=== PATIENT | male | born 1935 | race Caucasian/White ===

== ENCOUNTER → 2018-05-29 02:46 | Outpatient (CLI) | payer MEDICARE, OTHER, SELFPAY ==
[2018-05-29 10:43] LABS: Anion Gap 11.6 mmol/L (3-11); BUN 19 mg/dL (7-18); CO2 24.4 mmol/L (21.0-32.0); CREATININE 1.13 mg/dL (0.70-1.30); Calcium 8.6 mg/dL (8.5-10.1); Chloride 107 mmol/L (98-107); Cholesterol 118 mg/dL (50-200); Glucose 105 mg/dL (70-100); HDL Cholesterol 42 mg/dL (40-60); LDL CHOLESTEROL 64 mg/dL (<100); Potassium 4.6 mmol/L (3.5-5.1); Sodium 143 mmol/L (136-145); Triglyceride 79 mg/dL (30-150)
[2018-05-29 12:14] LABS: Microalb ug/mg Crea 13.7 ug/mg Cr
== END ==
PROVIDERS: PCP Internal Medicine; Visit Provider Internal Medicine
DX: I10 Essential (primary) hypertension (principal); E11.9 Type 2 diabetes mellitus without complications
CPT/HCPCS: 36415; 80048; 80061; 83721; 82043; 82570

== ENCOUNTER 2018-08-12 12:24 | Outpatient (CLI) | payer MEDICARE, OTHER, SELFPAY ==
--- NOTE | 2018-08-12 12:23 | DI.RAD_ITS ---
SYMPTOMS/DIAGNOSIS: FIERRO, SOB, R06.09 CHEST: Frontal and lateral views. Comparison 04/05/11 and 03/11/12. The heart is mildly enlarged. There does appear to be prominence of the pulmonary vascularity. There is a background of prominent interstitial markings likely reflecting chronic pulmonary fibrosis. There do appear to be increased interstitial prominence on top of the chronic changes suggesting interstitial edema. No focal consolidating infiltrate is identified. There is a small amount of fluid seen in the fissure. There is again seen a right convex scoliosis of the thoracic spine. Moderate degenerative changes are seen in the spine. IMPRESSION: Findings suspicious for a mild CHF.
[2018-08-12 13:26] LABS: HCT 47.4 % (40.0-50.0); HGB 15.5 g/dL (13.5-17.5); Mean Corp. HGB Concentration 32.7 g/dL (32.0-36.0); Mean Corpuscular Volume 91.7 fL (80-95); Mean Platelet Volume 11.3 fL (8.0-11.0); Platelet Count 196 x1000/uL (130-400); RBC 5.17 m/cumm (4.50-6.00); RBC Distribution Width 16.1 % (11.8-14.1); White Blood Cell Count 11.08 k/cumm (4.4-10.8)
== END 2018-08-12 12:44 ==
PROVIDERS: PCP Internal Medicine; Visit Provider Nurse Practitioner
DX: R06.09 Other forms of dyspnea (principal); R06.02 Shortness of breath; I50.9 Heart failure, unspecified; I51.7 Cardiomegaly
CPT/HCPCS: 36415; 85027; 71046

== ENCOUNTER 2018-09-30 13:37 | Outpatient (CLI) | payer MEDICARE, OTHER, SELFPAY ==
[2018-09-30 14:38] LABS: HCT 50.9 % (40.0-50.0); HGB 16.7 g/dL (13.5-17.5); Mean Corp. HGB Concentration 32.8 g/dL (32.0-36.0); Mean Corpuscular Hemoglobin 29.9 pg (27.0-33.0); Mean Corpuscular Volume 91.2 fL (80-95); RBC 5.58 m/cumm (4.50-6.00); RBC Distribution Width 16.2 % (11.8-14.1); White Blood Cell Count 9.42 k/cumm (4.4-10.8)
[2018-09-30 16:06] LABS: ALT 20 U/L (12-78); AST 21 U/L (15-37); Albumin 3.3 g/dL (3.4-5.0); Alkaline Phosphatase 62 U/L (46-116); Anion Gap 8.8 mmol/L (3-11); BUN 18 mg/dL (7-18); CO2 26.2 mmol/L (21.0-32.0); CREATININE 1.12 mg/dL (0.70-1.30); Calcium 9.3 mg/dL (8.5-10.1); Chloride 107 mmol/L (98-107); Glucose 93 mg/dL (70-100); Potassium 4.5 mmol/L (3.5-5.1); Sodium 142 mmol/L (136-145); TSH 1.45 uIU/mL (0.358-3.74); Vitamin B12 436 pg/mL (193-986)
[2018-10-01 12:20] LABS: Syphilis Serology (RPR) Negative (Negative)
== END 2018-09-30 13:57 ==
PROVIDERS: PCP Internal Medicine; Visit Provider Internal Medicine
DX: R41.3 Other amnesia (principal)
CPT/HCPCS: 36415; 80053; 85027; 82607; 84443; 86140; 86592

== ENCOUNTER 2018-10-06 00:25 | Outpatient (CLI) | payer MEDICARE, OTHER, SELFPAY ==
--- NOTE | 2018-10-06 13:40 | DI.MRI_ITS ---
SYMPTOMS/DIAGNOSIS: MEMORY LOSS, AMNESIA, R41.3 BRAIN MRI: MRI examination of the brain was performed according to the usual protocol. There is marked generalized cerebral atrophy and there are areas of abnormal signal in the periventricular white matter bilaterally consistent with small vessel disease. No other significant signal abnormality identified in the brain. Diffusion weighted imaging is within normal limits. Susceptibility weighted imaging shows no evidence of intracranial hemorrhage. Apparent small old tiny pontine infarct noted just to the right of midline. There is unremarkable flow void in the [place] vasculature. The orbital and temporal bone structures appear intact. CONCLUSION: Atrophy and marked microvascular ischemic changes. No other focal findings.
== END 2018-10-06 00:45 ==
PROVIDERS: PCP Internal Medicine; Visit Provider Internal Medicine
DX: R41.3 Other amnesia (principal); G31.1 Senile degeneration of brain, not elsewhere classified
CPT/HCPCS: 70551

== ENCOUNTER 2018-10-11 21:41 | Inpatient (IN) | payer MEDICARE, OTHER, SELFPAY ==
[2018-10-11] VITALS (14 sets, daily range): BP systolic 176; BP diastolic 74; PULSE 67–77; RESP 15–26; TEMP 36.6; O2SAT 84–94
--- NOTE | 2018-10-11 21:57 | DI.CT_ITS ---
SYMPTOMS/DIAGNOSIS: ALTERED MENTAL STATUS NONCONTRAST HEAD CT: Comparison is made with [id number]. No intracranial hemorrhage, mass or infarct is seen. There is no evidence of skull fracture. Atrophy and white matter changes are stable. IMPRESSION: Chronic white matter change, likely representing small vessel disease. No acute abnormality.
--- NOTE | 2018-10-11 21:57 | DI.RAD_ITS ---
SYMPTOMS/DIAGNOSIS: ALTERED MENTAL STATUS SEMIERECT CHEST: Comparison is made with [id number]. The heart is grossly enlarged. There are underlying fibrotic changes. No focal infiltrate or effusion is seen. The lungs are suboptimally inflated. Mild pulmonary edema can not be excluded. IMPRESSION: Limited exam. Question of mild pulmonary edema vs chronic fibrotic changes.
--- NOTE | 2018-10-11 21:57 | W.ED.GENAD ---
Discharge Plan Disposition Patient Disposition: [facility] INPATIENT Condition: Stable Discharge Details Chief Complaint: CVA/TIA Clinical Impression: Delirium Reason For Visit: ARIEL Primary Care Provider: Sheyla Berumen ED Provider: Sohail Chang Home Meds and New Rx's Prescriptions: No Action loperamide [Imodium A-D] 2 MG tablet 2 mg PO DAILY PRNRF: 0 hydrocortisone 30 GM cream 1 applic Topical TID PRNQty: 1 RF: 1 metformin 500 MG tablet 500 mg PO BID Qty: 180 RF: 3 warfarin 5 MG tablet 5 mg PO DAILY Qty: 90 RF: 3 nitroglycerin 0.4 MG tablet, sublingual 0.4 mg Sublingual PRN Qty: 25 RF: 6 FreeStyle Lite Strips 1 EACH strip 1 ea Miscellaneous DAILY Qty: 100 RF: 4 lancets 1 EACH misc 1 ea Miscellaneous DAILY Qty: 100 RF: 4 atorvastatin [Lipitor] 80 MG tablet 80 mg PO DAILY Qty: 90 RF: 1 propranolol 20 MG tablet 20 mg PO BID Qty: 180 RF: 3 lisinopril 20 mg tablet 20 mg PO DAILY Qty: 90 RF: 2 Medical Decision Making 83 yo male with hx of PE on coumadin, cardiovascular disease, who has had a progressive decrease in his mental status over the past month but all day today has been worse per family. HAs been doing strange things all day today that is very abnormal for him like taking things out of the freezer and wandering around the house. HE was reportedly minimally responsive earlier as well. HE currently is talking and awake, doesn't know his name, time or date. HE is accaompanied by his daughter and son in law. HE is moving all extremities without drift. EOMI. NIH of 7 on my exam (1 for dysarthria, 1 for aphasia, ataxia in both arms 2, mild left sided facial assymetry with smiling 1, and 2 for month and age). Pt's last known well was beyond today so not a lytic candidate. Will obtain ct head and also eval for electrolyte abnormalities and monitor. pt remains stable, awaiting imaging, labs show no acute abnormalities. HE does decrease into the high 80's saturation when he moves around but then goes into the mid 90's at rest. Denies chest pain xray shows pulmonary edema and he has no documented hx of chf and not on diuretics, ct head shows no acute findings. Still has slurred speech, doesn't know his name or time. Given his acute change in mental status today without clear cause will admit for further monitoring and workup Differential Diagnosis uti, electrolyte abnormality, cva Imaging Data Radiologic Study: Attestation: I personally reviewed and interpreted this imaging study as follows: Imaging: X-Ray Radiologist's impression: EXAM DATE/TIME: 10/11/2018 9:58 PM CLINICAL HISTORY: 83 years old, male; Pain; Other: Altered mental status TECHNIQUE: XR of the chest, 1 view. COMPARISON: CR XR CHEST 2V PA LATERAL 08/12/2018 12:15 PM FINDINGS: Lungs: Pulmonary vasculature is indistinct and there are interstitial markings. Pleural space: Unremarkable. No evidence of pneumothorax. Heart/Mediastinum: Unremarkable. Heart size within normal limits for technique. Bones/joints: Unremarkable. IMPRESSION: Pulmonary edema. Radiologic Study #2: Attestation: I personally reviewed and interpreted this imaging study as follows: Imaging: CT Scan Radiologist's impression: EXAM: CT Head Without Contrast EXAM DATE/TIME: 10/11/2018 9:58 PM CLINICAL HISTORY: 83 years old, male; Pain; Other: Altered mental status TECHNIQUE: Axial computed tomography images of the head/brain without contrast. Coronal and sagittal reformatted images were created and reviewed. COMPARISON: MR brain wo 10/06/2018 3:44 PM FINDINGS: Brain: Chronic white matter changes better characterized on a prior MRI. No hemorrhage. No evidence of acute infarct. No mass. Ventricles: No ventriculomegaly. Bones/joints: Unremarkable. Sinuses: No sinus fluid. Mastoid air cells: Unremarkable. Soft tissues: Unremarkable. IMPRESSION: No acute intracranial abnormality. Lab Data Lab results reviewed: Yes I reviewed the patient's lab results. ECG Data Attestation: I personally reviewed and interpreted this ECG (s) as follows: Prior ECG tracings: not available for review Interpretation: significant artifact but appears to be ventricular bigeminy, rate of 75, qtc 460 HPI General Mode of arrival: EMS. Date/Time Provider Initiated Documentation: 10/11/18 21:44. Limitations to Documentation: altered mental status. Information obtained by: family. History of Present Illness 83 year old M presents to the emergency department with the chief complaint of altered mental status, described as moderate, Patient reports no radiation. Patient started experiencing this day(s) (1) and it has been constant. No relieving factors improve symptom(s), No exacerbating factors reported . Patient did receive the following treatments prior to arrival, none Related Data Home Medications Medication Instructions Recorded Confirmed loperamide [Imodium A-D] 2 mg PO DAILY PRN 01/29/14 10/11/18 hydrocortisone 1 applic TOPICAL TID PRN #1 script 02/03/15 10/08/18 metformin 500 mg PO BID #180 tab-cap 02/14/17 10/11/18 warfarin 5 mg PO DAILY #90 tab-cap 07/16/17 10/11/18 nitroglycerin 0.4 mg SUBLINGUAL PRN #25 tab-cap 12/11/17 10/11/18 blood sugar diagnostic [Freestyle #100 strip 01/31/18 10/08/18 Lite Test Strips] lancets #100 ea 01/31/18 10/08/18 atorvastatin [Lipitor] 80 mg PO DAILY #90 tab-cap 04/22/18 10/11/18 propranolol 20 mg PO BID #180 tab-cap 04/24/18 10/11/18 lisinopril 20 mg tablet 20 mg PO DAILY #90 tab-cap 08/05/18 10/11/18 Previous Rx's Medication Instructions Recorded warfarin 5 mg PO DAILY #90 tab-cap 07/16/17 nitroglycerin 0.4 mg SUBLINGUAL PRN #25 tab-cap 12/11/17 blood sugar diagnostic [Freestyle #100 strip 01/31/18 Lite Test Strips] lancets #100 ea 01/31/18 atorvastatin [Lipitor] 80 mg PO DAILY #90 tab-cap 04/22/18 propranolol 20 mg PO BID #180 tab-cap 04/24/18 lisinopril 20 mg tablet 20 mg PO DAILY #90 tab-cap 08/05/18 Allergies Allergy/AdvReac Type Severity Reaction Status Date / Time Penicillins Allergy Unknown unknown Verified 10/08/18 17:48 General Stated Complaint: CVA/TIA ALTA: 2 Review of Systems Review of Systems Unobtainable due to mental status [facility] Medical History Obstructive sleep apnea syndrome (Chronic 11/23/11) Essential hypertension (Chronic 07/08/13) Diabetes mellitus type 2 in obese (Chronic 02/05/17) ASCVD (arteriosclerotic cardiovascular disease) (Chronic 11/23/11) Family History Mother Dementia Father Heart disease Stroke Brother Dementia Brother Myocardial infarction Sister No problems noted. 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 working smoke detector in home: Yes fire extinguisher in home: Yes carbon monox detector in home: Yes Exam Const General: no acute distress Orientation: alert HENMT Head: normal to inspection Ears: external ears normal General nose exam: external nose normal Mouth: moist mucous membranes Eyes General: appearance normal, both eyes and all related structures Neck Neck: normal visual inspection Resp Effort & Inspection: normal respiratory effort and able to speak in complete sentences Cardio Rate: regular rate Skin General skin exam: no rashes or lesions noted Neuro General: alert Extrem General: normal to inspection Psych Mental Status: mental status grossly normal Course Vital Signs Temperature 36.6 C 10/11/18 21:43 Pulse 68 10/11/18 21:43 Respiratory Rate 16 10/11/18 21:43 Blood Pressure 176/74 H 10/11/18 21:43 Pulse Oximetry 90 L 10/11/18 21:43 Temperature 36.6 C 10/11/18 21:43 Temperature Source Tympanic 10/11/18 21:43 Pulse 68 10/11/18 21:43 Respiratory Rate 16 10/11/18 21:43 Respiratory Effort 10/11/18 21:46 Blood Pressure 176/74 H 10/11/18 21:43 Blood Pressure Position Supine 10/11/18 21:43 Pulse Oximetry 90 L 10/11/18 21:43 Oxygen Delivery Method Room Air 10/11/18 21:43 Oxygen Flow Rate 0 10/11/18 21:43
--- NOTE | 2018-10-11 22:04 | ED.GENADUL_ITS ---
Discharge Plan Disposition Patient Disposition: [facility] INPATIENT Condition: Stable Discharge Details Chief Complaint: CVA/TIA Clinical Impression: Delirium Reason For Visit: ARIEL Primary Care Provider: Sheyla Berumen ED Provider: Sohail Chang Home Meds and New Rx's Prescriptions: No Action loperamide [Imodium A-D] 2 MG tablet 2 mg PO DAILY PRNRF: 0 hydrocortisone 30 GM cream 1 applic Topical TID PRNQty: 1 RF: 1 metformin 500 MG tablet 500 mg PO BID Qty: 180 RF: 3 warfarin 5 MG tablet 5 mg PO DAILY Qty: 90 RF: 3 nitroglycerin 0.4 MG tablet, sublingual 0.4 mg Sublingual PRN Qty: 25 RF: 6 FreeStyle Lite Strips 1 EACH strip 1 ea Miscellaneous DAILY Qty: 100 RF: 4 lancets 1 EACH misc 1 ea Miscellaneous DAILY Qty: 100 RF: 4 atorvastatin [Lipitor] 80 MG tablet 80 mg PO DAILY Qty: 90 RF: 1 propranolol 20 MG tablet 20 mg PO BID Qty: 180 RF: 3 lisinopril 20 mg tablet 20 mg PO DAILY Qty: 90 RF: 2 Medical Decision Making 83 yo male with hx of PE on coumadin, cardiovascular disease, who has had a progressive decrease in his mental status over the past month but all day today has been worse per family. HAs been doing strange things all day today that is very abnormal for him like taking things out of the freezer and wandering around the house. HE was reportedly minimally responsive earlier as well. HE currently is talking and awake, doesn't know his name, time or date. HE is accaompanied by his daughter and son in law. HE is moving all extremities without drift. EOMI. NIH of 7 on my exam (1 for dysarthria, 1 for aphasia, ataxia in both arms 2, mild left sided facial assymetry with smiling 1, and 2 for month and age). Pt's last known well was beyond today so not a lytic candidate. Will obtain ct head and also eval for electrolyte abnormalities and monitor. pt remains stable, awaiting imaging, labs show no acute abnormalities. HE does decrease into the high 80's saturation when he moves around but then goes into the mid 90's at rest. Denies chest pain xray shows pulmonary edema and he has no documented hx of chf and not on diuretics, ct head shows no acute findings. Still has slurred speech, doesn't know his name or time. Given his acute change in mental status today without clear cause will admit for further monitoring and workup Differential Diagnosis uti, electrolyte abnormality, cva Imaging Data Radiologic Study: Attestation: I personally reviewed and interpreted this imaging study as follows: Imaging: X-Ray Radiologist's impression: EXAM DATE/TIME: 10/11/2018 9:58 PM CLINICAL HISTORY: 83 years old, male; Pain; Other: Altered mental status TECHNIQUE: XR of the chest, 1 view. COMPARISON: CR XR CHEST 2V PA LATERAL 08/12/2018 12:15 PM FINDINGS: Lungs: Pulmonary vasculature is indistinct and there are interstitial markings. Pleural space: Unremarkable. No evidence of pneumothorax. Heart/Mediastinum: Unremarkable. Heart size within normal limits for technique. Bones/joints: Unremarkable. IMPRESSION: Pulmonary edema. Radiologic Study #2: Attestation: I personally reviewed and interpreted this imaging study as follows: Imaging: CT Scan Radiologist's impression: EXAM: CT Head Without Contrast EXAM DATE/TIME: 10/11/2018 9:58 PM CLINICAL HISTORY: 83 years old, male; Pain; Other: Altered mental status TECHNIQUE: Axial computed tomography images of the head/brain without contrast. Coronal and sagittal reformatted images were created and reviewed. COMPARISON: MR brain wo 10/06/2018 3:44 PM FINDINGS: Brain: Chronic white matter changes better characterized on a prior MRI. No hemorrhage. No evidence of acute infarct. No mass. Ventricles: No ventriculomegaly. Bones/joints: Unremarkable. Sinuses: No sinus fluid. Mastoid air cells: Unremarkable. Soft tissues: Unremarkable. IMPRESSION: No acute intracranial abnormality. Lab Data Lab results reviewed: Yes I reviewed the patient's lab results. ECG Data Attestation: I personally reviewed and interpreted this ECG (s) as follows: Prior ECG tracings: not available for review Interpretation: significant artifact but appears to be ventricular bigeminy, rate of 75, qtc 460 HPI General Mode of arrival: EMS . Date/Time Provider Initiated Documentation: 10/11/18 21:44 . Limitations to Documentation: altered mental status . Information obtained by: family . History of Present Illness 83 year old M presents to the emergency department with the chief complaint of altered mental status, described as moderate, Patient reports no radiation. Patient started experiencing this day(s) (1) and it has been constant. No relieving factors improve symptom(s), No exacerbating factors reported . Patient did receive the following treatments prior to arrival, none Related Data Home Medications Medication Instructions Recorded Confirmed loperamide [Imodium A-D] 2 mg PO DAILY PRN 01/29/14 10/11/18 hydrocortisone 1 applic TOPICAL TID PRN #1 script 02/03/15 10/08/18 metformin 500 mg PO BID #180 tab-cap 02/14/17 10/11/18 warfarin 5 mg PO DAILY #90 tab-cap 07/16/17 10/11/18 nitroglycerin 0.4 mg SUBLINGUAL PRN #25 tab-cap 12/11/17 10/11/18 blood sugar diagnostic [Freestyle #100 strip 01/31/18 10/08/18 Lite Test Strips] lancets #100 ea 01/31/18 10/08/18 atorvastatin [Lipitor] 80 mg PO DAILY #90 tab-cap 04/22/18 10/11/18 propranolol 20 mg PO BID #180 tab-cap 04/24/18 10/11/18 lisinopril 20 mg tablet 20 mg PO DAILY #90 tab-cap 08/05/18 10/11/18 Previous Rx's Medication Instructions Recorded warfarin 5 mg PO DAILY #90 tab-cap 07/16/17 nitroglycerin 0.4 mg SUBLINGUAL PRN #25 tab-cap 12/11/17 blood sugar diagnostic [Freestyle #100 strip 01/31/18 Lite Test Strips] lancets #100 ea 01/31/18 atorvastatin [Lipitor] 80 mg PO DAILY #90 tab-cap 04/22/18 propranolol 20 mg PO BID #180 tab-cap 04/24/18 lisinopril 20 mg tablet 20 mg PO DAILY #90 tab-cap 08/05/18 Allergies Allergy/AdvReac Type Severity Reaction Status Date / Time Penicillins Allergy Unknown unknown Verified 10/08/18 17:48 General Stated Complaint: CVA/TIA ALTA: 2 Review of Systems Review of Systems Unobtainable due to mental status [facility] Medical History Obstructive sleep apnea syndrome (Chronic 11/23/11) Essential hypertension (Chronic 07/08/13) Diabetes mellitus type 2 in obese (Chronic 02/05/17) ASCVD (arteriosclerotic cardiovascular disease) (Chronic 11/23/11) Family History Mother Dementia Father Heart disease Stroke Brother Dementia Brother Myocardial infarction Sister No problems noted. 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 working smoke detector in home: Yes fire extinguisher in home: Yes carbon monox detector in home: Yes Exam Const General: no acute distress Orientation: alert HENMT Head: normal to inspection Ears: external ears normal General nose exam: external nose normal Mouth: moist mucous membranes Eyes General: appearance normal, both eyes and all related structures Neck Neck: normal visual inspection Resp Effort & Inspection: normal respiratory effort and able to speak in complete sentences Cardio Rate: regular rate Skin General skin exam: no rashes or lesions noted Neuro General: alert Extrem General: normal to inspection Psych Mental Status: mental status grossly normal Course Vital Signs Temperature 36.6 C 10/11/18 21:43 Pulse 68 10/11/18 21:43 Respiratory Rate 16 10/11/18 21:43 Blood Pressure 176/74 H 10/11/18 21:43 Pulse Oximetry 90 L 10/11/18 21:43 Temperature 36.6 C 10/11/18 21:43 Temperature Source Tympanic 10/11/18 21:43 Pulse 68 10/11/18 21:43 Respiratory Rate 16 10/11/18 21:43 Respiratory Effort 10/11/18 21:46 Blood Pressure 176/74 H 10/11/18 21:43 Blood Pressure Position Supine 10/11/18 21:43 Pulse Oximetry 90 L 10/11/18 21:43 Oxygen Delivery Method Room Air 10/11/18 21:43 Oxygen Flow Rate 0 10/11/18 21:43
[2018-10-11 22:24] LABS: Abs Immature Grans 0.02 k/cumm (0.0-0.09); Absolute Basophil Count 0.04 k/cumm (0.0-0.2); Absolute Eosinophil Count 0.23 k/cumm (0.0-0.7); Absolute Lymphocyte Count 1.41 k/cumm (1.2-3.4); Absolute Monocyte Count 1.46 k/cumm (0.11-0.7); Absolute Neutrophil Count 6.93 k/cumm (1.2-6.7); Basophils % 0.4; Eosinophils % 2.3; HCT 50.5 % (40.0-50.0); HGB 16.8 g/dL (13.5-17.5); Immature Grans % 0.2; Mean Corp. HGB Concentration 33.3 g/dL (32.0-36.0); Mean Corpuscular Hemoglobin 30.1 pg (27.0-33.0); Mean Corpuscular Volume 90.3 fL (80-95); Mean Platelet Volume 11.8 fL (8.0-11.0); Monocytes % 14.5; Neutrophils % 68.6; Platelet Count 176 x1000/uL (130-400); RBC 5.59 m/cumm (4.50-6.00); RBC Distribution Width 15.9 % (11.8-14.1); White Blood Cell Count 10.09 k/cumm (4.4-10.8)
[2018-10-11 22:34] LABS: Ammonia 31 umol/L (11-32)
[2018-10-11 22:37] LABS: ALT 21 U/L (12-78); AST 21 U/L (15-37); Albumin 3.3 g/dL (3.4-5.0); Alkaline Phosphatase 66 U/L (46-116); Anion Gap 7.7 mmol/L (3-11); BUN 19 mg/dL (7-18); Bilirubin, Direct 0.37 mg/dL (0.00-0.20); Bilirubin, Total 1.5 mg/dL (0.2-1.0); CO2 26.3 mmol/L (21.0-32.0); CREATININE 0.99 mg/dL (0.70-1.30); Calcium 9.5 mg/dL (8.5-10.1); Chloride 101 mmol/L (98-107); Glucose 107 mg/dL (70-100); Lipase 311 U/L (73-393); Magnesium 1.9 mg/dL (1.8-2.4); Potassium 4.2 mmol/L (3.5-5.1); Sodium 135 mmol/L (136-145); Total Protein 7.6 g/dL (6.4-8.2); Troponin I 0.05 ng/mL (0.00-0.06)
[2018-10-11 22:44] LABS: Bilirubin Negative (Negative); Blood Moderate (Negative); Clarity Clear; Glucose Negative (Negative); Ketones 15 mg/dL (Negative); Leukocyte Esterase Negative (Negative); Nitrite Negative (Negative); pH 6.5 (5-8)
[2018-10-11 22:47] LABS: ETHANOL BLOOD < 3.0 mg/dL (<3)
[2018-10-11 22:51] LABS: Bacteria Negative HPF (Negative); C & S Indicated? No; Casts Negative LPF (Negative); Crystals Negative HPF (Negative); Epithelial Cells Negative HPF (Negative); Mucus Negative (Negative); WBC Negative HPF (0-5)
[2018-10-11 22:54] LABS: *AMPHETAMINES SCREEN URINE Negative (Negative); *BARBITURATES SCREEN URINE Negative (Negative); *BENZODIAZEPINES SCREEN URINE Negative (Negative); Cannabinoids THC Negative (Negative); Cocaine Screen,Urine Negative (Negative); METHADONE URINE SCREEN Negative (Negative); OPIATES URINE SCREEN Negative (Negative)
[2018-10-11 22:59] LABS: Tricyclic Antidepressants Negative (Negative)
[2018-10-11 23:02] LABS: Acetaminophen < 2 ug/mL (10-30); Salicylate < 2.8 mg/dL (2.8-20.0)
[2018-10-11 23:14] LABS: INR 2.6 (1.0-3.5); PTT Activated 34.1 sec (21.0-31.4); Prothrombin Time 26.2 sec (9.3-11.0)
--- NOTE | 2018-10-11 23:59 | DI.VRAD_ITS ---
EXAM: CT Head Without Contrast EXAM DATE/TIME: 10/11/2018 9:58 PM CLINICAL HISTORY: 83 years old, male; Pain; Other: Altered mental status TECHNIQUE: Axial computed tomography images of the head/brain without contrast. Coronal and sagittal reformatted images were created and reviewed. COMPARISON: MR brain wo 10/06/2018 3:44 PM FINDINGS: Brain: Chronic white matter changes better characterized on a prior MRI. No hemorrhage. No evidence of acute infarct. No mass. Ventricles: No ventriculomegaly. Bones/joints: Unremarkable. Sinuses: No sinus fluid. Mastoid air cells: Unremarkable. Soft tissues: Unremarkable. IMPRESSION: No acute intracranial abnormality. Dictated and Authenticated by: Gentry Nesbitt MD. Ordering:OMID Sauceda MD
[2018-10-12] VITALS (57 sets, daily range): BP systolic 117–190; BP diastolic 52–104; PULSE 68–88; RESP 14–32; TEMP 36.5–37.3; O2SAT 83–97
--- NOTE | 2018-10-12 | DI.VRAD_ITS ---
EXAM: XR Chest, 1 View EXAM DATE/TIME: 10/11/2018 9:58 PM CLINICAL HISTORY: 83 years old, male; Pain; Other: Altered mental status TECHNIQUE: XR of the chest, 1 view. COMPARISON: CR XR CHEST 2V PA LATERAL 08/12/2018 12:15 PM FINDINGS: Lungs: Pulmonary vasculature is indistinct and there are interstitial markings. Pleural space: Unremarkable. No evidence of pneumothorax. Heart/Mediastinum: Unremarkable. Heart size within normal limits for technique. Bones/joints: Unremarkable. IMPRESSION: Pulmonary edema. Dictated and Authenticated by: Gentry Nesbitt MD. Ordering:OMID Sauceda MD
[2018-10-12] MEDS: Furosemide 20 MG/2 ML VIAL IVP ×3 (00:36→16:46)
[2018-10-12] MEDS: Aspirin 325 MG TAB PO (00:42)
--- NOTE | 2018-10-12 01:18 | NUR.NOTE ---
Nursing Note: episode of vomiting and bowel incontinence x 1. Light suctioning done, pt tolerated well. Incontinence care given, new brief applied. Linens changed.
--- NOTE | 2018-10-12 01:20 | HPE_ITS ---
Date of service: 10/12/18 Time of Service: 01:08 Assessment and Plan (1) Dementia: Start date: 10/11/18 Current visit: Yes Status: Acute This is an 83-year-old gentleman who has had a rapid deterioration of his mental status over the last month worsening today. His dementia workup is ongoing and is unspecified type presently but thought to be either Lewy body dementia versus vascular dementia and possibly Alzheimer's type dementia of late onset but his family history. He has had palliative care consult recently and is a DNR DNI. Is worsening today with delusions may be secondary to new onset of what appears to be pulmonary edema with suggestion of CHF on chest x-ray in July 2018 though there was also some concern for pulmonary fibrosis. Patient does have a history of obstructive sleep apnea. He is in no acute respiratory distress on exam today. His agitation is increasing and we will treat this acutely while doing further workup for treatable causes of his acute mental status deterioration. He does not appear to be severely hypoxic and CT scan was unrevealing. Qualifiers: Dementia type: unspecified type Dementia behavioral disturbance: with behavioral disturbance Qualified Code(s): F03.91 - Unspecified dementia with behavioral disturbance (2) Pulmonary edema: Start date: 10/11/18 Current visit: Yes Status: Acute The possible progressive problem and we will treat with IV diuretics the patient's blood pressure also been slightly elevated with his agitation. Echocardiogram will be ordered for update and his troponins will be trended with his history of atherosclerotic coronary artery disease though is having no evidence of acute cardiac ischemia. Qualifiers: Chronicity: acute Qualified Code(s): J81.0 - Acute pulmonary edema (3) ASCVD (arteriosclerotic cardiovascular disease): Start date: 10/11/18 Current visit: No Status: Chronic Trend troponins and monitor on telemetry while treating his acute CHF and agitation. He is a DNR/DNI with his mental status changes any acute deterioration of his health, medical therapy with avoidance of aggressive cardiac intervention is probably warranted. Echocardiogram will be updated as discussed with his CHF. He will continue on Coumadin for his previous pulmonary emboli and presently his cardiac rhythm appears irregular when he was agitated. He has no history of atrial fibrillation or dysrhythmias. History of Present Illness Narrative: This is an 83-year-old gentleman with a history of cardiovascular disease on nitroglycerin sublingually as needed and cardiac meds with maximum statin dose who presents with altered mental status and question of TIA or stroke. His symptoms are more that of delusions with acute change most likely secondary to hypoxemia with acute CHF with no previous history of CHF though thi s was suggested on chest x-ray in July 2018. He has had a previous pulmonary embolus and is on Coumadin therapy. This is therapeutic. His CT scan was unrevealing and comparison of previous MRI he has chronic white matter changes. He recent was seen evaluation for palliative care and is a DNR/DNI. He is thought to have progressive dementia possibly DLB but also with his cardiovascular history the this could be chronic vascular dementia and also with a family history could have late onset Alzheimer's dementia. 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 He was brought to the ED today accompanied by his daughter and son and son-in-law. On the day prior to admission he worsened doing strange things all day wandering in the house and going to the freezer to get something and forgetting why he was doing this action. He also was minimally responsive to the family earlier the day of admission. He was not having any obvious respiratory complaints and no reported increased weight or increased edema recently. When I saw the patient in the ED he was more restless and confused according to the nurse and had just had a small amount of emesis after taking aspirin and a loose bowel movement. He seemed to be restless as if you want to be out of bed to go the bathroom. Haldol and Ativan were ordered. Further history and review of systems are gathered from the chart with the patient confused and the family not present at the time of my exam. Review of Systems Review of Systems Unobtainable due to mental status (Otherwise as per HPI and as given by family.) [facility] Medical History Obstructive sleep apnea syndrome (Chronic 11/23/11) Essential hypertension (Chronic 07/08/13) Diabetes mellitus type 2 in obese (Chronic 02/05/17) ASCVD (arteriosclerotic cardiovascular disease) (Chronic 11/23/11) Family History Mother Dementia Father Heart disease Stroke Brother Dementia Brother Myocardial infarction Sister No problems noted. 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 working smoke detector in home: Yes fire extinguisher in home: Yes carbon monox detector in home: Yes Meds Home Medications Medication Instructions Recorded Confirmed Type loperamide [Imodium A-D] 2 mg PO DAILY PRN 01/29/14 10/11/18 History hydrocortisone 1 applic TOPICAL TID PRN #1 script 02/03/15 10/08/18 History metformin 500 mg PO BID #180 tab-cap 02/14/17 10/11/18 History warfarin 5 mg PO DAILY #90 tab-cap 07/16/17 10/11/18 Rx nitroglycerin 0.4 mg SUBLINGUAL PRN #25 tab-cap 12/11/17 10/11/18 Rx blood sugar diagnostic [Freestyle #100 strip 01/31/18 10/08/18 Rx Lite Test Strips] lancets #100 ea 01/31/18 10/08/18 Rx atorvastatin [Lipitor] 80 mg PO DAILY #90 tab-cap 04/22/18 10/11/18 Rx propranolol 20 mg PO BID #180 tab-cap 04/24/18 10/11/18 Rx lisinopril 20 mg tablet 20 mg PO DAILY #90 tab-cap 08/05/18 10/11/18 Rx Allergies Allergy/AdvReac Type Severity Reaction Status Date / Time Penicillins Allergy Unknown unknown Verified 10/08/18 17:48 Exam Narrative Exam Narrative: General: Patient appears appropriate for age but is anxious, restless and not oriented to person place or time. He is in moderate distress from his mental status changes. He is breathing more rapid at the time I saw him having just had a bout of emesis and loose stool. His current monitor did appear to be irregular rhythm with narrow complexes with a poor baseline secondary to patient's agitation. HEENT: Normocephalic with patient balding, eyes with pupils equal and reactive to light symmetrically, extraocular movement intact and sclera anicteric. Oropharynx clear with pink moist mucosa. Neck: Supple without JVD. Lungs: Bronchial breath sounds over the right compared to left with fair aeration and no focalizing rales or rhonchi. Heart: Tachycardic the patient agitated and slightly irregular, no murmurs gallops appreciated. Back: Stooped posture with no CVA tenderness. Abdomen: Obese, soft and nontender to palpation with no palpable hepatomegaly. /rectal: Deferred. Extremities: Moderate nonpitting edema both lower extremities with negative Homans sign but chronic skin changes with loss of hair, shiny atrophic skin but no ulcerations. Slight pigmentation of the skin over the lower extremities around the ankles. No cyanosis and no clubbing. Skin: Pale, warm and dry with no rashes noted but chronic skin changes of the lo wer extremities. Neuro: Patient not oriented to person place or time, no focalizing motor deficits, no tremors. No Babinski's. Reflexes appear to be intact and symmetrical. Psych: Flattened affect with reported delusions presently confused not been oriented to person place or time. Loss of short-term memory and long-term memory with the patient's acute mental status changes. He is restless and agitated, more so as he was in the emergency room. He was somewhat combative with the nurse. Results Labs : 10/11/18 22:10 10/11/18 22:10 Laboratory Results - last 24 hr 10/11/18 10/11/18 10/11/18 22:10 22:10 22:10 WBC RBC Hgb Hct MCV MCH MCHC RDW Plt Count MPV Immature Gran % Neutrophils % Lymphocytes % Monocytes % Eosinophils % Basophils % Absolute Neutrophils Absolute Lymphocytes Absolute Monocytes Absolute Eosinophils Absolute Basophils PT INR APTT Sodium 135 L Potassium 4.2 Chloride 101 Carbon Dioxide 26.3 Anion Gap 7.7 BUN 19 H Creatinine 0.99 Estimated GFR/1.73 m2 >= 60.00 Glucose 107 H Calcium 9.5 Magnesium 1.9 Total Bilirubin 1.5 H Conjugated Bilirubin 0.37 H AST 21 ALT 21 Alkaline Phosphatase 66 Ammonia 31 Troponin I 0.05 Total Protein 7.6 Albumin 3.3 L Lipase 311 Urine Color Urine Clarity Urine pH Ur Specific [place] Urine Protein Urine Ketones Urine Blood Urine Nitrite Urine Bilirubin Urine Urobilinogen Ur Leukocyte Esterase Urine RBC Urine WBC Ur Epithelial Cells Urine Crystals Urine Bacteria Urine Casts Urine Mucus Ur Culture Indicated? Urine Glucose Salicylates < 2.8 L Urine Opiates Screen Urine Methadone Screen Acetaminophen < 2 L Ur Barbiturates Screen Ur Tricyclics Screen Ur Amphetamines Screen U Benzodiazepines Scrn Urine Cocaine Screen Ur THC Screen Ethyl Alcohol < 3.0 10/11/18 10/11/18 10/11/18 22:10 22:10 22:20 WBC 10.09 RBC 5.59 Hgb 16.8 Hct 50.5 H MCV 90.3 MCH 30.1 MCHC 33.3 RDW 15.9 H Plt Count 176 MPV 11.8 H Immature Gran % 0.2 Neutrophils % 68.6 Lymphocytes % 14.0 Monocytes % 14.5 Eosinophils % 2.3 Basophils % 0.4 Absolute Neutrophils 6.93 H Absolute Lymphocytes 1.41 Absolute Monocytes 1.46 H Absolute Eosinophils 0.23 Absolute Basophils 0.04 PT 26.2 H INR 2.6 APTT 34.1 H Sodium Potassium Chloride Carbon Dioxide Anion Gap BUN Creatinine Estimated GFR/1.73 m2 Glucose Calcium Magnesium Total Bilirubin Conjugated Bilirubin AST ALT Alkaline Phosphatase Ammonia Troponin I Total Protein Albumin Lipase Urine Color Yellow Urine Clarity Clear Urine pH 6.5 Ur Specific [place] 1.020 Urine Protein 30 H Urine Ketones 15 H Urine Blood Moderate H Urine Nitrite Negative Urine Bilirubin Negative Urine Urobilinogen 1.0 H Ur Leukocyte Esterase Negative Urine RBC 10-20 H Urine WBC Negative Ur Epithelial Cells Negative Urine Crystals Negative Urine Bacteria Negative Urine Casts Negative Urine Mucus Negative Ur Culture Indicated? No Urine Glucose Negative Salicylates Urine Opiates Screen Urine Methadone Screen Acetaminophen Ur Barbiturates Screen Ur Tricyclics Screen Ur Amphetamines Screen U Benzodiazepines Scrn Urine Cocaine Screen Ur THC Screen Ethyl Alcohol 10/11/18 22:20 WBC RBC Hgb Hct MCV MCH MCHC RDW Plt Count MPV Immature Gran % Neutrophils % Lymphocytes % Monocytes % Eosinophils % Basophils % Absolute Neutrophils Absolute Lymphocytes Absolute Monocytes Absolute Eosinophils Absolute Basophils PT INR APTT Sodium Potassium Chloride Carbon Dioxide Anion Gap BUN Creatinine Estimated GFR/1.73 m2 Glucose Calcium Magnesium Total Bilirubin Conjugated Bilirubin AST ALT Alkaline Phosphatase Ammonia Troponin I Total Protein Albumin Lipase Urine Color Urine Clarity Urine pH Ur Specific [place] Urine Protein Urine Ketones Urine Blood Urine Nitrite Urine Bilirubin Urine Urobilinogen Ur Leukocyte Esterase Urine RBC Urine WBC Ur Epithelial Cells Urine Crystals Urine Bacteria Urine Casts Urine Mucus Ur Culture Indicated? Urine Glucose Salicylates Urine Opiates Screen Negative Urine Methadone Screen Negative Acetaminophen Ur Barbiturates Screen Negative Ur Tricyclics Screen Negative Ur Amphetamines Screen Negative U Benzodiazepines Scrn Negative Urine Cocaine Screen Negative Ur THC Screen Negative Ethyl Alcohol Last Vital Signs Temp 36.6 C 10/11/18 21:43 Pulse 68 10/11/18 21:43 Resp 16 10/11/18 23:20 BP 176/74 H 10/11/18 21:43 Pulse Ox 93 L 10/11/18 23:00
[2018-10-12] MEDS: LORazepam 0.5 MG TAB PO (04:11)
[2018-10-12] MEDS: Haloperidol 5 MG/ML VIAL 2 MG IM/IV (04:15)
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
[2018-10-12 05:49] LABS: ALT 22 U/L (12-78); AST 23 U/L (15-37); Albumin 3.3 g/dL (3.4-5.0); Alkaline Phosphatase 64 U/L (46-116); Anion Gap 9.5 mmol/L (3-11); BUN 19 mg/dL (7-18); Bilirubin, Total 1.7 mg/dL (0.2-1.0); CO2 25.5 mmol/L (21.0-32.0); CREATININE 0.98 mg/dL (0.70-1.30); Calcium 9.3 mg/dL (8.5-10.1); Chloride 101 mmol/L (98-107); Glucose 132 mg/dL (70-100); Potassium 3.8 mmol/L (3.5-5.1); Sodium 136 mmol/L (136-145); Total Protein 7.6 g/dL (6.4-8.2)
[2018-10-12 05:54] LABS: INR 2.7 (1.0-3.5)
[2018-10-12 05:57] LABS: TSH (W/Ref FT4) 0.62 uIU/mL (0.358-3.74); Troponin I 0.04 ng/mL (0.00-0.06)
--- NOTE | 2018-10-12 07:07 | PDOC.CMIN ---
- If Service Date Differs Date of service: 10/12/18 Time of Service: 07:07 Care Management Initial Assess REASON FOR HOSPITALIZATION:: AMS with delusions, new onset CHF. PAST MEDICAL HISTORY/PAST SURGICAL HISTORY:: ASCVD, diabetes type II, obesity, essential hypertension, obstructive sleep apnea, dementia, pulmonary edema, seborrheic keratosis, atopic dermatitis, hx. pneumothorax, infarction of lung, BPH, hyperlipidemia, diffuse interstitial pulmonary fibrosis, cor athrscl-uns vessel, cellulitis of face, benign paroxysmal vertigo, benign neoplasm lung, [place] x2. 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 He has had a recent Palliative Consult with Dr. Muro (10/02) and she was to f/u in two weeks. He needs assistance with his ADLs and has begun mixing up his medications, per Dr. Muro. Dr. Muro and family have asked him to not drive. He is homebound. Walker and Jessica have two daughters, one of whom, Carol, lives locally with her , Bryn and are supportive. CURRENT FUNCTIONAL STATUS:: Francis was sitting in bed when visited this morning. Dr. Muro, Francis's daughter, Carol and son in law, Bryn, are visiting as well. Dr. Muro has been following Francis's , Jessica, on Palliative Care for several years and has recently had a consult with Francis on 10/02. Per Dr. Muro, Francis had proven a competent caregiver for Jessica and was independent with his ADLs until late July of this year. There were no apparent signs of cognitive decline up until that point. Per Dr. Muro, Francis's PCP, Sheyla Berumen, is aware of said decline and ordered labs and a brain MRI for 10/06. At Dr. Muro's meeting with Francis on 10/02, she told his he should not drive based on an abnormal neuro exam. Per daughter, Carol, as told to Dr. Muro, Francis has declined to the point of garbled speech, looking like a 'deer in headlights', and could not follow commands. Francis reportedly told his (uncharacteristically) that he loved her and always would. He additionally told the EPIC ANALYST this morning (after a difficult night with agressive behaviors) that he was dying. Per MD, there is no good explanation for Francis's rapid decline. Francis is unable to answer questions regarding date, time, place, though his family reports that he is a bit clearer today in comparison with yesterday evening. Francis, when asked, says he wants to go home and family is agreeble. They are working on family and caregiver coverage with a first choice of going home on hospice. Second choice would be SNF placement. Francis has a neurology consult ordered and his family is bringing his CPAP from home. Francis's , Jessica, is due to visit later in the day and Francis has been asking about her. ADVANCE DIRECTIVES:: On file at [facility] ([id number]). DPOA: Jessica Nur. Has patient been provided with information about the portal?: Yes Did the patient sign up for the portal?: No CODE STATUS:: DNR/DNI INSURANCE COVERAGE / FINANCIAL ISSUES:: Medicare, for Life MCR AB. CURRENT HOME/COMMUNITY SERVICES/EQUIPMENT:: Recently ordered home health services: [employer] [facility], PT/OT. PRIMARY CARE PHYSICIAN:: Sheyla Berumen. POTENTIAL DISCHARGE NEEDS:: Follow up appointment with PCP. PATIENT/FAMILY EDUCATION NEEDS:: Discharge education, any limitations, and follow up plan of care. Ask Me Three discussion. ANTICIPATED BARRIERS TO DISCHARGE:: No anticipated barriers to discharge. PLAN:: Frank will discharge home on hospice vs. SNF when medically ready per MD. Anticipate patient will discharge with no services (other than hospice care) and follow up with his PCP. CM will continue to offer support to patient and care team regarding discharge planning and disposition.
--- NOTE | 2018-10-12 07:27 | INITIAL_ITS ---
- If Service Date Differs Date of service: 10/12/18 Time of Service: 07:07 Care Management Initial Assess REASON FOR HOSPITALIZATION:: AMS with delusions, new onset CHF. PAST MEDICAL HISTORY/PAST SURGICAL HISTORY:: ASCVD, diabetes type II, obesity, essential hypertension, obstructive sleep apnea, dementia, pulmonary edema, seborrheic keratosis, atopic dermatitis, hx. pneumothorax, infarction of lung, BPH, hyperlipidemia, diffuse interstitial pulmonary fibrosis, cor athrscl-uns vessel, cellulitis of face, benign paroxysmal vertigo, benign neoplasm lung, [place] x2. 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 He has had a recent Palliative Consult with Dr. Muro (10/02) and she was to f/u in two weeks. He needs assistance with his ADLs and has begun mixing up his medications, per Dr. Muro. Dr. Muro and family have asked him to not drive. He is homebound. Walker and Jessica have two daughters, one of whom, Carol, lives locally with her , Bryn and are supportive. CURRENT FUNCTIONAL STATUS:: Francis was sitting in bed when visited this morning. Dr. Muro, Francis's daughter, Carol and son in law, Bryn, are visiting as well. Dr. Muro has been following Francis's , Jessica, on Palliative Care for several years and has recently had a consult with Francis on 10/02. Per Dr. Muro, Francis had proven a competent caregiver for Jessica and was independent with his ADLs until late July of this year. There were no apparent signs of cognitive decline up until that point. Per Dr. Muro, Francis's PCP, Sheyla Berumen, is aware of said decline and ordered labs and a brain MRI for 10/06. At Dr. Muro's meeting with Francis on 10/02, she told his he should not drive based on an abnormal neuro exam. Per daughter, Carol, as told to Dr. Muro, Francis has declined to the point of garbled speech, looking like a 'deer in headlights', and could not follow commands. Francis reportedly told his (uncharacteristically) that he loved her and always would. He additionally told the OYSTER OPENER this morning (after a difficult night with agressive behaviors) that he was dying. Per MD, there is no good explanation for Francis's rapid decline. Francis is unable to answer questions regarding date, time, place, though his family reports that he is a bit clearer today in comparison with yesterday evening. Francis, when asked, says he wants to go home and family is agreeble. They are working on family and caregiver coverage with a first choice of going home on hospice. Second choice would be SNF placement. Francis has a neurology consult ordered and his family is bringing his CPAP from home. Francis's , Jessica, is due to visit later in the day and Francis has been asking about her. ADVANCE DIRECTIVES:: On file at [facility] ([id number]). DPOA: Jessica Nur. Has patient been provided with information about the portal?: Yes Did the patient sign up for the portal?: No CODE STATUS:: DNR/DNI INSURANCE COVERAGE / FINANCIAL ISSUES:: Medicare, for Life MCR AB. CURRENT HOME/COMMUNITY SERVICES/EQUIPMENT:: Recently ordered home health services: [employer], PT/OT. PRIMARY CARE PHYSICIAN:: Sheyla Berumen. POTENTIAL DISCHARGE NEEDS:: Follow up appointment with PCP. PATIENT/FAMILY EDUCATION NEEDS:: Discharge education, any limitations, and follow up plan of care. Ask Me Three discussion. ANTICIPATED BARRIERS TO DISCHARGE:: No anticipated barriers to discharge. PLAN:: Frank will discharge home on hospice vs. SNF when medically ready per MD. Anticipate patient will discharge with no services (other than hospice care) and follow up with his PCP. CM will continue to offer support to patient and care team regarding discharge planning and disposition.
[2018-10-12] MEDS: Magnesium Oxide 400 MG TAB PO (08:48)
[2018-10-12] MEDS: Potassium Chloride 20 MEQ TABCR PO (08:48)
[2018-10-12] MEDS: Propranolol 20 MG TAB PO ×2 (08:48→19:02)
[2018-10-12] MEDS: Lisinopril 20 MG TAB PO (08:48)
--- NOTE | 2018-10-12 11:19 | PCNE_ITS ---
Date of service: 10/12/18 Time of Service: 10:03 History of Present Illness Chief Complaint: change in mental status; delirium on dementia Narrative: I've been caring for Francis's on [facility] for several years. 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 His family agrees. His PCP, Dr Berumen, is also aware of Francis's cognitive decline and has ordered labs and a brain MRI done on 10/06/18. There is no obvious cause for his decline. I saw him at home on 10/02. At that time, I told him not to drive based on his abnormal neurological exam. Yesterday, his daughter Carol called me to let me know her father had declined to the point where he was speaking only garbled words. He could not understand how to follow commands. He wasn't eating. He has told his --uncharacteristically--how much he has loved her and what a good life he has had with her. He told his nurse this morning that he is dying. We the medical providers caring for him do not have a good explanation for his rapid decline. He has always been clear that he doesn't want a lot of aggressive intervention for himself. He told me in August that he feels 83 years is a good long life, long enough. His family reports he is a bit clearer today than he was last night. He is still confused. He doesn't look to be in any pain. He has not had anysustained bradycardia. He has had desats down to the 80s when asleep but at home he u sually wears BiPAP (per sleep report). He had 95% compliance last year. Now he is still too confused to use it; he hasn't been using it for about a week or so. His head CT was negative last night. His labs are close to normal. Dr. Park, hospitalist, will put in a referral to Dr. Moreira, neurologist, to see if she can evaluate him while he is here. He wants to go home. His daughter and son-in-law, Bryn, are working on trying to get 24/7 coverage for him at home. He would want to go home with maximal services. Assessment and Plan (1) Dementia: Current visit: Yes Status: Chronic Combination of vascular, possible DLB, possible AD though rate of decline atypical for AD. Much faster. B-[address] moreira to be consulted. MRI done and showed cerebral atrophy. Qualifiers: Dementia type: unspecified type Alzheimer's disease onset: Dementia behavioral disturbance: with behavioral disturbance Qualified Code(s): F03.91 - Unspecified dementia with behavioral disturbance (2) Obstructive sleep apnea syndrome: Current visit: No Status: Chronic Family bringing in his CPAP/BiPAP device. RT aware and will set it up for Francis. (3) Delirium: Current visit: Yes Status: Acute Recent studies show acute management of delirium overlying dementia is not very useful. No metabolic changes that can be corrected have been discovered yet. Will treat with non-pharm interventions for now. Dr. Moreira to see this week if her schedule allows. (4) Counseling regarding advance directives and goals of care: Current visit: Yes Status: Acute Francis is clear that he wants to go home. Jessica is ill with metastatic cancer. Daughter will try to get help into the home. They are interested in hospice. Francis thinks he is dying. We do not have a clear diagnosis for the cause of his rapid decline. Dr. Park will order an abdominal/chest/pelvis CT scan for tomorrow. Francis looks jaundiced today, though bili was not significantly elevated. He is DNR/DNI. He is talking about dying with his family and nurses here. Review of Systems Review of Systems Please see my PC note from 10/02/18. He is losing weight. He looks yellow/jaundiced. He is confused. He denies any muscle or joint pain. He has no rashes. His appetite is poor. He is eating minimally at home. He is talking about dying. He is not anxious about it. He has hematuria currently but this is thought to be due to a traumatic vega placement last night. He has had some periods of agitation here, which is totally out of character. [facility] Medical History Delirium (Acute) Dementia (Chronic) Obstructive sleep apnea syndrome (Chronic 11/23/11) Essential hypertension (Chronic 07/08/13) Diabetes mellitus type 2 in obese (Chronic 02/05/17) ASCVD (arteriosclerotic cardiovascular disease) (Chronic 11/23/11) Delirium (Acute) Jaundice (Acute) Unintentional weight loss (Acute) Family History Mother Dementia Father Heart disease Stroke Brother Dementia Brother Myocardial infarction Sister No problems noted. Social History caregiver/support person: Yes household members: spouse housing: house lives independently: Yes number of children: 2 number of grandchildren: 3 senior care: No current occupational status: retired pets and animals: No leisure activities: hunting diet: diabetic well-balanced diet: daily or most days eating out: rarely or never reads food labels: seldom or never during the past year weight has: decreased > 10 lbs Smoking/Tobacco Use Status: Former Tobacco Use alcohol intake: never substance use type: does not use seatbelt use: always drive intox or ride w/ intox hi lo driver: No working smoke detector in home: Yes fire extinguisher in home: Yes carbon monox detector in home: Yes Exam Const General: cooperative, no acute distress, disheveled, frail appearing and ill appearing Nutritional Appearance: overweight Orientation: alert, oriented to person and oriented to place Limitations: altered mental status HENMT Head: normocephalic and atraumatic Ears: hearing grossly impaired General nose exam: external nose normal Face and sinus: dry mucous membranes Eyes Conjunctivae: conjunctival abnormality Sclera: scleral abnormality (slight icterus) bilaterally Pupils: PERRL Neck Neck: no lymphadenopathy and no JVD Resp Effort & Inspection: normal respiratory effort and able to speak in complete sentences (though gibberish) Auscultation: clear to auscultation bilaterally and diminished lung sounds Cardio Jugular venous pressure: no JVD Rate: regular rate Rhythm: abnormal rhythm (bigeminy) regularly irregular Heart Sounds: S1 normal and S2 normal GI Inspection: normal to inspection Palpation: soft Auscultation: normal bowel sounds Male General Exam: Yes normal external exam and Yes other (hematuria) Skin General skin exam: jaundice Rashes: no rashes Wounds: no wounds Hair: male pattern alopecia Neuro General: alert and moves all extremities Cognition: abnormal cognition Speech: abnormal speech garbled Sensory Exam: no sensory deficits noted Extrem General: edema Right upper extremity: normal to inspection Psych Appearance: grossly normal and disheveled Mood: congruent mood Affect: normal affect Attitude: cooperative Thought Process: impoverished Thought Content: hallucinations Insight: poor Judgment: poor Results Last Vital Signs Temp 97.7 F 10/12/18 02:10 Pulse 82 10/12/18 10:43 Resp 21 10/12/18 10:43 BP 133/83 10/12/18 10:43 Pulse Ox 94 L 10/12/18 10:20 Labs : 10/11/18 22:10 10/12/18 05:25 Laboratory Results - last 24 hr 10/11/18 10/11/18 10/11/18 22:10 22:10 22:10 WBC RBC Hgb Hct MCV MCH MCHC RDW Plt Count MPV Immature Gran % Neutrophils % Lymphocytes % Monocytes % Eosinophils % Basophils % Absolute Neutrophils Absolute Lymphocytes Absolute Monocytes Absolute Eosinophils Absolute Basophils PT INR APTT Sodium 135 L Potassium 4.2 Chloride 101 Carbon Dioxide 26.3 Anion Gap 7.7 BUN 19 H Creatinine 0.99 Estimated GFR/1.73 m2 >= 60.00 Glucose 107 H Calcium 9.5 Magnesium 1.9 Total Bilirubin 1.5 H Conjugated Bilirubin 0.37 H AST 21 ALT 21 Alkaline Phosphatase 66 Ammonia 31 Troponin I 0.05 Total Protein 7.6 Albumin 3.3 L Lipase 311 TSH Urine Color Urine Clarity Urine pH Ur Specific [place] Urine Protein Urine Ketones Urine Blood Urine Nitrite Urine Bilirubin Urine Urobilinogen Ur Leukocyte Esterase Urine RBC Urine WBC Ur Epithelial Cells Urine Crystals Urine Bacteria Urine Casts Urine Mucus Ur Culture Indicated? Urine Glucose Salicylates < 2.8 L Urine Opiates Screen Urine Methadone Screen Acetaminophen < 2 L Ur Barbiturates Screen Ur Tricyclics Screen Ur Amphetamines Screen U Benzodiazepines Scrn Urine Cocaine Screen Ur THC Screen Ethyl Alcohol < 3.0 10/11/18 10/11/18 10/11/18 22:10 22:10 22:20 WBC 10.09 RBC 5.59 Hgb 16.8 Hct 50.5 H MCV 90.3 MCH 30.1 MCHC 33.3 RDW 15.9 H Plt Count 176 MPV 11.8 H Immature Gran % 0.2 Neutrophils % 68.6 Lymphocytes % 14.0 Monocytes % 14.5 Eosinophils % 2.3 Basophils % 0.4 Absolute Neutrophils 6.93 H Absolute Lymphocytes 1.41 Absolute Monocytes 1.46 H Absolute Eosinophils 0.23 Absolute Basophils 0.04 PT 26.2 H INR 2.6 APTT 34.1 H Sodium Potassium Chloride Carbon Dioxide Anion Gap BUN Creatinine Estimated GFR/1.73 m2 Glucose Calcium Magnesium Total Bilirubin Conjugated Bilirubin AST ALT Alkaline Phosphatase Ammonia Troponin I Total Protein Albumin Lipase TSH Urine Color Yellow Urine Clarity Clear Urine pH 6.5 Ur Specific [place] 1.020 Urine Protein 30 H Urine Ketones 15 H Urine Blood Moderate H Urine Nitrite Negative Urine Bilirubin Negative Urine Urobilinogen 1.0 H Ur Leukocyte Esterase Negative Urine RBC 10-20 H Urine WBC Negative Ur Epithelial Cells Negative Urine Crystals Negative Urine Bacteria Negative Urine Casts Negative Urine Mucus Negative Ur Culture Indicated? No Urine Glucose Negative Salicylates Urine Opiates Screen Urine Methadone Screen Acetaminophen Ur Barbiturates Screen Ur Tricyclics Screen Ur Amphetamines Screen U Benzodiazepines Scrn Urine Cocaine Screen Ur THC Screen Ethyl Alcohol 10/11/18 10/12/18 10/12/18 22:20 05:15 05:25 WBC RBC Hgb Hct MCV MCH MCHC RDW Plt Count MPV Immature Gran % Neutrophils % Lymphocytes % Monocytes % Eosinophils % Basophils % Absolute Neutrophils Absolute Lymphocytes Absolute Monocytes Absolute Eosinophils Absolute Basophils PT INR APTT Sodium Potassium Chloride Carbon Dioxide Anion Gap BUN Creatinine Estimated GFR/1.73 m2 Glucose Calcium Magnesium Total Bilirubin Conjugated Bilirubin AST ALT Alkaline Phosphatase Ammonia Troponin I Cancelled 0.04 Total Protein Albumin Lipase TSH 0.62 Urine Color Urine Clarity Urine pH Ur Specific [place] Urine Protein Urine Ketones Urine Blood Urine Nitrite Urine Bilirubin Urine Urobilinogen Ur Leukocyte Esterase Urine RBC Urine WBC Ur Epithelial Cells Urine Crystals Urine Bacteria Urine Casts Urine Mucus Ur Culture Indicated? Urine Glucose Salicylates Urine Opiates Screen Negative Urine Methadone Screen Negative Acetaminophen Ur Barbiturates Screen Negative Ur Tricyclics Screen Negative Ur Amphetamines Screen Negative U Benzodiazepines Scrn Negative Urine Cocaine Screen Negative Ur THC Screen Negative Ethyl Alcohol 10/12/18 10/12/18 05:25 05:25 WBC RBC Hgb Hct MCV MCH MCHC RDW Plt Count MPV Immature Gran % Neutrophils % Lymphocytes % Monocytes % Eosinophils % Basophils % Absolute Neutrophils Absolute Lymphocytes Absolute Monocytes Absolute Eosinophils Absolute Basophils PT 27.0 H INR 2.7 APTT Sodium 136 Potassium 3.8 Chloride 101 Carbon Dioxide 25.5 Anion Gap 9.5 BUN 19 H Creatinine 0.98 Estimated GFR/1.73 m2 >= 60.00 Glucose 132 H Calcium 9.3 Magnesium Total Bilirubin 1.7 H Conjugated Bilirubin AST 23 ALT 22 Alkaline Phosphatase 64 Ammonia Troponin I Total Protein 7.6 Albumin 3.3 L Lipase TSH Urine Color Urine Clarity Urine pH Ur Specific [place] Urine Protein Urine Ketones Urine Blood Urine Nitrite Urine Bilirubin Urine Urobilinogen Ur Leukocyte Esterase Urine RBC Urine WBC Ur Epithelial Cells Urine Crystals Urine Bacteria Urine Casts Urine Mucus Ur Culture Indicated? Urine Glucose Salicylates Urine Opiates Screen Urine Methadone Screen Acetaminophen Ur Barbiturates Screen Ur Tricyclics Screen Ur Amphetamines Screen U Benzodiazepines Scrn Urine Cocaine Screen Ur THC Screen Ethyl Alcohol
[2018-10-12] MEDS: Insulin Aspart 300 UNITS/3 ML PEN SC (12:09)
--- NOTE | 2018-10-12 13:07 | PHARADMIT ---
Addendum entered by Chris Carter III 10/15/18 16:06: Pharmacy Note Subjective Patients confusion is clearing. MD feels patient was hypoxic from his heart failure (EF-20%). Objective VS-OK INR-2.5 SCr-1.25 H&H,Plts,WBC-OK Troponins marginal, Assessment Imdur started today, Warfarin remains on hold, as does Propranolol. PPi to PO. Plan Patient has been accepted at [facility], but would like a trial at home first. Had OT evaluation for ADL Original Note: Admission Pharmacy Clinical Review AMS W/DELUSIONS, NEW ONSET CHF Code Status DNR/DNI Current Weight 105 kg Renally Cleared and Narrow Therapeutic Index Meds NO height for CrCl calculation QTc Value / Action Taken QTC 460 BP Control, Fever BP 125/80, HR 82, Afebrile Electrolytes reviewed K+ 3.8 (K-dur 20meq po x1) Mag 1.9 (magox 400mg po x1) DVT Prophylaxis Warfarin 5mg daily Opiate Usage / Scheduled Bowel Regimen Ordered Plt/SCr for Heparin / Enoxaparin Plt 176 SCr 0.98 INR for Warfarin INR 2.7 H/H stable, WBC/Bands H/H 16.8/50.5 WBC 10.09 Antibiotic appropriateness Cultures and Sensitivities n/a Surgical ABX d/c within 24 hr DM control / Insulin Dosing BG 132 (Novolog scale) Heart Failure (Check EF%) (HANK's, B-Block, Diuretics) Lisinopril, Lasix, Propranolol, NTG sl IV to PO Switch Lasix Home Meds Reviewed Home Meds Not Ordered Hydrocortisone cream, Ipratropium NS, Metformin, Loperamide, Comments Haldol x1 IM for behavior and aggression, MD will d/c Lorazepam and possibly order prn Haloperidol Palliative consult today: rapid decline since last visit, patient would like to go home w/services, 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
[2018-10-12 13:13] LABS: Vitamin B12 366 pg/mL (193-986)
[2018-10-12 16:12] LABS: Troponin I 0.07 ng/mL (0.00-0.06)
[2018-10-12] MEDS: Normal Saline Flush 10 ML SYR IVP (16:47)
[2018-10-12] MEDS: Warfarin 5 MG TAB PO (19:02)
[2018-10-12] MEDS: QUEtiapine 25 MG TAB PO (19:02)
[2018-10-12] MEDS: Atorvastatin 40 MG TAB 80 MG PO (19:02)
[2018-10-12] MEDS: Acetaminophen 325 MG TAB PO (19:18)
--- NOTE | 2018-10-12 21:13 | NUR.NOTE ---
Patient came to the unit accompanied by headline writer from the ICU. Patient was handed over to me by the WELL TESTER Deb. Pt is conscious alert, oriented at this moment to time, place, and person. Does state that he is feeling pretty good, unlike a couple days ago. His mucus membrane is pink and moist> Pt utilizing 2L oxygen via nasal canula, no respiratoy symptoms noted at this time. Pt does deny symptoms of SOB or chest pain. Chest clear when ascultated throughout Currently on telemetry showing bigemy but also shows some episodes of sinus rhythm. Abdomen soft, nontender when palpated, active bowel sounds heard when ascultated. 20 G branula IID noted to the left wrist. No abnormalities noted to the extremities. Pt nursed in diapers same dry and intact. No lesions noted to the skin.
[2018-10-13] VITALS (11 sets, daily range): BP systolic 137–171; BP diastolic 65–89; PULSE 57–84; RESP 18–22; TEMP 36–37.8; O2SAT 93–95
[2018-10-13 07:05] LABS: Abs Immature Grans 0.01 k/cumm (0.0-0.09); Absolute Basophil Count 0.03 k/cumm (0.0-0.2); Absolute Eosinophil Count 0.17 k/cumm (0.0-0.7); Absolute Monocyte Count 2.12 k/cumm (0.11-0.7); Basophils % 0.3; Eosinophils % 1.5; HCT 49.1 % (40.0-50.0); HGB 16.5 g/dL (13.5-17.5); Immature Grans % 0.1; Lymphocytes % 15.5; Mean Corp. HGB Concentration 33.6 g/dL (32.0-36.0); Mean Corpuscular Hemoglobin 30.3 pg (27.0-33.0); Mean Corpuscular Volume 90.1 fL (80-95); Mean Platelet Volume 11.9 fL (8.0-11.0); Monocytes % 18.3; Neutrophils % 64.3; Platelet Count 165 x1000/uL (130-400); RBC 5.45 m/cumm (4.50-6.00); RBC Distribution Width 15.8 % (11.8-14.1); White Blood Cell Count 11.61 k/cumm (4.4-10.8)
[2018-10-13 07:06] LABS: Absolute Neutrophil Count 7.47 k/cumm (1.2-6.7)
[2018-10-13 07:12] LABS: INR 3.3 (1.0-3.5); Prothrombin Time 33.7 sec (9.3-11.0)
[2018-10-13 07:17] LABS: Anion Gap 8.9 mmol/L (3-11); BUN 27 mg/dL (7-18); CO2 28.1 mmol/L (21.0-32.0); CREATININE 1.15 mg/dL (0.70-1.30); Calcium 9.3 mg/dL (8.5-10.1); Chloride 103 mmol/L (98-107); Glucose 95 mg/dL (70-100); Potassium 4.2 mmol/L (3.5-5.1); Sodium 140 mmol/L (136-145)
[2018-10-13 07:27] LABS: ALT 19 U/L (12-78); AST 20 U/L (15-37); Albumin 2.9 g/dL (3.4-5.0); Alkaline Phosphatase 58 U/L (46-116); Bilirubin, Total 1.1 mg/dL (0.2-1.0); Magnesium 2.1 mg/dL (1.8-2.4); Total Protein 6.9 g/dL (6.4-8.2); Troponin I 0.06 ng/mL (0.00-0.06)
--- NOTE | 2018-10-13 07:34 | MERGE_ITS ---
*[facility]* *[facility]* [address] [place] [address] Date of study: 10/13/2018 Transthoracic Echocardiography M-mode, complete 2D, complete spectral Doppler, and color Doppler *STUDY CONCLUSIONS* Summary: 1. Left ventricle: The cavity size was normal. Systolic function was severely reduced. The estimated ejection fraction was 20-25%. Diffuse hypokinesis. Akinesis of the apical myocardium. Severe hypokinesis of the inferolateral and inferior myocardium. The study is not technically sufficient to allow evaluation of LV diastolic function. Stroke volume/bsa (LVOT, Doppler): 27ml/m^2. 2. Aortic valve: There was mild stenosis, although the possibility of pseudostenosis exists with cardiomyopathy in mind. Could consider dobutamine echo to better evaluate. There was mild to moderate regurgitation. Peak velocity (S): 1.7m/sec. Peak gradient (S): 11.1mm Hg. VTI ratio of LVOT to aortic valve: 0.49. Valve area (VTI): 1.7cm^2. Indexed valve area (Vmean): 0.7cm^2/m^2. 3. Mitral valve: There was moderate regurgitation directed posteriorly. 4. Left atrium: The atrium was moderately dilated. 5. Right ventricle: The cavity size was normal. Wall thickness was normal. Systolic function was normal. 6. Right atrium: The atrium was moderately dilated. 7. Atrial septum: No defect or patent foramen ovale was identified. 8. Pulmonary arteries: Pulmonary systolic pressure was in the range of 45mm Hg to 55mm Hg. 9. Inferior vena cava: The vessel was normal in size. The respirophasic diameter changes were in the normal range (greater than or equal to 50%), consistent with normal central venous pressure. *PATIENT PRESENTATION* Height: 182.9cm ((72in) ) S/D Pressure: 137 / 80 Weight: 104.8kg ((230.5lb) ) BSA: 2.33m^2 Test start time: 07:30 AM. Test stop time: 08:30 AM. ORDERING Terell Gonzalez REFERRING Terell Gonzalez Claudia E PERFORMING [facility] MISSI[employer] MECHANIC Jesenia Bean PERFORMING Terry *PROCEDURE DATA* Procedure information: This study was interpreted by [facility]. Pertinent images and digital data are archived for permanent storage and are available for subsequent review. Comparison was made to the study of 08/24/2004. Study status: Routine. Transthoracic echocardiography. M-mode, complete 2D, complete spectral Doppler, and color Doppler. A Transthoracic Echocardiogram was performed. Scanning was performed from the parasternal, apical, subcostal, and suprasternal notch acoustic windows. Images were obtained using an AcusMammotome SC 2000 cardiac ultrasound machine. Image quality was adequate. Study completion: The patient tolerated the procedure well. History: PMH: CHF. *CARDIAC ANATOMY* Left ventricle: The cavity size was normal. Systolic function was severely reduced. The estimated ejection fraction was 20-25%. Diffuse hypokinesis. Regional wall motion abnormalities: Akinesis of the apical myocardium. Severe hypokinesis of the inferolateral and inferior myocardium. The study is not technically sufficient to allow evaluation of LV diastolic function. Aortic valve: Doppler: There was mild stenosis, although the possibility of pseudostenosis exists with cardiomyopathy in mind. Could consider dobutamine echo to better evaluate. There was mild to moderate regurgitation. VTI ratio of LVOT to aortic valve: 0.49. Valve area (VTI): 1.7cm^2. Indexed valve area (VTI): 0.7cm^2/m^2. Peak velocity ratio of LVOT to aortic valve: 0.49. Valve area (Vmax): 1.7cm^2. Indexed valve area (Vmax): 0.7cm^2/m^2. Mean velocity ratio of LVOT to aortic valve: 0.48. Valve area (Vmean): 1.7cm^2. Indexed valve area (Vmean): 0.7cm^2/m^2. Mean gradient (S): 5.9mm Hg. Peak gradient (S): 11.1mm Hg. Aorta: Aortic root: The aortic root was normal in size. Ascending aorta: The ascending aorta was mildly dilated. Mitral valve: Doppler: There was no evidence for stenosis. There was moderate regurgitation directed posteriorly. Valve area by pressure half-time: 3.7cm^2. Indexed valve area by pressure half-time: 1.6cm^2/m^2. Left atrium: The atrium was moderately dilated. Atrial septum: No defect or patent foramen ovale was identified. Right ventricle: The cavity size was normal. Wall thickness was normal. Systolic function was normal. Pulmonic valve: Doppler: There was no evidence for stenosis. There was trivial regurgitation. Tricuspid valve: Doppler: There was mild regurgitation. Pulmonary artery: Poorly visualized. Pulmonary systolic pressure was in the range of 45mm Hg to 55mm Hg. Right atrium: The atrium was moderately dilated. Pericardium: There was no pericardial effusion. Systemic veins: Inferior vena cava: The vessel was normal in size. The respirophasic diameter changes were in the normal range (greater than or equal to 50%), consistent with normal central venous pressure. Measurements Left ventricle Value Reference LV ID, ED, PLAX 5.2 cm 3.5 - 6.0 LV ID, ES, PLAX (H) 4.8 cm 2.1 - 4.0 LV PW thickness, ED, PLAX 1.1 cm LV end-diastolic volume, 1-p A2C 171 ml LV ejection fraction, 1-p A2C 19 % LV end-diastolic volume, 1-p A4C 153 ml LV ejection fraction, 1-p A4C 27 % Ventricular septum Value Reference IVS thickness, ED, PLAX 1.1 cm LVOT Value Reference LVOT ID, A-P 2.1 cm LVOT area 3.5 cm^2 LVOT peak velocity, S 0.82 m/sec LVOT mean velocity, S 0.55 m/sec LVOT VTI, S 17.8 cm LVOT peak gradient, S 2.7 mm Hg LVOT mean gradient, S 1.4 mm Hg Stroke volume (SV), LVOT DP 62 ml Stroke index (SV/bsa), LVOT DP 27 ml/m^2 Aortic valve Value Reference Aortic valve peak velocity, S 1.7 m/sec Aortic valve mean velocity, S 1.15 m/sec Aortic valve VTI, S 36.0 cm Aortic mean gradient, S 5.9 mm Hg Aortic peak gradient, S 11.1 mm Hg VTI ratio, LVOT/AV 0.49 Aortic valve area, VTI 1.7 cm^2 Velocity ratio, peak, LVOT/AV 0.49 Aortic valve area, peak velocity 1.7 cm^2 Velocity ratio, mean, LVOT/AV 0.48 Aortic valve area, mean velocity 1.7 cm^2 Aortic valve area/bsa, mean velocity 0.7 cm^2/m^2 Aortic regurg deceleration 248 cm/s^2 Aortic regurg pressure half-time 626 ms Aorta Value Reference Aortic root ID, ED 3.4 cm Ascending aorta ID, A-P, S 3.6 cm Left atrium Value Reference LA ID, A-P, ES 3.8 cm LA ID/bsa, A-P 1.6 cm/m^2 <=2.2 LA area, ES, A4C (H) 27.4 cm^2 8.8 - 23.4 LA area, ES, A2C 26 cm^2 LA volume/bsa, S 51 ml/m^2 LA volume, ES, 2-p 106 ml LA volume/bsa, ES, 2-p 45 ml/m^2 LA/aortic root ratio 1.11 Mitral valve Value Reference Mitral E-wave peak velocity 0.69 m/sec Mitral A-wave peak velocity 0.71 m/sec Mitral deceleration time 204 ms 150 - 230 Mitral pressure half-time 59 ms Mitral E/A ratio, peak 0.96 Mitral valve area, PHT, DP 3.7 cm^2 Tricuspid valve Value Reference Tricuspid regurg peak velocity 3.4 m/sec Tricuspid peak RV-RA gradient 47.2 mm Hg Right atrium Value Reference RA area, ES, A4C (H) 24.3 cm^2 8.3 - 19.5 Legend: (L) and (H) brandee values outside specified reference range. I have personally reviewed the images and have reviewed and edited the reported findings. Electronically signed by Sohail Vasquez MD 10/13/2018 13:09
[2018-10-13 07:35] LABS: Diff Comment Diff Reviewed; RBC Morphology Normal
[2018-10-13] MEDS: Lisinopril 20 MG TAB PO (08:54)
[2018-10-13] MEDS: Furosemide 20 MG TAB PO ×2 (08:54→17:22)
[2018-10-13] MEDS: Propranolol 20 MG TAB PO (08:54)
[2018-10-13] MEDS: QUEtiapine 25 MG TAB PO (08:55)
--- NOTE | 2018-10-13 12:15 | PDOC.CMPRO ---
- If Service Date Differs Date of service: 10/13/18 Time of Service: 12:15 Care Management Progress Note S/O: Frank is sleeping soundly when CM visits with his family (daughter, Carol, , Brny). Per nursing report and that of the family, Frank is a bit clearer mentation wooten in comparison with yesterday however family does not believe he is back to his baseline. Frank is scheduled for an abdominal CT scan and had an Echo earlier in the day. Frank's family continues to be concerned about next steps and is currently contemplating bringing Frank home on hospice vs. SNF placement. Home on hospice was the first choice yesterday, however with Frank's mentation a little clearer, plans could certainly change. A: 83 year old male admitted with AMS with delusions, new onset CHF. P: Frank will discharge home on hospice vs. SNF placement when medically ready per MD. Frank will transport via private vehicle with family. CM will continue to offer support to patient, family, and care team regarding discharge planning and disposition.
--- NOTE | 2018-10-13 13:02 | DI.CT_ITS ---
SYMPTOMS/DIAGNOSIS: ABDOMINAL PAIN, WEIGHT LOSS CT OF THE ABDOMEN AND PELVIS: There are no prior comparison exams. Images were performed from the lung bases through the ischial tuberosities after IV and oral contrast. The exam is quite limited by patient motion. The heart is enlarged. There are underlying emphysematous and fibrotic changes. There is an 8 mm noncalcified nodule at the left lung base. Other calcified nodules are seen at both lung bases. A 6 mm noncalcified nodule is seen at the right lower lobe. The liver, spleen, pancreas and adrenals are unremarkable. Stones are noted in the gallbladder. There is no biliary dilatation or gallbladder wall thickening. There is significant motion at the level of the kidneys. There is a right renal cyst. The aorta is calcified and normal in diameter. There is prominent sigmoid diverticulosis, but no evidence of diverticulitis. The small bowel is unremarkable. The prostate is enlarged. There is a right posterior bladder diverticulum. No suspicious bony abnormalities are seen. IMPRESSION: Bilateral lower lobe pulmonary nodules. These appear stable based on previous report of a chest CT from 2007.
--- NOTE | 2018-10-13 13:26 | CHAPLAIN ---
Mr Nur was sleeping when I visited, but I spoke wiht his daughter and son in law, and gave Mr. Nur a prayer shawl. They expect their mom will be in later today, around 1 p.m. asked that I check in with her.
--- NOTE | 2018-10-13 16:23 | W.INDIABCONS ---
Date of service: 10/13/18 Time of Service: 16:23 Diabetes Inpatient Consult DESCRIPTION/ASSESSMENT: Appreciate diabetes consult for Mr. Mccormick who is 83 years old here with symptoms of dementia and general decline. He is managed iwth 500mg Metformin twice daily; A1c 6.2. INTERVENTION: No intervention warranted given his excellent glycemic control and current state of health. PLAN: Will look for any signs for need for further intervention. Time Spent in Nutritional Counseling and Treatment: record review only
--- NOTE | 2018-10-13 16:45 | PDOC.CMPRO ---
- If Service Date Differs Date of service: 10/13/18 Time of Service: 16:45 Care Management Progress Note S/O: Frank is sleeping soundly when CM visits with his family (daughter, Carol, , Bryn, and , Jessica). CM had previously checked in on Francis and he was sleeping at that time as well. He had an echo and an abdominal CT scan this morning and per Ogema, he's had a busy day and is tired. Family continues to discuss discharge plans with CM. At present, family is considering home with hospice vs. SNF placement. CM and family additionally discussed homes such as Surrogate Son, though these would be CM will provide family with caregiver information (should Frank return home with hospice). Family requested referrals be sent to [facility] and [facility]. The [facility] has since phoned and offered Frank a bed at discharge should the family chose this option. A: 83 year old male admitted with AMS with delusions, new onset CHF. P: Frank will discharge home on hospice vs. SNF placement when medically ready per MD. Frank will transport via private vehicle with family. CM will continue to offer support to patient, family, and care team regarding discharge planning and disposition.
[2018-10-13] MEDS: Insulin Aspart 300 UNITS/3 ML PEN SC (17:38)
--- NOTE | 2018-10-13 17:49 | PGE_ITS ---
Date of Service Date of service: 10/13/18 Time of Service: 18:52 Assessment and Plan (1) Altered mental status: Current visit: Yes Status: Acute Altered mental status that was rather rapid in onset, but now ongoing and worsening over the past few weeks. As an outpatient Mr. Nur has already received an MRI of the brain which was negative for any acute abnormalities including CVA, and had further workup with a negative urinalysis, and a normal TSH and B12. Imaging does not support diagnosis of pulmonary infection, and clinically the patient does not appear to be infected. CT of the abdomen and pelvis was obtained in the setting of abdominal pain and weight loss, but without any acute abnormalities. Patient's blood sugar is adequate, he is not in acute kidney injury or uremic, and although his total bilirubin is mildly elevated this is likely due to hepatic congestion, and improving with diuresis. No evidence of any recent med changes or abrupt medication withdrawal, and no evidence of arrhythmias by telemetry. Doubt acute CVA as recent MRI and admission CT of the head were all negative. Electrolytes appear grossly normal. Only obvious source for patient's confusion could be the possibility of a somewhat recent cardiac ischemic event, with subsequent development of congestive heart failure and hypoxia in patient with potential mild underlying cognitive impairment. However currently patient is without O2 requirement and still appears confused. Will continue to monitor. Currently without availability for neurology consultation locally. (2) CHF (congestive heart failure): Current visit: Yes Status: Chronic New diagnosis of CHF, with a significant drop in LVEF currently at 20%. Also with evidence of wall motion abnormalities as stated above, in patient with a prior history of CAD makes ischemic cardiomyopathy a possible etiology. Continue high potency statin and initiate daily aspirin therapy. The patient is already on HANK inhibitor and beta samantha - will change propranolol to carvedilol and titrate. Change Lasix dosing to p.o. and monitor weight and kidney funk closely. Consider addition of spironolactone if able. We will discuss this at length with family, and discuss options including potential diag nostic left heart catheterization, stress testing, or medical management only. For discussion tonight it appears that the family is not interested in pursuing aggressive measures or interventions. (3) Pulmonary embolism: Current visit: Yes Status: Chronic Continue Coumadin and monitor daily INR. (4) DVT prophylaxis: Current visit: Yes Status: Acute On chronic anticoagulation with Coumadin, monitor INR. Initiated PPI therapy for GI prophylaxis as well. (5) Counseling regarding advance directives and goals of care: Current visit: Yes Status: Acute DNR/DNI. According to conversation with daughter this evening would like to limit any invasive testing or procedures as well. Subjective Interval history since last seen: 83-year-old man with a past medical history significant for CAD, and PE on anticoagulation admitted from [facility] emergency department on 10/12 with a diagnosis of altered mental status and CHF. Mr. Nur has a past medical history significant hypertension, DM, CAD, and PE on chronic anticoagulation with Coumadin. He does not however carries a diagnosis of CHF. The patient had been in his usual state of health, which at baseline is normal. 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 However he has had a rapid decline in his mental status fairly recently, initially beginning with noted memory loss, more recently with hallucinations and worsening altered mental status. This has been of great concern to his family, and under the guidance of the Palliative Care Physician who the patient had consulted with, presented to the ED for further evaluation. Initial workup was significant for lack of leukocytosis, mildly elevated total bilirubin, normal LFTs, and essentially normal troponin. His TSH was checked and also normal, as were his vitamin B12 levels. Urinalysis showed a lack of leuk esterase or nitrates, essentially negative for infection. Patient was afebrile and slightly hypertensive, but note was taken of hypoxia by vital signs. Imaging with a chest x-ray showed evidence of pulmonary edema, and the patient was admitted for further evaluation and treatment of potential heart failure. Subsequent testing has revealed evidence of significant and heart failure, with echocardiogram showing an LVEF of 20%, along with noted severe hypokinesis of the inferior lateral and inferior myocardium. Mr. Nur's troponin was trended, and with the exception of one value which was minimally and equivocally elevated, his cardiac biomarkers have remained normal. He is currently off of oxygen and on room air, but still appears confused. No other events reported overnight. Patient remains afebrile. Exam Narrative Exam Narrative: General: Patient appears comfortable, awake and alert, not oriented, NAD Neck: Supple CV: Regular, nontachycardic, S1S2, 3/6 RUSB murmur appreciated Pulmonary: Bibasilar crackles, otherwise clear to auscultation Abdomen: + Bowel Sounds, soft, no further tenderness noted on physical exam, nondistended Vascular: No lower extremity edema Objective Objective Clinical Data: Abnormal lab results 10/13/18 10/13/18 10/13/18 Range/Units 06:42 06:42 06:42 WBC (4.4-10.8) k/cumm RDW (11.8-14.1) % MPV (8.0-11.0) fL Absolute Neutrophils (1.2-6.7) k/cumm Absolute Monocytes (0.11-0.7) k/cumm PT 33.7 H (9.3-11.0) sec BUN 27 H (7-18) mg/dL Total Bilirubin 1.1 H (0.2-1.0) mg/dL Conjugated Bilirubin 0.30 H (0.00-0.20) mg/dL Albumin 2.9 L (3.4-5.0) g/dL 10/13/18 Range/Units 06:47 WBC 11.61 H (4.4-10.8) k/cumm RDW 15.8 H (11.8-14.1) % MPV 11.9 H (8.0-11.0) fL Absolute Neutrophils 7.47 H (1.2-6.7) k/cumm Absolute Monocytes 2.12 H (0.11-0.7) k/cumm PT (9.3-11.0) sec BUN (7-18) mg/dL Total Bilirubin (0.2-1.0) mg/dL Conjugated Bilirubin (0.00-0.20) mg/dL Albumin (3.4-5.0) g/dL Vital Signs Temperature 37.2 C 10/13/18 16:23 Temperature Source Tympanic 10/13/18 16:23 Pulse 65 10/13/18 16:23 Pulse Rhythm Regular 10/13/18 17:00 Pulse 85 10/12/18 10:43 Respiratory Rate 20 10/13/18 16:23 Respiratory Effort Non-Labored 10/13/18 17:00 Respiratory Depth Normal 10/13/18 17:00 Respiratory Pattern Normal 10/13/18 08:40 Blood Pressure 166/84 H 10/13/18 16:23 Blood Pressure Mean 95 10/12/18 10:43 Blood Pressure Position Supine 10/12/18 02:10 Pulse Oximetry 94 L 10/13/18 16:23 Oxygen Delivery Method Nasal Cannula 10/13/18 16:23 Oxygen Flow Rate 2 10/13/18 16:23 Pain Level 0 10/13/18 16:23 Intake & Output 10/12/18 10/13/18 10/13/18 23:59 11:59 23:59 Intake Total 400 / 400 Output Total 674 / 1749 750 / 1000 250 / 1000 Balance -674 / -1749 -350 / -600 -250 / -600 Weight 103.4 kg Intake: Oral 400 / 400 Output: Urine 674 / 1749 750 / 1000 250 / 1000 Other: Urine Color Straw Yellow Yellow Urine Appearance Clear Clear Clear Hematuria Urine Odor Normal Normal Comment Sanguinous colored urine with a clot. hematuria in brief and voided 300cc clear yellow urine Voiding Methods Bedside Commode Bedside Commode Bedside Commode Incontinent Laboratory Results WBC 11.61 k/cumm (4.4-10.8) H 10/13/18 06:47 RBC 5.45 m/cumm (4.50-6.00) 10/13/18 06:47 Hgb 16.5 g/dL (13.5-17.5) 10/13/18 06:47 Hct 49.1 % (40.0-50.0) 10/13/18 06:47 MCV 90.1 fL (80-95) 10/13/18 06:47 MCH 30.3 pg (27.0-33.0) 10/13/18 06:47 MCHC 33.6 g/dL (32.0-36.0) 10/13/18 06:47 RDW 15.8 % (11.8-14.1) H 10/13/18 06:47 Plt Count 165 x1000/uL (130-400) 10/13/18 06:47 MPV 11.9 fL (8.0-11.0) H 10/13/18 06:47 Immature Gran % 0.1 10/13/18 06:47 Neutrophils % 64.3 10/13/18 06:47 Lymphocytes % 15.5 10/13/18 06:47 Monocytes % 18.3 10/13/18 06:47 Eosinophils % 1.5 10/13/18 06:47 Basophils % 0.3 10/13/18 06:47 Absolute Neutrophils 7.47 k/cumm (1.2-6.7) H 10/13/18 06:47 Absolute Lymphocytes 1.80 k/cumm (1.2-3.4) 10/13/18 06:47 Absolute Monocytes 2.12 k/cumm (0.11-0.7) H 10/13/18 06:47 Absolute Eosinophils 0.17 k/cumm (0.0-0.7) 10/13/18 06:47 Absolute Basophils 0.03 k/cumm (0.0-0.2) 10/13/18 06:47 Differential Comment Diff reviewed 10/13/18 06:47 RBC Morphology Normal 10/13/18 06:47 PT 33.7 sec (9.3-11.0) H 10/13/18 06:42 INR 3.3 (1.0-3.5) D 10/13/18 06:42 APTT 34.1 sec (21.0-31.4) H 10/11/18 22:10 Sodium 140 mmol/L (136-145) 10/13/18 06:42 Potassium 4.2 mmol/L (3.5-5.1) 10/13/18 06:42 Chloride 103 mmol/L (98-107) 10/13/18 06:42 Carbon Dioxide 28.1 mmol/L (21.0-32.0) 10/13/18 06:42 Anion Gap 8.9 mmol/L (3-11) 10/13/18 06:42 BUN 27 mg/dL (7-18) H 10/13/18 06:42 Creatinine 1.15 mg/dL (0.70-1.30) 10/13/18 06:42 Estimated GFR/1.73 m2 >= 60.00 (mL/min/1.73m2) 10/13/18 06:42 Glucose 95 mg/dL (70-100) 10/13/18 06:42 Calcium 9.3 mg/dL (8.5-10.1) 10/13/18 06:42 Magnesium 2.1 mg/dL (1.8-2.4) 10/13/18 06:42 Total Bilirubin 1.1 mg/dL (0.2-1.0) H 10/13/18 06:42 Conjugated Bilirubin 0.30 mg/dL (0.00-0.20) H 10/13/18 06:42 AST 20 U/L (15-37) 10/13/18 06:42 ALT 19 U/L (12-78) 10/13/18 06:42 Alkaline Phosphatase 58 U/L (46-116) 10/13/18 06:42 Ammonia 31 umol/L (11-32) 10/11/18 22:10 Troponin I 0.06 ng/mL (0.00-0.06) 10/13/18 06:42 Total Protein 6.9 g/dL (6.4-8.2) 10/13/18 06:42 Albumin 2.9 g/dL (3.4-5.0) L 10/13/18 06:42 Lipase 311 U/L (73-393) 10/11/18 22:10 Vitamin B12 366 pg/mL (193-986) 10/12/18 05:25 TSH 0.62 uIU/mL (0.358-3.74) 10/12/18 05:25 Urine Color Yellow (Yellow) 10/11/18 22:20 Urine Clarity Clear 10/11/18 22:20 Urine pH 6.5 (5-8) 10/11/18 22:20 Ur Specific [place] 1.020 (1.005-1.025) 10/11/18 22:20 Urine Protein 30 mg/dL (Negative) H 10/11/18 22:20 Urine Ketones 15 mg/dL (Negative) H 10/11/18 22:20 Urine Blood Moderate (Negative) H 10/11/18 22:20 Urine Nitrite Negative (Negative) 10/11/18 22:20 Urine Bilirubin Negative (Negative) 10/11/18 22:20 Urine Urobilinogen 1.0 EU/dL (Up TO 0.2) H 10/11/18 22:20 Ur Leukocyte Esterase Negative (Negative) 10/11/18 22:20 Urine RBC 10-20 (0-2) H 10/11/18 22:20 Urine WBC Negative HPF (0-5) 10/11/18 22:20 Ur Epithelial Cells Negative HPF (Negative) 10/11/18 22:20 Urine Crystals Negative HPF (Negative) 10/11/18 22:20 Urine Bacteria Negative HPF (Negative) 10/11/18 22:20 Urine Casts Negative LPF (Negative) 10/11/18 22:20 Urine Mucus Negative (Negative) 10/11/18 22:20 Ur Culture Indicated? No 10/11/18 22:20 Urine Glucose Negative mg/dL (Negative) 10/11/18 22:20 Salicylates < 2.8 mg/dL (2.8-20.0) L 10/11/18 22:10 Urine Opiates Screen Negative (Negative) 10/11/18 22:20 Urine Methadone Screen Negative (Negative) 10/11/18 22:20 Acetaminophen < 2 ug/mL (10-30) L 10/11/18 22:10 Ur Barbiturates Screen Negative (Negative) 10/11/18 22:20 Ur Tricyclics Screen Negative (Negative) 10/11/18 22:20 Ur Amphetamines Screen Negative (Negative) 10/11/18 22:20 U Benzodiazepines Scrn Negative (Negative) 10/11/18 22:20 Urine Cocaine Screen Negative (Negative) 10/11/18 22:20 Ur THC Screen Negative (Negative) 10/11/18 22:20 Ethyl Alcohol < 3.0 mg/dL (<3) 10/11/18 22:10 Objective Narrative Objective Narrative: CT abdomen & pelvis w SYMPTOMS/DIAGNOSIS: ABDOMINAL PAIN, WEIGHT LOSS CT OF THE ABDOMEN AND PELVIS: There are no prior comparison exams. Images were performed from the lung bases through the ischial tuberosities after IV and oral contrast. The exam is quite limited by patient motion. The heart is enlarged. There are underlying emphysematous and fibrotic changes. There is an 8 mm noncalcified nodule at the left lung base. Other calcified nodules are seen at both lung bases. A 6 mm noncalcified nodule is seen at the right lower lobe. The liver, spleen, pancreas and adrenals are unremarkable. Stones are noted in the gallbladder. There is no biliary dilatation or gallbladder wall thickening. There is significant motion at the level of the kidneys. There is a right renal cyst. The aorta is calcified and normal in diameter. There is prominent sigmoid diverticulosis, but no evidence of diverticulitis. The small bowel is unremarkable. The prostate is enlarged. There is a right posterior bladder diverticulum. No suspicious bony abnormalities are seen. IMPRESSION: Bilateral lower lobe pulmonary nodules. These appear stable based on previous report of a chest CT from 2007. Date of study: 10/13/2018 Transthoracic Echocardiography *STUDY CONCLUSIONS* Summary: 1. Left ventricle: The cavity size was normal. Systolic function was severely reduced. The estimated ejection fraction was 20-25%. Diffuse hypokinesis. Akinesis of the apical myocardium. Severe hypokinesis of the inferolateral and inferior myocardium. The study is not technically sufficient to allow evaluation of LV diastolic function. Stroke volume/bsa (LVOT, Doppler): 27ml/m^2. 2. Aortic valve: There was mild stenosis, although the possibility of pseudostenosis exists with cardiomyopathy in mind. Could consider dobutamine echo to better evaluate. There was mild to moderate regurgitation. Peak velocity (S): 1.7m/sec. Peak gradient (S): 11.1mm Hg. VTI ratio of LVOT to aortic valve: 0.49. Valve area (VTI): 1.7cm^2. Indexed valve area (Vmean): 0.7cm^2/m^2. 3. Mitral valve: There was moderate regurgitation directed posteriorly. 4. Left atrium: The atrium was moderately dilated. 5. Right ventricle: The cavity size was normal. Wall thickness was normal. Systolic function was normal. 6. Right atrium: The atrium was moderately dilated. 7. Atrial septum: No defect or patent foramen ovale was identified. 8. Pulmonary arteries: Pulmonary systolic pressure was in the range of 45mm Hg to 55mm Hg. 9. Inferior vena cava: The vessel was normal in size. The respirophasic diameter changes were in the normal range (greater than or equal to 50%), consistent with normal central venous pressure.
[2018-10-13] MEDS: Atorvastatin 40 MG TAB 80 MG PO (19:41)
[2018-10-13] MEDS: Carvedilol 6.25 MG TAB PO (19:42)
[2018-10-14] VITALS (11 sets, daily range): BP systolic 142–163; BP diastolic 70–96; PULSE 44–101; RESP 16–22; TEMP 35.9–36.9; O2SAT 89–95
[2018-10-14 07:17] LABS: Abs Immature Grans 0.03 k/cumm (0.0-0.09); Absolute Basophil Count 0.03 k/cumm (0.0-0.2); Absolute Eosinophil Count 0.19 k/cumm (0.0-0.7); Absolute Lymphocyte Count 1.37 k/cumm (1.2-3.4); Absolute Monocyte Count 1.77 k/cumm (0.11-0.7); Absolute Neutrophil Count 5.99 k/cumm (1.2-6.7); Basophils % 0.3; HCT 52.6 % (40.0-50.0); HGB 17.6 g/dL (13.5-17.5); Immature Grans % 0.3; Lymphocytes % 14.6; Mean Corp. HGB Concentration 33.5 g/dL (32.0-36.0); Mean Corpuscular Hemoglobin 29.9 pg (27.0-33.0); Mean Corpuscular Volume 89.5 fL (80-95); Mean Platelet Volume 12.3 fL (8.0-11.0); Monocytes % 18.9; Neutrophils % 63.9; RBC 5.88 m/cumm (4.50-6.00); White Blood Cell Count 9.38 k/cumm (4.4-10.8)
[2018-10-14 07:28] LABS: Anion Gap 7.6 mmol/L (3-11); BUN 24 mg/dL (7-18); CO2 29.4 mmol/L (21.0-32.0); CREATININE 1.21 mg/dL (0.70-1.30); Calcium 9.2 mg/dL (8.5-10.1); Chloride 103 mmol/L (98-107); Estimated GFR 57.41 (mL/min/1.73m2); Glucose 107 mg/dL (70-100); Sodium 140 mmol/L (136-145)
[2018-10-14 07:30] LABS: Prothrombin Time 30.1 sec (9.3-11.0)
[2018-10-14 07:35] LABS: ALT 22 U/L (12-78); AST 22 U/L (15-37); Albumin 3.1 g/dL (3.4-5.0); Alkaline Phosphatase 63 U/L (46-116); Bilirubin, Direct 0.32 mg/dL (0.00-0.20); Bilirubin, Total 1.4 mg/dL (0.2-1.0); Magnesium 2.2 mg/dL (1.8-2.4); Total Protein 7.3 g/dL (6.4-8.2)
[2018-10-14 08:20] LABS: Anisocytosis 1+; Diff Comment Manual Differential; Platelet Count 184 x1000/uL (130-400)
[2018-10-14] MEDS: Pantoprazole 40 MG VIAL IVP (08:29)
[2018-10-14] MEDS: Carvedilol 6.25 MG TAB PO ×2 (08:29→19:32)
[2018-10-14] MEDS: Aspirin 81 MG CHEW PO (08:29)
[2018-10-14] MEDS: Lisinopril 20 MG TAB PO (08:29)
[2018-10-14] MEDS: Furosemide 20 MG TAB PO (08:29)
--- NOTE | 2018-10-14 12:20 | PDOC.CMPRO ---
- If Service Date Differs Date of service: 10/14/18 Time of Service: 12:20 Care Management Progress Note S/O: Frank is sitting up in his chair when this policy writer sales visits this morning. He is pleasant and receptive to discussion. Frank and his family will be meeting with Dr. uMro today for Palliative in regards to goals of care. CM spoke with Dr. Muro after her consult, whom states that Frank wants to return home when ready. He walked a full loop today and is looking well. Dr. Muro explained that Frank would need home health services upon DC, and explained the 30 day rule in regards to SNF placement if Frank feels it is unmanageable at home. A: 83 year old male admitted with AMS with delusions, new onset CHF. P: Frank will discharge home with home health services once medically cleared. The [facility] has accepted him, however at this time Frank and his family would like him to return home. CM to alert [facility] of the above.
--- NOTE | 2018-10-14 12:35 | CMPROGNOTE_ITS ---
- If Service Date Differs Date of service: 10/14/18 Time of Service: 12:20 Care Management Progress Note S/O: Frank is sitting up in his chair when this telegraphic typewriter operator chief visits this morning. He is pleasant and receptive to discussion. Frank and his family will be meeting with Dr. Muro today for Palliative in regards to goals of care. CM spoke with Dr. Muro after her consult, whom states that Frank wants to return home when ready. He walked a full loop today and is looking well. Dr. Muro explained that Frank would need home health services upon DC, and explained the 30 day rule in regards to SNF placement if Frank feels it is unmanageable at home. A: 83 year old male admitted with AMS with delusions, new onset CHF. P: Frank will discharge home with home health services once medically cleared. The [facility] has accepted him, however at this time Frank and his family would like him to return home. CM to alert [facility] of the above.
[2018-10-14] MEDS: Furosemide 40 MG TAB PO (16:18)
--- NOTE | 2018-10-14 19:11 | W.PM.PROGNOT ---
Date of Service Date of service: 10/14/18 Time of Service: 19:12 Assessment and Plan (1) Altered mental status: Current visit: Yes Status: Acute Altered mental status that was rather rapid in onset, but now ongoing and worsening over the past few weeks. As an outpatient Mr. Nur has already received an MRI of the brain which was negative for any acute abnormalities including CVA, and had further workup with a negative urinalysis, and a normal TSH and B12. Imaging does not support diagnosis of pulmonary infection, and clinically the patient does not appear to be infected. CT of the abdomen and pelvis was obtained in the setting of abdominal pain and weight loss, but without any acute abnormalities. Patient's blood sugar is adequate, he is not in acute kidney injury or uremic, and although his total bilirubin is mildly elevated this is likely due to hepatic congestion, and improving with diuresis. No evidence of any recent med changes or abrupt medication withdrawal, and no evidence of arrhythmias by telemetry. Doubt acute CVA as recent MRI and admission CT of the head were all negative. Electrolytes appear grossly normal. Only obvious source for patient's confusion could be the possibility of a somewhat recent cardiac ischemic event, with subsequent development of congestive heart failure and hypoxia in patient with potential mild underlying cognitive impairment. However currently patient is without O2 requirement and still appears confused, although improving. Will continue to monitor. Currently without availability for neurology consultation locally. (2) CHF (congestive heart failure): Current visit: Yes Status: Chronic New diagnosis of CHF, with a significant drop in LVEF currently at 20%. Also with evidence of wall motion abnormalities as stated above, in patient with a prior history of CAD makes ischemic cardiomyopathy a possible etiology. Continue high potency statin and initiated daily aspirin therapy. The patient is already on HANK inhibitor and beta samantha - changed propranolol to carvedilol and will titrate as needed. Changed Lasix dosing to p.o. with plans to monitor weight and kidney funk closely. Start low dose spironolactone today and monitor renal function carefully. Discussed this at length with family, and discussed options including potential diagnostic left heart catheterization, stress testing, or medical management only. Not interested in pursuing aggressive measures or interventions - will continue medical management. (3) Pulmonary embolism: Current visit: Yes Status: Chronic Continue Coumadin and monitor daily INR. (4) DVT prophylaxis: Current visit: Yes Status: Acute On chronic anticoagulation with Coumadin, monitor INR. Initiated PPI therapy for GI prophylaxis as well. (5) Counseling regarding advance directives and goals of care: Current visit: Yes Status: Acute DNR/DNI. According to conversation with daughter this evening would like to limit any invasive testing or procedures as well. Subjective Interval history since last seen: 83-year-old man with a past medical history significant for CAD, and PE on anticoagulation admitted from [facility] emergency department on 10/12 with a diagnosis of altered mental status and CHF. Mr. Nur has a past medical history significant hypertension, DM, CAD, and PE on chronic anticoagulation with Coumadin. He does not however carries a diagnosis of CHF. The patient had been in his usual state of health, which at baseline is normal. 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 However he has had a rapid decline in his mental status fairly recently, initially beginning with noted memory loss, more recently with hallucinations and worsening altered mental status. This has been of great concern to his family, and under the guidance of the Palliative Care Physician who the patient had consulted with, presented to the ED for further evaluation. Initial workup was significant for lack of leukocytosis, mildly elevated total bilirubin, normal LFTs, and essentially normal troponin. His TSH was checked and also normal, as were his vitamin B12 levels. Urinalysis showed a lack of leuk esterase or nitrates, essentially negative for infection. Patient was afebrile and slightly hypertensive, but note was taken of hypoxia by vital signs. Imaging with a chest x-ray showed evidence of pulmonary edema, and the patient was admitted for further evaluation and treatment of potential heart failure. Subsequent testing has revealed evidence of significant heart failure, with echocardiogram showing an LVEF of 20%, along with noted severe hypokinesis of the inferior lateral and inferior myocardium. Mr. Nur's troponin was trended, and with the exception of one value which was minimally and equivocally elevated, his cardiac biomarkers have remained normal. He is currently off of oxygen and on room air, confusion improved but mental status not yet at baseline. No other events reported overnight. Patient remains afebrile. Exam Narrative Exam Narrative: General: Patient appears comfortable, awake and alert, not oriented, NAD Neck: Supple CV: Regular, nontachycardic, S1S2, 3/6 RUSB murmur appreciated Pulmonary: Bibasilar crackles nearly resolved, no wheezing or rhonchi Abdomen: + Bowel Sounds, soft, no further tenderness noted on physical exam, nondistended Vascular: No lower extremity edema Objective Objective Clinical Data: Abnormal lab results 10/14/18 10/14/18 10/14/18 Range/Units 06:25 06:25 06:25 Hgb (13.5-17.5) g/dL Hct (40.0-50.0) % RDW (11.8-14.1) % MPV (8.0-11.0) fL Absolute Monocytes (0.11-0.7) k/cumm PT 30.1 H (9.3-11.0) sec BUN 24 H (7-18) mg/dL Glucose 107 H (70-100) mg/dL Total Bilirubin 1.4 H (0.2-1.0) mg/dL Conjugated Bilirubin 0.32 H (0.00-0.20) mg/dL Albumin 3.1 L (3.4-5.0) g/dL 10/14/18 Range/Units 06:25 Hgb 17.6 H (13.5-17.5) g/dL Hct 52.6 H (40.0-50.0) % RDW 16.0 H (11.8-14.1) % MPV 12.3 H (8.0-11.0) fL Absolute Monocytes 1.77 H (0.11-0.7) k/cumm PT (9.3-11.0) sec BUN (7-18) mg/dL Glucose (70-100) mg/dL Total Bilirubin (0.2-1.0) mg/dL Conjugated Bilirubin (0.00-0.20) mg/dL Albumin (3.4-5.0) g/dL Vital Signs Temperature 35.9 C L 10/14/18 16:14 Temperature Source Tympanic 10/14/18 16:14 Pulse 44 L 10/14/18 16:14 Pulse Rhythm Regular 10/14/18 08:00 Pulse 85 10/12/18 10:43 Respiratory Rate 19 10/14/18 16:14 Respiratory Effort Non-Labored 10/14/18 08:00 Respiratory Depth Normal 10/14/18 08:00 Respiratory Pattern Normal 10/14/18 08:00 Blood Pressure 161/80 H 10/14/18 16:14 Blood Pressure Mean 95 10/12/18 10:43 Blood Pressure Position Supine 10/12/18 02:10 Pulse Oximetry 89 L 10/14/18 16:14 Oxygen Delivery Method Room Air 10/14/18 16:14 Oxygen Flow Rate 0 10/14/18 16:14 Pain Level 0 10/14/18 12:05 Comment 10/14/18 16:14 Intake & Output 10/13/18 10/14/18 10/14/18 23:59 11:59 23:59 Intake Total 240 / 640 610 / 850 240 / 850 Output Total 550 / 1300 Balance -310 / -660 610 / 850 240 / 850 Weight 105.3 kg Intake: Oral 240 / 640 610 / 850 240 / 850 Output: Urine 550 / 1300 Other: Urine Color Pale Yellow Yellow Yellow Urine Appearance Clear Clear Clear Urine Odor None Normal Comment Void x 1 Stool Size Smear Stool Characteristics Soft Voiding Methods Bedside Commode Toilet Toilet Laboratory Results WBC 9.38 k/cumm (4.4-10.8) 10/14/18 06:25 RBC 5.88 m/cumm (4.50-6.00) 10/14/18 06:25 Hgb 17.6 g/dL (13.5-17.5) H 10/14/18 06:25 Hct 52.6 % (40.0-50.0) H 10/14/18 06:25 MCV 89.5 fL (80-95) 10/14/18 06:25 MCH 29.9 pg (27.0-33.0) 10/14/18 06:25 MCHC 33.5 g/dL (32.0-36.0) 10/14/18 06:25 RDW 16.0 % (11.8-14.1) H 10/14/18 06:25 Plt Count 184 x1000/uL (130-400) 10/14/18 06:25 MPV 12.3 fL (8.0-11.0) H 10/14/18 06:25 Immature Gran % 0.3 10/14/18 06:25 Neutrophils % 63.9 10/14/18 06:25 Lymphocytes % 14.6 10/14/18 06:25 Monocytes % 18.9 10/14/18 06:25 Eosinophils % 2.0 10/14/18 06:25 Basophils % 0.3 10/14/18 06:25 Absolute Neutrophils 5.99 k/cumm (1.2-6.7) 10/14/18 06:25 Absolute Lymphocytes 1.37 k/cumm (1.2-3.4) 10/14/18 06:25 Absolute Monocytes 1.77 k/cumm (0.11-0.7) H 10/14/18 06:25 Absolute Eosinophils 0.19 k/cumm (0.0-0.7) 10/14/18 06:25 Absolute Basophils 0.03 k/cumm (0.0-0.2) 10/14/18 06:25 Differential Comment Manual differential 10/14/18 06:25 RBC Morphology See below 10/14/18 06:25 Anisocytosis 1+ 10/14/18 06:25 PT 30.1 sec (9.3-11.0) H 10/14/18 06:25 INR 3.0 (1.0-3.5) 10/14/18 06:25 APTT 34.1 sec (21.0-31.4) H 10/11/18 22:10 Sodium 140 mmol/L (136-145) 10/14/18 06:25 Potassium 4.0 mmol/L (3.5-5.1) 10/14/18 06:25 Chloride 103 mmol/L (98-107) 10/14/18 06:25 Carbon Dioxide 29.4 mmol/L (21.0-32.0) 10/14/18 06:25 Anion Gap 7.6 mmol/L (3-11) 10/14/18 06:25 BUN 24 mg/dL (7-18) H 10/14/18 06:25 Creatinine 1.21 mg/dL (0.70-1.30) 10/14/18 06:25 Estimated GFR/1.73 m2 57.41 (mL/min/1.73m2) 10/14/18 06:25 Glucose 107 mg/dL (70-100) H 10/14/18 06:25 Calcium 9.2 mg/dL (8.5-10.1) 10/14/18 06:25 Magnesium 2.2 mg/dL (1.8-2.4) 10/14/18 06:25 Total Bilirubin 1.4 mg/dL (0.2-1.0) H 10/14/18 06:25 Conjugated Bilirubin 0.32 mg/dL (0.00-0.20) H 10/14/18 06:25 AST 22 U/L (15-37) 10/14/18 06:25 ALT 22 U/L (12-78) 10/14/18 06:25 Alkaline Phosphatase 63 U/L (46-116) 10/14/18 06:25 Ammonia 31 umol/L (11-32) 10/11/18 22:10 Troponin I 0.06 ng/mL (0.00-0.06) 10/13/18 06:42 Total Protein 7.3 g/dL (6.4-8.2) 10/14/18 06:25 Albumin 3.1 g/dL (3.4-5.0) L 10/14/18 06:25 Lipase 311 U/L (73-393) 10/11/18 22:10 Vitamin B12 366 pg/mL (193-986) 10/12/18 05:25 TSH 0.62 uIU/mL (0.358-3.74) 10/12/18 05:25 Urine Color Yellow (Yellow) 10/11/18 22:20 Urine Clarity Clear 10/11/18 22:20 Urine pH 6.5 (5-8) 10/11/18 22:20 Ur Specific [place] 1.020 (1.005-1.025) 10/11/18 22:20 Urine Protein 30 mg/dL (Negative) H 10/11/18 22:20 Urine Ketones 15 mg/dL (Negative) H 10/11/18 22:20 Urine Blood Moderate (Negative) H 10/11/18 22:20 Urine Nitrite Negative (Negative) 10/11/18 22:20 Urine Bilirubin Negative (Negative) 10/11/18 22:20 Urine Urobilinogen 1.0 EU/dL (Up TO 0.2) H 10/11/18 22:20 Ur Leukocyte Esterase Negative (Negative) 10/11/18 22:20 Urine RBC 10-20 (0-2) H 10/11/18 22:20 Urine WBC Negative HPF (0-5) 10/11/18 22:20 Ur Epithelial Cells Negative HPF (Negative) 10/11/18 22:20 Urine Crystals Negative HPF (Negative) 10/11/18 22:20 Urine Bacteria Negative HPF (Negative) 10/11/18 22:20 Urine Casts Negative LPF (Negative) 10/11/18 22:20 Urine Mucus Negative (Negative) 10/11/18 22:20 Ur Culture Indicated? No 10/11/18 22:20 Urine Glucose Negative mg/dL (Negative) 10/11/18 22:20 Salicylates < 2.8 mg/dL (2.8-20.0) L 10/11/18 22:10 Urine Opiates Screen Negative (Negative) 10/11/18 22:20 Urine Methadone Screen Negative (Negative) 10/11/18 22:20 Acetaminophen < 2 ug/mL (10-30) L 10/11/18 22:10 Ur Barbiturates Screen Negative (Negative) 10/11/18 22:20 Ur Tricyclics Screen Negative (Negative) 10/11/18 22:20 Ur Amphetamines Screen Negative (Negative) 10/11/18 22:20 U Benzodiazepines Scrn Negative (Negative) 10/11/18 22:20 Urine Cocaine Screen Negative (Negative) 10/11/18 22:20 Ur THC Screen Negative (Negative) 10/11/18 22:20 Ethyl Alcohol < 3.0 mg/dL (<3) 10/11/18 22:10
[2018-10-14] MEDS: Atorvastatin 40 MG TAB 80 MG PO (19:31)
--- NOTE | 2018-10-14 20:09 | PCPN_ITS ---
Date of service: 10/14/18 Assessment and Plan (1) Altered mental status: Current visit: Yes Status: Acute clearer today but still far from normal not safe to drive not safe to be alone needs help with ADLs has appointment with neurology in December as outpatient will try to move this up for him (2) CHF (congestive heart failure): Current visit: Yes Status: Chronic severely hypokinetic heart EF 20-25% working on diuresis will need some medication changes at discharge will need close follow up with PCP Dr Berumen (3) Counseling regarding advance directives and goals of care: Current visit: Yes Status: Acute wants to go home was able to walk around the loop with minimal assistance, just stand-by guard was unsteady on his feet when leaning over doesn't want a lot of testing willing to stay another few days for diuresis will try to go home directly with HH if he is unable to stay home safely, would want to go to the [facility] daughter Tonie, from out of state, is moving to [place] to help care for her parents should be around staring this weekend Subjective Patient reports: feels better Interval history since last seen: Mentally much clearer today. Able to walk loop around med-surg with minimal assistance and no SOB. Daughter Janeth and son-in-law Bryn present. Spoke to them yesterday. Reviewed events of las t [address] Park, hospitalist. ECHO done 10/13 showed LVEF of 20-25%. Severe hypokineses. Did have extensive [place] in 1987. Wasn't supposed to survive then but did. Recognized me. Not needing as much help to feed. Still has some confusion about self-care. Still needs 24/7 care. Leaning over, his balance is very poor. Tried to pet a dog and almost fell. Cannot follow relatively complicated commands, such as [id number] testing. Says he wants to go home. Family leaning for a trial at home at discharge, with admission to SNF if he fails at home. WIll need HH with nursing and PT/OT. Exam Const General: cooperative, no acute distress and frail appearing Nutritional Appearance: overweight Orientation: alert, awake, oriented to person and oriented to place [facility] Head: normocephalic and atraumatic Ears: hearing grossly normal bilaterally General nose exam: external nose normal Face and sinus: dry mucous membranes Eyes Conjunctivae: conjunctivae normal Sclera: sclerae normal Neck Neck: no lymphadenopathy and no JVD Resp Effort & Inspection: normal respiratory effort and able to speak in complete sentences Auscultation: crackles and diminished lung sounds Cardio Jugular venous pressure: no JVD Rate: regular rate Rhythm: abnormal rhythm (bigeminy) regularly irregular Heart Sounds: S1 normal and S2 normal GI Inspection: obesity Palpation: soft Auscultation: normal bowel sounds Skin General skin exam: dry skin Lesions: no lesions Rashes: no rashes Wounds: no wounds Nails: dystrophic Neuro General: alert, awake and gait normal (but cannot lean over without losing balance) Cognition: abnormal cognition Speech: expressive aphasia (mild) Gait: gait assisted (needs stand-by guard) Motor: muscle tone normal throughout Extrem General: normal to inspection and no pedal edema Psych Appearance: grossly normal Speech and Movement: delayed speech and slowed movement Mood: congruent mood Affect: normal affect Attitude: cooperative Thought Process: illogical and impoverished Insight: limited Judgment: limited Objective Objective Clinical Data: Abnormal lab results 10/14/18 10/14/18 10/14/18 Range/Units 06:25 06:25 06:25 Hgb (13.5-17.5) g/dL Hct (40.0-50.0) % RDW (11.8-14.1) % MPV (8.0-11.0) fL Absolute Monocytes (0.11-0.7) k/cumm PT 30.1 H (9.3-11.0) sec BUN 24 H (7-18) mg/dL Glucose 107 H (70-100) mg/dL Total Bilirubin 1.4 H (0.2-1.0) mg/dL Conjugated Bilirubin 0.32 H (0.00-0.20) mg/dL Albumin 3.1 L (3.4-5.0) g/dL 10/14/18 Range/Units 06:25 Hgb 17.6 H (13.5-17.5) g/dL Hct 52.6 H (40.0-50.0) % RDW 16.0 H (11.8-14.1) % MPV 12.3 H (8.0-11.0) fL Absolute Monocytes 1.77 H (0.11-0.7) k/cumm PT (9.3-11.0) sec BUN (7-18) mg/dL Glucose (70-100) mg/dL Total Bilirubin (0.2-1.0) mg/dL Conjugated Bilirubin (0.00-0.20) mg/dL Albumin (3.4-5.0) g/dL Vital Signs Temperature 96.6 F L 10/14/18 16:14 Temperature Source Tympanic 10/14/18 16:14 Pulse 62 10/14/18 19:27 Pulse Rhythm Regular 10/14/18 08:00 Pulse 85 10/12/18 10:43 Respiratory Rate 22 10/14/18 19:27 Respiratory Effort Non-Labored 10/14/18 08:00 Respiratory Depth Normal 10/14/18 08:00 Respiratory Pattern Normal 10/14/18 08:00 Blood Pressure 144/80 H 10/14/18 19:27 Blood Pressure Mean 95 10/12/18 10:43 Blood Pressure Position Supine 10/12/18 02:10 Pulse Oximetry 91 L 10/14/18 19:27 Oxygen Delivery Method Cpap 10/14/18 19:27 Oxygen Flow Rate 0 10/14/18 16:14 Pain Level 0 10/14/18 12:05 Comment 10/14/18 16:14 Intake & Output 10/13/18 10/14/18 10/14/18 23:59 11:59 23:59 Intake Total 240 / 640 610 / 850 240 / 850 Output Total 550 / 1300 Balance -310 / -660 610 / 850 240 / 850 Weight 232 lb 2.348 oz Intake: Oral 240 / 640 610 / 850 240 / 850 Output: Urine 550 / 1300 Other: Urine Color Pale Yellow Yellow Yellow Urine Appearance Clear Clear Clear Urine Odor None Normal Comment Void x 1 Stool Size Smear Stool Characteristics Soft Voiding Methods Bedside Commode Toilet Toilet Laboratory Results WBC 9.38 k/cumm (4.4-10.8) 10/14/18 06:25 RBC 5.88 m/cumm (4.50-6.00) 10/14/18 06:25 Hgb 17.6 g/dL (13.5-17.5) H 10/14/18 06:25 Hct 52.6 % (40.0-50.0) H 10/14/18 06:25 MCV 89.5 fL (80-95) 10/14/18 06:25 MCH 29.9 pg (27.0-33.0) 10/14/18 06:25 MCHC 33.5 g/dL (32.0-36.0) 10/14/18 06:25 RDW 16.0 % (11.8-14.1) H 10/14/18 06:25 Plt Count 184 x1000/uL (130-400) 10/14/18 06:25 MPV 12.3 fL (8.0-11.0) H 10/14/18 06:25 Immature Gran % 0.3 10/14/18 06:25 Neutrophils % 63.9 10/14/18 06:25 Lymphocytes % 14.6 10/14/18 06:25 Monocytes % 18.9 10/14/18 06:25 Eosinophils % 2.0 10/14/18 06:25 Basophils % 0.3 10/14/18 06:25 Absolute Neutrophils 5.99 k/cumm (1.2-6.7) 10/14/18 06:25 Absolute Lymphocytes 1.37 k/cumm (1.2-3.4) 10/14/18 06:25 Absolute Monocytes 1.77 k/cumm (0.11-0.7) H 10/14/18 06:25 Absolute Eosinophils 0.19 k/cumm (0.0-0.7) 10/14/18 06:25 Absolute Basophils 0.03 k/cumm (0.0-0.2) 10/14/18 06:25 Differential Comment Manual differential 10/14/18 06:25 RBC Morphology See below 10/14/18 06:25 Anisocytosis 1+ 10/14/18 06:25 PT 30.1 sec (9.3-11.0) H 10/14/18 06:25 INR 3.0 (1.0-3.5) 10/14/18 06:25 APTT 34.1 sec (21.0-31.4) H 10/11/18 22:10 Sodium 140 mmol/L (136-145) 10/14/18 06:25 Potassium 4.0 mmol/L (3.5-5.1) 10/14/18 06:25 Chloride 103 mmol/L (98-107) 10/14/18 06:25 Carbon Dioxide 29.4 mmol/L (21.0-32.0) 10/14/18 06:25 Anion Gap 7.6 mmol/L (3-11) 10/14/18 06:25 BUN 24 mg/dL (7-18) H 10/14/18 06:25 Creatinine 1.21 mg/dL (0.70-1.30) 10/14/18 06:25 Estimated GFR/1.73 m2 57.41 (mL/min/1.73m2) 10/14/18 06:25 Glucose 107 mg/dL (70-100) H 10/14/18 06:25 Calcium 9.2 mg/dL (8.5-10.1) 10/14/18 06:25 Magnesium 2.2 mg/dL (1.8-2.4) 10/14/18 06:25 Total Bilirubin 1.4 mg/dL (0.2-1.0) H 10/14/18 06:25 Conjugated Bilirubin 0.32 mg/dL (0.00-0.20) H 10/14/18 06:25 AST 22 U/L (15-37) 10/14/18 06:25 ALT 22 U/L (12-78) 10/14/18 06:25 Alkaline Phosphatase 63 U/L (46-116) 10/14/18 06:25 Ammonia 31 umol/L (11-32) 10/11/18 22:10 Troponin I 0.06 ng/mL (0.00-0.06) 10/13/18 06:42 Total Protein 7.3 g/dL (6.4-8.2) 10/14/18 06:25 Albumin 3.1 g/dL (3.4-5.0) L 10/14/18 06:25 Lipase 311 U/L (73-393) 10/11/18 22:10 Vitamin B12 366 pg/mL (193-986) 10/12/18 05:25 TSH 0.62 uIU/mL (0.358-3.74) 10/12/18 05:25 Urine Color Yellow (Yellow) 10/11/18 22:20 Urine Clarity Clear 10/11/18 22:20 Urine pH 6.5 (5-8) 10/11/18 22:20 Ur Specific [place] 1.020 (1.005-1.025) 10/11/18 22:20 Urine Protein 30 mg/dL (Negative) H 10/11/18 22:20 Urine Ketones 15 mg/dL (Negative) H 10/11/18 22:20 Urine Blood Moderate (Negative) H 10/11/18 22:20 Urine Nitrite Negative (Negative) 10/11/18 22:20 Urine Bilirubin Negative (Negative) 10/11/18 22:20 Urine Urobilinogen 1.0 EU/dL (Up TO 0.2) H 10/11/18 22:20 Ur Leukocyte Esterase Negative (Negative) 10/11/18 22:20 Urine RBC 10-20 (0-2) H 10/11/18 22:20 Urine WBC Negative HPF (0-5) 10/11/18 22:20 Ur Epithelial Cells Negative HPF (Negative) 10/11/18 22:20 Urine Crystals Negative HPF (Negative) 10/11/18 22:20 Urine Bacteria Negative HPF (Negative) 10/11/18 22:20 Urine Casts Negative LPF (Negative) 10/11/18 22:20 Urine Mucus Negative (Negative) 10/11/18 22:20 Ur Culture Indicated? No 10/11/18 22:20 Urine Glucose Negative mg/dL (Negative) 10/11/18 22:20 Salicylates < 2.8 mg/dL (2.8-20.0) L 10/11/18 22:10 Urine Opiates Screen Negative (Negative) 10/11/18 22:20 Urine Methadone Screen Negative (Negative) 10/11/18 22:20 Acetaminophen < 2 ug/mL (10-30) L 10/11/18 22:10 Ur Barbiturates Screen Negative (Negative) 10/11/18 22:20 Ur Tricyclics Screen Negative (Negative) 10/11/18 22:20 Ur Amphetamines Screen Negative (Negative) 10/11/18 22:20 U Benzodiazepines Scrn Negative (Negative) 10/11/18 22:20 Urine Cocaine Screen Negative (Negative) 10/11/18 22:20 Ur THC Screen Negative (Negative) 10/11/18 22:20 Ethyl Alcohol < 3.0 mg/dL (<3) 10/11/18 22:10
[2018-10-14] MEDS: Spironolactone 25 MG TAB 12.5 MG PO (20:13)
[2018-10-15] VITALS (12 sets, daily range): BP systolic 104–160; BP diastolic 63–84; PULSE 56–91; RESP 16–18; TEMP 36.4–37.3; O2SAT 91–96
[2018-10-15 07:18] LABS: Abs Immature Grans 0.03 k/cumm (0.0-0.09); HCT 51.8 % (40.0-50.0); HGB 17.1 g/dL (13.5-17.5); Mean Corpuscular Hemoglobin 29.8 pg (27.0-33.0); Mean Corpuscular Volume 90.4 fL (80-95); Platelet Count 189 x1000/uL (130-400); RBC 5.73 m/cumm (4.50-6.00); RBC Distribution Width 16.1 % (11.8-14.1); White Blood Cell Count 10.65 k/cumm (4.4-10.8)
[2018-10-15 07:33] LABS: INR 2.5 (1.0-3.5); Prothrombin Time 25.6 sec (9.3-11.0)
[2018-10-15 07:36] LABS: ALT 24 U/L (12-78); AST 23 U/L (15-37); Alkaline Phosphatase 64 U/L (46-116); Bilirubin, Direct 0.32 mg/dL (0.00-0.20); Bilirubin, Total 1.2 mg/dL (0.2-1.0); Magnesium 2.3 mg/dL (1.8-2.4); Total Protein 7.3 g/dL (6.4-8.2)
[2018-10-15 07:47] LABS: Anion Gap 5.7 mmol/L (3-11); BUN 27 mg/dL (7-18); CO2 31.3 mmol/L (21.0-32.0); CREATININE 1.25 mg/dL (0.70-1.30); Calcium 9.2 mg/dL (8.5-10.1); Chloride 102 mmol/L (98-107); Glucose 113 mg/dL (70-100); Potassium 4.1 mmol/L (3.5-5.1); Sodium 139 mmol/L (136-145)
[2018-10-15] MEDS: Spironolactone 25 MG TAB PO (07:56)
[2018-10-15] MEDS: Pantoprazole 40 MG VIAL IVP (07:56)
[2018-10-15] MEDS: Carvedilol 6.25 MG TAB PO ×2 (07:56→20:57)
[2018-10-15] MEDS: Lisinopril 20 MG TAB PO (07:56)
[2018-10-15] MEDS: Aspirin 81 MG CHEW PO (07:56)
[2018-10-15] MEDS: Furosemide 40 MG TAB PO ×2 (07:56→17:22)
[2018-10-15] MEDS: Normal Saline Flush 10 ML SYR IVP ×2 (07:57→17:23)
[2018-10-15 08:01] LABS: Absolute Eosinophil Count 0.32 k/cumm (0.0-0.7); Absolute Lymphocyte Count 1.17 k/cumm (1.2-3.4); Absolute Monocyte Count 1.38 k/cumm (0.11-0.7); Absolute Neutrophil Count 7.77 k/cumm (1.2-6.7); Atypical Lymphocytes % 1; Diff Comment Manual Differential; RBC Morphology Normal
[2018-10-15] MEDS: Carvedilol 3.125 MG TAB PO ×2 (10:44→20:58)
[2018-10-15] MEDS: Isosorbide Mononitrate 30 MG TABCR PO (10:44)
--- NOTE | 2018-10-15 12:16 | PDOC.CMPRO ---
- If Service Date Differs Date of service: 10/15/18 Time of Service: 12:16 Care Management Progress Note S/O: Frank is sitting up in bed with his family at bedside, when CM visits this morning. He is engaged in conversation, makes good eye contact, and is talkative. Frank reports that he is feeling well and looks forward to returning home when medically ready. Frank's mentation has improved dramatically in comparison with the last few days and the plan has changed from SNF placement or home on hospice, to home with home health services. Frank's daughter, Tonie, will be coming to [place] and able to stay with her parents and assist with their care. Dr. Muro continues to follow Frank and his care and will continue to do so following his discharge home. A: 83 year old male admitted with AMS with delusions, new onset CHF. P: Frank will discharge home with home health services once medically cleared. [facility] has accepted him, however at this time Frank and his family would like him to return home. Frank will transport via private vehicle with family. CM will continue to offer support to patient, family, and care team regarding discharge planning and disposition.
--- NOTE | 2018-10-15 15:30 | CHAPLAIN ---
I visited with Frank and his this morning. They told me about their daughter arriving from [place] soon to spend some time with them. Frank was pleasant and easily engaged in a conversation but said he didn't feel the need for a coiler visit. I let them know that I'm around and offered support if needed, or wanted.
--- NOTE | 2018-10-15 15:45 | OT.INIE ---
Occupational Therapy Notes Inpatient Occupational Therapy Evaluation Date: 10/15/18 Referring Doctor:Tonie Muro MD OT Orders: Generalized Weakness PATIENT PROFILE/ADMITTING DIAGNOSIS: Pt is a 83 year old male who was admitted through the ER on 10/12/18 for altered mental status, delusions and CHF. 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 Current Functional Limitations: Slight decrease (B) UE strength, confused impacting pts ability to sequence more than 2 step directions for ADLs/IADLs. Social History/Home Situation: Pt reports that he lives in a private home with his . He states that he has stairs to enter his home 2-3 or 3-4 and reports that he recently fell on the stairs but cannot remember why. Pt states that he has a bathroom on the first floor with a bathroom including a tub/shower combination. He states that he stands in the shower and has grab bars and is able to (I) wash himself up and states that currently he hasn't had a shower for 10 days so he stands and washes himself up standing at the sink. He reports and demonstrates (I) in donning and doffing socks and AROM is WNL. He states that he toilets using the toilet and that he can eat (I). He does not drive as him family doesn't want him to per pt report and states that this has only been recently. Pt reports that his baseline (I) with functional ADLs/IADLs is (I). He doesn't perform a lot of the cooking however states that he can if he needs to. Equipment owned/DME: Grab bars otherwise pt reports none. SUBJECTIVE: Pt was lying in bed in the dark when OT arrived staring at the ceiling. He is agreeable to OT session at this time. OBJECTIVE: General Observation: IV not connected in (R) UE Mental Status: Pt is alert to place, he reports to OT that he is 56 years old and that he has a daughter stating I know she lives with us, or she used to. Pt presents as confused. He is unable to fully follow 2-step directions for ADls and asks multiple times throughout consult, what does that mean. Pain: no c/o pain. ROM: RUE AROM WNL L UE AROM WNL STRENGTH: RUE 4-/5 throughout LUE 4-/5 throughout FUNCTIONAL MOBILITY/ADLS: Transfers Supine-sit (I) Sit-supine (I) DRESSING Dressing LE Pt able to (I) don and doff (B) socks sitting on side of the bed. BALANCE: Static sitting Normal Dynamic Sitting Normal SPECIAL TESTS: Daily Activity Limitations Standardized Measure [facility] AM -PAC ?6 clicks? Daily Activity Inpatient Short Form: Raw score: 22 Standardized score: 47.10 CMS score: 25.80% CMS modifier: CJ INFORMED CONSENT/EDUCATION: Pt instructed in purpose of OT Consult and plan of care. 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 Patient presents with clinical signs and symptoms consistent with this dx, as demonstrated by the following impairment level findings and following functional limitations: Slight decrease in (B) UE strength, decreased ability to follow 2 step instructions for ADLs/IADLs. Pt is functionally able to perform dynamic movements needed for ADLs/IADLs. He demonstrates ideal (I) in LE dressing but is unable to follow multi step tasks at this time due to confusion which was not evident throughout whole OT session. OT recommends that pt return home when medically cleared with OT services to assess pt's (I) in home setting. OT consult only at this time as pt does present as confused and not able to perfrom multi step directions at this time, but physically able to perform ADLs without (A) at this time presenting at what he describes as his baseline level of function for functional ADLs/IADLs. AMPAC score 22, CMS score 25.80% Patient is assessed as a Moderate 82290 complexity based on the following: History: See Above Examination: See Above Presentation: Evolving Decision Making: AMPAC score 22, CMS score 25.80% GOALS N/A PLAN OF CARE/TREATMENT PLAN: OT consult only. DISCHARGE RECOMMENDATIONS Home with home OT when medically cleared per MD. TREATMENT TIME/MINUTES/CODES IE 20 minutes (03:25) G Codes in the area of self- : washing oneself, toileting, dressing, eating and drinking, current status GO [id number] CJ projected status GO [id number]. Discharge status (if discharging) GO [id number]. Hilaria Albarado, OTR/L
--- NOTE | 2018-10-15 16:51 | W.PM.PROGNOT ---
Date of Service Date of service: 10/15/18 Time of Service: 16:51 Assessment and Plan (1) Altered mental status: Current visit: Yes Status: Acute Altered mental status that was rather rapid in onset, but now ongoing and worsening over the past few weeks. As an outpatient Mr. Nur has already received an MRI of the brain which was negative for any acute abnormalities including CVA, and had further workup with a negative urinalysis, and a normal TSH and B12. Imaging does not support diagnosis of pulmonary infection, and clinically the patient does not appear to be infected. CT of the abdomen and pelvis was obtained in the setting of abdominal pain and weight loss, but without any acute abnormalities. Patient's blood sugar is adequate, he is not in acute kidney injury or uremic, and although his total bilirubin is mildly elevated this is likely due to hepatic congestion, and improved with diuresis. No evidence of any recent med changes or abrupt medication withdrawal, and no evidence of arrhythmias by telemetry. Doubt acute CVA as recent MRI and admission CT of the head were all negative. Electrolytes appear grossly normal. Only obvious source for patient's confusion could be the possibility for a recent cardiac ischemic event, with subsequent development of congestive heart failure and hypoxia in patient with potential mild underlying cognitive impairment. However currently patient is without O2 requirement and still appears confused, although improving. Will continue to monitor. Currently without availability for neurology consultation locally. (2) CHF (congestive heart failure): Current visit: Yes Status: Chronic New diagnosis of CHF, with a significant drop in LVEF currently at 20%. Also with evidence of wall motion abnormalities as stated above, in patient with a prior history of CAD makes ischemic cardiomyopathy a possible etiology. Continue high potency statin and initiated daily aspirin therapy. The patient is already on HANK inhibitor and beta samantha - changed propranolol to carvedilol and will titrate as needed. Changed Lasix dosing to p.o. with plans to monitor weight and kidney function closely. Started low dose spironolactone previously, with plans for close monitoring of renal function. Discussed this at length with family, and discussed options including potential diagnostic left heart catheterization, stress testing, vs. medical management only. Not interested in pursuing aggressive measures or interventions - will continue medical management. (3) Pulmonary embolism: Current visit: Yes Status: Chronic Continue Coumadin and monitor daily INR. (4) DVT prophylaxis: Current visit: Yes Status: Acute On chronic anticoagulation with Coumadin, monitor INR. Initiated PPI therapy for GI prophylaxis as well. (5) Counseling regarding advance directives and goals of care: Current visit: Yes Status: Acute DNR/DNI. According to conversation with daughter this evening would like to limit any invasive testing or procedures as well. Subjective Interval history since last seen: 83-year-old man with a past medical history significant for CAD, and PE on anticoagulation admitted from [facility] emergency department on 10/12 with a diagnosis of altered mental status and CHF. Mr. Nur has a past medical history significant hypertension, DM, CAD, and PE on chronic anticoagulation with Coumadin. He does not however carries a diagnosis of CHF. The patient had been in his usual state of health, which at baseline is normal. 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 However he has had a rapid decline in his mental status fairly recently, initially beginning with noted memory loss, more recently with hallucinations and worsening altered mental status. This has been of great concern to his family, and under the guidance of the Palliative Care Physician who the patient had consulted with, presented to the ED for further evaluation. Initial workup was significant for lack of leukocytosis, mildly elevated total bilirubin, normal LFTs, and essentially normal troponin. His TSH was checked and also normal, as were his vitamin B12 levels. Urinalysis showed a lack of leuk esterase or nitrates, essentially negative for infection. Patient was afebrile and slightly hypertensive, but note was taken of hypoxia by vital signs. Imaging with a chest x-ray showed evidence of pulmonary edema, and the patient was admitted for further evaluation and treatment of potential heart failure. Subsequent testing has revealed evidence of significant heart failure, with echocardiogram showing an LVEF of 20%, along with noted severe hypokinesis of the inferior lateral and inferior myocardium. Mr. Nur's troponin was trended, and with the exception of one value which was minimally and equivocally elevated, his cardiac biomarkers have remained normal. He is currently off of oxygen and on room air, with mental status improved again but still not yet at baseline. No other events reported overnight. Patient remains afebrile. Exam Narrative Exam Narrative: General: Patient appears comfortable, comfortably in bed, awake and alert, Oriented to person and place, NAD Neck: Supple CV: Regular, nontachycardic, S1S2, 3/6 RUSB murmur appreciated Pulmonary: Bibasilar crackles essentially resolved, no wheezing or rhonchi Abdomen: + Bowel Sounds, soft, no further tenderness noted on physical exam, nondistended Vascular: No lower extremity edema Objective Objective Clinical Data: Abnormal lab results 10/15/18 10/15/18 10/15/18 Range/Units 06:45 06:45 06:45 Hct (40.0-50.0) % RDW (11.8-14.1) % MPV (8.0-11.0) fL Absolute Neutrophils (1.2-6.7) k/cumm Absolute Lymphocytes (1.2-3.4) k/cumm Absolute Monocytes (0.11-0.7) k/cumm PT 25.6 H (9.3-11.0) sec BUN 27 H (7-18) mg/dL Glucose 113 H (70-100) mg/dL Total Bilirubin 1.2 H (0.2-1.0) mg/dL Conjugated Bilirubin 0.32 H (0.00-0.20) mg/dL Albumin 3.0 L (3.4-5.0) g/dL 10/15/18 Range/Units 06:45 Hct 51.8 H (40.0-50.0) % RDW 16.1 H (11.8-14.1) % MPV 12.0 H (8.0-11.0) fL Absolute Neutrophils 7.77 H (1.2-6.7) k/cumm Absolute Lymphocytes 1.17 L (1.2-3.4) k/cumm Absolute Monocytes 1.38 H (0.11-0.7) k/cumm PT (9.3-11.0) sec BUN (7-18) mg/dL Glucose (70-100) mg/dL Total Bilirubin (0.2-1.0) mg/dL Conjugated Bilirubin (0.00-0.20) mg/dL Albumin (3.4-5.0) g/dL Vital Signs Temperature 36.4 C L 10/15/18 16:25 Temperature Source Tympanic 10/15/18 16:25 Pulse 89 10/15/18 16:25 Pulse Rhythm Regular 10/15/18 08:10 Pulse 85 10/12/18 10:43 Respiratory Rate 18 10/15/18 16:25 Respiratory Effort Non-Labored 10/15/18 08:10 Respiratory Depth Normal 10/15/18 08:10 Respiratory Pattern Normal 10/15/18 08:10 Blood Pressure 115/63 10/15/18 16:25 Blood Pressure Mean 95 10/12/18 10:43 Blood Pressure Position Supine 10/12/18 02:10 Pulse Oximetry 92 L 10/15/18 16:25 Oxygen Delivery Method Room Air 10/15/18 16:25 Oxygen Flow Rate 0 10/15/18 16:25 Pain Level 0 10/14/18 12:05 Comment 10/14/18 16:14 Intake & Output 10/14/18 10/15/18 10/15/18 23:59 11:59 23:59 Intake Total 300 / 910 850 / 1090 240 / 1090 Balance 300 / 910 850 / 1090 240 / 1090 Weight 104.2 kg Intake: IV 20 Oral 300 / 910 830 / 1070 240 / 1070 Other: Urine Color Yellow Yellow Urine Appearance Clear Clear Urine Odor Normal Comment Void x 1 TV X2 Stool Size Moderate Stool Characteristics Brown Voiding Methods Toilet Toilet Laboratory Results WBC 10.65 k/cumm (4.4-10.8) 10/15/18 06:45 RBC 5.73 m/cumm (4.50-6.00) 10/15/18 06:45 Hgb 17.1 g/dL (13.5-17.5) 10/15/18 06:45 Hct 51.8 % (40.0-50.0) H 10/15/18 06:45 MCV 90.4 fL (80-95) 10/15/18 06:45 MCH 29.8 pg (27.0-33.0) 10/15/18 06:45 MCHC 33.0 g/dL (32.0-36.0) 10/15/18 06:45 RDW 16.1 % (11.8-14.1) H 10/15/18 06:45 Plt Count 189 x1000/uL (130-400) 10/15/18 06:45 MPV 12.0 fL (8.0-11.0) H 10/15/18 06:45 Immature Gran % 0.0 10/15/18 06:45 Neutrophils % 73.0 10/15/18 06:45 Lymphocytes % 10.0 10/15/18 06:45 Monocytes % 13.0 10/15/18 06:45 Eosinophils % 3.0 10/15/18 06:45 Basophils % 0.0 10/15/18 06:45 Absolute Neutrophils 7.77 k/cumm (1.2-6.7) H 10/15/18 06:45 Absolute Lymphocytes 1.17 k/cumm (1.2-3.4) L 10/15/18 06:45 Absolute Monocytes 1.38 k/cumm (0.11-0.7) H 10/15/18 06:45 Absolute Eosinophils 0.32 k/cumm (0.0-0.7) 10/15/18 06:45 Absolute Basophils 0.00 k/cumm (0.0-0.2) 10/15/18 06:45 Differential Comment Manual differential 10/15/18 06:45 Atypical Lymphocytes 1 10/15/18 06:45 RBC Morphology Normal 10/15/18 06:45 Anisocytosis 1+ 10/14/18 06:25 PT 25.6 sec (9.3-11.0) H 10/15/18 06:45 INR 2.5 (1.0-3.5) 10/15/18 06:45 APTT 34.1 sec (21.0-31.4) H 10/11/18 22:10 Sodium 139 mmol/L (136-145) 10/15/18 06:45 Potassium 4.1 mmol/L (3.5-5.1) 10/15/18 06:45 Chloride 102 mmol/L (98-107) 10/15/18 06:45 Carbon Dioxide 31.3 mmol/L (21.0-32.0) 10/15/18 06:45 Anion Gap 5.7 mmol/L (3-11) 10/15/18 06:45 BUN 27 mg/dL (7-18) H 10/15/18 06:45 Creatinine 1.25 mg/dL (0.70-1.30) 10/15/18 06:45 Estimated GFR/1.73 m2 55.30 (mL/min/1.73m2) 10/15/18 06:45 Glucose 113 mg/dL (70-100) H 10/15/18 06:45 Calcium 9.2 mg/dL (8.5-10.1) 10/15/18 06:45 Magnesium 2.3 mg/dL (1.8-2.4) 10/15/18 06:45 Total Bilirubin 1.2 mg/dL (0.2-1.0) H 10/15/18 06:45 Conjugated Bilirubin 0.32 mg/dL (0.00-0.20) H 10/15/18 06:45 AST 23 U/L (15-37) 10/15/18 06:45 ALT 24 U/L (12-78) 10/15/18 06:45 Alkaline Phosphatase 64 U/L (46-116) 10/15/18 06:45 Ammonia 31 umol/L (11-32) 10/11/18 22:10 Troponin I 0.06 ng/mL (0.00-0.06) 10/13/18 06:42 Total Protein 7.3 g/dL (6.4-8.2) 10/15/18 06:45 Albumin 3.0 g/dL (3.4-5.0) L 10/15/18 06:45 Lipase 311 U/L (73-393) 10/11/18 22:10 Vitamin B12 366 pg/mL (193-986) 10/12/18 05:25 TSH 0.62 uIU/mL (0.358-3.74) 10/12/18 05:25 Urine Color Yellow (Yellow) 10/11/18 22:20 Urine Clarity Clear 10/11/18 22:20 Urine pH 6.5 (5-8) 10/11/18 22:20 Ur Specific [place] 1.020 (1.005-1.025) 10/11/18 22:20 Urine Protein 30 mg/dL (Negative) H 10/11/18 22:20 Urine Ketones 15 mg/dL (Negative) H 10/11/18 22:20 Urine Blood Moderate (Negative) H 10/11/18 22:20 Urine Nitrite Negative (Negative) 10/11/18 22:20 Urine Bilirubin Negative (Negative) 10/11/18 22:20 Urine Urobilinogen 1.0 EU/dL (Up TO 0.2) H 10/11/18 22:20 Ur Leukocyte Esterase Negative (Negative) 10/11/18 22:20 Urine RBC 10-20 (0-2) H 10/11/18 22:20 Urine WBC Negative HPF (0-5) 10/11/18 22:20 Ur Epithelial Cells Negative HPF (Negative) 10/11/18 22:20 Urine Crystals Negative HPF (Negative) 10/11/18 22:20 Urine Bacteria Negative HPF (Negative) 10/11/18 22:20 Urine Casts Negative LPF (Negative) 10/11/18 22:20 Urine Mucus Negative (Negative) 10/11/18 22:20 Ur Culture Indicated? No 10/11/18 22:20 Urine Glucose Negative mg/dL (Negative) 10/11/18 22:20 Salicylates < 2.8 mg/dL (2.8-20.0) L 10/11/18 22:10 Urine Opiates Screen Negative (Negative) 10/11/18 22:20 Urine Methadone Screen Negative (Negative) 10/11/18 22:20 Acetaminophen < 2 ug/mL (10-30) L 10/11/18 22:10 Ur Barbiturates Screen Negative (Negative) 10/11/18 22:20 Ur Tricyclics Screen Negative (Negative) 10/11/18 22:20 Ur Amphetamines Screen Negative (Negative) 10/11/18 22:20 U Benzodiazepines Scrn Negative (Negative) 10/11/18 22:20 Urine Cocaine Screen Negative (Negative) 10/11/18 22:20 Ur THC Screen Negative (Negative) 10/11/18 22:20 Ethyl Alcohol < 3.0 mg/dL (<3) 10/11/18 22:10
[2018-10-15] MEDS: Atorvastatin 40 MG TAB 80 MG PO (20:56)
[2018-10-15] MEDS: Warfarin 5 MG TAB PO (22:00)
[2018-10-16] VITALS (9 sets, daily range): BP systolic 103–145; BP diastolic 57–76; PULSE 51–82; RESP 16–19; TEMP 36–36.8; O2SAT 91–95
[2018-10-16 07:21] LABS: Abs Immature Grans 0.03 k/cumm (0.0-0.09); Absolute Basophil Count 0.01 k/cumm (0.0-0.2); Absolute Eosinophil Count 0.17 k/cumm (0.0-0.7); Absolute Lymphocyte Count 1.36 k/cumm (1.2-3.4); Absolute Monocyte Count 1.55 k/cumm (0.11-0.7); Basophils % 0.1; Eosinophils % 1.6; HCT 48.9 % (40.0-50.0); Immature Grans % 0.3; Lymphocytes % 12.6; Mean Corp. HGB Concentration 32.7 g/dL (32.0-36.0); Mean Corpuscular Hemoglobin 29.7 pg (27.0-33.0); Mean Corpuscular Volume 90.7 fL (80-95); Mean Platelet Volume 11.7 fL (8.0-11.0); Monocytes % 14.3; Neutrophils % 71.1; Platelet Count 180 x1000/uL (130-400); RBC 5.39 m/cumm (4.50-6.00); RBC Distribution Width 15.9 % (11.8-14.1); White Blood Cell Count 10.82 k/cumm (4.4-10.8)
[2018-10-16 07:23] LABS: Absolute Neutrophil Count 7.69 k/cumm (1.2-6.7)
[2018-10-16 07:40] LABS: Prothrombin Time 20.1 sec (9.3-11.0)
[2018-10-16 07:42] LABS: Anion Gap 8.2 mmol/L (3-11); BUN 36 mg/dL (7-18); CO2 29.8 mmol/L (21.0-32.0); CREATININE 1.83 mg/dL (0.70-1.30); Calcium 9.5 mg/dL (8.5-10.1); Chloride 100 mmol/L (98-107); Estimated GFR 35.62 (mL/min/1.73m2); Glucose 175 mg/dL (70-100); Potassium 4.2 mmol/L (3.5-5.1); Sodium 138 mmol/L (136-145)
[2018-10-16 07:46] LABS: ALT 23 U/L (12-78); AST 19 U/L (15-37); Albumin 3.1 g/dL (3.4-5.0); Alkaline Phosphatase 64 U/L (46-116); Bilirubin, Direct 0.32 mg/dL (0.00-0.20); Bilirubin, Total 1.3 mg/dL (0.2-1.0); Magnesium 2.5 mg/dL (1.8-2.4); Total Protein 7.3 g/dL (6.4-8.2)
[2018-10-16] MEDS: Aspirin 81 MG CHEW PO (08:30)
[2018-10-16] MEDS: Isosorbide Mononitrate 30 MG TABCR PO (08:30)
[2018-10-16] MEDS: Carvedilol 3.125 MG TAB PO ×2 (08:30→19:48)
[2018-10-16] MEDS: Carvedilol 6.25 MG TAB PO ×2 (08:30→19:48)
[2018-10-16] MEDS: Pantoprazole 40 MG TABCR PO (08:30)
--- NOTE | 2018-10-16 09:04 | PT.INIE ---
Date of service: 10/16/18 Time of Service: 09:00 PT Notes Inpatient Physical Therapy Evaluation Date: 10/16/2018 Referring Doctor: Tonie Vick MD PT Orders: PT CONSULT: Generalized weakness Precautions: Fall precautions Patient Profile/Admitting Diagnosis: Patient is an 83-year-old male admitted with altered mental status, pulmonary edema, congestive heart failure PMHX: Vascular dementia, diabetes mellitus type 2, obesity, arteriosclerotic cardiovascular disease, myocardial infarction x2, pulmonary fibrosis, neoplasm lung, pulmonary embolus, hypertension, vertigo/BPPV, cellulitis of the face Social History/Home Situation: Lives with and home, 4 steps to enter, baseline mobility independent gait without assistive device, independent with ADLs. Patient states he has had frequent falls in the past and home setting and he is interested in getting a front wheel walker for home stability. Patient uses shower chair for bathing. Equipment Owned/DME: Cane, shower chair, raised toilet seat?needs FW W for home use Subjective: Patient sitting in chair finished breakfast watching TV, alert and agreeable to PT consult. Stands up from chair fall alarm activated, instructed to sit in until therapy is ready to mobilize. Objective: General Observation: Telemetry Mental Status: A and O name, place, situation Pain: No complaints of pain ROM: Right Upper Extremity: AROM WNL Left Upper Extremity: AROM WNL Right Lower Extremity: AROM WNL Left Lower Extremity: AROM WNL Strength: Right Upper Extremity: 5/5 throughout Left Upper Extremity: 5/5 throughout Right Lower Extremity: 5/5 throughout Left Lower Extremity: 5/5 throughout Bed Mobility/Transfers: Sit to stand: Independent Stand to sit: Independent, cues to reach back to chair for safety Gait: SBA with FWW 200 feet, steady step through gait pattern, verbal cues provided to stay inside of walker particularly with turns, patient able to follow instruction. Stairs: Up/down 5 steps with cane, SBA, step to step sequence Balance: Static Sitting: Normal Dynamic Sitting: Normal Static Standing: Fair Dynamic Standing: Fair Special Tests: Mobility Limitations Standardized Measure [facility]-PAC 6 clicks Basic Mobility Inpatient Short Form: Raw Score: 18 standardized Score: 43.63 CMS Score: 36.58% CMS Modifier: CK Informed Consent/Education: Patient instructed in purpose of PT consult and plan of care. Assessment: Patient is an 83-year-old male admitted with altered mental status, pulmonary edema, congestive heart failure in setting of Vascular dementia, diabetes mellitus type 2, obesity. Patient presents with the following impairment level findings: Decreased static and dynamic standing balance required use of front wheel walker for gait stability to prevent falls, decreased balance with stair training requiring use of cane. Patient will benefit from short-term physical therapy intervention for strengthening, balance training, gait and stair training. He will need a front wheel walker for home use for gait stability to prevent falls. Anticipate return to home setting when medically cleared. Impairments are contributing to the following functional limitations: AMPAC score CMS Score: 36.58% Patient is assessed as a Low 08957 complexity based on the following: History: See above Examination: See above Presentation: Stable Decision Making: AMPAC score CMS Score: 36.58% Goals: Goals X1 week 1. Supine-Sit: Independent 2. Sit-Supine: Independent 3. Sit-Stand independent 4. Stand-Sit: Independent 5. Bed-Chair: Supervision with FWW 6. Chair-Bed: Supervision with FW W 7. Gait: Supervision with FWW 300 feet 8. Stairs up/down 5 steps with cane supervision Plan of Care/Treatment Plan: 1-2x/day, 7 days/week x 1 week. Plan of care has been reviewed with the CORRECTIONAL THERAPY TEACHER providing the service under Physical Therapy direction. Initiate Physical Therapy intervention for strengthening, bed mobility, transfers, gait, stairs, balance training, use of assistive device. DISCHARGE RECOMMENDATIONS: Home with FWW TREATMENT CODE/TIME: 25 minutes IE 8:55 AM G Codes in the area mobility of walking and moving around: current status [id number] CK; projected status GP [id number]. Discharge status (if discharging) GP G8980 CK based on AMPAC scores AMPAC score CMS Score: 36.58% Edyta Phillips PT Disclaimer: This note was created using [employer] voice recognition software. It was reviewed for major content. However, there may be multiple small discrepancies and errors due to the voice recognition aspects of the software.
--- NOTE | 2018-10-16 09:10 | IN_ITS ---
Date of service: 10/16/18 Time of Service: 09:00 PT Notes Inpatient Physical Therapy Evaluation Date: 10/16/2018 Referring Doctor: Tonie Vick MD PT Orders: PT CONSULT: Generalized weakness Precautions: Fall precautions Patient Profile/Admitting Diagnosis: Patient is an 83-year-old male admitted with altered mental status, pulmonary edema, congestive heart failure PMHX: Vascular dementia, diabetes mellitus type 2, obesity, arteriosclerotic cardiovascular disease, myocardial infarction x2, pulmonary fibrosis, neoplasm lung, pulmonary embolus, hypertension, vertigo/BPPV, cellulitis of the face Social History/Home Situation: Lives with and home, 4 steps to enter, baseline mobility independent gait without assistive device, independent with ADLs. Patient states he has had frequent falls in the past and home setting and he is interested in getting a front wheel walker for home stability. Patient uses shower chair for bathing. Equipment Owned/DME: Cane, shower chair, raised toilet seat?needs FW W for home use Subjective: Patient sitting in chair finished breakfast watching TV, alert and agreeable to PT consult. Stands up from chair fall alarm activated, instructed to sit in until therapy is ready to mobilize. Objective: General Observation: Telemetry Mental Status: A and O name, place, situation Pain: No complaints of pain ROM: Right Upper Extremity: AROM WNL Left Upper Extremity: AROM WNL Right Lower Extremity: AROM WNL Left Lower Extremity: AROM WNL Strength: Right Upper Extremity: 5/5 throughout Left Upper Extremity: 5/5 throughout Right Lower Extremity: 5/5 throughout Left Lower Extremity: 5/5 throughout Bed Mobility/Transfers: Sit to stand: Independent Stand to sit: Independent, cues to reach back to chair for safety Gait: SBA with FWW 200 feet, steady step through gait pattern, verbal cues provided to stay inside of walker particularly with turns, patient able to follow instruction. Stairs: Up/down 5 steps with cane, SBA, step to step sequence Balance: Static Sitting: Normal Dynamic Sitting: Normal Static Standing: Fair Dynamic Standing: Fair Special Tests: Mobility Limitations Standardized Measure [facility]-P[facility] 6 clicks Basic Mobility Inpatient Short Form: Raw Score: 18 standardized Score: 43.63 CMS Score: 36.58% CMS Modifier: CK Informed Consent/Education: Patient instructed in purpose of PT consult and plan of care. Assessment: Patient is an 83-year-old male admitted with altered mental status, pulmonary edema, congestive heart failure in setting of Vascular dementia, diabetes mellitus type 2, obesity. Patient presents with the following impairment level findings: Decreased static and dynamic standing balance required use of front wheel walker for gait stability to prevent falls, decreased balance with stair training requiring use of cane. Patient will benefit from short-term physical therapy intervention for strengthening, balance training, gait and stair training. He will need a front wheel walker for home use for gait stability to prevent falls. Anticipate return to home setting when medically cleared. Impairments are contributing to the following functional limitations: AMPAC score CMS Score: 36.58% Patient is assessed as a Low 54532 complexity based on the following: History: See above Examination: See above Presentation: Stable Decision Making: AMPAC score CMS Score: 36.58% Goals: Goals X1 week 1. Supine-Sit: Independent 2. Sit-Supine: Independent 3. Sit-Stand independent 4. Stand-Sit: Independent 5. Bed-Chair: Supervision with FWW 6. Chair-Bed: Supervision with FW W 7. Gait: Supervision with FWW 300 feet 8. Stairs up/down 5 steps with cane supervision Plan of Care/Treatment Plan: 1-2x/day, 7 days/week x 1 week. Plan of care has been reviewed with the LOAN REVIEWER providing the service under Physical Therapy direction. Initiate Physical Therapy intervention for strengthening, bed mobility, transfers, gait, stairs, balance training, use of assistive device. DISCHARGE RECOMMENDATIONS: Home with FWW TREATMENT CODE/TIME: 25 minutes IE 8:55 AM G Codes in the area mobility of walking and moving around: current status [id number] CK; projected status GP [id number]. Discharge status (if discharging) GP [id number] CK based on AMPAC scores AMPAC score CMS Score: 36.58% Edyta Phillips PT Disclaimer: This note was created using [employer]here[employer] voice recognition software. It was reviewed for major content. However, there may be multiple small discrepancies and errors due to the voice recognition aspects of the software.
--- NOTE | 2018-10-16 11:30 | PT.INTREAT ---
Date of service: 10/16/18 Time of Service: 11:28 PT Notes Inpatient Physical Therapy Treatment Note Date: 10/16/18 PRECAUTIONS: Fall precautions SUBJECTIVE: Patient lying in bed, agreeable to PT session. OBJECTIVE: General observation: Telemetry PAIN: No complaints of pain BED MOBILITY/TRANSFERS Rolling L/R: Independent Supine-sit: Independent Sit-supine: Independent Sit-stand: Supervision Stand-sit: Supervision GAIT Assistive Device: FWW Assist: CGA Distance: 40 feet x2 Deviation: Slow steady step through gait pattern, patient with one loss of balance requiring CGA for stability, patient reports being tired, returned to room back to bed with fall alarm activated THEREX: Lower extremity strengthening: Bilateral long arc quad, hip flexion, straight leg raise, hip abduction, x10 repetitions ASSESSMENT: Patient more tired this afternoon and this morning, performing transfers without difficulty, requiring use of front wheel walker for gait stability and standby assist/contact-guard assist for safety due to decreased dynamic standing balance. PLAN: Progress strengthening Progress gait training TREATMENT CODE/TIME: 24 minutes TAx1 TPx1 11:26 Edyta Phillips PT
--- NOTE | 2018-10-16 12:50 | PDOC.CMPRO ---
- If Service Date Differs Date of service: 10/16/18 Time of Service: 12:50 Care Management Progress Note S/O: Frank is sitting on the edge of his bed eating lunch when CM visits this afternoon. He is engaged in conversation, makes good eye contact, and is talkative. Frank reports that his , Jessica, has chemotherapy treatment at [facility] and that his family will likely visit him afterwards. Frank reports that his daughter, Tonie, is to be arriving in [place] from [place] and will be staying with Frank and Jessica for a month to assist with recovery. A: 83 year old male admitted with AMS with delusions, new onset CHF. P: Frank will discharge home with new home health services (RN/PT/OT) once medically cleared. The [facility] has accepted him, however at this time Frank and his family would like him to return home. Frank will transport via private vehicle with family. CM will continue to offer support to patient, family, and care team regarding discharge planning and disposition.
--- NOTE | 2018-10-16 13:03 | CMPROGNOTE_ITS ---
- If Service Date Differs Date of service: 10/16/18 Time of Service: 12:50 Care Management Progress Note S/O: Frank is sitting on the edge of his bed eating lunch when CM visits this afternoon. He is engaged in conversation, makes good eye contact, and is talkative. Frank reports that his , Jessica, has chemotherapy treatment at [facility] and that his family will likely visit him afterwards. Frank reports that his daughter, Tonie, is to be arriving in [place] from [place] and will be staying with Frank and Jessica for a month to assist with recovery. A: 83 year old male admitted with AMS with delusions, new onset CHF. P: Frank will discharge home with new home health services (RN/PT/OT) once medically cleared. The [facility] has accepted him, however at this time Frank and his family would like him to return home. Frank will transport via private vehicle with family. CM will continue to offer support to patient, family, and care team regarding discharge planning and disposition.
--- NOTE | 2018-10-16 15:06 | PGE_ITS ---
Date of Service Date of service: 10/16/18 Time of Service: 15:05 Assessment and Plan (1) Altered mental status: Current visit: No Status: Acute Altered mental status that was rather rapid in onset, but ongoing and worsening over the past few weeks. As an outpatient Mr. Nur has already received an MRI of the brain which was negative for any acute abnormalities including CVA, and had further workup with a negative urinalysis, and a normal TSH and B12. Imaging does not support diagnosis of pulmonary infection, and clinically the patient does not appear to be infected. CT of the abdomen and pelvis was obtained in the setting of abdominal pain and weight loss, but without any acute abnormalities. Patient's blood sugar is adequate, he is not in acute kidney injury or uremic, and although his total bilirubin is mildly elevated this is likely due to hepatic congestion, and improved with diuresis. No evidence of any recent med changes or abrupt medication withdrawal, and no evidence of arrhythmias by telemetry. Doubt acute CVA as recent MRI and admission CT of the head were all negative. Electrolytes appear grossly normal. Only obvious source for patient's confusion could be onset of new congestive heart failure and hypoxia in patient with potential mild underlying cognitive impairment. However currently patient is without O2 requirement and still appears confused, although improving. Delirium/change in mental status appears improved, and may take some time to approach baseline. Will continue to monitor. Currently without availability for neurology consultation locally. (2) ALEJANDRA (acute kidney injury): Current visit: Yes Status: Acute Renal function had been under careful monitoring with initiation of diuretic therapy with furosemide and Spironolactone, and continuation of AHNK-I. Patient had tolerated this well, but now with sudden increase in creatinine from 1.2 to 1.8. Blood Pressure is vastly improved. Will hold Spironolactone and HANK-I, along with diuretic therapy, and recheck BMP in the morning. (3) CHF (congestive heart failure): Current visit: No Status: Chronic New diagnosis of CHF, with a significant drop in LVEF currently at 20%. Also with evidence of wall motion abnormalities as stated above, in patient with a prior history of CAD makes ischemic cardiomyopathy a possible etiology. 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 Continue high potency statin and initiated daily aspirin therapy. The patient is already on HANK inhibitor and beta samantha - changed propranolol to carvedilol. Currently with Lasix, spironolactone, and lasix on hold as above. Weight stable. Discussed this at length with family, and discussed options including potential diagnostic left heart catheterization, stress testing, vs. medical management only. Not interested in pursuing aggressive measures or interventions - will continue medical management. (4) Pulmonary embolism: Current visit: No Status: Chronic Continue Coumadin and monitor daily INR. (5) DVT prophylaxis: Current visit: No Status: Acute On chronic anticoagulation with Coumadin, monitor INR. Initiated PPI therapy for GI prophylaxis as well. (6) Counseling regarding advance directives and goals of care: Current visit: No Status: Acute DNR/DNI. According to conversation with daughter this evening would like to limit any invasive testing or procedures as well. Subjective Interval history since last seen: 83-year-old man with a past medical history significant for CAD, and PE on anticoagulation admitted from [facility] emergency department on 10/12 with a diagnosis of altered mental status and CHF. Mr. Nur has a past medical history significant hypertension, DM, CAD, and PE on chronic anticoagulation with Coumadin. He does not however carries a diagnosis of CHF. The patient had been in his usual state of health, which at baseline is normal. 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 However he has had a rapid decline in his mental status fairly recently, initially beginning with noted memory loss, more recently with hallucinations and worsening altered mental status. This has been of great concern to his family, and under the guidance of the Palliative Care Physician who the patient had consulted with, presented to the ED for further evaluation. Initial workup was significant for lack of leukocytosis, mildly elevated total bilirubin, normal LFTs, and essentially normal troponin. His TSH was checked and also normal, as were his vitamin B12 levels. Urinalysis showed a lack of leuk esterase or nitrates, essentially negative for infection. Patient was afebrile and slightly hypertensive, but note was taken of hypoxia by vital signs. Imaging with a chest x-ray showed evidence of pulmonary edema, and the patient was admitted for further evaluation and treatment of potential heart failure. Subsequent testing has revealed evidence of significant heart failure, with echocardiogram showing an LVEF of 20%, along with noted severe hypokinesis of the inferior lateral and inferior myocardium. Mr. Nur's troponin was trended, and with the exception of one value which was minimally and equivocally elevated, his cardiac biomarkers have remained normal. He is currently off of oxygen and on room air, with mental status improved but still not yet at baseline and essentially unchanged from yesterday. His weight remains unchanged. He has however developed an ALEJANDRA, with an elevation in creatinine above his baseline. No other events reported overnight. Patient remains afebrile. Exam Narrative Exam Narrative: General: Patient appears comfortable, comfortably in bed, awake and alert, Oriented to person and place, NAD Neck: Supple CV: Regular, nontachycardic, S1S2, 3/6 RUSB murmur appreciated Pulmonary: Bibasilar crackles essentially resolved, no wheezing or rhonchi Abdomen: + Bowel Sounds, soft, no further tenderness noted on physical exam, nondistended Vascular: No lower extremity edema Objective Objective Clinical Data: Abnormal lab results 10/16/18 10/16/18 10/16/18 Range/Units 06:48 06:48 06:48 WBC 10.82 H (4.4-10.8) k/cumm RDW 15.9 H (11.8-14.1) % MPV 11.7 H (8.0-11.0) fL Absolute Neutrophils 7.69 H (1.2-6.7) k/cumm Absolute Monocytes 1.55 H (0.11-0.7) k/cumm PT (9.3-11.0) sec BUN 36 H D (7-18) mg/dL Creatinine 1.83 H (0.70-1.30) mg/dL Glucose 175 H (70-100) mg/dL Magnesium 2.5 H (1.8-2.4) mg/dL Total Bilirubin 1.3 H (0.2-1.0) mg/dL Conjugated Bilirubin 0.32 H (0.00-0.20) mg/dL Albumin 3.1 L (3.4-5.0) g/dL 10/16/18 Range/Units 06:48 WBC (4.4-10.8) k/cumm RDW (11.8-14.1) % MPV (8.0-11.0) fL Absolute Neutrophils (1.2-6.7) k/cumm Absolute Monocytes (0.11-0.7) k/cumm PT 20.1 H D (9.3-11.0) sec BUN (7-18) mg/dL Creatinine (0.70-1.30) mg/dL Glucose (70-100) mg/dL Magnesium (1.8-2.4) mg/dL Total Bilirubin (0.2-1.0) mg/dL Conjugated Bilirubin (0.00-0.20) mg/dL Albumin (3.4-5.0) g/dL Vital Signs Temperature 36.8 C 10/16/18 07:35 Temperature Source Tympanic 10/16/18 07:35 Pulse 82 10/16/18 07:35 Pulse Rhythm Regular 10/16/18 03:25 Pulse 85 10/12/18 10:43 Respiratory Rate 18 10/16/18 07:35 Respiratory Effort Non-Labored 10/16/18 03:25 Respiratory Depth Normal 10/16/18 03:25 Respiratory Pattern Normal 10/16/18 03:25 Blood Pressure 111/76 10/16/18 07:35 Blood Pressure Mean 95 10/12/18 10:43 Blood Pressure Position Supine 10/12/18 02:10 Pulse Oximetry 92 L 10/16/18 07:35 Oxygen Delivery Method Room Air 10/16/18 07:35 Oxygen Flow Rate 0 10/16/18 07:35 Pain Level 0 10/16/18 07:35 Comment 10/14/18 16:14 Intake & Output 10/15/18 10/16/18 10/16/18 23:59 11:59 23:59 Intake Total 240 / 1090 490 / 490 Balance 240 / 1090 490 / 490 Weight 104.4 kg Intake: IV Oral 240 / 1070 480 / 480 Other: Urine Color Yellow Yellow Urine Appearance Clear Cloudy Urine Odor Normal None Voiding Methods Toilet Toilet Laboratory Results WBC 10.82 k/cumm (4.4-10.8) H 10/16/18 06:48 RBC 5.39 m/cumm (4.50-6.00) 10/16/18 06:48 Hgb 16.0 g/dL (13.5-17.5) 10/16/18 06:48 Hct 48.9 % (40.0-50.0) 10/16/18 06:48 MCV 90.7 fL (80-95) 10/16/18 06:48 MCH 29.7 pg (27.0-33.0) 10/16/18 06:48 MCHC 32.7 g/dL (32.0-36.0) 10/16/18 06:48 RDW 15.9 % (11.8-14.1) H 10/16/18 06:48 Plt Count 180 x1000/uL (130-400) 10/16/18 06:48 MPV 11.7 fL (8.0-11.0) H 10/16/18 06:48 Immature Gran % 0.3 10/16/18 06:48 Neutrophils % 71.1 10/16/18 06:48 Lymphocytes % 12.6 10/16/18 06:48 Monocytes % 14.3 10/16/18 06:48 Eosinophils % 1.6 10/16/18 06:48 Basophils % 0.1 10/16/18 06:48 Absolute Neutrophils 7.69 k/cumm (1.2-6.7) H 10/16/18 06:48 Absolute Lymphocytes 1.36 k/cumm (1.2-3.4) 10/16/18 06:48 Absolute Monocytes 1.55 k/cumm (0.11-0.7) H 10/16/18 06:48 Absolute Eosinophils 0.17 k/cumm (0.0-0.7) 10/16/18 06:48 Absolute Basophils 0.01 k/cumm (0.0-0.2) 10/16/18 06:48 Differential Comment Manual differential 10/15/18 06:45 Atypical Lymphocytes 1 10/15/18 06:45 RBC Morphology Normal 10/15/18 06:45 Anisocytosis 1+ 10/14/18 06:25 PT 20.1 sec (9.3-11.0) H D 10/16/18 06:48 INR 2.0 (1.0-3.5) 10/16/18 06:48 APTT 34.1 sec (21.0-31.4) H 10/11/18 22:10 Sodium 138 mmol/L (136-145) 10/16/18 06:48 Potassium 4.2 mmol/L (3.5-5.1) 10/16/18 06:48 Chloride 100 mmol/L (98-107) 10/16/18 06:48 Carbon Dioxide 29.8 mmol/L (21.0-32.0) 10/16/18 06:48 Anion Gap 8.2 mmol/L (3-11) 10/16/18 06:48 BUN 36 mg/dL (7-18) H D 10/16/18 06:48 Creatinine 1.83 mg/dL (0.70-1.30) H 10/16/18 06:48 Estimated GFR/1.73 m2 35.62 (mL/min/1.73m2) 10/16/18 06:48 Glucose 175 mg/dL (70-100) H 10/16/18 06:48 Calcium 9.5 mg/dL (8.5-10.1) 10/16/18 06:48 Magnesium 2.5 mg/dL (1.8-2.4) H 10/16/18 06:48 Total Bilirubin 1.3 mg/dL (0.2-1.0) H 10/16/18 06:48 Conjugated Bilirubin 0.32 mg/dL (0.00-0.20) H 10/16/18 06:48 AST 19 U/L (15-37) 10/16/18 06:48 ALT 23 U/L (12-78) 10/16/18 06:48 Alkaline Phosphatase 64 U/L (46-116) 10/16/18 06:48 Ammonia 31 umol/L (11-32) 10/11/18 22:10 Troponin I 0.06 ng/mL (0.00-0.06) 10/13/18 06:42 Total Protein 7.3 g/dL (6.4-8.2) 10/16/18 06:48 Albumin 3.1 g/dL (3.4-5.0) L 10/16/18 06:48 Lipase 311 U/L (73-393) 10/11/18 22:10 Vitamin B12 366 pg/mL (193-986) 10/12/18 05:25 TSH 0.62 uIU/mL (0.358-3.74) 10/12/18 05:25 Urine Color Yellow (Yellow) 10/11/18 22:20 Urine Clarity Clear 10/11/18 22:20 Urine pH 6.5 (5-8) 10/11/18 22:20 Ur Specific [place] 1.020 (1.005-1.025) 10/11/18 22:20 Urine Protein 30 mg/dL (Negative) H 10/11/18 22:20 Urine Ketones 15 mg/dL (Negative) H 10/11/18 22:20 Urine Blood Moderate (Negative) H 10/11/18 22:20 Urine Nitrite Negative (Negative) 10/11/18 22:20 Urine Bilirubin Negative (Negative) 10/11/18 22:20 Urine Urobilinogen 1.0 EU/dL (Up TO 0.2) H 10/11/18 22:20 Ur Leukocyte Esterase Negative (Negative) 10/11/18 22:20 Urine RBC 10-20 (0-2) H 10/11/18 22:20 Urine WBC Negative HPF (0-5) 10/11/18 22:20 Ur Epithelial Cells Negative HPF (Negative) 10/11/18 22:20 Urine Crystals Negative HPF (Negative) 10/11/18 22:20 Urine Bacteria Negative HPF (Negative) 10/11/18 22:20 Urine Casts Negative LPF (Negative) 10/11/18 22:20 Urine Mucus Negative (Negative) 10/11/18 22:20 Ur Culture Indicated? No 10/11/18 22:20 Urine Glucose Negative mg/dL (Negative) 10/11/18 22:20 Salicylates < 2.8 mg/dL (2.8-20.0) L 10/11/18 22:10 Urine Opiates Screen Negative (Negative) 10/11/18 22:20 Urine Methadone Screen Negative (Negative) 10/11/18 22:20 Acetaminophen < 2 ug/mL (10-30) L 10/11/18 22:10 Ur Barbiturates Screen Negative (Negative) 10/11/18 22:20 Ur Tricyclics Screen Negative (Negative) 10/11/18 22:20 Ur Amphetamines Screen Negative (Negative) 10/11/18 22:20 U Benzodiazepines Scrn Negative (Negative) 10/11/18 22:20 Urine Cocaine Screen Negative (Negative) 10/11/18 22:20 Ur THC Screen Negative (Negative) 10/11/18 22:20 Ethyl Alcohol < 3.0 mg/dL (<3) 10/11/18 22:10
[2018-10-16] MEDS: Atorvastatin 40 MG TAB 80 MG PO (19:48)
[2018-10-16] MEDS: Warfarin 5 MG TAB PO (19:48)
[2018-10-16] MEDS: Normal Saline Flush 10 ML SYR IVP (19:49)
[2018-10-17 00:10] VITALS: BP 169/92; PULSE 79; RESP 18; TEMP 36.6; O2SAT 93
[2018-10-17 04:00] VITALS: BP 126/68; PULSE 72; RESP 18; TEMP 36.4; O2SAT 95
[2018-10-17 07:09] LABS: Abs Immature Grans 0.03 k/cumm (0.0-0.09); Absolute Basophil Count 0.03 k/cumm (0.0-0.2); Absolute Eosinophil Count 0.27 k/cumm (0.0-0.7); Absolute Monocyte Count 2.08 k/cumm (0.11-0.7); Absolute Neutrophil Count 6.37 k/cumm (1.2-6.7); Basophils % 0.3; Eosinophils % 2.6; HGB 17.1 g/dL (13.5-17.5); Immature Grans % 0.3; Lymphocytes % 14.6; Mean Corp. HGB Concentration 32.9 g/dL (32.0-36.0); Mean Corpuscular Hemoglobin 29.8 pg (27.0-33.0); Mean Corpuscular Volume 90.6 fL (80-95); Monocytes % 20.2; RBC 5.74 m/cumm (4.50-6.00); White Blood Cell Count 10.28 k/cumm (4.4-10.8)
[2018-10-17 07:19] LABS: INR 2.5 (0.9-1.1); Prothrombin Time 25.2 sec (9.3-11.0)
[2018-10-17 07:27] LABS: Anion Gap 7.8 mmol/L (3-11); BUN 39 mg/dL (7-18); CO2 28.2 mmol/L (21.0-32.0); CREATININE 1.56 mg/dL (0.70-1.30); Calcium 9.5 mg/dL (8.5-10.1); Chloride 102 mmol/L (98-107); Estimated GFR 42.82 (mL/min/1.73m2); Glucose 113 mg/dL (70-100); Potassium 4.5 mmol/L (3.5-5.1); Sodium 138 mmol/L (136-145)
[2018-10-17 07:33] LABS: ALT 22 U/L (12-78); AST 20 U/L (15-37); Albumin 3.1 g/dL (3.4-5.0); Alkaline Phosphatase 61 U/L (46-116); Bilirubin, Direct 0.32 mg/dL (0.00-0.20); Magnesium 2.4 mg/dL (1.8-2.4); Total Protein 7.3 g/dL (6.4-8.2)
[2018-10-17 08:05] VITALS: O2SAT 94
[2018-10-17 08:23] LABS: Diff Comment Diff Reviewed; Platelet Count 181 x1000/uL (130-400)
[2018-10-17 08:24] LABS: RBC Morphology Normal
[2018-10-17 08:29] VITALS: BP 144/72; PULSE 70; RESP 14; TEMP 36.6; O2SAT 90
[2018-10-17] MEDS: Carvedilol 6.25 MG TAB PO (08:34)
[2018-10-17] MEDS: Pantoprazole 40 MG TABCR PO (08:34)
[2018-10-17] MEDS: Aspirin 81 MG CHEW PO (08:34)
[2018-10-17] MEDS: Isosorbide Mononitrate 30 MG TABCR PO (08:34)
[2018-10-17] MEDS: Carvedilol 3.125 MG TAB PO (08:34)
--- NOTE | 2018-10-17 10:48 | CMPROGNOTE_ITS ---
- If Service Date Differs Date of service: 10/17/18 Time of Service: 10:37 Care Management Progress Note S/O: Frank is sitting in bed with his daughter, Carlo and son in law, Bryn, at bedside. Francis reports he is feeling ok and has no reservations about returning home when MD states that he is ready. Francis's creatinine levels were elevated yesterday and MD determined that Francis should remain inpatient for monitoring. His level is down to 1.56 from 1.83 but remains elevated as of this morning. His telemetry has been d/c'ed. He is receiving supplemental O2 via NC at present as his sats had dropped to 90% on RA. Francis's daughter, Tonie, will be in [place] later this morning and CM will be meeting with the patient and family at that time. A: 83 year old male admitted with AMS with delusions, new onset CHF. P: Frank will discharge home with new home health services (RN/PT/OT) once medically cleared. Frank will transport via private vehicle with family. CM will continue to offer support to patient, family, and care team regarding discharge planning and disposition.
--- NOTE | 2018-10-17 10:52 | PT.INTREAT ---
Date of service: 10/17/18 Time of Service: 10:52 PT Notes Inpatient Physical Therapy Treatment Note Date: 10/17/18 PRECAUTIONS: Fall SUBJECTIVE: Frank states that he is feeling better and is anxious to get into the shower today before he goes home. OBJECTIVE: PAIN: No c/o pain BED MOBILITY/TRANSFERS Sit-stand: S Stand-sit: S GAIT Assistive Device: FWW; No AD Weight bearing: Full Assist: SBA with FWW; CGA without AD Distance: 120' with FWW; 130' without AD ASSESSMENT: Patient tolerated session well. He was able to tolerate gait training without an assistive device well, demonstrating a steady gait. Patient would benefit from continued gait and transfer training as well as strengthening for improved mobility. PLAN: Continue with PT's POC TREATMENT CODE/TIME: 20 minutes; TAx1
--- NOTE | 2018-10-17 11:34 | PDOC.CMDIS ---
- If Service Date Differs Date of service: 10/17/18 Time of Service: 11:34 LACE Index Scoring Tool - Questions: Length of Stay (in days): 4 - 6 Acuity (Admit via E.D.?): Yes Comorbidities: Diabetes w/o Complication, Congestive Heart Failure E.D. Visits: 1 - Answers: Total Score: 11 Risk of Readmission: High Risk Care Management Discharge Reason for Hospitalization: AMS with delusions, new onset CHF. Discharge Plan: Francis will discharge home when medically ready per MD. Ayala patient will discharge home with resumption of home health services (RN/PT/OT) and follow up with lab and his PCP. Francis will transport via private vehicle with his family. will continue to offer support to patient, family, and care team regarding discharge planning and disposition. Patient/Family Education Needs: Discharge education, any limitations, and follow up plan of care. Ask Me Three discussion. Services Needed at Discharge: Home Health Care Services ([facility]. RN/PT/OT. )
--- NOTE | 2018-10-17 11:38 | CMDISCH_ITS ---
- If Service Date Differs Date of service: 10/17/18 Time of Service: 11:34 LACE Index Scoring Tool - Questions: Length of Stay (in days): 4 - 6 Acuity (Admit via E.D.?): Yes Comorbidities: Diabetes w/o Complication, Congestive Heart Failure E.D. Visits: 1 - Answers: Total Score: 11 Risk of Readmission: High Risk Care Management Discharge Reason for Hospitalization: AMS with delusions, new onset CHF. Discharge Plan: Francis will discharge home when medically ready per MD. Ayala patient will discharge home with resumption of home health services (RN/PT/OT) and follow up with lab and his PCP. Francis will transport via private vehicle with his family. will continue to offer support to patient, family, and care team regarding discharge planning and disposition. Patient/Family Education Needs: Discharge education, any limitations, and follow up plan of care. Ask Me Three discussion. Services Needed at Discharge: Home Health Care Services ([facility]. RN/PT/OT. )
--- NOTE | 2018-10-17 13:35 | DSE_ITS ---
Date of service: 10/17/18 Time of Service: 13:30 DS: Diagnosis Discharge Diagnosis (1) Altered mental status: Status: Acute (2) ALEJANDRA (acute kidney injury): Status: Acute (3) CHF (congestive heart failure): Status: Chronic (4) Pulmonary embolism: Status: Chronic (5) DVT prophylaxis: Status: Acute (6) Counseling regarding advance directives and goals of care: Status: Acute Discharge Plan Disposition Patient Disposition: HOME W/HOME HEALTH SERVICE Condition: Stable Discharge Details Reason For Visit: AMS WITH DELUSIONS, NEW ONSET CHF Admit Date/Time: 10/12/18 00:53 Admit Provider: Terell Gonzalez Attending Provider: Terell Gonzalez Primary Care Provider: Sheyla Berumen Hospital Course Hospital Course: CC: Altered Mental Status, Hypoxia HPI: 83-year-old man with a past medical history significant for CAD, and PE on anticoagulation admitted from [facility] emergency department on 10/12 with a diagnosis of altered mental status and CHF. Mr. Nur has a past medical history significant hypertension, DM, CAD, and PE on chronic anticoagulation with Coumadin. He does not however carry a diagnosis of CHF. The patient had been in his usual state of health, which at baseline is a normal mental status. 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 However he has had a rapid decline in his mental status fairly recently starting approximately 4-6 weeks prior, initially beginning with noted memory loss, more recently with hallucinations and worsening altered mental status. This has been of great concern to his family, and under the guidance of the Palliative Care Physician who the patient had consulted with, presented to the ED for further evaluation. Initial workup was significant for lack of leukocytosis, mildly elevated total bilirubin, normal LFTs, and essentially normal troponin. His TSH was checked and also normal, as were his vitamin B12 levels. Urinalysis showed a lack of leuk esterase or nitrates, negative for infection. Patient was afebrile and slightly hypertensive, but note was taken of hypoxia by vital signs. Imaging with a chest x-ray showed evidence of pulmonary edema, and the patient was admitted for further evaluation and treatment of potential heart failure. Subsequent testing has revealed evidence of significant heart failure, with echocardiogram showing an LVEF of 20%, along with severe hypokinesis of the inferior lateral and inferior myocardium. Mr. Nur's troponin was trended, and with the exception of one value which was minimally and equivocally elevated, his cardiac biomarkers have remained normal. He currently remains off supplemental oxygen and on room air, with mental status improved but still not yet at baseline and essentially unchanged from yesterday. His weight remains unchanged. He had however developed an ALEJANDRA, with an elevation in creatinine above his baseline. Lasix and lisinopril have been held, with subsequent improvement in but not return to baseline of creatinine. No other events reported overnight. Patient remains afebrile. Hospital Course: (1) Altered mental status: Altered mental status that was rather rapid in onset, but ongoing and worsening over the past few weeks. As an outpatient Mr. Nur had already received an MRI of the brain which was negative for any acute abnormalities including CVA, and had further workup with a negative urinalysis, and a normal TSH and B12 while in the hospital. Imaging does not support diagnosis of pulmonary infection, and clinically the patient does not appear to be infected. CT of the abdomen and pelvis was obtained in the setting of abdominal pain and weight loss, but without any acute abnormalities. Patient's blood sugar is adequate, he was not uremic, and although his total bilirubin is mildly elevated his LFTs are normal and liver appears without abnormality on CT. No evidence of any recent med changes or abrupt medication withdrawal, and no evidence of arrhythmias by telemetry (baseline bigeminy/trigeminy with PVCs). Doubt acute CVA as recent MRI and admission CT of the head were all negative. Electrolytes appear grossly normal. Only obvious source for patient's confusion could be onset of new congestive heart failure and hypoxia in patient with potential mild underlying cognitive impairment. However currently patient is without O2 requirement and still appears confused, although improving. Delirium/change in mental status appears improved, and may take some time to approach baseline, but still unsure of exact etiology. Currently without availability for neurology consultation locally - will refer as outpatient in a timely manner. (2) ALEJANDRA (acute kidney injury): Renal function had been under careful monitoring, stable, and unchanged for 5 days prior to development of an ALEJANDRA while on diuretic therapy with furosemide and Spironolactone, and continuation of HANK-I. Patient had tolerated this well, but now with sudden increase in creatinine from 1.2 to 1.8. HANK-I, Lasix, and Spironolactone were held, with creatinine of 1.5 this morning. Plan had been to monitor for an additional day but family would like to return patient home - will discharge with repeat BMP in 2-3 days via Home Health, with resumption of HANK-I when appropriate. Need to monitor daily weights closely to determine need for lasix on either daily or on an as needed basis. Would recommend addition of Spironolactone in the future when able. Discussed low sodium, fluid restricted diet in detail with family, as well as importance of daily weights. Of note, Mrs. Nur's weight has remained at 103-105 Kg on a daily basis. Plan also discussed with Primary's office in detail prior to discharge. Blood Pressure is vastly improved. However currently with HANK-I on hold. BB changed to Carvedilol and titrated. (3) CHF (congestive heart failure): New diagnosis of CHF, with a significant drop in LVEF currently at 20%. Also with evidence of wall motion abnormalities as stated above, in patient with a prior history of CAD makes ischemic cardiomyopathy a possible etiology. May have suffered from a silent SC in the recent past. Continue high potency statin and initiated daily aspirin therapy. The patient is already on HANK inhibitor and beta samantha - changed propranolol to carved ilol. Currently with Lasix, spironolactone, and Lisinopril on hold as above. Weight stable. Discussed this at length with family, and discussed options including potential diagnostic left heart catheterization, stress testing, vs. medical management only. Not interested in pursuing aggressive measures or interventions - will continue medical management. Due to addition of daily aspirin to chronic anticoagulation with coumadin initiated PPI therapy as well for GI protection. (4) Pulmonary embolism: Continue Coumadin and monitor daily INR. (5) Counseling regarding advance directives and goals of care: DNR/DNI. According to conversation with daughter this evening would like to limit any invasive testing or procedures as well. Will discharge home with resumption of Home Health Services. Home Meds and New Rx's Prescriptions: New carvedilol [Coreg] 6.25 mg Tablet 6.25 mg PO BID Qty: 60 RF: 0 isosorbide mononitrate 30 mg Tablet Extended Release 24 Hr 30 mg PO DAILY Qty: 30 RF: 0 carvedilol 3.125 mg Tablet 3.125 mg PO BID Qty: 60 RF: 0 pantoprazole 40 mg Tablet,Delayed Release (Dr/Ec) 40 mg PO DAILY@0730 Qty: 30 RF: 0 aspirin 81 mg Tablet,Chewable 81 mg PO DAILY Qty: 1 RF: 0 quetiapine [Seroquel] 25 mg tablet 25 mg PO BID PRN (Reason: Agitation) Qty: 10 RF: 0 furosemide [Lasix] 40 mg tablet 40 mg PO DAILY PRN (Reason: weight gain) Qty: 10 RF: 0 Continued loperamide [Imodium A-D] 2 MG tablet 2 mg PO DAILY PRNRF: 0 hydrocortisone 30 GM cream 1 applic Topical TID PRNQty: 1 RF: 1 metformin 500 MG tablet 500 mg PO BID Qty: 180 RF: 3 warfarin 5 MG tablet 5 mg PO DAILY Qty: 90 RF: 3 nitroglycerin 0.4 MG tablet, sublingual 0.4 mg Sublingual PRN Qty: 25 RF: 6 FreeStyle Lite Strips 1 EACH strip 1 ea Miscellaneous DAILY Qty: 100 RF: 4 lancets 1 EACH misc 1 ea Miscellaneous DAILY Qty: 100 RF: 4 atorvastatin [Lipitor] 80 MG tablet 80 mg PO DAILY Qty: 90 RF: 1 lisinopril 20 mg tablet 20 mg PO DAILY Qty: 90 RF: 2 Discontinued propranolol 20 MG tablet 20 mg PO BID Qty: 180 RF: 3 Discharge Instructions Instructions: Heart Failure (DC), Heart Failure (GEN) Additional Instructions: Please see your doctor within 1 week of discharge. You have some new medications to take. Please hold your Lisinopril until restarted by your doctor. Please weigh yourself everyday, and if your weight is increasing by 1 or more pounds please let your doctor know immediately. Please eat a LOW SODIUM diet and restrict fluid intake to 1.5 L a day. Stand Alone Forms: Nursing Discharge Form Referrals: Sheyla Berumen MD [Primary Care Provider] - 10/29/18 1:00 pm Activity:: No Strenuous Activity Equipment/Supplies:: No Equipment Needed Diet:: Heart Healthy, low sodium, fluid restricted 1.5 L Discharge Orders Discharge Orders: Discharge Order (Routine); Ordered 10/17/18 Ordered By: Dagoberto Park Other Ambulatory Orders: Basic Metabolic Panel (Routine) Timeframe: 3 Days Location: Determined by Patient Ordered By: Dagoberto Park Prothrombin Time (Routine) Timeframe: 3 Days Location: Determined by Patient Ordered By: Dagoberto Park Exam Narrative Exam Narrative: General: Patient appears comfortable, comfortably in bed, awake and alert, Oriented to person and place, NAD Neck: Supple CV: Regular, nontachycardic, S1S2, 3/6 RUSB murmur appreciated Pulmonary: Bibasilar crackles resolved, no wheezing or rhonchi Abdomen: + Bowel Sounds, soft, no further tenderness noted on physical exam, nondistended Vascular: No lower extremity edema DS: Data Vitals/I&O Vitals and I&O: Vital Signs Temperature 36.6 C 10/17/18 08:29 Temperature Source Tympanic 10/17/18 08:29 Pulse 70 10/17/18 08:29 Pulse Rhythm Regular 10/17/18 10:25 Pulse 85 10/12/18 10:43 Respiratory Rate 14 10/17/18 08:29 Respiratory Effort 10/17/18 10:25 Respiratory Depth Normal 10/17/18 10:25 Respiratory Pattern Normal 10/17/18 10:25 Blood Pressure 144/72 H 10/17/18 08:29 Blood Pressure Mean 95 10/12/18 10:43 Blood Pressure Position Supine 10/12/18 02:10 Pulse Oximetry 90 L 10/17/18 08:29 Oxygen Delivery Method Nasal Cannula 10/17/18 08:29 Oxygen Flow Rate 2 10/17/18 04:00 Pain Level 0 10/17/18 04:00 Comment 10/17/18 04:00 Intake & Output 10/16/18 10/17/18 10/17/18 23:59 11:59 23:59 Intake Total 490 / 980 490 / 490 Output Total 800 / 800 Balance -310 / 180 490 / 490 Weight 104.6 kg Intake: IV Oral 480 / 960 490 / 490 Output: Urine 800 / 800 Other: Urine Color Yellow Dark Rosalinda Urine Appearance Clear Clear Urine Odor None Strong Comment passed urine in the tiolet independently patient was moderately incontinent upon waking this morning, good care was given to the patients marshal anal area to avoid skin breakdown Voiding Methods Toilet Diaper Completed studies during hospitalization [Text1]: Exam(s) 10/06/2018 a MRI:MR brain wo SYMPTOMS/DIAGNOSIS: MEMORY LOSS, AMNESIA, R41.3 BRAIN MRI: MRI examination of the brain was performed according to the usual protocol. There is marked generalized cerebral atrophy and there are areas of abnormal signal in the periventricular white matter bilaterally consistent with small vessel disease. No other significant signal abnormality identified in the brain. Diffusion weighted imaging is within normal limits. Susceptibility weighted imaging shows no evidence of intracranial hemorrhage. Apparent small old tiny pontine infarct noted just to the right of midline. There is unremarkable flow void in the [place] vasculature. The orbital and temporal bone structures appear intact. CONCLUSION: Atrophy and marked microvascular ischemic changes. No other focal findings. Exam(s) 10/[address]:CT head wo SYMPTOMS/DIAGNOSIS: ALTERED MENTAL STATUS NONCONTRAST HEAD CT: Comparison is made with [id number]. No intracranial hemorrhage, mass or infarct is seen. There is no evidence of skull fracture. Atrophy and white matter changes are stable. IMPRESSION: Chronic white matter change, likely representing small vessel disease. No acute abnormality. Exam(s) a RAD:XR chest 1V in DI dept SYMPTOMS/DIAGNOSIS: ALTERED MENTAL STATUS SEMIERECT CHEST: Comparison is made with [id number]. The heart is grossly enlarged. There are underlying fibrotic changes. No focal infiltrate or effusion is seen. The lungs are suboptimally inflated. Mild pulmonary edema can not be excluded. IMPRESSION: Limited exam. Question of mild pulmonary edema vs chronic fibrotic changes. Exam(s) Date of study: 10/13/2018 Transthoracic Echocardiography M-mode, complete 2D, complete spectral Doppler, and color Doppler *STUDY CONCLUSIONS* Summary: 1. Left ventricle: The cavity size was normal. Systolic function was severely reduced. The estimated ejection fraction was 20-25%. Diffuse hypokinesis. Akinesis of the apical myocardium. Severe hypokinesis of the inferolateral and inferior myocardium. The study is not technically sufficient to allow evaluation of LV diastolic function. Stroke volume/bsa (LVOT, Doppler): 27ml/m^2. 2. Aortic valve: There was mild stenosis, although the possibility of pseudostenosis exists with cardiomyopathy in mind. Could consider dobutamine echo to better evaluate. There was mild to moderate regurgitation. Peak velocity (S): 1.7m/sec. Peak gradient (S): 11.1mm Hg. VTI ratio of LVOT to aortic valve: 0.49. Valve area (VTI): 1.7cm^2. Indexed valve area (Vmean): 0.7cm^2/m^2. 3. Mitral valve: There was moderate regurgitation directed posteriorly. 4. Left atrium: The atrium was moderately dilated. 5. Right ventricle: The cavity size was normal. Wall thickness was normal. Systolic function was normal. 6. Right atrium: The atrium was moderately dilated. 7. Atrial septum: No defect or patent foramen ovale was identified. 8. Pulmonary arteries: Pulmonary systolic pressure was in the range of 45mm Hg to 55mm Hg. 9. Inferior vena cava: The vessel was normal in size. The respirophasic diameter changes were in the normal range (greater than or equal to 50%), consistent with normal central venous pressure. Exam(s) a CT:CT abdomen & pelvis w SYMPTOMS/DIAGNOSIS: ABDOMINAL PAIN, WEIGHT LOSS CT OF THE ABDOMEN AND PELVIS: There are no prior comparison exams. Images were performed from the lung bases through the ischial tuberosities after IV and oral contrast. The exam is quite limited by patient motion. The heart is enlarged. There are underlying emphysematous and fibrotic changes. There is an 8 mm noncalcified nodule at the left lung base. Other calcified nodules are seen at both lung bases. A 6 mm noncalcified nodule is seen at the right lower lobe. The liver, spleen, pancreas and adrenals are unremarkable. Stones are noted in the gallbladder. There is no biliary dilatation or gallbladder wall thickening. There is significant motion at the level of the kidneys. There is a right renal cyst. The aorta is calcified and normal in diameter. There is prominent sigmoid diverticulosis, but no evidence of diverticulitis. The small bowel is unremarkable. The prostate is enlarged. There is a right posterior bladder diverticulum. No suspicious bony abnormalities are seen. IMPRESSION: Bilateral lower lobe pulmonary nodules. These appear stable based on previous report of a chest CT from 2007. Labs on day of discharge: Labs from last 24 hours 10/17/18 10/17/18 10/17/18 06:50 06:50 06:50 WBC 10.28 RBC 5.74 Hgb 17.1 Hct 52.0 H MCV 90.6 MCH 29.8 MCHC 32.9 RDW 16.0 H Plt Count 181 MPV 12.0 H Immature Gran % 0.3 Neutrophils % 62.0 Lymphocytes % 14.6 Monocytes % 20.2 Eosinophils % 2.6 Basophils % 0.3 Absolute Neutrophils 6.37 Absolute Lymphocytes 1.50 Absolute Monocytes 2.08 H Absolute Eosinophils 0.27 Absolute Basophils 0.03 Differential Comment Diff reviewed RBC Morphology Normal PT 25.2 H INR 2.5 H Sodium 138 Potassium 4.5 Chloride 102 Carbon Dioxide 28.2 Anion Gap 7.8 BUN 39 H Creatinine 1.56 H Estimated GFR/1.73 m2 42.82 Glucose 113 H Calcium 9.5 Magnesium Total Bilirubin Conjugated Bilirubin AST ALT Alkaline Phosphatase Total Protein Albumin 10/17/18 06:50 WBC RBC Hgb Hct MCV MCH MCHC RDW Plt Count MPV Immature Gran % Neutrophils % Lymphocytes % Monocytes % Eosinophils % Basophils % Absolute Neutrophils Absolute Lymphocytes Absolute Monocytes Absolute Eosinophils Absolute Basophils Differential Comment RBC Morphology PT INR Sodium Potassium Chloride Carbon Dioxide Anion Gap BUN Creatinine Estimated GFR/1.73 m2 Glucose Calcium Magnesium 2.4 Total Bilirubin 1.0 Conjugated Bilirubin 0.32 H AST 20 ALT 22 Alkaline Phosphatase 61 Total Protein 7.3 Albumin 3.1 L [facility] Medical History Altered mental status (Acute) DVT prophylaxis (Acute) CHF (congestive heart failure) (Chronic) Pulmonary embolism (Chronic) Counseling regarding advance directives and goals of care (Acute) Pulmonary edema (Acute) Personal history of long-term (current) use of anticoagulants (Chronic 11/23/11) Obstructive sleep apnea syndrome (Chronic 11/23/11) Other seborrheic keratosis (Chronic 11/23/11) Obesity, unspecified (Chronic 11/23/11) 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) Other and unspecified hyperlipidemia (Chronic 01/30/13) Essential hypertension (Chronic 07/08/13) 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
--- NOTE | 2018-10-17 14:17 | PT.INDS ---
Date of service: 10/17/18 Time of Service: 14:17 PT Notes Inpatient Physical Therapy Discharge Summary Dates: 10/17/18 Dates of Service: 10/16/18-10/17/18 SUBJECTIVE: NT OBJECTIVE: 10/16/18-10/17/18 Bed Mobility/Transfers: Supine-sit: independent Sit-supine: independent Sit to stand: Independent/supervision Stand to sit: Independent/supervision Gait: SBA with FWW 120-200 feet, CGA no device 130ft Stairs: Up/down 5 steps with cane, SBA, step to step sequence Balance: Static Sitting: Normal Dynamic Sitting: Normal Static Standing: Fair Dynamic Standing: Fair Assessment: Patient is an 83-year-old male admitted with altered mental status, pulmonary edema, congestive heart failure in setting of Vascular dementia, diabetes mellitus type 2, obesity. Patient was seen for 3 PT visits. Pt at independent, supervision level for transfers, CGA/SBA gait with FWW 120-200ft. Pt is being discharged to home today, home PT recommended to assist return to independent level of functional mobility, pt would benefit from FWW for use in home setting to reduce risk of falls. Goals: Goals X1 week 1. Supine-Sit: Independent 2. Sit-Supine: Independent 3. Sit-Stand independent 4. Stand-Sit: Independent 5. Bed-Chair: Supervision with FWW 6. Chair-Bed: Supervision with FW W 7. Gait: Supervision with FWW 300 feet 8. Stairs up/down 5 steps with cane supervision Pt met goals # 1, 2, 5, 6 DISCHARGE RECOMMENDATIONS: Home with FWW, home PT G Codes in the area mobility of walking and moving around: projected status GP [id number]. Discharge status (if discharging) GP [id number] CK Edyta Phillips PT
--- NOTE | 2018-10-17 14:26 | HHF2F_ITS ---
1. Encounter Date and Reason I certify that ABRAHAM JIANG was seen by Dagoberto Park on 10/17/18 and that I had a [id number] encounter with this patient that meets the physician face to face encounter requirements. 2. Clinical Findings Supporting Skilled Need and Homebound Status I certify that home health services are medically necessary, include either intermittent jail and/or physical/speech therapy, and that this patient is homebound in that absences from the home require considerable and taxing effort and are infrequent or of short duration, or are attributable to the need to receive medical care. [X] (a) Attached documentation from encounter provides clinical findings supporting skilled need and homebound status (including what assistance patient requires to leave the home). The encounter with the patient was in whole, or in part, for the following medical condition, which is the primary reason for home health care: AMS WITH DELUSIONS, NEW ONSET CHF Resume Home Health Services. Patient Needs PT/OT, PASSPORT SUPPORT MANAGER, and VNA. Medication review by nursing, with blood pressure and weight checks, physical exam to assess for volume status, and blood draw in 3 days. Long Term: Physical Therapy: Speech Therapy: Homebound: 3. Certification and Authentication I certify that I composed the above information based on my clinical judgement relating to this patient's medical condition and, if applicable, clinical findings communicated to me by the NPP or inpatient physician who performed the Home Health Referral. All further orders will be obtained through (Community Based Physician - PCP)
== END 2018-10-17 15:49 | disposition home health service (06) | DRG 884 ==
LOC: ER 10-12 01:09 → ICU 10-12 02:11 → MS 10-13 10:26 → ICU 11-01 12:15
PROVIDERS: Internal Medicine; Admitting Provider Family Medicine; Emergency Provider Emergency Medicine; PCP Internal Medicine; Visit Provider Internal Medicine
DX: F03.91 Unspecified dementia, unspecified severity, with behavioral disturbance (principal); I50.21 Acute systolic (congestive) heart failure; F05 Delirium due to known physiological condition; N17.9 Acute kidney failure, unspecified; F06.8 Other specified mental disorders due to known physiological condition; R09.02 Hypoxemia; I11.0 Hypertensive heart disease with heart failure; Z86.711 Personal history of pulmonary embolism; Z79.01 Long term (current) use of anticoagulants; Z71.89 Other specified counseling; I51.7 Cardiomegaly; I34.0 Nonrheumatic mitral (valve) insufficiency; I25.10 Atherosclerotic heart disease of native coronary artery without angina pectoris; G47.33 Obstructive sleep apnea (adult) (pediatric); E11.9 Type 2 diabetes mellitus without complications; Z66 Do not resuscitate
CPT/HCPCS: 36415; 80048; 80053; 80076; 80307; 83690; 85027; 93306; 96374; 97110; 97161; 97166; 97530; 99223; 99232; 99233; 99239; 99255; 99285; 70450; 71045; 74177; 80320; 80329; 81003; 81015; 82140; 82607; 83735; 84443; 84484; 85025; 85610; 85730; J1630; J1941; J3490

== ENCOUNTER 2018-10-13 02:32 | Outpatient (CLI) | payer MEDICARE, OTHER, SELFPAY | END 2018-10-13 02:52 | PROVIDERS: PCP Internal Medicine; Visit Provider Internal Medicine | DX: R06.09 Other forms of dyspnea (principal); Z53.8 Procedure and treatment not carried out for other reasons ==

== ENCOUNTER 2018-10-20 15:20 | Outpatient (REF) | payer MEDICARE, OTHER, SELFPAY ==
[2018-10-20 15:38] LABS: Anion Gap 7.1 mmol/L (3-11); BUN 48 mg/dL (7-18); CO2 29.9 mmol/L (21.0-32.0); CREATININE 1.74 mg/dL (0.70-1.30); Calcium 9.2 mg/dL (8.5-10.1); Chloride 102 mmol/L (98-107); Estimated GFR 37.75 (mL/min/1.73m2); Glucose 113 mg/dL (70-100); Potassium 4.8 mmol/L (3.5-5.1); Sodium 139 mmol/L (136-145)
[2018-10-20 15:54] LABS: Prothrombin Time 36.2 sec (9.3-11.0)
[2018-10-20 16:16] LABS: INR 3.6 (0.9-1.1)
== END 2018-10-20 15:40 ==
LOC: LBN 15:20
PROVIDERS: PCP Internal Medicine; Visit Provider Internal Medicine
DX: I50.9 Heart failure, unspecified (principal)
CPT/HCPCS: 80048; 85610

== ENCOUNTER 2018-10-28 12:08 | Outpatient (REF) | payer MEDICARE, OTHER, SELFPAY ==
[2018-10-28 12:44] LABS: Anion Gap 7.8 mmol/L (3-11); BUN 16 mg/dL (7-18); CO2 29.2 mmol/L (21.0-32.0); CREATININE 1.42 mg/dL (0.70-1.30); Calcium 9.1 mg/dL (8.5-10.1); Chloride 104 mmol/L (98-107); Estimated GFR 47.73 (mL/min/1.73m2); Glucose 103 mg/dL (70-100); Potassium 4.7 mmol/L (3.5-5.1); Sodium 141 mmol/L (136-145)
== END 2018-10-28 12:28 ==
LOC: LBN 12:08
PROVIDERS: PCP Internal Medicine; Visit Provider Internal Medicine
DX: G31.83 Neurocognitive disorder with Lewy bodies (principal)
CPT/HCPCS: 80048

== ENCOUNTER → 2018-10-30 13:23 | Outpatient (BNVA) | payer MEDICARE, OTHER, SELFPAY | PROVIDERS: PCP Internal Medicine; Visit Provider Psychiatry & Neurology Neurology | DX: R41.82 Altered mental status, unspecified (principal); G93.49 Other encephalopathy; G31.84 Mild cognitive impairment of uncertain or unknown etiology; I11.0 Hypertensive heart disease with heart failure; E11.9 Type 2 diabetes mellitus without complications; Z79.84 Long term (current) use of oral hypoglycemic drugs; I50.9 Heart failure, unspecified | CPT/HCPCS: 99205; 99215 ==

== ENCOUNTER 2018-12-08 02:11 | Outpatient (CLI) | payer MEDICARE, OTHER, SELFPAY ==
--- NOTE | 2018-12-29 12:50 | ZIOP_ITS ---
DATE OF DICTATION: December 29, [address]: 12 days, 18 hours, December 08 - December 21, 2018 Baseline rhythm sinus. Rare single PAC. Two bursts of SVT, longest 9-beat duration, fastest 132 bpm. Very frequent single PVC, 24.7% total beat. Rare couplet. Rare triplet. One burst NSVT, 4-beat dur ation at 112 bpm. No bradycardia/block. No symptoms. No triggered events. Average heart rate sinus 73 bpm, range 53-116 bpm.
== END 2018-12-08 02:31 ==
PROVIDERS: PCP Internal Medicine; Visit Provider Internal Medicine
DX: I50.9 Heart failure, unspecified (principal); I47.1 Supraventricular tachycardia; I49.3 Ventricular premature depolarization
CPT/HCPCS: 0296T; 93225

== ENCOUNTER 2018-12-29 08:55 | Outpatient (CLI) | payer MEDICARE, OTHER, SELFPAY | END 2018-12-29 09:15 | PROVIDERS: PCP Internal Medicine; Referring Provider Internal Medicine; Visit Provider Internal Medicine Interventional Cardiology | DX: I50.9 Heart failure, unspecified (principal); I47.1 Supraventricular tachycardia; I49.3 Ventricular premature depolarization | CPT/HCPCS: 0298T ==

== ENCOUNTER 2019-02-04 00:35 | Outpatient (CLI) | payer MEDICARE, OTHER, SELFPAY ==
--- NOTE | 2019-02-04 13:26 | MERGE_ITS ---
*[facility]* *[facility]* [address] [place] [address] Date of study: 02/04/2019 Transthoracic Echocardiography M-mode, complete 2D, complete spectral Doppler, and color Doppler *STUDY CONCLUSIONS* Impressions: Frequent ectopy was noted on this study, making this study technically difficult for the assessment of cardiac function. Summary: 1. Left ventricle: The cavity size was mildly dilated. Wall thickness was increased in a pattern of mild LVH. Systolic function was moderately to severely reduced. The estimated ejection fraction was 30-35%. Diffuse hypokinesis. 2. Ventricular septum: Septal motion showed paradoxical motion consistent with Bundle Branch Block. 3. Aortic valve: Severe thickening and calcification involving the noncoronary cusp. Noncoronary cusp mobility was severely restricted. There was mild stenosis. There was mild to moderate regurgitation. Peak velocity (S): 2.2m/sec. Mean gradient (S): 10.7mm Hg. Valve area (VTI): 1.6cm^2. 4. Mitral valve: There was mild to moderate regurgitation directed posteriorly. 5. Right ventricle: The cavity size was normal. Wall thickness was normal. Systolic function was normal. 6. Pulmonary arteries: Pulmonary systolic pressure was increased, in the range of 35mm Hg to 40mm Hg. *PATIENT PRESENTATION* Height: 182.9cm ((72in) ) S/D Pressure: 105 / 62 Weight: 105.7kg ((232.5lb) ) BSA: 2.35m^2 Test start time: 02:15 PM. Test stop time: 03:20 PM. ORDERING Sheyla Berumen REFERRING Sheyla Berumen PERFORMING Unknown PERFORMING [facility] PREPAR[employer] SUPERVISOR Stephanie Hoppe, RT (R)(CT), [facility] *PROCEDURE DATA* Procedure information: This study was interpreted by [facility]. Pertinent images and digital data are archived for permanent storage and are available for subsequent review. Comparison was made to the study of 10/13/2018. Study status: Routine. Transthoracic echocardiography. M-mode, complete 2D, complete spectral Doppler, and color Doppler. A Transthoracic Echocardiogram was performed. Scanning was performed from the parasternal, apical, subcostal, and suprasternal notch acoustic windows. Images were obtained using an [id number] cardiac ultrasound machine. Image quality was adequate. Study completion: The patient tolerated the procedure well. There were no complications. History: PMH: CHF i50.9 *CARDIAC ANATOMY* Left ventricle: The cavity size was mildly dilated. Wall thickness was increased in a pattern of mild LVH. Systolic function was moderately to severely reduced. The estimated ejection fraction was 30-35%. Diffuse hypokinesis. Aortic valve: Trileaflet; normal thickness leaflets. Severe thickening and calcification involving the noncoronary cusp. Noncoronary cusp mobility was severely restricted. Doppler: There was mild stenosis. There was mild to moderate regurgitation. VTI ratio of LVOT to aortic valve: 0.45. Valve area (VTI): 1.6cm^2. Indexed valve area (VTI): 0.7cm^2/m^2. Peak velocity ratio of LVOT to aortic valve: 0.43. Valve area (Vmax): 1.5cm^2. Indexed valve area (Vmax): 0.6cm^2/m^2. Mean velocity ratio of LVOT to aortic valve: 0.47. Valve area (Vmean): 1.6cm^2. Indexed valve area (Vmean): 0.7cm^2/m^2. Mean gradient (S): 10.7mm Hg. Peak gradient (S): 18.7mm Hg. Aorta: Aortic root: The aortic root was normal in size. Ascending aorta: The ascending aorta was mildly dilated. Mitral valve: Mildly thickened leaflets. Mobility was not restricted. Doppler: Transvalvular velocity was within the normal range. There was no evidence for stenosis. There was mild to moderate regurgitation directed posteriorly. Valve area by pressure half-time: 2.5cm^2. Indexed valve area by pressure half-time: 1.1cm^2/m^2. Left atrium: The atrium was normal in size. Right ventricle: The cavity size was normal. Wall thickness was normal. Systolic function was normal. Ventricular septum: Septal motion showed paradoxical motion consistent with Bundle Branch Block. Pulmonic valve: The pulmonary valve appears to be grossly normal. Doppler: Transvalvular velocity was within the normal range. There was no evidence for stenosis. There was mild regurgitation. Peak gradient (S): 4.5mm Hg. Tricuspid valve: Structurally normal valve. Doppler: Transvalvular velocity was within the normal range. There was no evidence for stenosis. There was mild regurgitation. Pulmonary artery: Pulmonary systolic pressure was increased, in the range of 35mm Hg to 40mm Hg. Right atrium: The atrium was normal in size. Pericardium: There was no pericardial effusion. Systemic veins: Inferior vena cava: Well visualized. The vessel was patent and normal in size. The respirophasic diameter changes were in the normal range (greater than or equal to 50%). Baseline ECG: Bradycardia. Measurements Left ventricle Value 10/13/2018 Reference LV ID, ED, PLAX (H) 6.3 cm 5.2 3.5 - 6.0 LV ID, ES, PLAX (H) 5.3 cm 4.8 2.1 - 4.0 LV PW thickness, ED, PLAX 0.6 cm 1.1 LV end-diastolic volume, 128 ml 171 1-p A2C LV ejection fraction, 1-p 36 % 19 A2C LV end-diastolic volume, 108 ml 153 1-p A4C LV ejection fraction, 1-p 27 % 27 A4C LV e', lateral 0.125 m/sec LV E/e', lateral 4 LV e', medial 0.055 m/sec LV E/e', medial 9 LV e', average 0.09 m/sec LV E/e', average 5 Ventricular septum Value 10/13/2018 Reference IVS thickness, ED, PLAX 1.4 cm 1.1 LVOT Value 10/13/2018 Reference LVOT ID, A-P 2.1 cm 2.1 LVOT area 3.4 cm^2 3.5 LVOT peak velocity, S 0.93 m/sec 0.82 LVOT mean velocity, S 0.73 m/sec 0.55 LVOT VTI, S 20.4 cm 17.8 LVOT peak gradient, S 3.5 mm Hg 2.7 LVOT mean gradient, S 2.3 mm Hg 1.4 Stroke volume (SV), LVOT 70 ml 62 DP Stroke index (SV/bsa), 30 ml/m^2 27 LVOT DP Aortic valve Value 10/13/2018 Reference Aortic valve peak 2.2 m/sec 1.7 velocity, S Aortic valve mean 1.57 m/sec 1.15 velocity, S Aortic valve VTI, S 45.0 cm 36.0 Aortic mean gradient, S 10.7 mm Hg 5.9 Aortic peak gradient, S 18.7 mm Hg 11.1 VTI ratio, LVOT/AV 0.45 0.49 Aortic valve area, VTI 1.6 cm^2 1.7 Velocity ratio, peak, 0.43 0.49 LVOT/AV Aortic valve area, peak 1.5 cm^2 1.7 velocity Velocity ratio, mean, 0.47 0.48 LVOT/AV Aortic valve area, mean 1.6 cm^2 1.7 velocity Aortic valve area/bsa, 0.7 cm^2/m^2 0.7 mean velocity Aortic regurg deceleration 202 cm/s^2 248 Aortic regurg pressure 554 ms 626 half-time Aorta Value 10/13/2018 Reference Aortic root ID, ED 3.4 cm 3.4 Ascending aorta ID, A-P, S 3.7 cm 3.6 Left atrium Value 10/13/2018 Reference LA ID, A-P, ES 4.6 cm 3.8 LA ID/bsa, A-P 1.9 cm/m^2 1.6 <=2.2 LA area, ES, A4C (H) 24 cm^2 27.4 8.8 - 23.4 LA area, ES, A2C 21 cm^2 26 LA volume/bsa, ES, 1-p A4C 34 ml/m^2 LA volume, ES, 2-p 77 ml 106 LA volume/bsa, ES, 2-p 33 ml/m^2 45 LA/aortic root ratio 1.33 1.11 Mitral valve Value 10/13/2018 Reference Mitral E-wave peak 0.49 m/sec 0.69 velocity Mitral A-wave peak 0.62 m/sec 0.71 velocity Mitral deceleration time (H) 304 ms 204 150 - 230 Mitral pressure half-time 88 ms 59 Mitral E/A ratio, peak 0.8 0.96 Mitral valve area, PHT, DP 2.5 cm^2 3.7 Pulmonary veins Value 10/13/2018 Reference Pulmonary vein peak 0.55 m/sec velocity, S Pulmonary vein peak 0.26 m/sec velocity, D Pulmonary vein velocity 2.13 ratio, peak, S/D Pulmonary vein A-wave 0.43 m/sec reversal peak velocity Tricuspid valve Value 10/13/2018 Reference Tricuspid regurg peak 2.9 m/sec 3.4 velocity Tricuspid peak RV-RA 33.8 mm Hg 47.2 gradient Right atrium Value 10/13/2018 Reference RA area, ES, A4C (H) 24.8 cm^2 24.3 8.3 - 19.5 Pulmonic valve Value 10/13/2018 Reference Pulmonic peak gradient, S 4.5 mm Hg Legend: (L) and (H) brandee values outside specified reference range. I have personally reviewed the images and have reviewed and edited the reported findings. Electronically signed by Forrest Plaza 02/04/2019 16:00
[2019-02-04 16:45] LABS: Anion Gap 6.9 mmol/L (3-11); BUN 29 mg/dL (7-18); CO2 30.1 mmol/L (21.0-32.0); CREATININE 1.44 mg/dL (0.70-1.30); Calcium 9.2 mg/dL (8.5-10.1); Chloride 104 mmol/L (98-107); Estimated GFR 46.97 (mL/min/1.73m2); Glucose 69 mg/dL (70-100); Potassium 4.5 mmol/L (3.5-5.1); Sodium 141 mmol/L (136-145)
== END 2019-02-04 00:55 ==
PROVIDERS: PCP Internal Medicine; Visit Provider Internal Medicine
DX: I50.9 Heart failure, unspecified (principal); I44.7 Left bundle-branch block, unspecified; I06.2 Rheumatic aortic stenosis with insufficiency; I05.1 Rheumatic mitral insufficiency; I49.3 Ventricular premature depolarization
CPT/HCPCS: 36415; 80048; 93306

== ENCOUNTER → 2019-02-27 09:45 | Outpatient (BNVA) | payer MEDICARE, OTHER, SELFPAY | PROVIDERS: PCP Internal Medicine; Referring Provider Internal Medicine; Visit Provider Internal Medicine Cardiovascular Disease | DX: I50.22 Chronic systolic (congestive) heart failure (principal); I13.0 Hypertensive heart and chronic kidney disease with heart failure and stage 1 through stage 4 chronic kidney disease, or unspecified chronic kidney disease; I25.10 Atherosclerotic heart disease of native coronary artery without angina pectoris; N18.9 Chronic kidney disease, unspecified; E11.22 Type 2 diabetes mellitus with diabetic chronic kidney disease | CPT/HCPCS: 99204; 99215 ==

== ENCOUNTER → 2019-04-28 10:33 | Outpatient (BNVA) | payer MEDICARE, OTHER, SELFPAY | PROVIDERS: PCP Internal Medicine; Visit Provider Psychiatry & Neurology Neurology | DX: G31.84 Mild cognitive impairment of uncertain or unknown etiology (principal); G93.49 Other encephalopathy; I11.0 Hypertensive heart disease with heart failure; I50.9 Heart failure, unspecified; E11.9 Type 2 diabetes mellitus without complications | CPT/HCPCS: 99214 ==

== ENCOUNTER 2019-05-15 14:46 | Outpatient (CLI) | payer MEDICARE, OTHER, SELFPAY | END 2019-05-15 15:06 | PROVIDERS: PCP Internal Medicine; Visit Provider Nurse Practitioner Family | DX: I26.99 Other pulmonary embolism without acute cor pulmonale (principal); Z79.01 Long term (current) use of anticoagulants | CPT/HCPCS: 36415; 85610 ==

== ENCOUNTER 2019-05-17 11:09 | Outpatient (CLI) | payer MEDICARE, OTHER, SELFPAY ==
[2019-05-17 11:37] LABS: Prothrombin Time 61.4 sec (9.3-11.0)
== END 2019-05-17 11:29 ==
PROVIDERS: PCP Internal Medicine; Visit Provider Nurse Practitioner Family
DX: I26.99 Other pulmonary embolism without acute cor pulmonale (principal); Z79.01 Long term (current) use of anticoagulants
CPT/HCPCS: 36415; 85610

== ENCOUNTER 2019-05-18 10:43 | Outpatient (CLI) | payer MEDICARE, OTHER, SELFPAY ==
[2019-05-18 11:31] LABS: Prothrombin Time 56.3 sec (9.3-11.0)
[2019-05-18 11:36] LABS: INR 5.5 (0.9-1.1)
== END 2019-05-18 11:03 ==
PROVIDERS: PCP Internal Medicine; Visit Provider Nurse Practitioner Family
DX: I26.99 Other pulmonary embolism without acute cor pulmonale (principal); Z79.01 Long term (current) use of anticoagulants
CPT/HCPCS: 36415; 85610

== ENCOUNTER → 2019-09-17 10:22 | Outpatient (BNVA) | payer MEDICARE, OTHER, SELFPAY | PROVIDERS: PCP Internal Medicine; Referring Provider Internal Medicine; Visit Provider Internal Medicine Cardiovascular Disease | DX: I25.10 Atherosclerotic heart disease of native coronary artery without angina pectoris (principal); I25.5 Ischemic cardiomyopathy; I11.0 Hypertensive heart disease with heart failure; I50.9 Heart failure, unspecified | CPT/HCPCS: 99204; 99215 ==

== ENCOUNTER 2019-09-29 19:48 | Outpatient (REF) | payer MEDICARE, OTHER, SELFPAY ==
[2019-09-29 18:55] LABS: COMMENT (LAB VIEW ONLY) 21.69 mg/dL; Microalb ug/mg Crea 20.7 ug/mg Cr
== END 2019-09-29 20:08 ==
LOC: NCHCN 19:48
PROVIDERS: PCP Internal Medicine; Visit Provider Internal Medicine
DX: E11.69 Type 2 diabetes mellitus with other specified complication (principal); E66.9 Obesity, unspecified
CPT/HCPCS: 82043; 82570

== ENCOUNTER → 2020-03-17 14:12 | Outpatient (BNVA) | payer MEDICARE, OTHER, SELFPAY | PROVIDERS: PCP Internal Medicine; Referring Provider Internal Medicine; Visit Provider Internal Medicine Cardiovascular Disease | DX: I25.10 Atherosclerotic heart disease of native coronary artery without angina pectoris (principal); I11.0 Hypertensive heart disease with heart failure; I42.9 Cardiomyopathy, unspecified; E11.9 Type 2 diabetes mellitus without complications; I50.9 Heart failure, unspecified | CPT/HCPCS: 99214 ==

== ENCOUNTER → 2020-10-10 11:23 | Outpatient (BNVA) | payer MEDICARE, OTHER, SELFPAY | PROVIDERS: PCP Internal Medicine; Referring Provider Internal Medicine; Visit Provider Internal Medicine Cardiovascular Disease | DX: I25.10 Atherosclerotic heart disease of native coronary artery without angina pectoris (principal); I42.9 Cardiomyopathy, unspecified; Z87.891 Personal history of nicotine dependence; Z79.01 Long term (current) use of anticoagulants | CPT/HCPCS: 99213 ==

== ENCOUNTER 2020-10-19 04:26 | Outpatient (CLI) | payer MEDICARE, OTHER, SELFPAY ==
[2020-10-19 11:49] LABS: HCT 47.9 % (40.0-50.0); HGB 15.5 g/dL (13.5-17.5); MCH 30.7 pg (27.0-33.0); MCHC 32.4 % (32.0-36.0); MCV 94.9 fL (80-95); MPV 10.5 fL (8.0-11.0); Platelet Count 218 10^3/uL (130-400); RBC 5.05 10^6/uL (4.36-5.78); RDW 14.4 % (11.8-14.1); RDW-SD 50.4 fL; WBC 11.61 10^3/uL (4.4-10.8)
[2020-10-19 12:58] LABS: Anion Gap 6.2 mmol/L (3-11); BUN 25 mg/dL (7-18); CO2 30.8 mmol/L (21.0-32.0); CREATININE 1.49 mg/dL (0.70-1.30); Calculated LDL 63 mg/dL (<100); Chloride 104 mmol/L (98-107); Cholesterol 135 mg/dL (<200); Estimated GFR 44.93 (mL/min/1.73m2); Glucose 108 mg/dL (74-106); HDL Cholesterol 59 mg/dL (40-60); Potassium 4.1 mmol/L (3.5-5.1); Sodium 141 mmol/L (136-145); TSH 0.97 uIU/mL (0.36-3.74); Triglyceride 68 mg/dL (<150)
== END 2020-10-19 04:46 ==
PROVIDERS: PCP Internal Medicine; Visit Provider Internal Medicine
DX: I10 Essential (primary) hypertension (principal); E78.00 Pure hypercholesterolemia, unspecified; I50.22 Chronic systolic (congestive) heart failure; I42.9 Cardiomyopathy, unspecified; I25.10 Atherosclerotic heart disease of native coronary artery without angina pectoris; E11.69 Type 2 diabetes mellitus with other specified complication; E66.9 Obesity, unspecified; G31.84 Mild cognitive impairment of uncertain or unknown etiology
CPT/HCPCS: 36415; 80048; 80061; 85027; 84443

== ENCOUNTER → 2021-03-30 12:20 | Outpatient (BNVA) | payer MEDICARE, OTHER, SELFPAY | PROVIDERS: PCP Internal Medicine; Referring Provider Internal Medicine; Visit Provider Internal Medicine Cardiovascular Disease | DX: I25.10 Atherosclerotic heart disease of native coronary artery without angina pectoris (principal); I10 Essential (primary) hypertension; I42.9 Cardiomyopathy, unspecified | CPT/HCPCS: 99213 ==

== ENCOUNTER 2021-04-24 16:34 | Emergency (ER) | payer MEDICARE, OTHER, SELFPAY ==
--- NOTE | 2021-04-24 16:45 | DI.RAD_ITS ---
Exam(s) XR HIP RT COMPLETE AP PELVIS EXAM: XR HIP RT COMPLETE AP PELVIS INDICATION: leg pain with ambulation. TECHNIQUE: 2D digital imaging was performed. FINDINGS: No fracture or dislocation is seen. There is minimal spurring at the acetabula. There is some widen ing of both femoral necks with prominent superiorly which can be seen with femoroacetabular impingeme nt. No joint space or soft tissue calcifications are seen. IMPRESSION: No acute abnormality. DATA REPOSITORY: RADIATION DOSE DELIVERED:
[2021-04-24 16:55] VITALS: BP 144/76; PULSE 69; RESP 18; O2SAT 96
--- NOTE | 2021-04-24 16:59 | ED.GENADUL_ITS ---
Discharge Plan Disposition Patient Disposition: HOME Condition: Improving Discharge Details Clinical Impression: Acute pain of right lower extremity Primary Care Provider: Sheyla Berumen ED Provider: Sheryl Nur Home Meds and New Rx's Prescriptions: Continued Eliquis 2.5 mg tablet 2.5 mg PO BID Qty: 180 RF: 3 atorvastatin [Lipitor] 80 mg tablet 80 mg PO DAILY Qty: 90 RF: 3 nitroglycerin 0.4 mg tablet, sublingual 0.4 mg Sublingual PRN Qty: 25 RF: 6 hydrocortisone 30 GM cream 1 applic Topical TID PRNQty: 1 RF: 1 metformin 500 MG tablet 500 mg PO BID Qty: 180 RF: 3 (DME) FreeStyle Lite Strips 1 EACH strip 1 ea Miscellaneous DAILY Qty: 100 RF: 4 Hold Instructions: Home Medication placed on hold at Doctor's office (DME) lancets 1 EACH misc 1 ea Miscellaneous DAILY Qty: 100 RF: 4 Hold Instructions: Home Medication placed on hold at Doctor's office aspirin 81 mg tablet,delayed release (DR/EC) 81 mg PO DAILY RF: 0 lisinopril 10 mg tablet 10 mg PO DAILY Qty: 90 RF: 3 metoprolol succinate 25 mg tablet extended release 24 hr 12.5 mg PO BID Qty: 90 RF: 3 azelastine 137 mcg (0.1 %) aerosol,spray 2 spray Intranasal BID PRN (Reason: rhinitis) Qty: 3 RF: 3 furosemide 40 mg tablet See Rx Instructions .ROUTE .COMPLEX RF: 0 No Action prednisone 10 mg tablet 10 mg PO DAILY Qty: 20 RF: 0 Discharge Instructions Instructions: Leg Pain (ED) Additional Instructions: At this time X-ray shows arthritis and degenerative changes. No acute fracture or break in bone. LAbs are largely unremarkable and show no sign for a blood clot in the leg. However if this continues please follow up closely with primary care provider. Alternate ice and heat and Take Tylenol every 4-6 hours as needed for pain. Use walker if needed. Referrals: Sheyla Berumen MD [Primary Care Provider] - 5 days Discharge Data Discharge Date/Time-TO BE ENTERED AT DEPARTURE: 04/24/21 22:00 Medical Decision Making <Sheryl Nur - Last Filed: 04/25/21 13:44> 85 year old male presents with Right leg and thigh pain which began today, unable to bear weight, denies trauma or recent long trips. Denies weakness , CP or abd pain. Reports felt like it was going to give out Describes as sharp after increased activity today. Imaging protocol: XR Right hip. Views: 2 or 3 views hip with pelvis when performed. COMPARISON: CT Abdomen^ROUTINE_ABDOMEN_PELVIS_WITH_CONTRAST (Adult) 10/13/2018 1:02 PM FINDINGS: Bones/joints: Prominent appearance of the bilateral superior femoral necks is noted which is chronic, but can be seen in impingement. Clinical correlation recommended. There are mild degenerative changes in the bilateral hip joints and SI joints. No fracture is seen. Soft tissues: Unremarkable. IMPRESSION: No definite fracture. For persistent pain or inability to bear weight, CT is recommended. Thank you for allowing us to participate in the care of your patient. Dictated and Authenticated by: Dain Barker MD 190: Attempted Road test with patient, unable to bear weight on Right Hip and Femur, Will order CT and labs. Age adjusted D-dimer is VTE unlikely, result is 625. CT pending at this time. Diff Dx Muskuloskeletal strain, DVT, Occult fracture of hip, Trachanter bursitis, less likely CVA Informed by Felicity KING that patient is able to stand and bear weight without too much difficulty. FINDINGS: Bones/joints: Femoral head, neck, and shaft are unremarkable. No fracture is evident. Acetabulum is intact. Right inferior and superior pubic rami are unremarkable. Patella is intact. No significant knee joint effusion. Soft tissues: Soft tissues of the thigh are unremarkable. No hematoma or contusion evident. Medial distal femoral Miller-Stieda calcification Urinary bladder: Incidental finding of a posterior right bladder diverticulum measuring approximately 2.7 cm. Reproductive: Nonspecific prostatic enlargement. IMPRESSION: 1. No fracture of the hip, visualized portion of the right pelvis and acetabulum, or right femur. 2. No soft tissue contusion or hematoma evident. 3. Incidental finding of a small right bladder diverticulum. 4. Nonspecific prostatic enlargement. Will plan to Discharge. Patient moving all 4 extremities without difficulty upon reevaluation and discussion of follow-up with primary care and strict return instructions. <DEBI Turk - Last Filed: 04/25/21 01:24> My name added to the chart in error. HPI <Sheryl Nur - Last Filed: 04/25/21 13:44> General Mode of arrival: wheelchair . Date/Time Provider Initiated Documentation: 04/24/21 16:53 . Limitations to Documentation: no limitations . Information obtained by: patient and family (Daughter) . HPI Narrative: 85 year old male presents with Right leg and thigh pain which began today, unable to bear weight, denies trauma or recent long trips. Denies weakness , CP or abd pain. Reports felt like it was going to give out Describes as sharp after increased activity today. Patient has a past medical history of cardiomyopathy, mild cognitive impairment with memory loss, leukoencephalopathy, CHF, PE, diab etes mellitus type 2, hypertension, arteriosclerotic cardiovascular disease. Related Data Home Medications Medication Instructions Recorded Confirmed hydrocortisone 1 applic TOPICAL TID PRN #1 script 02/03/15 04/24/21 metformin 500 mg PO BID #180 tab-cap 02/14/17 04/24/21 blood sugar diagnostic #100 strip 01/31/18 04/24/21 lancets #100 ea 01/31/18 04/24/21 aspirin 81 mg tablet,delayed 81 mg PO DAILY 01/19/20 04/24/21 release apixaban 2.5 mg tablet 2.5 mg PO BID #180 tab 04/19/20 04/24/21 atorvastatin 80 mg tablet 80 mg PO DAILY #90 tab-cap 04/19/20 04/24/21 lisinopril 10 mg tablet 10 mg PO DAILY #90 tab 04/27/20 04/24/21 nitroglycerin 0.4 mg sublingual 0.4 mg SUBLINGUAL PRN #25 tab-cap 10/12/2010/03 tablet metoprolol succinate 25 mg 12.5 mg PO BID #90 tab 11/15/20 04/24/21 tablet,extended release 24 hr azelastine 137 mcg (0.1 %) nasal 2 spray INTRANASAL BID PRN #3 units 12/27/20 04/24/21 spray aerosol furosemide See Rx Instructions .ROUTE .COMPLEX 04/24/21 prednisone 10 mg tablet 10 mg PO DAILY #20 tab 04/25/21 04/25/21 Previous Rx's Medication Instructions Recorded blood sugar diagnostic #100 strip 01/31/18 lancets #100 ea 01/31/18 apixaban 2.5 mg tablet 2.5 mg PO BID #180 tab 04/19/20 atorvastatin 80 mg tablet 80 mg PO DAILY #90 tab-cap 04/19/20 lisinopril 10 mg tablet 10 mg PO DAILY #90 tab 04/27/20 nitroglycerin 0.4 mg sublingual 0.4 mg SUBLINGUAL PRN #25 tab-cap 10/12/20 tablet metoprolol succinate 25 mg 12.5 mg PO BID #90 tab 11/15/20 tablet,extended release 24 hr azelastine 137 mcg (0.1 %) nasal 2 spray INTRANASAL BID PRN #3 units 12/27/20 spray aerosol prednisone 10 mg tablet 10 mg PO DAILY #20 tab 04/25/21 Allergies Allergy/AdvReac Type Severity Reaction Status Date / Time Penicillins Allergy Unknown unknown Verified 04/25/21 09:39 General ALTA: 2 Review of Systems <Sheryl Nur - Last Filed: 04/25/21 13:44> Narrative: Constitutional: Negative for weight loss, alert and oriented, well groomed, normal body habitus, appears comfortable. HEENT: Denies trauma, headaches, blurry vision, nasal discharge, sore throat, trouble swallowing. Chest: Denies chest pain, palpitations, irregular rhythm, hypertension. Respiratory: Denies Shortness of breath, cough, hemoptysis. GI: Denies abdominal pain, nausea, vomiting, diarrhea, constipation. : Denies dysuria, hematuria, flank pain, rectal bleeding. Musculoskeletal: Right upper leg pain inability to bear weight. Neuro: Denies dizziness, blurry vision, weakness, syncope, headache or facial numbness. Hematologic: Denies easy bruising, intolerance to heat or cold, hair loss. 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) Dr Fletcher Benign paroxysmal vertigo (11/23/11) BPH w urinary obs/LUTS (11/23/11) Cellulitis of face (11/23/11) recurrent CHF (congestive heart failure) Cor athrscl-uns vessel (01/30/13) MIx2 1980s 2 blocks, angiplasty Cor athrscl-uns vessel (11/23/11) MIx2 1980s 2 blocks, angiplasty Counseling regarding advance directives and goals of care Delirium Diabetes mellitus type 2 in obese (02/05/17) Diarrhea (05/18/15) 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 and stable on CT Essential hypertension (07/08/13) Full code status Grief 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) Intentional weight loss walks daily limiting carbs Jaundice Leukoencephalopathy MCI (mild cognitive impairment) with memory loss daughter has taken over bills/banking Obesity, unspecified (11/23/11) Obstructive sleep apnea syndrome (11/23/11) very compliant with CPAP Other and unspecified hyperlipidemia (01/30/13) Other seborrheic keratosis (11/23/11) Palliative care patient Personal history of long-term (current) use of anticoagulants (11/23/11) POLST (Physician Orders for Life-Sustaining Treatment) full code 03/28/21 Pulmonary edema Pulmonary embolism Scalp lesion Tobacco dependence in remission (11/23/11) Unintentional weight loss Unintentional weight loss Vascular dementia Surgical History S/P cataract extraction Family History Mother , age 74 from dementia Dementia Father , age 64 Heart disease Stroke Brother , age 83 from dementia Dementia Brother , one month after CABG x 5 Myocardial infarction Sister No problems noted. Daughter No problems noted. Daughter No problems noted. Social History Smoking/Tobacco Use Status: Former Tobacco Use Smoking risk assessment performed?: Yes Alcohol Intake: never Drug use: Never Substance use type: does not use Caregiver/Support person: Yes Household members: spouse Housing: house Number of Children: 2 number of grandchildren: 3 Communication Needs: Hard of Hearing and Corrective Lenses Do you need help understanding health information?: Never current occupation: [employer] Pets and animals: No Current gender identity: male What is your relationship status?: How often do you talk on the phone with friends or family?: three or more times per week How often do you get together with friends or relatives?: three or more times per week Panel score (0-1 are the most socially isolated patients): 2 What type of physical activity do you participate in: walking and regular exercise Duration: 45-60 minutes/day Frequency: 3-4 times per week Special rita needs: No Seatbelt use: always Drive intox or ride w/intox 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 Has done better than expected. He does go for a 2+ mile walk 3-4 days per week. Likes walking on bike path; he grew up in [place] [place] [facility] [place] [facility] and path passes through his old neighborhood. Sees his daughter Janeth regularly. Carol does his bills for him. He appreciates the help. Is watching his weight. Would like to weigh about 200. Feels better weighing less. Used to be obese. Looking forward to meal sites being open. Wants to socialize. Exam <Sheryl Nur - Last Filed: 04/25/21 13:44> Const General: cooperative, healthy appearing, comfortable, well developed and well groomed Nutritional Appearance: average body habitus and well nourished Orientation: alert, awake and oriented x3 HENMT Head: normal to inspection Resp Effort & Inspection: normal respiratory effort, able to speak in complete sentences, no cough and not labored Auscultation: clear to auscultation bilaterally Cardio Palpation: normal PMI Rate: regular rate Rhythm: regular rhythm Heart Sounds: S1 normal and S2 normal GI Inspection: normal to inspection and non-distended Palpation: soft Back/Spine/Pelvis Back: no CVA tenderness Cervical Spine: normal cervical lordosis Thoracic/Lumbar Spine: thoracic and lumbar spine normal to inspection Pelvis: no pain with anterior-posterior compression Coccyx: no swelling and no tenderness Extrem General: normal to inspection, abnormal gait and no calf tenderness bilaterally Right lower extremity: hip/thigh Details: tenderness and other (Unable to bear weight)
--- NOTE | 2021-04-24 18:01 | DI.VRAD_ITS ---
PROCEDURE INFORMATION: Exam: XR Right Hip Exam date and time: 04/24/2021 5:00 PM Age: 85 years old Clinical indication: Hip pain; Right hip TECHNIQUE: Imaging protocol: XR Right hip. Views: 2 or 3 views hip with pelvis when performed. COMPARISON: CT Abdomen^ROUTINE ABDOMEN PELVIS WITH CONTRAST (Adult) 10/13/2018 1:02 PM FINDINGS: Bones/joints: Prominent appearance of the bilateral superior femoral necks is noted which is chronic, but can be seen in impingement. Clinical correlation recommended. There are mild degenerative changes in the bilateral hip joints and SI joints. No fracture is seen. Soft tissues: Unremarkable. IMPRESSION: No definite fracture. For persistent pain or inability to bear weight, CT is recommended. Dictated and Authenticated by: Dain Barker MD. Ordering:BRAVO Saucedo MD
--- NOTE | 2021-04-24 19:00 | DI.CT_ITS ---
Exam(s) CT LOWER EXTREMITY RT WO EXAM: CT LOWER EXTREMITY RT WO CLINICAL HISTORY: R/O Fracture, Unable to bear weight. TECHNIQUE: Imaging Protocol: Axial computed tomography images with coronal and sagittal reformatted images were created and reviewed. CONTRAST MATERIAL: Noncontrast COMPARISON: CR,XR XR HIP RT COMPLETE AP PELVIS from 04/24/2021 FINDINGS: No evidence of fracture. No hematoma. Mild acetabular spurring. Contour deformity at the superior femoral neck could be consistent with impingement. Calcification at the medial femoral condyle, cons istent with ligamentous calcification. Patellar enthesophytes. No visible joint effusions. Soft tissues: Marked prostate enlargement. Prostate calcifications. Vascular calcifications. Diffu se bladder wall thickening. Right-sided bladder diverticulum. No soft tissue hematoma. IMPRESSION: No evidence of fracture. Mild degenerative changes. Enlarged prostate and right-sided bladder diver ticulum. RADIATION DOSE DELIVERED: 459.19mGy.cm Total DLP DATA REPOSITORY: All CT scans at this facility are submitted to the National Radiology Data Registry (NRDR) Dose Index Registry (DIR) with the [employer] (ACR). RADIATION OPTIMIZATION: All CT scans at this facility use at least one of these dose optimization te chniques: automated exposure control; mA and/or kV adjustment per patient size (includes targeted exa ms where dose is matched to clinical indication); or iterative reconstruction.
[2021-04-24 19:49] LABS: HCT 47.3 % (40.0-50.0); HGB 15.5 g/dL (13.5-17.5); MCH 31.3 pg (27.0-33.0); MCHC 32.8 % (32.0-36.0); MCV 95.6 fL (80-95); MPV 10.2 fL (8.0-11.0); Platelet Count 224 10^3/uL (130-400); RBC 4.95 10^6/uL (4.36-5.78); RDW 14.2 % (11.8-14.1); RDW-SD 49.9 fL
[2021-04-24 20:05] LABS: Prothrombin Time 10.2 sec (9.3-11.0)
[2021-04-24 20:23] LABS: D-Dimer 625 ng/mlFEU (<500)
[2021-04-24 20:26] LABS: ALT 22 U/L (16-63); AST 20 U/L (15-37); Albumin 3.5 g/dL (3.4-5.0); Alkaline Phosphatase 62 U/L (46-116); Anion Gap 7.9 mmol/L (3-11); BUN 25 mg/dL (7-18); Bilirubin, Total 0.6 mg/dL (0.2-1.0); CO2 28.1 mmol/L (21.0-32.0); CREATININE 1.5 mg/dL (0.70-1.30); Chloride 106 mmol/L (98-107); Estimated GFR 44.59 (mL/min/1.73m2); Glucose 89 mg/dL (74-106); Potassium 4.3 mmol/L (3.5-5.1); Sodium 142 mmol/L (136-145); Total Protein 7.7 g/dL (6.4-8.2)
[2021-04-24 21:15] LABS: Bilirubin Negative (Negative); Blood Negative (Negative); Clarity Clear (Clear); Glucose Negative (Negative); Ketones Negative (Negative); Leukocyte Esterase Trace (Negative); Nitrite Negative (Negative); Urobilinogen 0.2 EU/dL (Up TO 0.2)
[2021-04-24 21:26] LABS: Bacteria Few HPF (Negative); C & S Indicated? Yes; Casts Negative LPF (Negative); Crystals Negative HPF (Negative); Epithelial Cells Rare HPF (Negative); Mucus Negative (Negative); RBC 0-2 HPF (0-2)
--- NOTE | 2021-04-24 21:29 | DI.VRAD_ITS ---
PROCEDURE INFORMATION: Exam: CT Right Lower Extremity Without Contrast; Thigh Exam date and time: 04/24/2021 7:09 PM Age: 85 years old Clinical indication: Pain; Thigh; Right; Patient HX: R/O fracture, unable to bear weight TECHNIQUE: Imaging protocol: CT of the Right lower extremity without contrast was performed. Exam focused on the thigh. Radiation optimization: All CT scans at this facility use at least one of these dose optimization techniques: automated exposure control; mA and/or kV adjustment per patient size (includes targeted exams where dose is matched to clinical indication); or iterative reconstruction. COMPARISON: CT Abdomen^ROUTINE ABDOMEN PELVIS WITH CONTRAST (Adult) 10/13/2018 1:02 PM FINDINGS: Bones/joints: Femoral head, neck, and shaft are unremarkable. No fracture is evident. Acetabulum is intact. Right inferior and superior pubic rami are unremarkable. Patella is intact. No significant knee joint effusion. Soft tissues: Soft tissues of the thigh are unremarkable. No hematoma or contusion evident. Medial distal femoral Miller-Stieda calcification Urinary bladder: Incidental finding of a posterior right bladder diverticulum measuring approximately 2.7 cm. Reproductive: Nonspecific prostatic enlargement. IMPRESSION: 1. No fracture of the hip, visualized portion of the right pelvis and acetabulum, or right femur. 2. No soft tissue contusion or hematoma evident. 3. Incidental finding of a small right bladder diverticulum. 4. Nonspecific prostatic enlargement. Dictated and Authenticated by: Rangel Astorga MD. Ordering:BRAVO Saucedo MD
[2021-04-24] MEDS: Acetaminophen 325 MG TAB 650 MG PO (22:00)
[2021-04-24 22:02] VITALS: BP 157/87; PULSE 71; RESP 17; TEMP 36.3; O2SAT 96
== END 2021-04-24 22:00 | disposition home or self-care (01) ==
PROVIDERS: Emergency Provider Registered Nurse Emergency; PCP Internal Medicine
DX: M79.651 Pain in right thigh (principal); M25.551 Pain in right hip
CPT/HCPCS: 36415; 80053; 85027; 99284; 73502; 73700; 81003; 81015; 85379; 85610; 87086

== ENCOUNTER → 2021-09-15 11:11 | Outpatient (BNVA) | payer MEDICARE, OTHER, SELFPAY | PROVIDERS: PCP Internal Medicine; Visit Provider Internal Medicine Cardiovascular Disease | DX: I25.10 Atherosclerotic heart disease of native coronary artery without angina pectoris (principal); I10 Essential (primary) hypertension; I42.9 Cardiomyopathy, unspecified | CPT/HCPCS: 99214; 99213 ==

== ENCOUNTER → 2022-03-16 10:46 | Outpatient (BNVA) | payer MEDICARE, OTHER, SELFPAY | PROVIDERS: PCP Internal Medicine; Referring Provider Internal Medicine; Visit Provider Internal Medicine Cardiovascular Disease | DX: I25.10 Atherosclerotic heart disease of native coronary artery without angina pectoris (principal); I10 Essential (primary) hypertension; I42.9 Cardiomyopathy, unspecified | CPT/HCPCS: 99214; 99213 ==

== ENCOUNTER → 2022-06-25 01:44 | Outpatient (CLI) | payer MEDICARE, OTHER, SELFPAY | PROVIDERS: PCP Internal Medicine; Visit Provider Internal Medicine Cardiovascular Disease | DX: I10 Essential (primary) hypertension (principal); I42.9 Cardiomyopathy, unspecified | CPT/HCPCS: 93306 ==

== ENCOUNTER 2022-08-20 02:31 | Outpatient (CLI) | payer MEDICARE, OTHER, SELFPAY ==
[2022-08-20 08:41] LABS: Anion Gap 5.3 mmol/L (3-11); BUN 38 mg/dL (7-18); CO2 27.7 mmol/L (21.0-32.0); CREATININE 1.8 mg/dL (0.70-1.30); Calculated LDL 69 mg/dL (<100); Chloride 108 mmol/L (98-107); Cholesterol 140 mg/dL (<200); Estimated GFR 36.21 (mL/min/1.73m2); Glucose 95 mg/dL (74-106); HDL Cholesterol 57 mg/dL (40-60); Potassium 4.5 mmol/L (3.5-5.1); Sodium 141 mmol/L (136-145); Triglyceride 74 mg/dL (<150)
== END 2022-08-20 02:32 | disposition home or self-care (01) ==
LOC: LBO 02:31
PROVIDERS: PCP Nurse Practitioner Adult Health; Visit Provider Nurse Practitioner Adult Health
DX: E11.69 Type 2 diabetes mellitus with other specified complication (principal); E66.9 Obesity, unspecified; I10 Essential (primary) hypertension; R42 Dizziness and giddiness
CPT/HCPCS: 36415; 80048; 80061; 83735

== ENCOUNTER → 2022-09-14 10:25 | Outpatient (BNVA) | payer MEDICARE, OTHER, SELFPAY | PROVIDERS: PCP Nurse Practitioner Adult Health; Visit Provider Internal Medicine Cardiovascular Disease | DX: I42.8 Other cardiomyopathies (principal); I25.10 Atherosclerotic heart disease of native coronary artery without angina pectoris | CPT/HCPCS: 99214 ==

== ENCOUNTER 2022-11-19 03:21 | Outpatient (CLI) | payer MEDICARE, OTHER, SELFPAY ==
[2022-11-19 10:18] LABS: Anion Gap 7.6 mmol/L (3-11); BUN 40 mg/dL (7-18); CO2 28.4 mmol/L (21.0-32.0); Calcium 9.5 mg/dL (8.5-10.1); Chloride 102 mmol/L (98-107); Glucose 96 mg/dL (74-106); Potassium 4.8 mmol/L (3.5-5.1); Sodium 138 mmol/L (136-145)
== END 2022-11-19 03:22 | disposition home or self-care (01) ==
LOC: LBO 03:21
PROVIDERS: PCP Nurse Practitioner Adult Health; Visit Provider Nurse Practitioner Adult Health
DX: I42.9 Cardiomyopathy, unspecified (principal)
CPT/HCPCS: 36415; 80048

== ENCOUNTER → 2022-12-24 15:08 | Outpatient (BNVA) | payer MEDICARE, OTHER, SELFPAY | PROVIDERS: PCP Nurse Practitioner Adult Health; Referring Provider Nurse Practitioner Adult Health; Visit Provider Nurse Practitioner Adult Health | DX: G31.84 Mild cognitive impairment of uncertain or unknown etiology (principal) | CPT/HCPCS: 99203; 99214 ==

== ENCOUNTER 2022-12-27 02:40 | Outpatient (CLI) | payer MEDICARE, OTHER, SELFPAY ==
[2022-12-27 09:34] LABS: Anion Gap 3.4 mmol/L (3-11); BUN 51 mg/dL (7-18); CO2 29.6 mmol/L (21.0-32.0); CREATININE 1.8 mg/dL (0.70-1.30); Calcium 8.7 mg/dL (8.5-10.1); Calculated LDL 79 mg/dL (<100); Chloride 107 mmol/L (98-107); Cholesterol 166 mg/dL (<200); Estimated GFR 36.21 (mL/min/1.73m2); Glucose 85 mg/dL (74-106); HDL Cholesterol 76 mg/dL (40-60); Potassium 4.6 mmol/L (3.5-5.1); Sodium 140 mmol/L (136-145); Triglyceride 55 mg/dL (<150)
== END 2022-12-27 02:41 | disposition home or self-care (01) ==
LOC: LBO 02:40
PROVIDERS: PCP Nurse Practitioner Adult Health; Referring Provider Nurse Practitioner Adult Health; Visit Provider Nurse Practitioner Adult Health
DX: E11.69 Type 2 diabetes mellitus with other specified complication (principal); N18.9 Chronic kidney disease, unspecified; E66.9 Obesity, unspecified; G31.84 Mild cognitive impairment of uncertain or unknown etiology
CPT/HCPCS: 36415; 80048; 80061; 83036

== ENCOUNTER 2023-02-03 09:50 | Emergency (ER) | payer MEDICARE, OTHER, SELFPAY ==
[2023-02-03] VITALS (55 sets, daily range): BP systolic 98–146; BP diastolic 45–128; PULSE 57–110; TEMP 36.4; O2SAT 93–100
--- NOTE | 2023-02-03 10:00 | DI.CT_ITS ---
Exam(s) CT HEAD CERVICAL SPINE WO EXAM: CT HEAD CERVICAL SPINE WO CLINICAL HISTORY: fall on eliquis. TECHNIQUE: Imaging Protocol: Axial computed tomography images with coronal and sagittal reformatted images were created and reviewed COMPARISON: CT CT HEAD WO from 10/11/2018 FINDINGS: Head CT Ventricles and Extra axial spaces: Normal in size and morphology for the patient's age. Hemorrhage: None. Cerebral parenchyma: Atrophy. Prominent white matter changes of small-vessel disease, similar to mica or. Midline shift: None. Brainstem/Cerebellum: Normal. Calvarium: Hyperostosis frontalis interna Visualized Paranasal sinuses/Mastoids: Clear. Cervical Spine CT BONES: Vertebral body heights are maintained. Alignment is normal. There is no evidence of acute frac ture. Degenerative disc changes and facet degenerative changes are seen . there are prominent osteophytes projecting anteriorly with bridging. Just posterior soft tissue calcification. Severe degenerative changes at C1-2. SOFT TISSUES: No paraspinal hematoma. The airway appears intact. No pneumothorax is seen at the lung apices. Emphysematous changes present IMPRESSION: Head CT: No acute abnormality. C-spine CT: Degenerative changes, no acute abnormality. RADIATION DOSE DELIVERED: 1,784.61mGy.cm Total DLP DATA REPOSITORY: All CT scans at this facility are submitted to the National Radiology Data Registry (NRDR) Dose Index Registry (DIR) with the [employer] ([employer]). RADIATION OPTIMIZATION: All CT scans at this facility use at least one of these dose optimization te chniques: automated exposure control; mA and/or kV adjustment per patient size (includes targeted exa ms where dose is matched to clinical indication); or iterative reconstruction.
--- NOTE | 2023-02-03 10:00 | RT.EKG_ITS ---
APPROVED REPORT Exam: Resting ECG Reason for Exam: weakness Patient Location: E HR:59 bpm ECG Measurements Heart Rate 59 AXIS FL 211 P 28 QRSd 115 QRS -16 QT 424 T 72 QTc 420 Conclusion Sinus bradycardia...rate< 60 Multiple ventricular premature complexes...V complexes w/ short R-R intervls LVH with secondary repolarization abnormality...multi-LVH criteria, abnrm ST-T Inferior infarct, old...Q >35mS, II III aVF Sinus. PVCs. No STEMI. I have reviewed and interpreted ECG and agree with software generated interpretation.
[2023-02-03 10:23] LABS: Abs Immature Grans 0.05 10^3/uL (0.0-0.06); Absolute Eosinophil Count 0.13 10^3/uL (0.0-0.7); Absolute Lymphocyte Count 1.01 10^3/uL (1.2-3.4); Absolute Monocyte Count 1.56 10^3/uL (0.1-0.8); Basophils % 0.3; Eosinophils % 1.1; HCT 43.5 % (40.0-50.0); HGB 14.3 g/dL (13.5-17.5); Immature Grans % 0.4; Lymphocytes % 8.5; MCH 31.2 pg (27.0-33.0); MCHC 32.9 % (32.0-36.0); MCV 95 fL (80-95); MPV 10.5 fL (8.0-11.0); Monocytes % 13.1; Neutrophils % 76.6; Platelet Count 158 10^3/uL (130-400); RBC 4.58 10^6/uL (4.36-5.78); RDW 15.9 % (11.8-14.1); RDW-SD 56.1 fL; WBC 11.88 10^3/uL (4.4-10.8)
[2023-02-03 10:24] LABS: Absolute Basophil Count 0.04 10^3/uL (0.0-0.2)
[2023-02-03 10:35] LABS: Diff Comment Diff Reviewed; RBC Morphology Normal
[2023-02-03 10:41] LABS: Anion Gap 3.3 mmol/L (3-11); BUN 38 mg/dL (7-18); CO2 28.7 mmol/L (21.0-32.0); CREATININE 2.2 mg/dL (0.70-1.30); Calcium 8.8 mg/dL (8.5-10.1); Chloride 104 mmol/L (98-107); Estimated GFR 28.46 (mL/min/1.73m2); Glucose 114 mg/dL (74-106); Potassium 4.5 mmol/L (3.5-5.1); Sodium 136 mmol/L (136-145); Troponin I < 50 ng/L (<or=60)
--- NOTE | 2023-02-03 11:00 | DI.CT_ITS ---
Exam(s) CT ABDOMEN PELVIS WO EXAM: CT ABDOMEN PELVIS WO CLINICAL HISTORY: left hip pain, rotation post fall, anticoag. TECHNIQUE: Imaging Protocol: Axial computed tomography images with coronal and sagittal reformatted images were created and reviewed. Oral: yes / no FINDINGS: ABDOMEN: Lung Bases: Fibrotic changes. Small scattered calcified nodules. Liver: Normal density. No measurable mass. Gallbladder and biliary tract: Cholelithiasis. No biliary dilatation. Pancreas: Normal density, no abnormal calcifications or inflammatory process. Spleen: Normal. Kidneys: Normal size, contour and axis. No radiodense stones or obstructive uropathy. Bilateral amarjit l cysts. Stable. No further follow-up recommended. No suspicious masses seen. Adrenal glands: No masses seen. Lymph nodes: Within normal limits. Abdominal Aorta: Abdominal portion non-dilated. Atherosclerotic changes. PELVIS: Bladder: Distended. No evidence of stones. No gross wall thickening. Bowel: Prominent diverticulosis. Large quantity of stool in the rectum. No obstruction or bowel wal l thickening. Peritoneal cavity: No ascites, collection or mesenteric inflammatory response. Reproductive organs: Markedly enlarged prostate. Bones: Intertrochanteric fracture of the left femur with the lesser and greater trochanters fracture as separate fragments. There is some separation of fracture fragments. There is adjacent hematoma i n the lower psoas muscle anterior to the level of the fracture is well as swelling of the left medial adductor muscles. No additional pelvic fractures. No spinal fractures. Degenerative changes noted in lumbar spine. IMPRESSION: Intertrochanteric fracture of the left femur. Surrounding left muscular swelling. Large quantity of stool in the rectum. RADIATION DOSE DELIVERED: 1,056.2mGy.cm Total DLP DATA REPOSITORY: All CT scans at this facility are submitted to the National Radiology Data Registry (NRDR) Dose Index Registry (DIR) with the [employer] ([employer]). RADIATION OPTIMIZATION: All CT scans at this facility use at least one of these dose optimization te chniques: automated exposure control; mA and/or kV adjustment per patient size (includes targeted exa ms where dose is matched to clinical indication); or iterative reconstruction.
--- NOTE | 2023-02-03 11:19 | ED.GENADUL_ITS ---
Discharge Plan Disposition Patient Disposition: Transfer-Acute Inpatient Care Specific Acute Inpt Facility: [facility] Condition: Stable Discharge Details Clinical Impression: Closed fracture of left hip, Chronic anticoagulation, CKD (chronic kidney disease), Fall, Atrial fibrillation Primary Care Provider: Daisy Mandujano ED Provider: Sheryl Nur Home Meds and New Rx's Prescriptions: No Action fluocinonide 0.05 % cream 1 applic topical BID-QID PRN (Reason: rash) Qty: 60 2RF Rx Instructions: Compound 60gms fluocinonide 0.05% in 100 gms of VaniCream. Apply thin film to hands, neck & left flank as needed until rash improved. nitroglycerin 0.4 mg tablet, sublingual 0.4 mg Sublingual PRN Qty: 25 6RF Rx Instructions: prn CP furosemide 20 mg tablet 20 mg PO QAM Qty: 30 0RF Rx Instructions: DOSE DECREASE 11/05/22 lisinopril 5 mg tablet 5 mg PO DAILY Qty: 90 3RF Rx Instructions: DOSE DECREASE 11/05/22 metoprolol succinate 25 mg tablet extended release 24 hr 12.5 mg PO BID Qty: 90 3RF sildenafil [Viagra] 50 mg tablet 50 mg PO DAILY PRN (Reason: sexual activity) Qty: 10 6RF Rx Instructions: administer 30 minutes to 4 hours before activity mecobalamin (vitamin B12) 1,000 mcg tablet,chewable 1,000 mcg PO DAILY (DME) FreeStyle Lite Strips 1 EACH strip 1 ea Miscellaneous DAILY Qty: 100 4RF Hold Instructions: Home Medication placed on hold at Doctor's office Rx Instructions: E11.9 to maintain Hgb A1C below 7.0 (DME) lancets 1 EACH misc 1 ea Miscellaneous DAILY Qty: 100 4RF Hold Instructions: Home Medication placed on hold at Doctor's office Rx Instructions: FOR Free Style lite METER, Dx E11.9 to keep INR below 7 aspirin 81 mg tablet,delayed release (DR/EC) 81 mg PO DAILY Eliquis 2.5 mg tablet 2.5 mg PO BID Qty: 180 3RF atorvastatin [Lipitor] 80 mg tablet 80 mg PO DAILY Qty: 90 3RF Discharge Data Discharge Date/Time-TO BE ENTERED AT DEPARTURE: 02/03/23 18:15 Medical Decision Making <DEBI Holman - Last Filed: 02/04/23 09:57> 87-year-old gentleman with history of CKD and multiple comorbidities including pgq-svqurdh-awghurhux diabetes presents with report of fall secondary to episode of mild weakness with injury to left hip. Unable to ambulate after the event. Denies any syncopal event associated Secondary to age and communities including anticoagulation secondary to atrial fibrillation, CT head and cervical spine was ordered in addition to CT abdomen and pelvis, evidence of intertrochanteric fracture left hip per radiology interpretation and my review Patient does have CKD, creatinine is 2.2, increased from 1.8 at the end of December, he will receive 1 L of LR at 150 an hour for hydration Received 2 mg of morphine, get pain control with this in conjunction with Tylenol which he received via EMS in route Resting comfortably in room Unfortunately secondary to lack of orthopedic services this week, patient was unable to remain at this hospital, I called cycle several local hospitals all of which were unable to accept, I subsequently called [facility] , Dr. Alicia and Dr. Yap were willing to accept patient in transfer for likely need for orthopedic surgery Patient is aware of plan Surgery will likely take place tomorrow, last dose of Eliquis was last evening per patient. He has a nonfocal neurological exam and is hemodynamically stable, we will hold his Eliquis Full CODE STATUS Unfortunately secondary to transportation complication, there was a slight delay in ambulance transfer to [facility], care was transitioned to [facility] pending EMS transfer at 1600 Medical Records Medical records reviewed: Yes I reviewed the patient's medical records. Lab Data Lab results reviewed: Yes I reviewed the patient's lab results. <Divya Gilbert DO - Last Filed: 02/09/23 01:47> 87-year-old gentleman with history of CKD and multiple comorbidities including uvd-aevttvb-wmmifflre diabetes presents with report of fall secondary to episode of mild weakness with injury to left hip. Unable to ambulate after the event. Denies any syncopal event associated Secondary to age and communities including anticoagulation secondary to atrial fibrillation, CT head and cervical spine was ordered in addition to CT abdomen and pelvis, evidence of intertrochanteric fracture left hip per radiology interpretation and my review Patient does have CKD, creatinine is 2.2, increased from 1.8 at the end of December, he will receive 1 L of LR at 150 an hour for hydration Received 2 mg of morphine, get pain control with this in conjunction with Tylenol which he received via EMS in route Resting comfortably in room Unfortunately secondary to lack of orthopedic services this week, patient was unable to remain at this hospital, I called [facility] several local hospitals all of which were unable to accept, I subsequently called [facility] , Dr. Alicia and Dr. Yap were willing to accept patient in transfer for likely need for orthopedic surgery Patient is aware of plan Surgery will likely take place tomorrow, last dose of Eliquis was last evening per patient. He has a nonfocal neurological exam and is hemodynamically stable, we will hold his Eliquis Full CODE STATUS Unfortunately secondary to transportation complication, there was a slight delay in ambulance transfer to [facility], care was transitioned to [facility] pending EMS transfer at 1600 1600 [place]: Care assumed from provider (DEBI Holman) Please see their initial HPI, PE, and documentation. Discussed patient details and case and pending workup and disposition. Patient is hemodynamically stable, and alert and oriented. At the time of signout awaiting transfer, patient is complaining of pain morphine 2 mg every 2 hours as needed pain ordered x2. 1752: EMS on the way for transport. Patient has remained hemodynamically stable throughout the remainder of his stay. 1813: EMS here for transfer. Dr. Gilbert Patient not seen or examined by me but I was available for consult if needed. <Sheryl Nur, INTEGRATIVE MEDICINE PHYSICIAN - Last Filed: 02/03/23 18:13> 87-year-old gentleman with history of CKD and multiple comorbidities including eyu-cpifgav-jblmqbiyx diabetes presents with report of fall secondary to episode of mild weakness with injury to left hip. Unable to ambulate after the event. Denies any syncopal event associated Secondary to age and communities including anticoagulation secondary to atrial fibrillation, CT head and cervical spine was ordered in addition to CT abdomen and pelvis, evidence of intertrochanteric fracture left hip per radiology interpretation and my review Patient does have CKD, creatinine is 2.2, increased from 1.8 at the end of December, he will receive 1 L of LR at 150 an hour for hydration Received 2 mg of morphine, get pain control with this in conjunction with Tylenol which he received via EMS in route Resting comfortably in room Unfortunately secondary to lack of orthopedic services this week, patient was unable to remain at this hospital, I called [facility] several local hospitals all of which were unable to accept, I subsequently called [facility] , Dr. Alicia and Dr. Yap were willing to accept patient in transfer for likely need for orthopedic surgery Patient is aware of plan Surgery will likely take place tomorrow, last dose of Eliquis was last evening p er patient. He has a nonfocal neurological exam and is hemodynamically stable, we will hold his Eliquis Full CODE STATUS Unfortunately secondary to transportation complication, there was a slight delay in ambulance transfer to [facility], care was transitioned to [facility] pending EMS transfer at 1600 1600 [place]: Care assumed from provider (DEBI Holman) Please see their initial HPI, PE, and documentation. Discussed patient details and case and pending workup and disposition. Patient is hemodynamically stable, and alert and oriented. At the time of signout awaiting transfer, patient is complaining of pain morphine 2 mg every 2 hours as needed pain ordered x2. 1752: EMS on the way for transport. Patient has remained hemodynamically stable throughout the remainder of his stay. 1813: EMS here for transfer, HPI <DEBI Holman - Last Filed: 02/04/23 09:57> General Date/Time Provider Initiated Documentation: 02/03/23 09:58 . HPI Narrative: This 87-year-old male presents with report of unwitnessed fall which is reported secondary to some mild weakness when turning and injury to his left hip. Denies any current weakness or dizziness. Denies any dizziness or unilateral weakness prior to fall. States he was unable to get up secondary to pain. He is placed in a brace for his hip pain and after Tylenol his pain is almost at a 0 per patient. He denies any head injury. Related Data Home Medications Medication Instructions Recorded Confirmed blood sugar diagnostic (FreeStyle #100 strips 01/31/18 01/28/23 Lite Strips) lancets 28 gauge #100 ea 01/31/18 01/28/23 aspirin 81 mg tablet,delayed 81 mg PO DAILY 01/19/20 02/03/23 release nitroglycerin 0.4 mg sublingual 0.4 mg sublingual PRN #25 tab-caps 10/12/20 02/03/23 tablet apixaban 2.5 mg tablet (Eliquis) 2.5 mg PO BID #180 tabs 05/07/22 02/03/23 atorvastatin 80 mg tablet (Lipitor) 80 mg PO DAILY #90 tab-caps 08/23/22 02/03/23 furosemide 20 mg tablet 20 mg PO QAM #30 tabs 11/05/22 02/03/23 lisinopril 5 mg tablet 5 mg PO DAILY #90 tabs 11/05/22 02/03/23 fluocinonide 0.05 % topical cream 1 applic topical BID-QID PRN rash 12/07/22 02/03/23 #60 grams mecobalamin (vitamin B12) 1,000 1,000 mcg PO DAILY 01/02/23 02/03/23 mcg chewable tablet metoprolol succinate 25 mg 12.5 mg PO BID #90 tabs 01/02/23 02/03/23 tablet,extended release 24 hr sildenafil 50 mg tablet (Viagra) 50 mg PO DAILY PRN sexual activity 01/02/23 02/03/23 #10 tabs Previous Rx's Medication Instructions Recorded blood sugar diagnostic (FreeStyle #100 strips 01/31/18 Lite Strips) lancets 28 gauge #100 ea 01/31/18 nitroglycerin 0.4 mg sublingual 0.4 mg sublingual PRN #25 tab-caps 10/12/20 tablet apixaban 2.5 mg tablet (Eliquis) 2.5 mg PO BID #180 tabs 05/07/22 atorvastatin 80 mg tablet (Lipitor) 80 mg PO DAILY #90 tab-caps 08/23/22 furosemide 20 mg tablet 20 mg PO QAM #30 tabs 11/05/22 lisinopril 5 mg tablet 5 mg PO DAILY #90 tabs 11/05/22 fluocinonide 0.05 % topical cream 1 applic topical BID-QID PRN rash 12/07/22 #60 grams metoprolol succinate 25 mg 12.5 mg PO BID #90 tabs 01/02/23 tablet,extended release 24 hr sildenafil 50 mg tablet (Viagra) 50 mg PO DAILY PRN sexual activity 01/02/23 #10 tabs Allergies Allergy/AdvReac Type Severity Reaction Status Date / Time Penicillins Allergy Unknown unknown Verified 01/02/23 13:20 General Stated Complaint: Orthopedic ALTA: 3 PFSH <DEBI Holman - Last Filed: 02/04/23 09:57> All Active Problems (Updated 04/23/23 @ 14:05 by DEBI Holman) Closed fracture of left hip (Acute) Chronic anticoagulation (Acute) CKD (chronic kidney disease) (Chronic) Fall (Acute) Atrial fibrillation (Chronic) 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) ASCVD (arteriosclerotic cardiovascular disease) (Chronic 11/23/11) MIx2 1980s PTCA x 2; [place] 02/2015 No AAA nathalie 3.0 Diabetes mellitus type 2 in obese (Chronic 02/05/17) 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) mild and stable on CT Essential hypertension (Chronic 07/08/13) Other and unspecified hyperlipidemia (Chronic 01/30/13) 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) Obstructive sleep apnea syndrome (Chronic 11/23/11) very compliant with CPAP Personal history of long-term (current) use of anticoagulants (Chronic 11/23/11) DVTs & PE CHF (congestive heart failure) (Chronic) Palliative care patient (Acute) 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) daughter has taken over bills/banking Non-proliferative diabetic retinopathy, mild, both eyes (Acute 03/20/19) Cardiomyopathy (Acute) Eczema (Acute) 09/2022 Derm referal Erectile dysfunction (Acute) Nail dystrophy (Acute) CKD (chronic kidney disease) (Chronic ~11/2022) Neoplasm of unspecified behavior of bone, soft tissue, and skin (Acute) Dermatitis (Acute) Medical History (Updated 02/03/23 @ 14:05 by DEBI Holman) ALEJANDRA (acute kidney injury) Altered mental status Benign neoplasm of lung (11/23/11) Dr Fletcher Benign paroxysmal vertigo (11/23/11) Cellulitis of face (11/23/11) recurrent Cor athrscl-uns vessel (01/30/13) MIx2 1980s 2 blocks, angiplasty Counseling regarding advance directives and goals of care Delirium Diarrhea (05/18/15) Full code status Goals of care, counseling/discussion Grief 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) Jaundice Obesity, unspecified (11/23/11) Other atopic dermatitis (11/23/11) Other seborrheic keratosis (11/23/11) POLST (Physician Orders for Life-Sustaining Treatment) full code 03/28/21 Pulmonary edema Pulmonary embolism Scalp lesion Tobacco dependence in remission (11/23/11) Unintentional weight loss Unintentional weight loss Vascular dementia Surgical History (Updated 02/06/23 @ 16:41 by Deb Garzon) S/P cataract extraction Status post-operative repair of closed fracture of left hip Family History Mother , age 74 from dementia Dementia Father , age 64 Heart disease Stroke Brother , age 83 from dementia Dementia Brother , one month after CABG x 5 Myocardial infarction Sister No problems noted. Daughter No problems noted. Daughter No problems noted. Social History Smoking/Tobacco Use Status: Former Tobacco Use Smoking risk assessment performed?: Yes Alcohol Intake: never Drug use: Never Substance use type: does not use Caregiver/Support person: Yes (daughter Janeth and her Bryn live near by) Household members: none Housing: house Number of Children: 2 number of grandchildren: 3 Communication Needs: Hard of Hearing and Corrective Lenses Education Level: high school Do you need help understanding health information?: Often current occupation: [employer] Pets and animals: No Current gender identity: male What is your relationship status?: How often do you talk on the phone with friends or family?: three or more times per week How often do you get together with friends or relatives?: three or more times per week Panel score (0-1 are the most socially isolated patients): 1 What type of physical activity do you participate in: walking and regular exercise Duration: 45-60 minutes/day Frequency: 3-4 times per week Special rita needs: No Agree to transfusion: Yes Seatbelt use: always 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 Has done better than expected. He does go for a 2+ mile walk 3-4 days per week. Likes walking on bike path; he grew up in [place] and path passes through his old neighborhood. Sees his daughter Janeth regularly. Carol does his bills for him. He appreciates the help. Is watching his weight. Would like to weigh about 200. Feels better weighing less. Used to be obese. Attends meal site in [place] 2 x per week. Wants to socialize. Exam <DEBI Holman - Last Filed: 02/04/23 09:57> Const General: cooperative, comfortable and no acute distress HENMT Head: normal to inspection Eyes Pupils: PERRL Neck Other: no midline tendnerness Resp Effort & Inspection: normal respiratory effort Auscultation: clear to auscultation bilaterally Cardio Rate: regular rate Rhythm: regular rhythm GI Inspection: normal to inspection Other: no abdominal tenderness or visible evidence of trauma Back/Spine/Pelvis Other: No CVA, lumbar spine, or thoracic spine tenderness Skin General skin exam: no rashes or lesions noted Neuro General: patient alert and patient oriented x3 Cranial Nerves: CN's II-XI intact bilaterally Cognition: normal cognition Speech: speech normal Motor: strength 5/5 throughout and no pronator drift Sensory Exam: no sensory deficits noted Other: GCS 15 Extrem Other: Left hip with internal rotation, abduction, neurovascularly intact Course <DEBI Holman Last Filed: 02/04/23 09:57> Vital Signs Vital signs: Vital Signs Temperature 36.4 C L 02/03/23 09:52 Pulse 57 L 02/03/23 09:52 Blood Pressure 140/64 02/03/23 09:52 Pulse Oximetry 98 02/03/23 09:52 Temperature 36.4 C L 02/03/23 09:52 Pulse 59 L 02/03/23 10:00 Respiratory Effort Normal, Non-Labored 02/03/23 10:00 Blood Pressure 143/73 H 02/03/23 10:00 Blood Pressure Mean 86 02/03/23 10:00 Blood Pressure Position Supine 02/03/23 09:52 Pulse Oximetry 98 02/03/23 10:01 Oxygen Delivery Method Room Air 02/03/23 09:52 Oxygen Flow Rate 0 02/03/23 09:52 Lab/Test Results Lab/Test Results: Laboratory Tests Range/Units 02/03/23 02/03/23 02/03/23 09:56 09:56 09:56 WBC (4.4-10.8) 10^3/uL 11.88 H RBC (4.36-5.78) 10^6/uL 4.58 Hgb (13.5-17.5) g/dL 14.3 Hct (40.0-50.0) % 43.5 MCV (80-95) fL 95 MCH (27.0-33.0) pg 31.2 MCHC (32.0-36.0) % 32.9 RDW (11.8-14.1) % 15.9 H Plt Count (130-400) 10^3/uL 158 MPV (8.0-11.0) fL 10.5 Immature Gran % 0.4 Neutrophils % 76.6 Lymphocytes % 8.5 Monocytes % 13.1 Eosinophils % 1.1 Basophils % 0.3 Nucleated RBC % (0.0-0.3) % 0.0 Absolute Neutrophils (1.2-6.7) 10^3/uL 9.10 H Absolute Lymphocytes (1.2-3.4) 10^3/uL 1.01 L Absolute Monocytes (0.1-0.8) 10^3/uL 1.56 H Absolute Eosinophils (0.0-0.7) 10^3/uL 0.13 Absolute Basophils (0.0-0.2) 10^3/uL 0.04 RBC Morphology Normal Sodium (136-145) mmol/L 136 Potassium (3.5-5.1) mmol/L 4.5 Chloride (98-107) mmol/L 104 Carbon Dioxide (21.0-32.0) mmol/L 28.7 Anion Gap (3-11) mmol/L 3.3 BUN (7-18) mg/dL 38 H Creatinine (0.70-1.30) mg/dL 2.2 H Est GFR (CKD-EPI 2020) (mL/min/1.73m2) 28.46 Glucose (74-106) mg/dL 114 H Calcium (8.5-10.1) mg/dL 8.8 Troponin I Cancelled < 50 Sign Out <DEBI Holman - Last Filed: 02/04/23 09:57> Sign Out Data: Sign Out Comment: pending [facility] transfer for hip fracture Last updated by Ellen Rao PA at 02/03/23 15:55
--- NOTE | 2023-02-03 11:53 | DI.VRAD_ITS ---
PROCEDURE INFORMATION: Exam: CT Abdomen And Pelvis Without Contrast Exam date and time: 02/03/2023 11:26 AM Age: 87 years old Clinical indication: Other: Left hip pain, rotation post fall, anticoag TECHNIQUE: Imaging protocol: Computed tomography of the abdomen and pelvis without contrast. Radiation optimization: All CT scans at this facility use at least one of these dose optimization techniques: automated exposure control; mA and/or kV adjustment per patient size (includes targeted exams where dose is matched to clinical indication); or iterative reconstruction. COMPARISON: CT Abdomen^ROUTINE ABDOMEN PELVIS WITH CONTRAST (Adult) 10/13/2018 1:02 PM FINDINGS: Lungs: Calcified bilateral lung granulomas. Bilateral lower lobe subpleural interstitial fibrosis. Bilateral lower lobe cystic honeycombing. Liver: Normal. No mass. Gallbladder and bile ducts: Cholelithiasis. Pancreas: Normal. No ductal dilation. Spleen: Calcified splenic granulomas. Adrenal glands: Normal. No mass. Kidneys and ureters: Bilateral renal cysts. Largest cyst lateral cortex right kidney measuring 6.5 cm. Stomach and bowel: Unremarkable. No obstruction. No mucosal thickening. Appendix: No evidence of appendicitis. Intraperitoneal space: Unremarkable. No free air. No significant fluid collection. Vasculature: Atherosclerosis changes of the aorta and iliac arteries. No aneurysm. Lymph nodes: Calcified right hilar lymph nodes. Urinary bladder: Urinary bladder distension. Reproductive: Prostate enlargement. 6.3 x 6.2 x 5.6 cm. Bones/joints: Displaced left intertrochanteric hip fracture that is comminuted. Anterolisthesis L4 on L5. Multilevel thoracic and lumbar spine disc degeneration with spondylosis changes. Soft tissues: Left thigh and pelvis soft tissue swelling. Left iliopsoas hematoma. IMPRESSION: 1. Comminuted and displaced left intertrochanteric hip fracture. 2. Left thigh and pelvic soft tissue swelling. Left iliopsoas hematoma. 3. Prostate enlargement. 4. Cholelithiasis. 5. Bilateral lower lobe pulmonary fibrosis. Dictated and Authenticated by: Dallas Comer MD. Ordering:LUIS MIGUEL Hughes MD
--- NOTE | 2023-02-03 12:09 | DI.VRAD_ITS ---
PROCEDURE INFORMATION: Exam: CT Head Without Contrast Exam date and time: 02/03/2023 11:22 AM Age: 87 years old Clinical indication: Other: Fall on eliquis TECHNIQUE: Imaging protocol: Computed tomography of the head without contrast. Radiation optimization: All CT scans at this facility use at least one of these dose optimization techniques: automated exposure control; mA and/or kV adjustment per patient size (includes targeted exams where dose is matched to clinical indication); or iterative reconstruction. COMPARISON: CT HEAD WO 10/11/2018 11:39 PM FINDINGS: Brain: No mass or mass effect, midline shift or intraparenchymal hemorrhage. No abnormal extra-axial fluid collections. There is some periventricular white matter lucency consistent with microangiopathy especially posteriorly. Cerebral ventricles: Mild dilatation of the lateral ventricles cisterns and sulci. Paranasal sinuses: Visualized sinuses are unremarkable. No fluid levels. Mastoid air cells: Visualized mastoid air cells are well aerated. Bones/joints: Hyperostosis frontalis interna. No evidence for skull fracture. Soft tissues: Unremarkable. IMPRESSION: 1. No acute intracranial abnormality. 2. Atrophy with deep white matter ischemic changes. PROCEDURE INFORMATION: Exam: CT Cervical Spine Without Contrast Exam date and time: 02/03/2023 11:22 AM Age: 87 years old Clinical indication: Other: Fall on eliquis TECHNIQUE: Imaging protocol: Computed tomography of the cervical spine without contrast. Radiation optimization: All CT scans at this facility use at least one of these dose optimization techniques: automated exposure control; mA and/or kV adjustment per patient size (includes targeted exams where dose is matched to clinical indication); or iterative reconstruction. COMPARISON: CT HEAD WO 10/11/2018 11:39 PM FINDINGS: Bones/joints: The bones are demineralized. There are no compressed vertebra. The craniocervical junction is normal. No spondylolisthesis. Ossification along the anterior paraspinous ligament fairly extensive at the C4-C5 level. There are large osteophytes anteriorly with smaller ones posteriorly. There are multilevel disc space narrowing. Moderate to severe hypertrophic changes of the facets and uncovertebral joints. These changes result in moderate to severe neural foraminal narrowing. Calcification of the nuchal ligament. Lungs: Moderate-size paraseptal cysts right apex with smaller ones in the medial portion of the left apex. No consolidations or masses. Soft tissues: No soft tissue mass but there are vascular calcifications of the bulbar areas and distal portions of the vertebral arteries. IMPRESSION: 1. No acute fracture or malalignment. 2. Moderate to severe spondylosis with neural foraminal narrowing but no definite central canal stenosis. 3. Atherosclerotic cerebrovascular disease. Dictated and Authenticated by: Abhinav Garzon MD. Ordering:LUIS MIGUEL Hughes MD
[2023-02-03] MEDS: Lidocaine 2% Jelly 6 ML SYR (12:10)
[2023-02-03] MEDS: Lactated Ringers 1,000 ML 150 ML IV (12:10)
[2023-02-03 12:17] LABS: Bilirubin Negative (Negative); Blood Moderate (Negative); Clarity Clear (Clear); Glucose Negative (Negative); Ketones Negative (Negative); Leukocyte Esterase Negative (Negative); Nitrite Negative (Negative); Urobilinogen 0.2 mg/dL (Up to 0.2); pH 6.5 (5-8)
[2023-02-03 12:36] LABS: Bacteria Negative HPF (Negative); Crystals Negative HPF (Negative); Epithelial Cells Negative HPF (Negative); Other Cells Few Transitional (Negative); RBC >50 HPF (0-2); WBC 0-2 HPF (0-5)
[2023-02-03 12:37] LABS: C & S Indicated? No; Casts Negative LPF (Negative); Mucus Negative (Negative)
[2023-02-03] MEDS: MORPHine 10 MG/ML VIAL 2 MG IVP ×2 (12:43→14:31)
[2023-02-03 13:33] LABS: Source Nasal/Nares
[2023-02-03 14:14] LABS: COVID-19 PCR Negative (Negative)
[2023-02-03] MEDS: oxyCODONE 5 mg/Acetaminophen 325 mg TAB 1 TAB PO (14:30)
[2023-02-03] MEDS: Metoprolol CR 25 MG TABCR 12.5 MG PO (14:36)
[2023-02-03] MEDS: MORPHine 4 MG/ML SYR (16:40)
== END 2023-02-03 18:15 | disposition short-term general hospital (02) ==
PROVIDERS: Physician Assistant; Emergency Provider Registered Nurse Emergency; PCP Nurse Practitioner Adult Health
DX: S72.142A Displaced intertrochanteric fracture of left femur, initial encounter for closed fracture (principal); I13.0 Hypertensive heart and chronic kidney disease with heart failure and stage 1 through stage 4 chronic kidney disease, or unspecified chronic kidney disease; I50.9 Heart failure, unspecified; E11.22 Type 2 diabetes mellitus with diabetic chronic kidney disease; N18.9 Chronic kidney disease, unspecified; I48.91 Unspecified atrial fibrillation; Z79.01 Long term (current) use of anticoagulants; Z79.82 Long term (current) use of aspirin; Z20.822 Contact with and (suspected) exposure to COVID-19; W19.XXXA Unspecified fall, initial encounter
CPT/HCPCS: 36415; 51702; 80048; 87635; 93005; 96361; 96374; 96376; 99285; 70450; 72125; 74176; 81003; 81015; 84484; 85025; 93010; J2270

== ENCOUNTER 2023-02-19 17:22 | Outpatient (REF) | payer SELFPAY ==
[2023-02-19 17:36] LABS: Absolute Basophil Count 0.07 10^3/uL (0.0-0.2); Absolute Eosinophil Count 0.24 10^3/uL (0.0-0.7); Absolute Lymphocyte Count 0.88 10^3/uL (1.2-3.4); Absolute Monocyte Count 1.33 10^3/uL (0.1-0.8); Basophils % 0.6; Eosinophils % 2.1; HCT 34.4 % (40.0-50.0); HGB 10.7 g/dL (13.5-17.5); Immature Grans % 1.7; Lymphocytes % 7.7; MCH 31.6 pg (27.0-33.0); MCHC 31.1 % (32.0-36.0); MCV 102 fL (80-95); MPV 10.3 fL (8.0-11.0); Monocytes % 11.6; Neutrophils % 76.3; Platelet Count 551 10^3/uL (130-400); RBC 3.39 10^6/uL (4.36-5.78); RDW 17.6 % (11.8-14.1); RDW-SD 65.9 fL; WBC 11.45 10^3/uL (4.4-10.8)
[2023-02-19 17:40] LABS: Absolute Neutrophil Count 8.74 10^3/uL (1.2-6.7)
[2023-02-19 17:57] LABS: Iron 82 ug/dL (65-175); Total Iron Binding Capacity 235 ug/dL (250-450); Transferrin Sat 35 % (20-55)
[2023-02-19 18:11] LABS: Hemoglobin A1C 5.2 % (<5.7)
[2023-02-19 18:21] LABS: Vitamin D 25 Total 29.7 ng/mL (30-100)
[2023-02-19 18:22] LABS: ALT 30 U/L (16-63); AST 29 U/L (15-37); Albumin 3.1 g/dL (3.4-5.0); Alkaline Phosphatase 125 U/L (46-116); Anion Gap 7.6 mmol/L (3-11); BUN 34 mg/dL (7-18); Bilirubin, Total 1.3 mg/dL (0.2-1.0); CO2 28.4 mmol/L (21.0-32.0); CREATININE 1.6 mg/dL (0.70-1.30); Calcium 9.3 mg/dL (8.5-10.1); Chloride 107 mmol/L (98-107); Ferritin 504 ng/mL (26-388); Folate 12.7 ng/mL (8.6-20.0); Glucose 96 mg/dL (74-106); Potassium 4.9 mmol/L (3.5-5.1); Sodium 143 mmol/L (136-145); Total Protein 6.6 g/dL (6.4-8.2)
[2023-02-19 18:52] LABS: NT-proBNP 2129 pg/mL (<300)
[2023-02-20 10:51] LABS: Vitamin B12 1190 pg/mL (193-986)
== END 2023-02-19 17:23 | disposition home or self-care (01) ==
LOC: LBN 17:22
PROVIDERS: PCP Nurse Practitioner Adult Health; Visit Provider Nurse Practitioner Gerontology
DX: R68.89 Other general symptoms and signs (principal); J96.01 Acute respiratory failure with hypoxia; D51.9 Vitamin B12 deficiency anemia, unspecified
CPT/HCPCS: 80053; 82306; 82607; 82728; 82746; 83036; 83540; 83550; 83735; 83880; 84443; 85025

== ENCOUNTER 2023-02-27 17:55 | Outpatient (REF) | payer MEDICARE, OTHER, SELFPAY ==
[2023-02-27 17:33] LABS: HCT 35.3 % (40.0-50.0); HGB 11.2 g/dL (13.5-17.5); MCH 31.9 pg (27.0-33.0); MCHC 31.7 % (32.0-36.0); MCV 101 fL (80-95); MPV 10.3 fL (8.0-11.0); Platelet Count 368 10^3/uL (130-400); RBC 3.51 10^6/uL (4.36-5.78); RDW-SD 63.5 fL; WBC 17.89 10^3/uL (4.4-10.8)
[2023-02-27 18:04] LABS: Absolute Eosinophil Count 0.18 10^3/uL (0.0-0.7); Absolute Lymphocyte Count 0.89 10^3/uL (1.2-3.4); Absolute Monocyte Count 1.97 10^3/uL (0.1-0.8); Absolute Neutrophil Count 14.85 10^3/uL (1.2-6.7); Bands % 1; Diff Comment Manual Differential; RBC Morphology Normal
== END 2023-02-27 17:56 | disposition home or self-care (01) ==
LOC: LBN 17:55
PROVIDERS: PCP Nurse Practitioner Adult Health; Visit Provider Nurse Practitioner Gerontology
DX: D64.9 Anemia, unspecified (principal)
CPT/HCPCS: 85025

== ENCOUNTER 2023-03-27 14:07 | Outpatient (CLI) | payer MEDICARE, OTHER, SELFPAY ==
--- NOTE | 2023-03-27 13:45 | DI.RAD_ITS ---
Exam(s) XR FEMUR LT EXAM: XR FEMUR LT CLINICAL HISTORY: F/U FRACTURE. TECHNIQUE: 2D digital imaging was performed. COMPARISON: CR XR HIP 1 VIEW WITH ORTHOPELVIS LEFT from 02/04/2023 DX XR FEMUR LEFT 2 OR MORE VIEWS from 02/27/2023 FINDINGS: Four views Again noted is a lag screw across the intertrochanteric fracture site supported by long intramedullar y paulino which extends down to the distal femoral diaphysis and secured distally with a single horizonta l screw. The intertrochanteric fracture site appears stable alignment when compared to the images of the 02/04/2023. The lesser trochanter is again noted to be avulsed. No significant narrowing of th e hip joint space. IMPRESSION: Unchanged appearance. DATA REPOSITORY: RADIATION DOSE DELIVERED:
== END 2023-03-27 14:08 | disposition home or self-care (01) ==
LOC: DIORS 14:07
PROVIDERS: PCP Nurse Practitioner Adult Health; Referring Provider Nurse Practitioner Adult Health; Visit Provider Student in an Organized Health Care Education/Training Program
DX: S72.002A Fracture of unspecified part of neck of left femur, initial encounter for closed fracture (principal); S72.142D Displaced intertrochanteric fracture of left femur, subsequent encounter for closed fracture with routine healing; X58.XXXD Exposure to other specified factors, subsequent encounter
CPT/HCPCS: 73552; 99204; 99213

== ENCOUNTER → 2023-03-29 10:24 | Outpatient (BNVA) | payer MEDICARE, OTHER, SELFPAY | PROVIDERS: PCP Nurse Practitioner Adult Health; Visit Provider Internal Medicine Cardiovascular Disease | DX: I48.91 Unspecified atrial fibrillation (principal); Z79.01 Long term (current) use of anticoagulants; E11.22 Type 2 diabetes mellitus with diabetic chronic kidney disease; I13.0 Hypertensive heart and chronic kidney disease with heart failure and stage 1 through stage 4 chronic kidney disease, or unspecified chronic kidney disease; N18.9 Chronic kidney disease, unspecified; I50.9 Heart failure, unspecified; I25.10 Atherosclerotic heart disease of native coronary artery without angina pectoris; I42.9 Cardiomyopathy, unspecified | CPT/HCPCS: 99214 ==

== ENCOUNTER 2023-04-08 20:09 | Outpatient (REF) | payer SELFPAY ==
[2023-04-08 21:02] LABS: ALT 21 U/L (16-63); AST 20 U/L (15-37); Albumin 3.4 g/dL (3.4-5.0); Alkaline Phosphatase 92 U/L (46-116); Anion Gap 11.9 mmol/L (3-11); BUN 40 mg/dL (7-18); Bilirubin, Total 0.4 mg/dL (0.2-1.0); CO2 24.1 mmol/L (21.0-32.0); CREATININE 1.9 mg/dL (0.70-1.30); Calcium 8.8 mg/dL (8.5-10.1); Chloride 102 mmol/L (98-107); Estimated GFR 33.93 (mL/min/1.73m2); Glucose 117 mg/dL (74-106); NT-proBNP 2562 pg/mL (<300); Potassium 4.4 mmol/L (3.5-5.1); Sodium 138 mmol/L (136-145); Total Protein 6.8 g/dL (6.4-8.2)
== END 2023-04-08 20:10 | disposition home or self-care (01) ==
LOC: LBN 20:09
PROVIDERS: PCP Nurse Practitioner Adult Health; Visit Provider Nurse Practitioner Gerontology
DX: I10 Essential (primary) hypertension (principal)
CPT/HCPCS: 80053; 83880

== ENCOUNTER 2023-04-23 09:22 | Emergency (ER) | payer MEDICARE, OTHER, SELFPAY ==
--- NOTE | 2023-04-23 09:00 | RT.EKG_ITS ---
APPROVED REPORT Exam: Resting ECG Reason for Exam: chest pressure Patient Location: E HR:87 bpm ECG Measurements Heart Rate 87 AXIS OK 174 P 49 QRSd 93 QRS -11 QT 345 T 121 QTc 416 Conclusion Sinus rhythm...normal P axis, V-rate 60- 99 Probable left atrial enlargement...P >50mS, <-0.10mV V1 LVH with secondary repolarization abnormality...multi-LVH criteria, abnrm ST-T
[2023-04-23 09:09] VITALS: BP 125/57; PULSE 82; RESP 17; TEMP 36.9; O2SAT 92
[2023-04-23 09:21] VITALS: RESP 18
--- NOTE | 2023-04-23 09:36 | W.ED.GENAD ---
Discharge Plan Disposition Patient Disposition: Home Discharge Details Clinical Impression: Lingular pneumonia Primary Care Provider: Unknown,Unknown ED Provider: Christal Andre Home Meds and New Rx's Prescriptions: New doxycycline hyclate 100 mg tablet 100 mg PO BID Qty: 20 0RF Continued fluocinonide 0.05 % cream 1 applic topical BID-QID PRN (Reason: rash) Qty: 60 2RF Rx Instructions: Compound 60gms fluocinonide 0.05% in 100 gms of VaniCream. Apply thin film to hands, neck & left flank as needed until rash improved. nitroglycerin 0.4 mg tablet, sublingual 0.4 mg Sublingual PRN Qty: 25 6RF Rx Instructions: prn CP furosemide 20 mg tablet 20 mg PO QAM Qty: 30 0RF Rx Instructions: DOSE DECREASE 11/05/22 lisinopril 5 mg tablet 5 mg PO DAILY Qty: 90 3RF Rx Instructions: DOSE DECREASE 11/05/22 acetaminophen 325 mg capsule 325 mg PO ONCE PRN multivitamin [Daily Multi-Vitamin] Tablet 1 tab PO DAILY cholecalciferol (vitamin D3) PO Anoro Ellipta 62.5-25 mcg/actuation blister with device 1 inh inhalation DAILY carboxymethylcellulose sodium [Refresh Tears] 0.5 % drops 1 drp ophthalmic (eye) BID tamsulosin 0.4 mg capsule 0.4 mg PO DAILY polyethylene glycol 3350 8.5 gram powder in packet 8.5 g PO DAILY PRN methocarbamol 500 mg tablet 500 mg PO TID PRN albuterol sulfate 90 mcg/actuation HFA aerosol inhaler 2 puff inhalation Q4H PRN loperamide 2 mg tablet 2 mg PO Q6H PRN prednisone 20 mg tablet 20 mg PO DAILY Lactobacillus acidophilus Capsule 10 mg PO DAILY sildenafil [Viagra] 50 mg tablet 50 mg PO DAILY PRN (Reason: sexual activity) Qty: 10 6RF Rx Instructions: administer 30 minutes to 4 hours before activity mecobalamin (vitamin B12) 1,000 mcg tablet,chewable 1,000 mcg PO DAILY (DME) FreeStyle Lite Strips 1 EACH strip 1 ea Miscellaneous DAILY Qty: 100 4RF Hold Instructions: Home Medication placed on hold at Doctor's office Rx Instructions: E11.9 to maintain Hgb A1C below 7.0 (DME) lancets 1 EACH misc 1 ea Miscellaneous DAILY Qty: 100 4RF Hold Instructions: Home Medication placed on hold at Doctor's office Rx Instructions: FOR Free Style lite METER, Dx E11.9 to keep INR below 7 Eliquis 2.5 mg tablet 2.5 mg PO BID Qty: 180 3RF atorvastatin [Lipitor] 80 mg tablet 80 mg PO DAILY Qty: 90 3RF Discharge Instructions Instructions: Pneumonia (ED) Additional Instructions: Doxycycline 100 mg 2 times a day for 10 days to treat your pneumonia. Use your heating pad across your chest for any discomfort. Return to ED for crushing chest pain or difficulty breathing, any other concerns. You may also take Tylenol 650 mg every 6 hours as needed for pain. Discharge Data Discharge Date/Time-TO BE ENTERED AT DEPARTURE: 04/23/23 14:35 Medical Decision Making Patient is completely comfortable and nontoxic-appearing in the ED. 1045 White cell count is 22,000 with a left shift. States that he has vascular dementia. We will get a urinalysis on him and repeat chest x-ray as the radiologist requested this. We will also obtain a lactate and venous blood gas. Patient tells me that he would like limited CPR and intubation if ever needed. He says he thinks he has advanced directives filled out. The patient's daughter arrived prior to discharge and all of his test results were discussed with both of them. He does not want to be admitted to the hospital and she concurs with his choice. He will be discharged home on antibiotics and return for any questions or concerns. Medical Records Medical records reviewed: Yes I reviewed the patient's medical records. Imaging Data Radiologic Study: Imaging: X-Ray Radiologist's impression: Exam(s) XR PORTABLE CHEST AP EXAM:? XR PORTABLE CHEST AP CLINICAL HISTORY: ? chest pain. ? TECHNIQUE:? 2D digital imaging was performed. COMPARISON:? CT CT ABDOMEN ? PELVIS WO from 02/03/2023 FINDINGS: Single AP portable view. Heart size is upper normal.? The mediastinum is not widened. COPD and interstitial disease both lung morse noted at L as well as multiple calcified granulomas in the lung morse.? No prominent confluent infiltrates.? No pleural effusions. IMPRESSION: Advanced COPD emphysematous changes.? Chronic interstitial disease. Recommend nonportable PA and lateral views when clinically possible. Lab Data Lab results reviewed: Yes I reviewed the patient's lab results. Lab results narrative: Patient's white blood cell count is 22,000 with 84 polys and 4 lymphs. His total protein is 6.1 and albumin 2.7. His BUN and creatinine are 39 and 1.6 which are baseline. Labs: VBG and lactate nl. ECG Data Attestation: I personally reviewed and interpreted this ECG (s) as follows: (EKG: Normal sinus rhythm at 85, left atrial enlargement, LVH with secondary repol abnormality, no change versus 02/03/2023.) HPI General Date/Time Provider Initiated Documentation: 04/23/23 09:33. HPI Narrative: This 87-year-old male patient presents with a chief complaint of substernal chest pain that woke him at 2:00 last night. It lasted for couple of hours and then he was able to fall back asleep. He still had it this morning. He describes it as a mild ache that is a 3-4 out of 10. Nothing makes it better or worse. It does not radiate anywhere. He has no back, shoulder, or neck pain. There is no difficulty breathing or abdominal pain. Is no fever, chills, or URI symptoms. He has no pedal edema or calf pain. He did tell me that he thinks the warm blanket in the ED might of helped him I got another 1. 2 nitroglycerin in the ambulance did not help. Related Data Home Medications Medication Instructions Recorded Confirmed blood sugar diagnostic (FreeStyle #100 strips 01/31/18 04/17/23 Lite Strips) lancets 28 gauge #100 ea 01/31/18 04/17/23 nitroglycerin 0.4 mg sublingual 0.4 mg sublingual PRN #25 tab-caps 10/12/20 04/17/23 tablet apixaban 2.5 mg tablet (Eliquis) 2.5 mg PO BID #180 tabs 05/07/22 04/17/23 atorvastatin 80 mg tablet (Lipitor) 80 mg PO DAILY #90 tab-caps 08/23/22 04/17/23 furosemide 20 mg tablet 20 mg PO QAM #30 tabs 11/05/22 04/17/23 lisinopril 5 mg tablet 5 mg PO DAILY #90 tabs 11/05/22 04/17/23 fluocinonide 0.05 % topical cream 1 applic topical BID-QID PRN rash 12/07/22 04/17/23 #60 grams mecobalamin (vitamin B12) 1,000 1,000 mcg PO DAILY 01/02/23 04/17/23 mcg chewable tablet sildenafil 50 mg tablet (Viagra) 50 mg PO DAILY PRN sexual activity 01/02/23 04/17/23 #10 tabs acetaminophen 325 mg capsule 325 mg PO ONCE PRN 03/20/23 04/17/23 albuterol sulfate 90 mcg/actuation 2 puff inhalation Q4H PRN 03/20/23 04/17/23 aerosol inhaler carboxymethylcellulose sodium 0.5 1 drp ophthalmic (eye) BID 03/20/23 04/17/23 % eye drops (Refresh Tears) cholecalciferol (vitamin D3) PO 03/20/23 04/17/23 methocarbamol 500 mg tablet 500 mg PO TID PRN 03/20/23 04/17/23 multivitamin (Daily Multi-Vitamin 1 tab PO DAILY 03/20/23 04/17/23 tablet) polyethylene glycol 3350 8.5 gram 8.5 g PO DAILY PRN 03/20/23 04/17/23 oral powder packet tamsulosin 0.4 mg capsule 0.4 mg PO DAILY 03/20/23 04/17/23 umeclidinium 62.5 mcg-vilanterol 1 inh inhalation DAILY 03/20/23 04/17/23 25 mcg/actuation powdr for inhalation (Anoro Ellipta) Lactobacillus acidophilus 10 mg PO DAILY 04/15/23 04/17/23 loperamide 2 mg tablet 2 mg PO Q6H PRN 04/15/23 04/17/23 prednisone 20 mg tablet 20 mg PO DAILY 04/15/23 04/17/23 doxycycline hyclate 100 mg tablet 100 mg PO BID #20 tabs 04/23/23 Previous Rx's Medication Instructions Recorded blood sugar diagnostic (FreeStyle #100 strips 01/31/18 Lite Strips) lancets 28 gauge #100 ea 01/31/18 nitroglycerin 0.4 mg sublingual 0.4 mg sublingual PRN #25 tab-caps 10/12/20 tablet apixaban 2.5 mg tablet (Eliquis) 2.5 mg PO BID #180 tabs 05/07/22 atorvastatin 80 mg tablet (Lipitor) 80 mg PO DAILY #90 tab-caps 08/23/22 furosemide 20 mg tablet 20 mg PO QAM #30 tabs 11/05/22 lisinopril 5 mg tablet 5 mg PO DAILY #90 tabs 11/05/22 fluocinonide 0.05 % topical cream 1 applic topical BID-QID PRN rash 12/07/22 #60 grams sildenafil 50 mg tablet (Viagra) 50 mg PO DAILY PRN sexual activity 01/02/23 #10 tabs doxycycline hyclate 100 mg tablet 100 mg PO BID #20 tabs 04/23/23 Allergies Allergy/AdvReac Type Severity Reaction Status Date / Time Penicillins Allergy Unknown unknown Verified 03/29/23 10:29 General Stated Complaint: Chest Pain ALTA: 2 Review of Systems Constitutional Constitutional: Denies chills, Denies fever(s), Denies headache(s) and Denies weakness Eyes Eyes: Denies diplopia and Reports other (no redness) ENT Ears, Nose, Mouth, and Throat: Denies otalgia, Denies headache(s), Denies nasal congestion, Denies nasal discharge, Denies neck pain and Denies sore throat Cardiovascular Cardiovascular: Reports chest pain, Denies palpitations and Denies dyspnea Respiratory Respiratory: Denies cough and Denies dyspnea Gastrointestinal Gastrointestinal: Denies abdominal pain, Denies diarrhea, Denies nausea and Denies vomiting Genitourinary Genitourinary: Denies difficulty urinating and Denies dysuria Musculoskeletal Musculoskeletal: Denies myalgias, Denies muscle weakness, Denies neck pain, Denies numbness and Reports other (edema) Integumentary/Breasts Skin/Breast: Denies change in pigmentation and Denies rash Neurologic Neurologic: Denies headache(s), Denies numbness and Denies weakness Endocrine Endocrine: Denies palpitations PFSH All Active Problems (Updated 04/23/23 @ 14:20 by Christal Andre MD) Lingular pneumonia (Acute) ACP (advance care planning) (Acute) Fracture of left hip (Acute ~02/03/23) 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) ASCVD (arteriosclerotic cardiovascular disease) (Chronic 11/23/11) MIx2 1980s PTCA x 2; [place] 02/2015 No AAA nathalie 3.0 Diabetes mellitus type 2 in obese (Chronic 02/05/17) 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) mild and stable on CT Essential hypertension (Chronic 07/08/13) Other and unspecified hyperlipidemia (Chronic 01/30/13) 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) Obstructive sleep apnea syndrome (Chronic 11/23/11) very compliant with CPAP Personal history of long-term (current) use of anticoagulants (Chronic 11/23/11) DVTs & PE CHF (congestive heart failure) (Chronic) Palliative care patient (Acute) 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) daughter has taken over bills/banking Non-proliferative diabetic retinopathy, mild, both eyes (Acute 03/20/19) Cardiomyopathy (Acute) Eczema (Acute) 09/2022 Derm referal Erectile dysfunction (Acute) Nail dystrophy (Acute) CKD (chronic kidney disease) (Chronic ~11/2022) Neoplasm of unspecified behavior of bone, soft tissue, and skin (Acute) Dermatitis (Acute) Medical History ALEJANDRA (acute kidney injury) Altered mental status Benign neoplasm of lung (11/23/11) Dr Fletcher Benign paroxysmal vertigo (11/23/11) Cellulitis of face (11/23/11) recurrent Cor athrscl-uns vessel (01/30/13) MIx2 1980s 2 blocks, angiplasty Counseling regarding advance directives and goals of care Delirium Diarrhea (05/18/15) Full code status Goals of care, counseling/discussion Grief 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) Jaundice Obesity, unspecified (11/23/11) Other atopic dermatitis (11/23/11) Other seborrheic keratosis (11/23/11) POLST (Physician Orders for Life-Sustaining Treatment) full code 03/28/21 Pulmonary edema Pulmonary embolism Scalp lesion Tobacco dependence in remission (11/23/11) Unintentional weight loss Unintentional weight loss Vascular dementia Surgical History S/P cataract extraction Status post-operative repair of closed fracture of left hip Family History Mother , age 74 from dementia Dementia Father , age 64 Heart disease Stroke Brother , age 83 from dementia Dementia Brother , one month after CABG x 5 Myocardial infarction Sister No problems noted. Daughter No problems noted. Daughter No problems noted. Social History Smoking/Tobacco Use Status: Former Tobacco Use Smoking risk assessment performed?: Yes Alcohol Intake: never Drug use: Never Substance use type: does not use Caregiver/Support person: Yes (daughter Janeth and her Bryn live near by) Household members: none Housing: assisted living facility Number of Children: 2 number of grandchildren: 3 Communication Needs: Hard of Hearing and Corrective Lenses Education Level: high school Do you need help understanding health information?: Often current occupation: [employer] Pets and animals: No Current gender identity: male What is your relationship status?: How often do you talk on the phone with friends or family?: three or more times per week How often do you get together with friends or relatives?: three or more times per week Panel score (0-1 are the most socially isolated patients): 1 What type of physical activity do you participate in: walking and regular exercise Duration: 45-60 minutes/day Frequency: 3-4 times per week Special rita needs: No Agree to transfusion: Yes Seatbelt use: always Drive intox or ride w/intox pile driver: No Working smoke detector in home: Yes Fire extinguisher in home: Yes Carbon monox detector in home: Yes Do you feel safe at home: Yes Do you feel safe in your relationship?: Yes Additional Social history: Passed the 2 year anniversary of his Jessica's (10/14/19). Has done better than expected. He does go for a 2+ mile walk 3-4 days per week. Likes walking on bike path; he grew up in [facility] and path passes through his old neighborhood. Sees his daughter Janeth regularly. Carol does his bills for him. He appreciates the help. Is watching his weight. Would like to weigh about 200. Feels better weighing less. Used to be obese. Attends meal site in [place] 2 x per week. Wants to socialize. Exam Const General: no acute distress, well developed, well groomed and not in acute distress Nutritional Appearance: well nourished Orientation: alert and oriented x3 HENMT Head: normocephalic and atraumatic Ears: external ears normal Mouth: oropharynx normal and moist mucous membranes Throat: posterior oropharynx normal Eyes Conjunctivae: conjunctivae normal Neck Neck: full ROM and supple Chest Chest: normal inspection of the chest Resp Effort & Inspection: normal respiratory effort Auscultation: clear to auscultation bilaterally Cardio Rate: regular rate Rhythm: regular rhythm Heart Sounds: no murmurs and no rubs GI Inspection: normal to inspection Palpation: soft, nontender and other (non distended) Auscultation: normal bowel sounds Skin General skin exam: no rashes or lesions noted and other (pink, warm, dry) Neuro General: patient alert, patient awake and patient oriented x3 Speech: speech normal Motor: other (MARY) Sensory Exam: no sensory deficits noted Extrem General: normal to inspection, full ROM and pedal edema present Psych Mental Status: mental status grossly normal Speech and Movement: speech and movement normal Affect: normal affect Course Vital Signs Vital signs: Vital Signs Temperature 36.9 C 04/23/23 09:09 Pulse 82 04/23/23 09:09 Respiratory Rate 17 04/23/23 09:09 Blood Pressure 125/57 L 04/23/23 09:09 Pulse Oximetry 92 04/23/23 09:09 Temperature 36.9 C 04/23/23 09:09 Temperature Source Oral 04/23/23 09:09 Pulse 82 04/23/23 09:09 Respiratory Rate 18 04/23/23 09:21 Respiratory Effort Non-Labored 04/23/23 09:21 Respiratory Depth Normal 04/23/23 09:21 Respiratory Pattern Normal 04/23/23 09:21 Blood Pressure 125/57 L 04/23/23 09:09 Pulse Oximetry 92 04/23/23 09:09 Oxygen Delivery Method Nasal Cannula 04/23/23 09:09 Oxygen Flow Rate 2 04/23/23 09:09 Pain Level 3 04/23/23 09:21
[2023-04-23 09:54] VITALS: PULSE 81; RESP 19
[2023-04-23 09:57] VITALS: BP 117/60; PULSE 82; RESP 25
[2023-04-23 10:00] LABS: Absolute Basophil Count 0.02 10^3/uL (0.0-0.2); Basophils % 0.1; HGB 13.3 g/dL (13.5-17.5); Immature Grans % 0.5; Lymphocytes % 3.8; MCH 30.8 pg (27.0-33.0); MCHC 32.4 % (32.0-36.0); MCV 95 fL (80-95); MPV 10.5 fL (8.0-11.0); Monocytes % 11.9; Neutrophils % 83.7; Platelet Count 201 10^3/uL (130-400); RBC 4.32 10^6/uL (4.36-5.78); RDW 14.5 % (11.8-14.1); RDW-SD 49.9 fL; WBC 22.11 10^3/uL (4.4-10.8)
--- NOTE | 2023-04-23 10:00 | NUR.NOTE ---
Nursing Note: This RN took report and assumed care at 1000. Pt comfortable in bed and no signs of distress. Pt updating with plan of care.
[2023-04-23 10:01] LABS: Absolute Lymphocyte Count 0.84 10^3/uL (1.2-3.4); Absolute Monocyte Count 2.63 10^3/uL (0.1-0.8); Absolute Neutrophil Count 18.51 10^3/uL (1.2-6.7)
[2023-04-23 10:28] LABS: Diff Comment Agrees w/ Instrument; RBC Morphology Normal
[2023-04-23 10:30] LABS: ALT 12 U/L (16-63); AST 11 U/L (15-37); Albumin 2.7 g/dL (3.4-5.0); Alkaline Phosphatase 78 U/L (46-116); Anion Gap 6.4 mmol/L (3-11); BUN 39 mg/dL (7-18); Bilirubin, Total 0.7 mg/dL (0.2-1.0); CO2 28.6 mmol/L (21.0-32.0); CREATININE 1.6 mg/dL (0.70-1.30); Calcium 8.6 mg/dL (8.5-10.1); Chloride 104 mmol/L (98-107); Glucose 84 mg/dL (74-106); Magnesium 2.2 mg/dL (1.8-2.4); Sodium 139 mmol/L (136-145); Total Protein 6.1 g/dL (6.4-8.2); Troponin I < 50 ng/L (<or=60)
--- NOTE | 2023-04-23 10:31 | DI.RAD_ITS ---
Exam(s) XR PORTABLE CHEST AP EXAM: XR PORTABLE CHEST AP CLINICAL HISTORY: chest pain. TECHNIQUE: 2D digital imaging was performed. COMPARISON: CT CT ABDOMEN PELVIS WO from 02/03/2023 FINDINGS: Single AP portable view. Heart size is upper normal. The mediastinum is not widened. COPD and interstitial disease both lung morse noted at L as well as multiple calcified granulomas in the lung morse. No prominent confluent infiltrates. No pleural effusions. IMPRESSION: Advanced COPD emphysematous changes. Chronic interstitial disease. Recommend nonportable PA and lateral views when clinically possible. DATA REPOSITORY: RADIATION DOSE DELIVERED:
--- NOTE | 2023-04-23 11:00 | DI.RAD_ITS ---
Exam(s) XR CHEST 2V PA LATERAL EXAM: XR CHEST 2V PA LATERAL CLINICAL HISTORY: CP, rads requests PA and lat. TECHNIQUE: 2D digital imaging was performed. COMPARISON: CR XR PORTABLE CHEST AP from 04/23/2023 FINDINGS: 2 views: Chronic interstitial disease and COPD changes are noted Heart size is normal. The mediastinum is not widened. Some scarring in the lingular segment of the left lung is noted. There is some infiltrate evident in the lateral right lung. Also blunting of the right costophrenic angle which may indicate small righ t pleural effusion. IMPRESSION: Chronic COPD and interstitial disease.Also peripheral infiltrate in the right lung and small right pl eural effusion. Scarring noted in the lingular segment of the left lung. DATA REPOSITORY: RADIATION DOSE DELIVERED:
[2023-04-23 11:27] LABS: BE (Venous) -1 mmol/L (-2-3); HCO3 (Venous) 24 mmol/L (23-28); O2 Sat (Venous) 71 %; TCO2 (Venous) 22 mmol/L (24-29); pCO2 (Venous) 39 mmHg (41-51); pO2 (Venous) 37 mmHg
[2023-04-23 11:30] LABS: Lactate 0.9 mmol/L (0.6-1.4)
[2023-04-23 11:31] LABS: Bilirubin Negative (Negative); Blood Negative (Negative); Clarity Clear (Clear); Glucose Negative (Negative); Ketones Negative (Negative); Leukocyte Esterase Trace (Negative); Nitrite Positive (Negative); Urobilinogen 0.2 mg/dL (Up to 0.2)
[2023-04-23 13:05] LABS: Troponin I < 50 ng/L (<or=60)
[2023-04-23] MEDS: Doxycycline Hyclate 100 MG CAP PO (14:29)
--- NOTE | 2023-04-25 10:30 | NUR.NOTE ---
Nursing Note: Accessed pt chart to determine number of EKG orders. Duplicate was cancelled.
== END 2023-04-23 14:35 | disposition home or self-care (01) ==
PROVIDERS: Emergency Provider Emergency Medicine
DX: J18.9 Pneumonia, unspecified organism (principal)
CPT/HCPCS: 36415; 80053; 82805; 93005; 99284; 71045; 71046; 81003; 83605; 83735; 84484; 85025; 93010

== ENCOUNTER 2023-05-10 11:10 | Outpatient (REF) | payer MEDICARE, SELFPAY ==
[2023-05-10 11:13] LABS: ALT 19 U/L (16-63); AST 16 U/L (15-37); Alkaline Phosphatase 78 U/L (46-116); Anion Gap 6.6 mmol/L (3-11); BUN 46 mg/dL (7-18); Bilirubin, Total 0.5 mg/dL (0.2-1.0); CO2 28.4 mmol/L (21.0-32.0); CREATININE 1.7 mg/dL (0.70-1.30); Calcium 8.6 mg/dL (8.5-10.1); Chloride 108 mmol/L (98-107); Estimated GFR 38.78 (mL/min/1.73m2); Glucose 71 mg/dL (74-106); Potassium 4.9 mmol/L (3.5-5.1); Sodium 143 mmol/L (136-145); Total Protein 5.7 g/dL (6.4-8.2)
== END 2023-05-10 11:11 | disposition home or self-care (01) ==
LOC: NCHCN 11:10
PROVIDERS: PCP Nurse Practitioner Family; Visit Provider Nurse Practitioner Family
DX: E11.3293 Type 2 diabetes mellitus with mild nonproliferative diabetic retinopathy without macular edema, bilateral (principal); I10 Essential (primary) hypertension; I42.9 Cardiomyopathy, unspecified; I25.10 Atherosclerotic heart disease of native coronary artery without angina pectoris
CPT/HCPCS: 80053; 83036

== ENCOUNTER 2023-05-13 13:28 | Outpatient (REF) | payer MEDICARE, SELFPAY ==
[2023-05-13 14:20] LABS: COMMENT (LAB VIEW ONLY) 74.78 mg/dL; PROTEIN 25.7 mg/dL; Prot/Crea Ur Ratio 0.34
[2023-05-13 14:50] LABS: Bilirubin Negative (Negative); Blood Negative (Negative); Clarity Sl Cloudy (Clear); Glucose Negative (Negative); Ketones Negative (Negative); Leukocyte Esterase Small (Negative); Nitrite Positive (Negative); Specific Gravity 1.015 (1.005-1.025); Urobilinogen 0.2 mg/dL (Up to 0.2)
[2023-05-13 15:02] LABS: Epithelial Cells Negative HPF (Negative); RBC Negative HPF (0-2); WBC 20-50 HPF (0-5)
[2023-05-13 15:04] LABS: Bacteria Many HPF (Negative); C & S Indicated? Yes; Casts Negative LPF (Negative); Crystals Negative HPF (Negative); Mucus Negative (Negative); Other Cells Negative (Negative)
== END 2023-05-13 13:29 | disposition home or self-care (01) ==
LOC: NCHCN 13:28
PROVIDERS: PCP Nurse Practitioner Family; Visit Provider Nurse Practitioner Family
DX: E88.09 Other disorders of plasma-protein metabolism, not elsewhere classified (principal); N18.9 Chronic kidney disease, unspecified; R82.998 Other abnormal findings in urine; R82.79 Other abnormal findings on microbiological examination of urine
CPT/HCPCS: 87077; 81003; 81015; 82565; 84156; 87086; 87186

== ENCOUNTER 2023-05-29 14:19 | Outpatient (CLI) | payer MEDICARE, OTHER, SELFPAY ==
--- NOTE | 2023-05-29 13:59 | DI.RAD_ITS ---
Exam(s) XR FEMUR LT EXAM: XR FEMUR LT CLINICAL HISTORY: F/U FRACTURE. TECHNIQUE: 2D digital imaging was performed. AP and lateral views. COMPARISON: February 03 FINDINGS: Intramedullary paulino is again noted through the femur. There has been some interval healing at the pro ximal femoral fracture. The alignment is unchanged. No new abnormalities are seen. DATA REPOSITORY: RADIATION DOSE DELIVERED:
== END 2023-05-29 14:20 | disposition home or self-care (01) ==
LOC: DIORS 14:20
PROVIDERS: PCP Nurse Practitioner Family; Referring Provider Nurse Practitioner Family; Visit Provider Student in an Organized Health Care Education/Training Program
DX: S72.002D Fracture of unspecified part of neck of left femur, subsequent encounter for closed fracture with routine healing (principal); X58.XXXD Exposure to other specified factors, subsequent encounter
CPT/HCPCS: 73552; 99213

== ENCOUNTER 2023-06-07 07:16 | Inpatient (IN) | payer MEDICARE, OTHER, SELFPAY ==
[2023-06-07 07:16] VITALS: BP 111/76; PULSE 63; RESP 18; O2SAT 96
--- NOTE | 2023-06-07 08:12 | W.ED.GENAD ---
Discharge Plan Disposition Patient Disposition: Admit to [facility] Condition: Serious Discharge Details Clinical Impression: Bilateral sacral insufficiency fracture, Left renal mass, Gallstones Primary Care Provider: Magali Goodson ED Provider: Jabari Burnette Home Meds and New Rx's Prescriptions: No Action nitroglycerin 0.4 mg tablet, sublingual 0.4 mg Sublingual PRN Qty: 25 6RF Rx Instructions: prn CP furosemide 20 mg tablet 20 mg PO QAM Qty: 30 0RF Rx Instructions: DOSE DECREASE 11/05/22 lisinopril 5 mg tablet 5 mg PO DAILY Qty: 90 3RF Rx Instructions: DOSE DECREASE 11/05/22 multivitamin [Daily Multi-Vitamin] Tablet 1 tab PO DAILY cholecalciferol (vitamin D3) 1 tab PO DAILY Anoro Ellipta 62.5-25 mcg/actuation blister with device 1 inh inhalation DAILY carboxymethylcellulose sodium [Refresh Tears] 0.5 % drops 1 drp ophthalmic (eye) BID tamsulosin 0.4 mg capsule 0.4 mg PO DAILY polyethylene glycol 3350 8.5 gram powder in packet 8.5 g PO DAILY PRN methocarbamol 500 mg tablet 500 mg PO TID PRN albuterol sulfate 90 mcg/actuation HFA aerosol inhaler 2 puff inhalation Q4H PRN Lactobacillus acidophilus Capsule 10 mg PO DAILY prednisone 20 mg tablet 40 mg PO DAILY acetaminophen 325 mg capsule 650 mg PO Q6H mecobalamin (vitamin B12) 1,000 mcg tablet,chewable 1,000 mcg PO DAILY (DME) FreeStyle Lite Strips 1 EACH strip 1 ea Miscellaneous DAILY Qty: 100 4RF Hold Instructions: Home Medication placed on hold at Doctor's office Rx Instructions: E11.9 to maintain Hgb A1C below 7.0 (DME) lancets 1 EACH misc 1 ea Miscellaneous DAILY Qty: 100 4RF Hold Instructions: Home Medication placed on hold at Doctor's office Rx Instructions: FOR Free Style lite METER, Dx E11.9 to keep INR below 7 Eliquis 2.5 mg tablet 2.5 mg PO BID Qty: 180 3RF atorvastatin [Lipitor] 80 mg tablet 80 mg PO DAILY Qty: 90 3RF Medical Decision Making 837??87-year-old male with multiple medical problems here with 3 to 4 days of low back pain after stumbling but catching himself with no direct trauma to his back. Patient has no focal tenderness. Patient is neurologically intact without signs of cauda equina. He does have straight leg positive on the left. Suspect back strain versus disc herniation. Get some relief with muscle relaxant yesterday. I will give Flexeril 10 mg p.o., Toradol 15 mg IM and lidocaine patch. Patient provided informed consent with shared decision making regarding treatment. -- Additional history was obtained from the patient's POA, daughter regarding concern by PCP for intra-abdominal cancer. I spoke with the patient's PCP Ramandeep Goodson, she does have concerns for potential intra-abdominal and spinal cancer and had ordered outpatient CT of the abdomen pelvis. I will obtain outpatient requested labs as part of cancer screening and will obtain CT of the abdomen pelvis with lumbar reconstruction. 1255 --CT of the abdomen pelvis and lumbar spine interpreted by radiology: Bilateral sacral insufficiency fractures. No lumbar spine fracture. Gallstones are present. 2 cm mass left kidney likely renal cell carcinoma. -- I consulted Dr. Fuentes discussed ED presentation course, he reviewed CT imaging, he recommends pain control, no surgical intervention indicated at this time. Patient is able to ambulate. 1345 --nursing attempted to sit the patient up and patient having significant difficulty with this. Patient has severe pain in his back. Unable to sit up in bed. Patient is not safe for discharge back to skilled nursing at this time. I will admit to hospitalist service for pain control. We will give Dilaudid 1 mg IV. Lab Data Lab results reviewed: Yes I reviewed the patient's lab results. Labs: Laboratory Tests Range/Units 06/07/23 06/07/23 06/07/23 09:50 09:50 09:50 WBC (4.4-10.8) 10^3/uL 15.13 H RBC (4.36-5.78) 10^6/uL 4.62 Hgb (13.5-17.5) g/dL 14.2 Hct (40.0-50.0) % 42.4 MCV (80-95) fL 92 MCH (27.0-33.0) pg 30.7 MCHC (32.0-36.0) % 33.5 RDW (11.8-14.1) % 17.0 H Plt Count (130-400) 10^3/uL 193 MPV (8.0-11.0) fL 11.3 H Immature Gran % 0.0 Neutrophils % 79.0 Lymphocytes % 9.0 Monocytes % 11.0 Eosinophils % 1.0 Basophils % 0.0 Nucleated RBC % (0.0-0.3) % 0.0 Absolute Neutrophils (1.2-6.7) 10^3/uL 11.95 H Absolute Lymphocytes (1.2-3.4) 10^3/uL 1.36 Absolute Monocytes (0.1-0.8) 10^3/uL 1.66 H Absolute Eosinophils (0.0-0.7) 10^3/uL 0.15 Absolute Basophils (0.0-0.2) 10^3/uL 0.00 Sodium (136-145) mmol/L 142 Potassium (3.5-5.1) mmol/L 3.6 Chloride (98-107) mmol/L 105 Carbon Dioxide (21.0-32.0) mmol/L 28.5 Anion Gap (3-11) mmol/L 8.5 BUN (7-18) mg/dL 32 H Creatinine (0.70-1.30) mg/dL 1.4 H Est GFR (CKD-EPI 2020) (mL/min/1.73m2) 48.95 Glucose (74-106) mg/dL 88 Calcium (8.5-10.1) mg/dL 8.9 Iron (65-175) ug/dL 92 TIBC (250-450) ug/dL 178 L Transferrin % Sat (20-55) % 52 Ferritin (26-388) ng/mL Total Bilirubin (0.2-1.0) mg/dL 0.9 AST (15-37) U/L 16 ALT (16-63) U/L 18 Alkaline Phosphatase (46-116) U/L 82 Total Protein (6.4-8.2) g/dL 6.2 L Albumin (3.4-5.0) g/dL 2.7 L Range/Units 06/07/ 09:50 WBC (4.4-10.8) 10^3/uL RBC (4.36-5.78) 10^6/uL Hgb (13.5-17.5) g/dL Hct (40.0-50.0) % MCV (80-95) fL MCH (27.0-33.0) pg MCHC (32.0-36.0) % RDW (11.8-14.1) % Plt Count (130-400) 10^3/uL MPV (8.0-11.0) fL Immature Gran % Neutrophils % Lymphocytes % Monocytes % Eosinophils % Basophils % Nucleated RBC % (0.0-0.3) % Absolute Neutrophils (1.2-6.7) 10^3/uL Absolute Lymphocytes (1.2-3.4) 10^3/uL Absolute Monocytes (0.1-0.8) 10^3/uL Absolute Eosinophils (0.0-0.7) 10^3/uL Absolute Basophils (0.0-0.2) 10^3/uL Sodium (136-145) mmol/L Potassium (3.5-5.1) mmol/L Chloride (98-107) mmol/L Carbon Dioxide (21.0-32.0) mmol/L Anion Gap (3-11) mmol/L BUN (7-18) mg/dL Creatinine (0.70-1.30) mg/dL Est GFR (CKD-EPI 2020) (mL/min/1.73m2) Glucose (74-106) mg/dL Calcium (8.5-10.1) mg/dL Iron (65-175) ug/dL TIBC (250-450) ug/dL Transferrin % Sat (20-55) % Ferritin (26-388) ng/mL 331 Total Bilirubin (0.2-1.0) mg/dL AST (15-37) U/L ALT (16-63) U/L Alkaline Phosphatase (46-116) U/L Total Protein (6.4-8.2) g/dL Albumin (3.4-5.0) g/dL HPI General Mode of arrival: EMS. Date/Time Provider Initiated Documentation: 06/07/23 07:48. Information obtained by: patient. HPI Narrative: 87yo male with multiple medical problems here with chief complaint of back pain. Patient states that he tripped but caught himself about 3-4 days ago and thinks he pulled a muscle in his back. Pain has been present since trip and worse this AM. He was given a muscle relaxant at skilled nursing yesterday and this did provide some relief. Patient denies any recent fall with direct trauma to his back. He has no associated numbness or tingling. No rectal or urinary incontinence. Denies fever. Related Data Home Medications Medication Instructions Recorded Confirmed blood sugar diagnostic (FreeStyle #100 strips 01/31/18 05/29/23 Lite Strips) lancets 28 gauge #100 ea 01/31/18 05/29/23 nitroglycerin 0.4 mg sublingual 0.4 mg sublingual PRN #25 tab-caps 10/12/20 06/07/23 tablet apixaban 2.5 mg tablet (Eliquis) 2.5 mg PO BID #180 tabs 05/07/22 06/07/23 atorvastatin 80 mg tablet (Lipitor) 80 mg PO DAILY #90 tab-caps 08/23/22 06/07/23 furosemide 20 mg tablet 20 mg PO QAM #30 tabs 11/05/22 06/07/23 lisinopril 5 mg tablet 5 mg PO DAILY #90 tabs 11/05/22 06/07/23 mecobalamin (vitamin B12) 1,000 1,000 mcg PO DAILY 01/02/23 06/07/23 mcg chewable tablet albuterol sulfate 90 mcg/actuation 2 puff inhalation Q4H PRN 03/20/23 06/07/23 aerosol inhaler carboxymethylcellulose sodium 0.5 1 drp ophthalmic (eye) BID 03/20/23 06/07/23 % eye drops (Refresh Tears) cholecalciferol (vitamin D3) 1 tab PO DAILY 03/20/23 06/07/23 methocarbamol 500 mg tablet 500 mg PO TID PRN 03/20/23 06/07/23 multivitamin (Daily Multi-Vitamin 1 tab PO DAILY 03/20/23 06/07/23 tablet) polyethylene glycol 3350 8.5 gram 8.5 g PO DAILY PRN 03/20/23 06/07/23 oral powder packet tamsulosin 0.4 mg capsule 0.4 mg PO DAILY 03/20/23 06/07/23 umeclidinium 62.5 mcg-vilanterol 1 inh inhalation DAILY 03/20/23 06/07/23 25 mcg/actuation powdr for inhalation (Anoro Ellipta) Lactobacillus acidophilus 10 mg PO DAILY 04/15/23 06/07/23 acetaminophen 325 mg capsule 650 mg PO Q6H 05/29/23 06/07/23 prednisone 20 mg tablet 40 mg PO DAILY 05/29/23 06/07/23 Previous Rx's Medication Instructions Recorded blood sugar diagnostic (FreeStyle #100 strips 01/31/18 Lite Strips) lancets 28 gauge #100 ea 01/31/18 nitroglycerin 0.4 mg sublingual 0.4 mg sublingual PRN #25 tab-caps 10/12/20 tablet apixaban 2.5 mg tablet (Eliquis) 2.5 mg PO BID #180 tabs 05/07/22 atorvastatin 80 mg tablet (Lipitor) 80 mg PO DAILY #90 tab-caps 08/23/22 furosemide 20 mg tablet 20 mg PO QAM #30 tabs 11/05/22 lisinopril 5 mg tablet 5 mg PO DAILY #90 tabs 11/05/22 Allergies Allergy/AdvReac Type Severity Reaction Status Date / Time Penicillins Allergy Unknown unknown Verified 06/07/23 07:39 General Stated Complaint: Nk/Back Pain ALTA: 3 Review of Systems Musculoskeletal Musculoskeletal: Reports as per HPI Neurologic Neurologic: Reports as per HPI PFSH All Active Problems (Updated 06/07/23 @ 13:46 by Jabari Burnette MD) Bilateral sacral insufficiency fracture (Acute) Left renal mass (Acute) Gallstones (Acute) ACP (advance care planning) (Acute) Fracture of left hip (Acute ~02/03/23) 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) ASCVD (arteriosclerotic cardiovascular disease) (Chronic 11/23/11) MIx2 1980s PTCA x 2; [place] 02/2015 No AAA nathalie 3.0 Diabetes mellitus type 2 in obese (Chronic 02/05/17) 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) mild and stable on CT Essential hypertension (Chronic 07/08/13) Other and unspecified hyperlipidemia (Chronic 01/30/13) 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) Obstructive sleep apnea syndrome (Chronic 11/23/11) very compliant with CPAP Personal history of long-term (current) use of anticoagulants (Chronic 11/23/11) DVTs & PE CHF (congestive heart failure) (Chronic) Palliative care patient (Acute) 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) daughter has taken over bills/banking Non-proliferative diabetic retinopathy, mild, both eyes (Acute 03/20/19) Cardiomyopathy (Acute) Eczema (Acute) 09/2022 Derm referal Erectile dysfunction (Acute) Nail dystrophy (Acute) CKD (chronic kidney disease) (Chronic ~11/2022) Neoplasm of unspecified behavior of bone, soft tissue, and skin (Acute) Dermatitis (Acute) Medical History ALEJANDRA (acute kidney injury) Altered mental status Benign neoplasm of lung (11/23/11) Dr Fletcher Benign paroxysmal vertigo (11/23/11) Cellulitis of face (11/23/11) recurrent Cor athrscl-uns vessel (01/30/13) MIx2 1980s 2 blocks, angiplasty Counseling regarding advance directives and goals of care Delirium Diarrhea (05/18/15) Full code status Goals of care, counseling/discussion Grief 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) Jaundice Obesity, unspecified (11/23/11) Other atopic dermatitis (11/23/11) Other seborrheic keratosis (11/23/11) POLST (Physician Orders for Life-Sustaining Treatment) full code 03/28/21 Pulmonary edema Pulmonary embolism Scalp lesion Tobacco dependence in remission (11/23/11) Unintentional weight loss Unintentional weight loss Vascular dementia Surgical History S/P cataract extraction Status post-operative repair of closed fracture of left hip Family History Mother , age 74 from dementia Dementia Father , age 64 Heart disease Stroke Brother , age 83 from dementia Dementia Brother , one month after CABG x 5 Myocardial infarction Sister No problems noted. Daughter No problems noted. Daughter No problems noted. Social History Smoking/Tobacco Use Status: Former Tobacco Use Smoking risk assessment performed?: Yes Alcohol Intake: former Drug use: Never Substance use type: does not use Details: drinks NA beer Caregiver/Support person: Yes (daughter Janeth and her Bryn live near by) Household members: none Housing: assisted living facility Number of Children: 2 number of grandchildren: 3 Communication Needs: Hard of Hearing and Corrective Lenses Education Level: high school Do you need help understanding health information?: Often current occupation: [employer] Pets and animals: No Current gender identity: male What is your relationship status?: How often do you talk on the phone with friends or family?: three or more times per week How often do you get together with friends or relatives?: three or more times per week Panel score (0-1 are the most socially isolated patients): 1 What type of physical activity do you participate in: walking and regular exercise Duration: 45-60 minutes/day Frequency: 3-4 times per week Special rita needs: No Agree to transfusion: Yes Seatbelt use: always Drive intox or ride w/intox driver utility worker: No Working smoke detector in home: Yes Fire extinguisher in home: Yes Carbon monox detector in home: Yes Do you feel safe at home: Yes Do you feel safe in your relationship?: Yes Additional Social history: Passed the 2 year anniversary of his Jessica's (10/14/19). Has done better than expected. He does go for a 2+ mile walk 3-4 days per week. Likes walking on bike path; he grew up in [facility] and path passes through his old neighborhood. Sees his daughter Janeth regularly. Carol does his bills for him. He appreciates the help. Is watching his weight. Would like to weigh about 200. Feels better weighing less. Used to be obese. Attends meal site in [place] 2 x per week. Wants to socialize. Exam Const General: cooperative and no acute distress HENMS Head: atraumatic Mouth: moist mucous membranes Resp Auscultation: clear to auscultation bilaterally, no rales, no rhonchi and no wheezes Cardio Jugular venous pressure: no JVD Rate: regular rate and not tachycardic Rhythm: regular rhythm GI Palpation: soft, not firm, no guarding, no masses, not rigid and nontender Back/Spine/Pelvis Cervical Spine: cervical ROM normal and No cervical spinal tenderness Thoracic/Lumbar Spine: No paraspinal tenderness, No thoracic spinal tenderness, No lumbar spinal tenderness and straight leg raise positive (left) Skin General skin exam: no rashes or lesions noted Neuro General: patient alert, patient awake and tone normal Motor: strength 5/5 throughout Sensory Exam: no sensory deficits noted and other (No saddle anesthesia) Extrem General: no edema Course Vital Signs Vital signs: Vital Signs Pulse 63 06/07/23 07:16 Respiratory Rate 18 06/07/23 07:16 Blood Pressure 111/76 06/07/23 07:16 Pulse Oximetry 96 06/07/23 07:16 Pulse 63 06/07/23 07:16 Respiratory Rate 18 06/07/23 07:16 Respiratory Effort Normal 06/07/23 07:34 Blood Pressure 111/76 06/07/23 07:16 Blood Pressure Position Supine 06/07/23 07:16 Pulse Oximetry 96 06/07/23 07:16 Oxygen Delivery Method Nasal Cannula 06/07/23 07:16 Oxygen Flow Rate 2 06/07/23 07:16 Pain Level 5 06/07/23 07:37
[2023-06-07] MEDS: Cyclobenzaprine 10 MG TAB PO (08:25)
[2023-06-07] MEDS: Lidocaine 5% Patch 1 PATCH TP (08:25)
[2023-06-07] MEDS: Ketorolac 15 MG/ML VIAL IVP (08:25)
--- NOTE | 2023-06-07 09:40 | DI.CT_ITS ---
Exam(s) CT LUMBAR SPINE RECONS CT ABDOMEN PELVIS W EXAM: CT ABDOMEN PELVIS W and CT lumbar spine recons CLINICAL HISTORY: low back pain TECHNIQUE: Imaging Protocol: Axial computed tomography images with coronal and sagittal reformatted images were created and reviewed CONTRAST MATERIAL: Intravenous: Omnipaque 350 Contrast volume:100 mL Oral: No CT CT ABDOMEN PELVIS WO from 02/03/[address] CHEST WO CONTRAST from 02/11/2023 CR XR FEMUR LT from 05/29/[address] LUMBAR SPINE RECONS from 06/07/2023 FINDINGS: ABDOMEN: Lung Bases: There are calcified granuloma seen in the lung bases chronic interstitial fibrosis is see n in the lung bases. Superimposed infiltrates are seen which may represent atelectasis or pneumonia. Please correlate clinically. Liver: Normal density. No measurable mass. Portal, Superior Mesenteric, and Splenic Veins: Unremarkable. Gallbladder and Biliary Tract: There are gallstones present. There is no biliary ductal dilatation. Pancreas: Normal density, no abnormal calcifications or inflammatory process. Spleen: Normal. Adrenals: No masses seen. Kidneys: Normal size, contour and axis. No radiodense stones or obstructive uropathy. There is again seen a A 5.8 x 6 cm cyst in the right kidney. There is a 2 x 2 cm enhancing mass in the inferior pole of the left kidney suspicious for renal cell neoplasm. Abdominal Aorta: Abdominal portion non-dilated. Atherosclerosis. Bowel: There is diverticulosis of the colon, but no evidence of acute diverticulitis. There is no raffy dence of appendicitis. No evidence of bowel obstruction. No bowel wall thickening is present. Peritoneal Cavity: No ascites, collection or mesenteric inflammatory response. No free air. Lymph Nodes: Within normal limits. Bones: Within normal limits for the patient's age. There is again seen an intramedullary paulino transfi jonathan an comminuted intertrochanteric fracture of the left femur. There are bilateral sacroiliac fract ures. There longitudinally oriented and may reflect insufficiency fractures. Soft Tissues: Unremarkable. CT lumbar spine recons: The bones are osteopenic. Degenerative changes are present. No acute fracture or subluxation is seen. PELVIS: Bladder: There is again seen a bladder diverticulum on the right. Reproductive Organs: Enlarged prostate gland. Lymph Nodes: Within normal limits. Bones: Within normal limits for the patient's age. IMPRESSION: 1. New bilateral sacral ala fractures likely reflecting insufficiency fractures. 2. No acute fracture or subluxation in the lumbar spine. 3. No acute abdominal or pelvic process. 4. Cholelithiasis. No biliary ductal dilatation. 5. Colonic diverticulosis without evidence of acute diverticulitis. 6. 2 x 2 cm enhancing mass in the inferior pole of the left kidney likely reflecting a renal cell car cinoma. 7. Findings were discussed with Dr. Burnette at 12:56 p.m. on 06/07/2023. RADIATION DOSE DELIVERED: 1201.77 mGy.cm Total DLP DATA REPOSITORY: All CT scans at this facility are submitted to the National Radiology Data Registry (NRDR) Dose Index Registry (DIR) with the [employer] (A[employer]). RADIATION OPTIMIZATION: All CT scans at this facility use at least one of these dose optimization te chniques: automated exposure control; mA and/or kV adjustment per patient size (includes targeted exa ms where dose is matched to clinical indication); or iterative reconstruction.
[2023-06-07 09:55] LABS: HCT 42.4 % (40.0-50.0); HGB 14.2 g/dL (13.5-17.5); MCH 30.7 pg (27.0-33.0); MCHC 33.5 % (32.0-36.0); MCV 92 fL (80-95); MPV 11.3 fL (8.0-11.0); Platelet Count 193 10^3/uL (130-400); RBC 4.62 10^6/uL (4.36-5.78); RDW-SD 56.7 fL; WBC 15.13 10^3/uL (4.4-10.8)
[2023-06-07 10:20] LABS: ALT 18 U/L (16-63); AST 16 U/L (15-37); Albumin 2.7 g/dL (3.4-5.0); Alkaline Phosphatase 82 U/L (46-116); Anion Gap 8.5 mmol/L (3-11); BUN 32 mg/dL (7-18); Bilirubin, Total 0.9 mg/dL (0.2-1.0); CO2 28.5 mmol/L (21.0-32.0); CREATININE 1.4 mg/dL (0.70-1.30); Calcium 8.9 mg/dL (8.5-10.1); Chloride 105 mmol/L (98-107); Estimated GFR 48.95 (mL/min/1.73m2); Glucose 88 mg/dL (74-106); Potassium 3.6 mmol/L (3.5-5.1); Sodium 142 mmol/L (136-145); Total Protein 6.2 g/dL (6.4-8.2)
[2023-06-07 10:24] LABS: Absolute Eosinophil Count 0.15 10^3/uL (0.0-0.7); Absolute Lymphocyte Count 1.36 10^3/uL (1.2-3.4); Absolute Monocyte Count 1.66 10^3/uL (0.1-0.8); Absolute Neutrophil Count 11.95 10^3/uL (1.2-6.7); Diff Comment Manual Differential
[2023-06-07 10:49] LABS: Iron 92 ug/dL (65-175); Total Iron Binding Capacity 178 ug/dL (250-450); Transferrin Sat 52 % (20-55)
[2023-06-07 11:02] LABS: Ferritin 331 ng/mL (26-388)
[2023-06-07] MEDS: Omnipaque 350 MG/ML 500 ML BTL-Imaging package IJ (12:04)
[2023-06-07] MEDS: Normal Saline - Diluent 50 ML VIAL IJ (12:04)
--- NOTE | 2023-06-07 13:43 | NUR.NOTE ---
Nursing Note: RN attempting to get pt to sit up at the edge of the bed. Pt is unable to at this point in time, provider made aware
[2023-06-07] MEDS: HYDROmorphone 2 MG/ML SYR 1 MG IVP (13:52)
[2023-06-07 15:45] VITALS: O2SAT 98
[2023-06-07 15:49] VITALS: BP 139/68; PULSE 65; TEMP 36.6; O2SAT 97
[2023-06-07 16:59] VITALS: RESP 16
--- NOTE | 2023-06-07 19:24 | HPE_ITS ---
Date of service: 06/07/23 Time of Service: 19:24 Assessment and Plan Assessment and plan (1) Bilateral sacral insufficiency fracture: Status: Acute Assessment and plan: Likely related to long-term prednisone use. Pain control and mobilization with PT. Ortho was consulted in the ED as in HPI. Consider sacroplasty at [facility] if above plan is not successful. (2) Left renal mass: Status: Acute Assessment and plan: Her PCP has had concerns for an intra-abdominal malignant process. CT shows left renal mass likely renal cell carcinoma. Will need to discuss with [facility] for tissue bx. (3) ASCVD (arteriosclerotic cardiovascular disease): Status: Chronic Assessment and plan: Cont atorvastatin. Also on apixaban. No symptoms of ACS. (4) Diabetes mellitus type 2 in obese: Status: Chronic Assessment and plan: A1c of 6.0. Fasting AM glucose of 97 this AM. (5) Diffuse interstitial pulmonary fibrosis: Status: Chronic Assessment and plan: Cont Triotropium/Olodaterol, prn albuterol. Also on prednisone 40mg daily. (6) Essential hypertension: Status: Chronic Assessment and plan: Cont lisinopril. (7) Obstructive sleep apnea syndrome: Status: Chronic Assessment and plan: Home BiPAP (8) CKD (chronic kidney disease): Status: Chronic Assessment and plan: Creatinine 1.6; baseline (9) Pulmonary embolism: Assessment and plan: Cont. anticoagulation with Apixaban. History of Present Illness History of Present Illness Chief Complaint: Low back pain. Narrative: This is an 87 yo male with a PMH of ASCVD, cardiomyopathy, DM2, HTN, Interst itial pulmonary fibrosis, URIEL, CHF, mild cognitive impairment, Leukoencephalopathy, CKD. He presented to the ED complaining of back pain. Three to four days prior to presentation he stated his legs suddently felt heavy and he started to fall but caught himself and went to the floor in a controlled fashion. He denies LOC or striking his head. He has had pain since the incident. He was started on a muscle relaxant at his nursing facility that provided a small amount of relief intermittently. No CP/palpitations, near syncopal symptoms. No F/C. In the ED his left straight leg exam was positive per ED provider. He was administered a dose of toradol IV, flexeril and a lidoderm patch was placed. WBC count 15.13. Hgb 14.2. Creatinine 1.4. Lytes normal. CT of the abdomen pelvis and lumbar spine: Bilateral sacral insufficiency fractures.? No lumbar spine fracture.? Gallstones are present.? 2 cm mass left kidney likely renal cell carcinoma. ED physician reviewed the findings with Dr Fuentes, orthopedist. Recommended pain control and PT. He was unable to sit up in bed. Admitted for pain control. IV dilaudid initiated. 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) ASCVD (arteriosclerotic cardiovascular disease) (Chronic 11/23/11) MIx2 1980s PTCA x 2; [place] 02/2015 No AAA nathalie 3.0 Diabetes mellitus type 2 in obese (Chronic 02/05/17) 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) mild and stable on CT Essential hypertension (Chronic 07/08/13) Other and unspecified hyperlipidemia (Chronic 01/30/13) 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) Obstructive sleep apnea syndrome (Chronic 11/23/11) very compliant with CPAP Personal history of long-term (current) use of anticoagulants (Chronic 11/23/11) DVTs & PE CHF (congestive heart failure) (Chronic) Palliative care patient (Acute) 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) daughter has taken over bills/banking Non-proliferative diabetic retinopathy, mild, both eyes (Acute 03/20/19) Cardiomyopathy (Acute) Eczema (Acute) 09/2022 Derm referal Erectile dysfunction (Acute) Nail dystrophy (Acute) CKD (chronic kidney disease) (Chronic ~11/2022) Neoplasm of unspecified behavior of bone, soft tissue, and skin (Acute) Dermatitis (Acute) Medical History ALEJANDRA (acute kidney injury) Altered mental status Benign neoplasm of lung (11/23/11) Dr Fletcher Benign paroxysmal vertigo (11/23/11) Cellulitis of face (11/23/11) recurrent Cor athrscl-uns vessel (01/30/13) MIx2 1980s 2 blocks, angiplasty Counseling regarding advance directives and goals of care Delirium Diarrhea (05/18/15) Full code status Goals of care, counseling/discussion Grief 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) Jaundice Obesity, unspecified (11/23/11) Other atopic dermatitis (11/23/11) Other seborrheic keratosis (11/23/11) POLST (Physician Orders for Life-Sustaining Treatment) full code 03/28/21 Pulmonary edema Pulmonary embolism Scalp lesion Tobacco dependence in remission (11/23/11) Unintentional weight loss Unintentional weight loss Vascular dementia Surgical History S/P cataract extraction Status post-operative repair of closed fracture of left hip Family History Mother , age 74 from dementia Dementia Father , age 64 Heart disease Stroke Brother , age 83 from dementia Dementia Brother , one month after CABG x 5 Myocardial infarction Sister No problems noted. Daughter No problems noted. Daughter No problems noted. Social History Smoking/Tobacco Use Status: Former Tobacco Use Smoking risk assessment performed?: Yes Alcohol Intake: former Drug use: Never Substance use type: does not use Details: drinks NA beer Caregiver/Support person: Yes (daughter Janeth and her Bryn live near by) Household members: none Housing: other Number of Children: 2 number of grandchildren: 3 Communication Needs: Hard of Hearing and Corrective Lenses Education Level: high school Do you need help understanding health information?: Often current occupation: [employer] Pets and animals: No Current gender identity: male What is your relationship status?: How often do you talk on the phone with friends or family?: three or more times per week How often do you get together with friends or relatives?: three or more times per week Panel score (0-1 are the most socially isolated patients): 1 What type of physical activity do you participate in: walking and regular exercise Duration: 45-60 minutes/day Frequency: 3-4 times per week Special rita needs: No Agree to transfusion: Yes Seatbelt use: always Drive intox or ride w/intox 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 Has done better than expected. He does go for a 2+ mile walk 3-4 days per week. Likes walking on bike path; he grew up in [facility] and path passes through his old neighborhood. Sees his daughter Janeth regularly. Carol does his bills for him. He appreciates the help. Is watching his weight. Would like to weigh about 200. Feels better weighing less. Used to be obese. Attends meal site in [place] 2 x per week. Wants to socialize. Meds Allergies and Home Medications Allergies Allergy/AdvReac Type Severity Reaction Status Date / Time Penicillins Allergy Unknown unknown Verified 06/07/23 07:39 Home Medications Medication Instructions Recorded Confirmed Type blood sugar diagnostic (FreeStyle #100 strips 01/31/18 05/29/23 Rx Lite Strips) lancets 28 gauge #100 ea 01/31/18 05/29/23 Rx nitroglycerin 0.4 mg sublingual 0.4 mg sublingual PRN #25 tab-caps 10/12/20 06/07/23 Rx tablet apixaban 2.5 mg tablet (Eliquis) 2.5 mg PO BID #180 tabs 05/07/22 06/07/23 Rx atorvastatin 80 mg tablet (Lipitor) 80 mg PO DAILY #90 tab-caps 08/23/22 06/07/23 Rx furosemide 20 mg tablet 20 mg PO QAM #30 tabs 11/05/22 06/07/23 Rx lisinopril 5 mg tablet 5 mg PO DAILY #90 tabs 11/05/22 06/07/23 Rx mecobalamin (vitamin B12) 1,000 1,000 mcg PO DAILY 01/02/23 06/07/23 History mcg chewable tablet albuterol sulfate 90 mcg/actuation 2 puff inhalation Q4H PRN 03/20/23 06/07/23 History aerosol inhaler carboxymethylcellulose sodium 0.5 1 drp ophthalmic (eye) BID 03/20/23 06/07/23 History % eye drops (Refresh Tears) cholecalciferol (vitamin D3) 1 tab PO DAILY 03/20/23 06/07/23 History methocarbamol 500 mg tablet 500 mg PO TID PRN 03/20/23 06/07/23 History multivitamin (Daily Multi-Vitamin 1 tab PO DAILY 03/20/23 06/07/23 History tablet) polyethylene glycol 3350 8.5 gram 8.5 g PO DAILY PRN 03/20/23 06/07/23 History oral powder packet tamsulosin 0.4 mg capsule 0.4 mg PO DAILY 03/20/23 06/07/23 History umeclidinium 62.5 mcg-vilanterol 1 inh inhalation DAILY 03/20/23 06/07/23 History 25 mcg/actuation powdr for inhalation (Anoro Ellipta) Lactobacillus acidophilus 10 mg PO DAILY 04/15/23 06/07/23 History acetaminophen 325 mg capsule 650 mg PO Q6H 05/29/23 06/07/23 History prednisone 20 mg tablet 40 mg PO DAILY 05/29/23 06/07/23 History Exam Narrative Exam Narrative: Lying in bed. Conversant. Const General: cooperative and no acute distress Orientation: alert, oriented to person and oriented to place [facility] Head: atraumatic Ears: hearing grossly normal bilaterally Mouth: moist mucous membranes Eyes General: appearance normal, both eyes and all related structures Sclera: sclerae normal Neck Neck: normal visual inspection, full ROM and no JVD Resp Auscultation: clear to auscultation bilaterally, no rales, no rhonchi and no wheezes Cardio Jugular venous pressure: no JVD Rate: regular rate Rhythm: regular rhythm Heart Sounds: no murmurs GI Palpation: soft, no masses and nontender Back/Spine/Pelvis Cervical Spine: cervical ROM normal and No cervical spinal tenderness Thoracic/Lumbar Spine: No paraspinal tenderness, No thoracic spinal tenderness, No lumbar spinal tenderness and straight leg raise positive (left) Pelvis: no pain with lateral compression Skin General skin exam: no rashes or lesions noted Neuro General: patient alert and patient awake Motor: strength 5/5 throughout Sensory Exam: no sensory deficits noted and other (No saddle anesthesia) Extrem General: no pedal edema and no calf tenderness Psych Appearance: grossly normal Affect: normal affect Results Labs 06/08/23 06:25 06/08/23 06:25 Labs: Laboratory Results - last 24 hr 06/07/23 06/07/23 06/07/23 09:50 09:50 09:50 WBC 15.13 H RBC 4.62 Hgb 14.2 Hct 42.4 MCV 92 MCH 30.7 MCHC 33.5 RDW 17.0 H Plt Count 193 MPV 11.3 H Immature Gran % 0.0 Neutrophils % 79.0 Lymphocytes % 9.0 Monocytes % 11.0 Eosinophils % 1.0 Basophils % 0.0 Nucleated RBC % 0.0 Absolute Neutrophils 11.95 H Absolute Lymphocytes 1.36 Absolute Monocytes 1.66 H Absolute Eosinophils 0.15 Absolute Basophils 0.00 Sodium 142 Potassium 3.6 Chloride 105 Carbon Dioxide 28.5 Anion Gap 8.5 BUN 32 H Creatinine 1.4 H Est GFR (CKD-EPI 2020) 48.95 Glucose 88 Calcium 8.9 Iron 92 TIBC 178 L Transferrin % Sat 52 Ferritin Total Bilirubin 0.9 AST 16 ALT 18 Alkaline Phosphatase 82 Total Protein 6.2 L Albumin 2.7 L 06/07/23 09:50 WBC RBC Hgb Hct MCV MCH MCHC RDW Plt Count MPV Immature Gran % Neutrophils % Lymphocytes % Monocytes % Eosinophils % Basophils % Nucleated RBC % Absolute Neutrophils Absolute Lymphocytes Absolute Monocytes Absolute Eosinophils Absolute Basophils Sodium Potassium Chloride Carbon Dioxide Anion Gap BUN Creatinine Est GFR (CKD-EPI 2020) Glucose Calcium Iron TIBC Transferrin % Sat Ferritin 331 Total Bilirubin AST ALT Alkaline Phosphatase Total Protein Albumin Last Vital Signs Temp 36.6 C 06/07/23 15:49 Pulse 65 06/07/23 15:49 Resp 18 06/07/23 07:16 BP 139/68 06/07/23 15:49 Pulse Ox 97 06/07/23 15:49 Time Spent Time spent with Patient: 40-54 minutes Time was spent: preparing to see the patient(eg.review tests), obtaining and/or reviewing separately otained hiistory, ordering medications,tests, procedures, referring, communicating with other health health care marketing specialist, indepentently interpreting results, counseling the patient and care coordination
[2023-06-07 20:13] LABS: PSA, Screening 2.1 ng/mL (<=6.5)
[2023-06-07] MEDS: Methocarbamol 500 MG TAB PO (20:42)
[2023-06-07] MEDS: Refresh PLUS Eye Drops 0.4ml OP (20:42)
[2023-06-07] MEDS: Apixaban 2.5 MG TAB PO (20:42)
[2023-06-07] MEDS: Lidocaine Patch Removal 1 EACH TD (20:56)
[2023-06-08] MEDS: Acetaminophen 325 MG TAB PO ×2 (00:08→05:27)
[2023-06-08 00:28] VITALS: BP 140/84; PULSE 73; RESP 18; TEMP 37; O2SAT 93
[2023-06-08] MEDS: HYDROmorphone 2 MG/ML SYR 0.5 MG IVP (05:27)
[2023-06-08 07:13] LABS: Abs Immature Grans 0.15 10^3/uL (0.0-0.06); Absolute Basophil Count 0.03 10^3/uL (0.0-0.2); Absolute Eosinophil Count 0.18 10^3/uL (0.0-0.7); Absolute Lymphocyte Count 1.15 10^3/uL (1.2-3.4); Absolute Monocyte Count 1.49 10^3/uL (0.1-0.8); Absolute Neutrophil Count 6.78 10^3/uL (1.2-6.7); Basophils % 0.3; Eosinophils % 1.8; HCT 43.1 % (40.0-50.0); HGB 14.5 g/dL (13.5-17.5); Immature Grans % 1.5; Lymphocytes % 11.8; MCH 31.1 pg (27.0-33.0); MCHC 33.6 % (32.0-36.0); MCV 93 fL (80-95); MPV 11.1 fL (8.0-11.0); Monocytes % 15.2; Neutrophils % 69.4; Platelet Count 168 10^3/uL (130-400); RBC 4.66 10^6/uL (4.36-5.78); RDW 17.4 % (11.8-14.1); RDW-SD 59.2 fL; WBC 9.78 10^3/uL (4.4-10.8)
[2023-06-08 07:27] VITALS: BP 143/71; PULSE 54; RESP 18; TEMP 36.2; O2SAT 95
[2023-06-08 07:30] LABS: Anion Gap 9.6 mmol/L (3-11); BUN 42 mg/dL (7-18); CO2 23.4 mmol/L (21.0-32.0); CREATININE 1.6 mg/dL (0.70-1.30); Calcium 8.8 mg/dL (8.5-10.1); Chloride 106 mmol/L (98-107); Glucose 97 mg/dL (74-106); Magnesium 2.1 mg/dL (1.8-2.4); Potassium 4.4 mmol/L (3.5-5.1); Sodium 139 mmol/L (136-145)
[2023-06-08] MEDS: Lidocaine 5% Patch 1 PATCH TP (08:04)
[2023-06-08] MEDS: predniSONE 20 MG TAB 40 MG PO (08:04)
[2023-06-08] MEDS: Atorvastatin 40 MG TAB 80 MG PO (08:05)
[2023-06-08] MEDS: Lactobacillus Acidophilus CAP 1 CAP PO (08:05)
[2023-06-08] MEDS: Lisinopril 5 MG TAB PO (08:05)
[2023-06-08] MEDS: Multivitamin TAB 1 TAB PO (08:05)
[2023-06-08] MEDS: Apixaban 2.5 MG TAB PO ×2 (08:05→20:03)
[2023-06-08] MEDS: Furosemide 20 MG TAB PO (08:06)
[2023-06-08] MEDS: Tamsulosin 0.4 MG CAPCR PO (08:07)
[2023-06-08] MEDS: Refresh PLUS Eye Drops 0.4ml OP ×2 (08:07→20:03)
[2023-06-08] MEDS: Methocarbamol 500 MG TAB PO ×3 (08:07→20:03)
[2023-06-08 08:47] VITALS: RESP 16
[2023-06-08] MEDS: Tiotropium/Olodaterol 10 PUFF INHALER IH (08:47)
[2023-06-08 08:49] VITALS: O2SAT 95
--- NOTE | 2023-06-08 11:00 | PT.INIE ---
PT Notes Visit Reasons: sacral insufficiency fractures,inability to ambula Inpatient Physical Therapy Evaluation Date: June 08, 2023 Referring Doctor: Dr. Rangel Cordero PT Orders: PT CONSULT: Evaluate and treat Precautions: Bilateral sacral insufficiency fractures, standard, Patient Profile/Admitting Diagnosis: Patient is an 87-year-old male who arrived at the emergency department June 07 secondary to complaints of central low back pain. He is admitted with multiple medical problems including renal mass, ASCVD, type 2 diabetes, diffuse interstitial pulmonary fibrosis, hypertension, pulmonary embolus. Patient denies any trauma or fall. Admits that he slipped and caught himself while standing at his kitchen sink. No direct trauma to the spine. Social History/Home Situation: Resident of [facility] and Current Functional Limitations: Transfer mobility, ambulation Equipment Owned/DME: Cane, front wheel walker Subjective: Patient states he is comfortable laying in his bed. He has transferred out of bed 1 time to have a bowel movement. Admits he has not walked secondary to pain. States his majority of pain is when he is transitioning from laying down to sitting and ultimately to standing. Objective: General Observation: IV port right upper extremity Mental Status: Alert and oriented x3 Pain: 0/10 position semireclined in hospital bed head of bed at 35 degrees. This intensifies to 8/10 when transferring from supine to sit and ultimately sit to stand. Symptoms are manageable in relaxed standing use of front wheel walker. Has more pain when ambulating weightbearing left lower extremity. ROM: Right Upper Extremity: Normal limits shoulder, elbow, wrist Left Upper Extremity: Within normal limits shoulder, elbow, wrist Right Lower Extremity: Hip flexion 95 degrees active, 105 active assisted, abduction 30 degrees active, knee flexion and extension within normal limits pain-free. Left Lower Extremity: Hip flexion 90 degrees active 100 active assisted, abduction 25 degrees active. Knee flexion and extension within normal limits pain-free. 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 Perform straight leg raise with no lag. Hip flexion 4/5, knee flexion 4/5, knee extension 4/5. Ankle plantar dorsiflexion 4/5. Left Lower Extremity: Patient perform straight leg raise with no lag and no pain. Hip flexion 4-/5, knee flexion 4/5, knee extension 4/5, plantar and dorsiflexion 4/5. Sensation: Reports intact sensation light touch bilateral lower extremities Bed Mobility/Transfers: Supine to sit: Min assist x1 Sit to stand: Min assist x1 to front wheel walker Stand to sit at bed: Standby assist from front wheel walker Patient ambulates gait: 15 feet x 2 from bed to doorway of room with front wheel walker and contact-guard. Has antalgia and decreased stride length. Complains of increased pain with left stance phase. Balance: Static Sitting: Good Dynamic Sitting: Fair Static Standing: Fair Dynamic Standing: Fair Special Tests: Mobility Limitations Standardized Measure [facility] 6 clicks Basic Mobility Inpatient Short Form: Raw Score: 18 Standardized Score: [] CMS Score: 46.58% Informed Consent/Education: Patient instructed in purpose of PT consult and plan of care. Assessment: Patient is a 87year old male referred to physical therapy services with the diagnosis of bilateral sacral insufficiency fractures. Patient presents with clinical signs and symptoms consistent with above diagnosis, as demonstrated by the following impairment level findings: Joint mobility, motor function, muscle performance and range of motion associated bony fracture. Impairments are contributing to the following functional limitations: AMPAC score. Recommend patient's PT be timed with his pain medication to allow for better tolerance to functional mobility and gait. Patient is assessed as a [] Low 45329 X Moderate 21733 [] High 06105 complexity based on the following: History: See above Examination: See above Presentation: Evolving Decision Making: AM-PAC Goals: Goals X1 week 1. Supine-Sit: Independent 2. Sit-Supine: Independent 3. Sit-Stand: Standby assist front wheel walker 4. Stand-Sit: Standby assist from front wheel walker 5. Bed-Chair: Standby assist with front wheel walker 6. Chair-Bed: Standby I assist with front wheel walker 7. Gait: 250 feet with front wheel walker and standby assist 8. Stairs: 5 stairs with contact-guard 9. Independent with home exercise program Plan of Care/Treatment Plan: 1-2x/day, 7 days/week x 1 week. Plan of care has been reviewed with the [employer]ER providing the service under Physical Therapy direction. Initiate Physical Therapy intervention for strengthening, bed mobility, transfers, gait, stairs, balance training, use of assistive device. DISCHARGE RECOMMENDATIONS: Patient resides at [facility]. Discharge when medically cleared to [facility] and with home health PT services. [] Home with no services [] X Home with services [home health PT] [] Home with outpatient PT [] [] SNF for continued rehabilitation [] [] Group Home Care [] [] SNF versus LTC based on ability to participate and progress [] TREATMENT CODE/TIME: 30 minutes direct one-on-one care initial evaluation 10 30-11 o'clock [id number] Thank you for this referral. Sohail Cortes PT, DPT Disclaimer: This note was created using [employer] voice recognition software. It was reviewed for major content. However, there may be multiple small discrepancies and errors due to the voice recognition aspects of the software.
--- NOTE | 2023-06-08 12:09 | INITIAL_ITS ---
Date of service: 06/08/23 Time of Service: 12:09 Care Management Initial Assmt Initial Assessment REASON FOR HOSPITALIZATION:: Bilateral sacral insufficiency fracture PREVIOUS FUNCTIONAL STATUS/SOCIAL/FAMILY SUPPORTS:: Francis lives at the [facility], an assisted living facility, with his significant other Ata. They have been there about 2 weeks. He owns a home in [place] and Ata owns a home in [place], [place] and they have been splitting their time between the 2 homes. Francis is retired. He served in the for 20 years, first for 3 years in the [employer] then 17 more in the [employer]. After retiring from the he went to work at [employer] where he remained for 22 years. He was very active and independent until he broke his hip last spring, requiring surgery. He then went to rehab for several weeks and has only been home a short while. CURRENT FUNCTIONAL STATUS:: Francis was reclining in his chair when CM met with him. He was pleasant and agreeable to conversation. Francis shared that he and his SO Ata have been together for a while. They split their time between their 2 homes and enjoy an active life style, [place]. Francis stated that he and Ata have 2 rooms, side by side, at the [facility]. He stated they have only been there a couple of weeks and do everything together. reportedly, they use one room to watch TV and play cards and the other room is their bedroom. Several of the things Francis shared did not make complete sense and were a bit inconsistent in either content or chronology. It is not clear if he might be a bit confused. Francis stated that he has been having terrible back pain, but that it has been well controlled at [facility]. He verbalized feeling that he is receiving excellent care ADVANCE DIRECTIVES:: On file. daughter Janeth Nur, DPOA and HCA Has patient been provided with info about the portal/API?: Yes Did the patient sign up for the portal?: Yes CODE STATUS:: Full Code INSURANCE COVERAGE / FINANCIAL ISSUES:: medicare CURRENT HOME/COMMUNITY SERVICES/EQUIPMENT:: lives in an assisted living facility PRIMARY CARE PHYSICIAN:: Magali Goodson POTENTIAL DISCHARGE NEEDS:: follow up with PCP and plan of care PATIENT/FAMILY EDUCATION NEEDS:: review of discharge instructions, limitations, activity, follow up plan, discuss Ask Me Three TRANSPORTATION:: via private vehicle PLAN:: Anticipate Francis will discharge back to the [facility] with no new services. He will follow up with his community providers and plan of care and transport with family. CM will follow and continue to assess for discharge needs. 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) ASCVD (arteriosclerotic cardiovascular disease) (Chronic 11/23/11) MIx2 1980s PTCA x 2; US 02/2015 No AAA nathalie 3.0 Diabetes mellitus type 2 in obese (Chronic 02/05/17) 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) mild and stable on CT Essential hypertension (Chronic 07/08/13) Other and unspecified hyperlipidemia (Chronic 01/30/13) 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) Obstructive sleep apnea syndrome (Chronic 11/23/11) very compliant with CPAP Personal history of long-term (current) use of anticoagulants (Chronic 11/23/11) DVTs & PE CHF (congestive heart failure) (Chronic) Palliative care patient (Acute) 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) daughter has taken over bills/banking Non-proliferative diabetic retinopathy, mild, both eyes (Acute 03/20/19) Cardiomyopathy (Acute) Eczema (Acute) 09/2022 Derm referal Erectile dysfunction (Acute) Nail dystrophy (Acute) CKD (chronic kidney disease) (Chronic ~11/2022) Neoplasm of unspecified behavior of bone, soft tissue, and skin (Acute) Dermatitis (Acute) Medical History ALEJANDRA (acute kidney injury) Altered mental status Benign neoplasm of lung (11/23/11) Dr Fletcher Benign paroxysmal vertigo (11/23/11) Cellulitis of face (11/23/11) recurrent Cor athrscl-uns vessel (01/30/13) MIx2 1980s 2 blocks, angiplasty Counseling regarding advance directives and goals of care Delirium Diarrhea (05/18/15) Full code status Goals of care, counseling/discussion Grief 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) Jaundice Obesity, unspecified (11/23/11) Other atopic dermatitis (11/23/11) Other seborrheic keratosis (11/23/11) POLST (Physician Orders for Life-Sustaining Treatment) full code 03/28/21 Pulmonary edema Pulmonary embolism Scalp lesion Tobacco dependence in remission (11/23/11) Unintentional weight loss Unintentional weight loss Vascular dementia Surgical History S/P cataract extraction Status post-operative repair of closed fracture of left hip Family History Mother , age 74 from dementia Dementia Father , age 64 Heart disease Stroke Brother , age 83 from dementia Dementia Brother , one month after CABG x 5 Myocardial infarction Sister No problems noted. Daughter No problems noted. Daughter No problems noted. Social History Smoking/Tobacco Use Status: Former Tobacco Use Smoking risk assessment performed?: Yes Alcohol Intake: former Drug use: Never Substance use type: does not use Details: drinks NA beer Caregiver/Support person: Yes (daughter Janeth and her Bryn live near by) Household members: none Housing: other Number of Children: 2 number of grandchildren: 3 Communication Needs: Hard of Hearing and Corrective Lenses Education Level: high school Do you need help understanding health information?: Often current occupation: [employer] Pets and animals: No Current gender identity: male What is your relationship status?: How often do you talk on the phone with friends or family?: three or more times per week How often do you get together with friends or relatives?: three or more times per week Panel score (0-1 are the most socially isolated patients): 1 What type of physical activity do you participate in: walking and regular exercise Duration: 45-60 minutes/day Frequency: 3-4 times per week Special rita needs: No Agree to transfusion: Yes Seatbelt use: always Drive intox or ride w/intox driver license examiner: No Working smoke detector in home: Yes Fire extinguisher in home: Yes Carbon monox detector in home: Yes Do you feel safe at home: Yes Do you feel safe in your relationship?: Yes Additional Social history: Passed the 2 year anniversary of his Jessica's (10/14/19). Has done better than expected. He does go for a 2+ mile walk 3-4 days per week. Likes walking on bike path; he grew up in [place] and path passes through his old neighborhood. Sees his daughter Janeth regularly. Carol does his bills for him. He appreciates the help. Is watching his weight. Would like to weigh about 200. Feels better weighing less. Used to be obese. Attends meal site in [place] 2 x per week. Wants to socialize.
[2023-06-08] MEDS: oxyCODONE 5 MG TAB 2.5 MG PO ×2 (12:59→17:52)
[2023-06-08] MEDS: Acetaminophen 500 MG TAB PO ×2 (13:31→20:03)
[2023-06-08 14:54] VITALS: BP 153/83; PULSE 100; RESP 17; TEMP 36.9; O2SAT 93
--- NOTE | 2023-06-08 16:52 | PGE_ITS ---
Date of Service Date of service: 06/08/23 Time of Service: 16:52 Assessment and Plan Assessment and plan (1) Bilateral sacral insufficiency fracture: Status: Acute Assessment and plan: Likely related to long-term prednisone use. Pain control and mobilization with PT. Ortho was consulted in the ED as in HPI. Consider sacroplasty at [facility] if above plan is not successful. (2) Left renal mass: Status: Acute Assessment and plan: Her PCP has had concerns for an intra-abdominal malignant process. CT shows left renal mass likely renal cell carcinoma. Will need to discuss with [facility] IR for tissue bx. (3) ASCVD (arteriosclerotic cardiovascular disease): Status: Chronic Assessment and plan: Cont atorvastatin. Also on apixaban. No symptoms of ACS. (4) Diabetes mellitus type 2 in obese: Status: Chronic Assessment and plan: A1c of 6.0. Fasting AM glucose of 97 this AM. (5) Diffuse interstitial pulmonary fibrosis: Status: Chronic Assessment and plan: Cont Triotropium/Olodaterol, prn albuterol. Also on prednisone 40mg daily. (6) Essential hypertension: Status: Chronic Assessment and plan: Cont lisinopril. (7) Obstructive sleep apnea syndrome: Status: Chronic Assessment and plan: Home BiPAP (8) CKD (chronic kidney disease): Status: Chronic Assessment and plan: Creatinine 1.6; baseline (9) Pulmonary embolism: Assessment and plan: Cont. anticoagulation with Apixaban. Subjective Subjective Patient reports: feels better, still having pain (Sacroiliac region; bilateral), pain is less, tolerating a regular diet, bowel movement and afebrile; denies diarrhea, nausea, vomiting or shortness of breath Exam Narrative Exam Narrative: Sitting in chair. I observed him pulling himself to an upright position with the bed trapeze and sit on edge of bed. Const General: cooperative and no acute distress Orientation: alert, oriented to person and oriented to place [facility] Head: atraumatic Ears: hearing grossly normal bilaterally Mouth: moist mucous membranes Eyes General: appearance normal, both eyes and all related structures Sclera: sclerae normal Neck Neck: normal visual inspection, full ROM and no JVD Resp Auscultation: clear to auscultation bilaterally, no rales, no rhonchi and no wheezes Cardio Jugular venous pressure: no JVD Rate: regular rate Rhythm: regular rhythm Heart Sounds: no murmurs GI Palpation: soft, no masses and nontender Back/Spine/Pelvis Cervical Spine: cervical ROM normal and No cervical spinal tenderness Thoracic/Lumbar Spine: No paraspinal tenderness, No thoracic spinal tenderness, No lumbar spinal tenderness and straight leg raise positive (left) Pelvis: no pain with lateral compression Skin General skin exam: no rashes or lesions noted Neuro General: patient alert and patient awake Motor: strength 5/5 throughout Sensory Exam: no sensory deficits noted and other (No saddle anesthesia) Extrem General: no pedal edema and no calf tenderness Psych Appearance: grossly normal Affect: normal affect Objective Last Vital Signs Temp 36.9 C 06/08/23 14:54 Pulse 100 H 06/08/23 14:54 Resp 17 06/08/23 14:54 BP 153/83 H 06/08/23 14:54 Pulse Ox 93 06/08/23 14:54 Laboratory Results - last 24 hr 06/08/23 06/08/23 06:25 06:25 WBC 9.78 RBC 4.66 Hgb 14.5 Hct 43.1 MCV 93 MCH 31.1 MCHC 33.6 RDW 17.4 H Plt Count 168 MPV 11.1 H Immature Gran % 1.5 Neutrophils % 69.4 Lymphocytes % 11.8 Monocytes % 15.2 Eosinophils % 1.8 Basophils % 0.3 Nucleated RBC % 0.0 Absolute Neutrophils 6.78 H Absolute Lymphocytes 1.15 L Absolute Monocytes 1.49 H Absolute Eosinophils 0.18 Absolute Basophils 0.03 Sodium 139 Potassium 4.4 Chloride 106 Carbon Dioxide 23.4 Anion Gap 9.6 BUN 42 H Creatinine 1.6 H Est GFR (CKD-EPI 2020) 41.70 Glucose 97 Calcium 8.8 Magnesium 2.1 Time Spent with Patient Time Spent with Patient: 25-34 minutes Time was spent: preparing to see the patient(eg.review tests), obtaining and/or reviewing separately otained hiistory, ordering medications,tests, procedures, referring, communicating with other health care tech, indepentently interpreting results and counseling the patient
[2023-06-08] MEDS: Normal Saline Flush 10 ML SYR IVP (20:03)
[2023-06-08] MEDS: Lidocaine Patch Removal 1 EACH TD (20:07)
[2023-06-08 23:27] VITALS: BP 159/81; PULSE 67; RESP 17; TEMP 36; O2SAT 94
[2023-06-09 06:00] VITALS: BP 169/77; PULSE 64; RESP 17; TEMP 36.4; O2SAT 96
[2023-06-09] MEDS: oxyCODONE 5 MG TAB 2.5 MG PO ×3 (07:33→20:02)
[2023-06-09] MEDS: Tamsulosin 0.4 MG CAPCR PO (07:34)
[2023-06-09] MEDS: Atorvastatin 40 MG TAB 80 MG PO (07:35)
[2023-06-09] MEDS: Multivitamin TAB 1 TAB PO (07:35)
[2023-06-09] MEDS: Furosemide 20 MG TAB PO (07:35)
[2023-06-09] MEDS: Lisinopril 5 MG TAB PO (07:36)
[2023-06-09] MEDS: predniSONE 20 MG TAB 40 MG PO (07:36)
[2023-06-09] MEDS: Apixaban 2.5 MG TAB PO ×2 (07:36→20:02)
[2023-06-09] MEDS: Lactobacillus Acidophilus CAP 1 CAP PO (07:36)
[2023-06-09] MEDS: Acetaminophen 500 MG TAB PO ×3 (07:37→20:02)
[2023-06-09] MEDS: Refresh PLUS Eye Drops 0.4ml OP ×2 (07:37→20:01)
[2023-06-09] MEDS: Methocarbamol 500 MG TAB PO ×3 (07:38→20:02)
[2023-06-09 07:50] VITALS: RESP 16
[2023-06-09] MEDS: Tiotropium/Olodaterol 10 PUFF INHALER IH (07:50)
--- NOTE | 2023-06-09 10:21 | PT.INTREAT ---
Date of service: 06/09/23 Time of Service: 09:57 PT Notes Visit Reasons: Sacral Insufficiency Fractures,Inability to Ambula Inpatient Physical Therapy Treatment Note [facility] Date: 06/09/23 PRECAUTIONS: Fall, standard, activity as tolerated. SUBJECTIVE: Patient reports feeling good today, not sure he wants to get up and walk but generally agreeable to therapy. OBJECTIVE: Sitting in recliner with legs elevated, JEFF alarm in place. ? PAIN: 0/10 at start of therapy, 5/10 at end of therapy. VITALS: monitored by nursing staff Gait Training ([id number]): Direct one-on-one instruction and skilled instruction in: [x] employing an assistive device [x] turning and movement with proper form [x] Provided verbal cues for equipment management and technique [x] Patient education regarding pacing and breathing techniques to maximize activity tolerance? GAIT? Assistive Device: FWW ? Weight bearing: full Assist: CGA ? Distance:? 50 feet, seated rest x2 ? Deviation: forward stooped posture, pushes FWW too far in front (easily corrected with verbal cue) ? STAIRS: Ascends 3 four inch steps, descends 2 six inch steps. Reports pain is increased. ? ASSESSMENT:? Patient tolerates therapy well, will benefit from continued strengthening and education PLAN: Continue treatment per plan of care until patient is medically cleared for discharge. TREATMENT CODE/TIME: [id number] gait 24 minutes beginning at 9:57
--- NOTE | 2023-06-09 14:57 | PGE_ITS ---
Date of Service Date of service: 06/09/23 Time of Service: 14:57 Assessment and Plan Assessment and plan (1) Bilateral sacral insufficiency fracture: Status: Acute Assessment and plan: Likely related to long-term prednisone use. Pain control and mobilization with PT. Ortho was consulted in the ED as in HPI. Consider sacroplasty at [facility] if above plan is not successful. (2) Left renal mass: Status: Acute Assessment and plan: Her PCP has had concerns for an intra-abdominal malignant process. CT shows left renal mass likely renal cell carcinoma. Will need to discuss with [facility] IR for tissue bx. Down and back vs outpt. (3) ASCVD (arteriosclerotic cardiovascular disease): Status: Chronic Assessment and plan: Cont atorvastatin. Also on apixaban. No symptoms of ACS. (4) Diabetes mellitus type 2 in obese: Status: Chronic Assessment and plan: A1c of 6.0. Fasting AM glucose of 97 on 06/08. (5) Diffuse interstitial pulmonary fibrosis: Status: Chronic Assessment and plan: Cont Triotropium/Olodaterol, prn albuterol. Also on prednisone 40mg daily. (6) Essential hypertension: Status: Chronic Assessment and plan: Cont lisinopril. (7) Obstructive sleep apnea syndrome: Status: Chronic Assessment and plan: Home BiPAP (8) CKD (chronic kidney disease): Status: Chronic Assessment and plan: Creatinine 1.6; baseline (9) Pulmonary embolism: Assessment and plan: Cont. anticoagulation with Apixaban. Subjective Subjective Patient reports: no new complaints, feels better, pain is less (Some improvement in mobility) and afebrile; denies diarrhea, nausea, vomiting or shortness of breath Exam Narrative Exam Narrative: Sitting in chair. Pleasant and conversant. Const General: cooperative and no acute distress Orientation: alert, oriented to person and oriented to place [facility] Head: atraumatic Ears: hearing grossly normal bilaterally Mouth: moist mucous membranes Eyes General: appearance normal, both eyes and all related structures Sclera: sclerae normal Neck Neck: normal visual inspection, full ROM and no JVD Resp Auscultation: clear to auscultation bilaterally, no rales, no rhonchi and no wheezes Cardio Jugular venous pressure: no JVD Rate: regular rate Rhythm: regular rhythm Heart Sounds: no murmurs GI Palpation: soft, no masses and nontender Back/Spine/Pelvis Thoracic/Lumbar Spine: No paraspinal tenderness, No thoracic spinal tenderness, No lumbar spinal tenderness and straight leg raise positive (left) Pelvis: other (Tenderness to compression of sacrum. ) Coccyx: other (Tenderness to compression of sacrum. ) Skin General skin exam: no rashes or lesions noted Neuro General: patient alert and patient awake Motor: strength 5/5 throughout Sensory Exam: no sensory deficits noted and other (No saddle anesthesia) Extrem General: no pedal edema and no calf tenderness Psych Appearance: grossly normal Affect: normal affect Objective Last Vital Signs Temp 36.4 C L 06/09/23 06:00 Pulse 64 06/09/23 06:00 Resp 17 06/09/23 06:00 BP 169/77 H 06/09/23 06:00 Pulse Ox 96 06/09/23 06:00 Time Spent with Patient Time Spent with Patient: 25-34 minutes Time was spent: preparing to see the patient(eg.review tests), obtaining and/or reviewing separately otained hiistory, ordering medications,tests, procedures, referring, communicating with other health care specialist, indepentently interpreting results and counseling the patient
[2023-06-09 15:25] VITALS: BP 135/76; PULSE 82; TEMP 37; O2SAT 94
[2023-06-09] MEDS: Normal Saline Flush 10 ML SYR IVP (20:01)
[2023-06-09 23:05] VITALS: BP 164/60; PULSE 66; RESP 16; TEMP 36.2; O2SAT 96
[2023-06-10 07:22] LABS: Anion Gap 7.3 mmol/L (3-11); BUN 49 mg/dL (7-18); CO2 25.7 mmol/L (21.0-32.0); CREATININE 1.7 mg/dL (0.70-1.30); Calcium 8.9 mg/dL (8.5-10.1); Chloride 107 mmol/L (98-107); Estimated GFR 38.78 (mL/min/1.73m2); Glucose 89 mg/dL (74-106); Potassium 4.7 mmol/L (3.5-5.1); Sodium 140 mmol/L (136-145)
[2023-06-10] MEDS: Atorvastatin 40 MG TAB 80 MG PO (08:16)
[2023-06-10] MEDS: oxyCODONE 5 MG TAB 2.5 MG PO ×3 (08:16→16:56)
[2023-06-10] MEDS: Tamsulosin 0.4 MG CAPCR PO (08:16)
[2023-06-10] MEDS: Lactobacillus Acidophilus CAP 1 CAP PO (08:16)
[2023-06-10] MEDS: predniSONE 20 MG TAB 40 MG PO (08:16)
[2023-06-10] MEDS: Furosemide 20 MG TAB PO (08:16)
[2023-06-10] MEDS: Lisinopril 5 MG TAB PO (08:16)
[2023-06-10] MEDS: Refresh PLUS Eye Drops 0.4ml OP ×2 (08:16→19:32)
[2023-06-10] MEDS: Methocarbamol 500 MG TAB PO ×3 (08:17→19:32)
[2023-06-10] MEDS: Acetaminophen 500 MG TAB PO ×3 (08:17→19:33)
[2023-06-10] MEDS: Multivitamin TAB 1 TAB PO (08:17)
[2023-06-10] MEDS: Apixaban 2.5 MG TAB PO ×2 (08:17→19:33)
[2023-06-10] MEDS: Normal Saline Flush 10 ML SYR IVP (08:20)
[2023-06-10 08:23] VITALS: BP 174/97; PULSE 67; RESP 18; TEMP 36; O2SAT 94
[2023-06-10] MEDS: Tiotropium/Olodaterol 10 PUFF INHALER IH (08:54)
[2023-06-10 09:00] VITALS: RESP 16
--- NOTE | 2023-06-10 10:09 | CMPROGNOTE_ITS ---
Date of service: 06/10/23 Time of Service: 10:09 Care Management Progress Note Progress Note Text Progress Note Text: S/O:Francis continues to have pain in his sacral area. He has been medicated for it with good effect. The provider plans to reach out to [facility] to see if it is possible to send him for a sacroplasty. Francis has also been found to have a renal mass that may need to be biopsied. CM to follow. A: Francis is an 87 year old man admitted on 06/09/23 with sacral fractures P:Anticipate Francis will discharge back to the [facility] with no new services. He will follow up with his community providers and plan of care and transport with family. CM will follow and continue to assess for discharge needs.
[2023-06-10 14:43] LABS: Albumin 53.4 % (55.8-66.1); Albumin g/dL 3.2 g/dL (3.6-5.2); Comment (See Note); Monoclonal Spike 3.4 % (None Seen); Monoclonal Spike g/dL 0.2 g/dL (None Seen); Total Protein 5.9 g/dL (6.3-8.2)
[2023-06-10 15:40] LABS: Immunotyping, Serum (See Note)
[2023-06-10 15:45] VITALS: BP 147/75; PULSE 78; RESP 18; TEMP 36.7; O2SAT 92
--- NOTE | 2023-06-10 16:58 | PT.INTREAT ---
Date of service: 06/10/23 Time of Service: 16:47 PT Notes Visit Reasons: Sacral Insufficiency Fractures,Inability to Ambula Inpatient Physical Therapy Treatment Note [facility] Date: 06/10/23 PRECAUTIONS: Fall, standard, activity as tolerated SUBJECTIVE: Patient reports still being in significant pain. Inquires as to whether therapy will make him feel better. Expresses that he doubts it will, but he's willing to try. OBJECTIVE: Patient supine in bed, agreeable to therapy ? PAIN: Significant, as indicated by gasping, groaning, grimacing. VITALS: monitored by nursing staff ??? Therapeutic Activities ([id number]): Direct one-on-one instruction in dynamic activities to improve functional performance. ? BED MOBILITY/TRANSFERS? Rolling L/R: SBA with verbal cues and encouragement Supine-sit: Mod assist, limited by pain? Sit-supine: Mod assist, limited by pain ? Sit-stand: Mod assist, limited by pain ? Stand-sit: Mod assist, limited by pain ? Bed-Chair: Mod assist, limited by pain ? Chair-bed: Mod assist, limited by pain ASSESSMENT:?Patient reports significant pain, declines further therapy. PLAN: Continue global strengthening per plan of care as patient is able to tolerate. TREATMENT CODE/TIME: 8 minutes beginning at 16:47
--- NOTE | 2023-06-10 19:39 | PGE_ITS ---
Date of Service Date of service: 06/10/23 Time of Service: 19:40 Assessment and Plan Assessment and plan (1) Bilateral sacral insufficiency fracture: Status: Acute Assessment and plan: Likely related to long-term prednisone use. Pain control and mobilization with PT. Ortho was consulted in the ED as in HPI. Spoke with IR at [facility] who are accepting him for a down and back sacroplasty but they would like an MRI of lumbar spine and sacrum for more clear imaging. Dr Fuentes also mentioned the possibiltiy of stabilizing the fractures with hardware/screws that could be performed at [facility]. This might be a later option after the sacroplasty and after the bx of his renal mass and decisions made regarding those findings. (2) Left renal mass: Status: Acute Assessment and plan: Her PCP has had concerns for an intra-abdominal malignant process. CT shows left renal mass likely renal cell carcinoma. Will need to discuss with [facility] IR for tissue bx. as outpt. (3) ASCVD (arteriosclerotic cardiovascular disease): Status: Chronic Assessment and plan: Cont atorvastatin. Also on apixaban. No symptoms of ACS. (4) Diabetes mellitus type 2 in obese: Status: Chronic Assessment and plan: A1c of 6.0. Fasting AM glucose of 97 on 06/08 and 89 on 06/10. (5) Diffuse interstitial pulmonary fibrosis: Status: Chronic Assessment and plan: Cont Triotropium/Olodaterol, prn albuterol. Also on prednisone 40mg daily. (6) Essential hypertension: Status: Chronic Assessment and plan: Cont lisinopril. (7) Obstructive sleep apnea syndrome: Status: Chronic Assessment and plan: Home BiPAP (8) CKD (chronic kidney disease): Status: Chronic Assessment and plan: Creatinine 1.6 - 1.7. baseline (9) Pulmonary embolism: Assessment and plan: Take apixiban; hold starting in AM for sacroplasty. Subjective Subjective Patient reports: pain is less (Used oxycodone 2.5mg TID today) and bowel movement; denies nausea, vomiting or shortness of breath Exam Narrative Exam Narrative: Sitting in bed with feet on floor / upper body semireclined. No current c/o pain. Const General: cooperative and no acute distress Orientation: alert, oriented to person and oriented to place [facility] Head: atraumatic Ears: hearing grossly normal bilaterally Mouth: moist mucous membranes Eyes General: appearance normal, both eyes and all related structures Sclera: sclerae normal Neck Neck: normal visual inspection, full ROM and no JVD Resp Auscultation: clear to auscultation bilaterally, no rales, no rhonchi and no wheezes Cardio Jugular venous pressure: no JVD Rate: regular rate Rhythm: regular rhythm Heart Sounds: no murmurs GI Palpation: soft, no masses and nontender Back/Spine/Pelvis Thoracic/Lumbar Spine: No thoracic spinal tenderness, No lumbar spinal tenderness and straight leg raise positive (left) Skin General skin exam: no rashes or lesions noted Neuro General: patient alert and patient awake Motor: strength 5/5 throughout Sensory Exam: no sensory deficits noted and other (No saddle anesthesia) Extrem General: no pedal edema and no calf tenderness Psych Appearance: grossly normal Affect: normal affect Objective Last Vital Signs Temp 36.7 C 06/10/23 15:45 Pulse 78 06/10/23 15:45 Resp 18 06/10/23 15:45 BP 147/75 H 06/10/23 15:45 Pulse Ox 92 06/10/23 15:45 Laboratory Results - last 24 hr 06/07/23 06/07/23 06/10/23 09:50 09:50 06:20 Sodium 140 Potassium 4.7 Chloride 107 Carbon Dioxide 25.7 Anion Gap 7.3 BUN 49 H Creatinine 1.7 H Est GFR (CKD-EPI 2020) 38.78 Glucose 89 Calcium 8.9 Total Protein (PEP) 5.9 L Albumin % (PEP) 53.4 L Albumin (PEP) 3.2 L Ocsvn-4-Ojlvhdrgg 0.40 Stems-3-Aqkgxtpew (%) 6.4 H Pdcjh-3-Lrfcgoljg 0.90 Kgtqi-3-Mxdtxjypw (%) 15.3 H Beta Globulins (%) 12.8 Beta Gamma Globulin 0.80 Gamma Globulins 0.70 Gamma Globulins (%) 12.1 M-Jonathon 0.2 H M-Jonathon % 3.4 H PEP Comment (See Note) PSA Screen 2.1 Serum Immunofixation (See Note) Time Spent with Patient Time Spent with Patient: 35-49 minutes Time was spent: preparing to see the patient(eg.review tests), obtaining and/or reviewing separately [facility], ordering medications,tests, procedures, referring, communicating with other health healthcare social worker, indepentently interpreting results, counseling the patient and care coordination
[2023-06-10 23:28] VITALS: BP 138/66; PULSE 75; RESP 18; TEMP 36.7; O2SAT 95
[2023-06-11 07:02] LABS: INR 0.9 (0.9-1.1); Prothrombin Time 9.5 sec (9.3-11.0)
[2023-06-11 07:10] VITALS: BP 165/81; PULSE 62; TEMP 36.2; O2SAT 98
[2023-06-11 07:14] LABS: BUN 52 mg/dL (7-18); CREATININE 1.6 mg/dL (0.70-1.30); Calcium 9.1 mg/dL (8.5-10.1); Chloride 105 mmol/L (98-107); Glucose 99 mg/dL (74-106); Potassium 4.8 mmol/L (3.5-5.1); Sodium 139 mmol/L (136-145)
[2023-06-11] MEDS: Tiotropium/Olodaterol 10 PUFF INHALER IH (07:38)
[2023-06-11] MEDS: Methocarbamol 500 MG TAB PO ×3 (08:16→19:57)
[2023-06-11] MEDS: Acetaminophen 500 MG TAB PO ×3 (08:16→19:57)
[2023-06-11] MEDS: oxyCODONE 5 MG TAB 2.5 MG PO (08:16)
[2023-06-11] MEDS: Lidocaine 5% Patch 1 PATCH TP (09:57)
[2023-06-11] MEDS: Lactobacillus Acidophilus CAP 1 CAP PO (10:01)
[2023-06-11] MEDS: predniSONE 20 MG TAB 40 MG PO (10:01)
[2023-06-11] MEDS: Tamsulosin 0.4 MG CAPCR PO (10:02)
[2023-06-11] MEDS: Lisinopril 5 MG TAB PO (10:02)
[2023-06-11] MEDS: Atorvastatin 40 MG TAB 80 MG PO (10:02)
[2023-06-11] MEDS: Refresh PLUS Eye Drops 0.4ml OP ×2 (10:02→19:58)
[2023-06-11] MEDS: Multivitamin TAB 1 TAB PO (10:02)
[2023-06-11] MEDS: Furosemide 20 MG TAB PO (10:02)
[2023-06-11] MEDS: Normal Saline Flush 10 ML SYR IVP ×2 (10:03→11:14)
[2023-06-11] MEDS: HYDROmorphone 2 MG/ML SYR 1 MG IVP ×2 (10:06→11:10)
--- NOTE | 2023-06-11 11:02 | RESPIRATORY ---
Patient is using his own home unit on this hospitalization, it's a [employer] Bipap 16/ PS 4 and the DME is [facility]. The patient uses a [employer] nasal mask size Large.
[2023-06-11] MEDS: Lidocaine Patch Removal 1 EACH TD (11:14)
[2023-06-11] MEDS: Gadoterate meglumine 20 ML VIAL IVP (12:05)
--- NOTE | 2023-06-11 12:15 | DI.MRI_ITS ---
Exam(s) MR PELVIS WO/W EXAM: MR PELVIS WO/W CLINICAL HISTORY: sacral insuff. fractures and new renal mass TECHNIQUE: Multiplanar multisequence MRI of Pelvis was performed. CONTRAST MATERIAL: IV Contrast: 20 mL of Dotarem contrast administered. COMPARISON: CT CT ABDOMEN PELVIS W from 06/07/[address] LUMBAR SPINE RECONS from 06/07/2023 FINDINGS: Bones: Sacral insufficiency fractures are again seen in both sacral ala. There are no findings to s uggest metastatic disease. There is also a fracture seen through the 2nd sacral segment. Musculotendinous structures: There is mild fatty atrophy of the gluteal muscles. Intrapelvic struct ures demonstrate no significant abnormality. IMPRESSION: 1. Bilateral sacral insufficiency fractures. 2. Fracture of the 2nd sacral segment. DATA REPOSITORY:
--- NOTE | 2023-06-11 12:30 | DI.MRI_ITS ---
Exam(s) MR LUMBAR SPINE WO/W EXAM: MR LUMBAR SPINE WO/W CLINICAL HISTORY: questionable lumbar compression fx. TECHNIQUE: Multiplanar multisequence MRI of the Lumbar Spine was performed. CONTRAST MATERIAL: IV Contrast: 20 mL of Dotarem contrast administered. COMPARISON: CT CT ABDOMEN PELVIS W from 06/07/[address] LUMBAR SPINE RECONS from 06/07/2023 FINDINGS: The examination is limited due to patient motion artifact. Bones: The last intervertebral disc space is designated the L5/S1 level for the numbering purpose of this examination. The lumbar vertebral body heights are well maintained. Alignment is satisfactory. There is a fracture seen through the 2nd sacral segment which shows hyperintense signal on the T2 and STIR images. There is normal marrow signal seen in the lumbar vertebral bodies. Cord: The conus tip ends at the L1 level. It is of normal size and signal intensity. T12-L1: No disc herniations or bulges are present. No central spinal canal or neural foraminal stenos is. L1-2: No disc herniations or bulges are present. No central spinal canal or neural foraminal stenosis . L2-3: There are degenerative changes of the facets and ligamentum flavum. There is mild narrowing of the central spinal canal. There is marked bilateral neural foraminal stenosis. L3-4: No disc herniations or bulges are present. No central spinal canal or neural foraminal stenosis .There are degenerative changes of the facets present. L4-5: Degenerative changes of the facets and hypertrophy of ligamentum flavum is present. There is m ild narrowing of the central spinal canal. Moderately severe right right and moderate left neural fo raminal stenosis is present. L5-S1: There is a diffuse disc bulge. There are degenerative changes of the facets present. No sign ificant central spinal canal stenosis. There is mild bilateral neural foraminal stenosis. Soft tissues: Renal cysts are present. There are no findings to suggest osseous metastatic disease. IMPRESSION: 1. There is no evidence of osseous metastatic disease in the lumbar spine. 2. No acute fractures are seen in the lumbar spine. 3. Please refer to the MRI of the pelvis for discussion of the sacral fractures. 4. Multilevel degenerative changes in the lumbar spine resulting in central spinal canal or neural fo raminal stenosis as described above. DATA REPOSITORY:
--- NOTE | 2023-06-11 14:54 | PT.INNT ---
Date of service: 06/11/23 Time of Service: 10:05 PT Notes Visit Reasons: Sacral Insufficiency Fractures,Inability to Ambula patient refused therapy in a.m. due to excruciating pain - CHRISTINE Boyd present giving dilauded, patient clearly in maximal discomfort. afternoon, patient hesitantly agreeable to therapy however he is very confused, unable to follow directions. Also, patient is still in a lot of pain as reported and as evidenced by squirming, grimacing, etc.
[2023-06-11 15:29] VITALS: BP 119/75; PULSE 88; TEMP 36.7; O2SAT 95
--- NOTE | 2023-06-11 16:14 | CMPROGNOTE_ITS ---
Date of service: 06/11/23 Time of Service: 16:14 Care Management Progress Note Progress Note Text Progress Note Text: S/O: Francis continues to meet inpatient level of care. He is expected to go down and back to [facility] IR at some point for a sacroplasty procedure. He also has a new finding of a renal mass that may be biopsied while at [facility]. Francis is sitting in a chair when CM comes to meet with him. He shares he is having a lot of pain in his sacral area and says the pain is tolerable as long as he sits still in the chair. A: Francis is an 87 year old male admitted to [facility] on 06/09/23 with sacral insufficiency fractures and inability to ambulate. P: Francis will likely discharge back to the [facility] when medically cleared by provider. He will follow up with his PCP and plan of care as instructed. He will be transported back to the facility by family via private vehicle when ready. CM will continue to support Francis and any discharge planning needs.
--- NOTE | 2023-06-11 18:53 | PGE_ITS ---
Date of Service Date of service: 06/11/23 Time of Service: 18:53 Assessment and Plan Assessment and plan (1) Bilateral sacral insufficiency fracture: Status: Acute Assessment and plan: Likely related to long-term prednisone use. Pain control and mobilization with PT. Ortho was consulted in the ED as in HPI. Spoke with IR at [facility] who are accepting him for a down and back sacroplasty but they would like an MRI of lumbar spine and sacrum for more clear imaging. MRI results sent to [facility]. Dr Fuentes also mentioned the possibiltiy of stabilizing the fractures with hardware/screws that could be performed at [facility]. This might be a later option after the sacroplasty and after the bx of his renal mass and decisions made regarding those findings. Plan is for hospitalist to call [facility] neuro IR tomorrow to find out when they have scheduled him. (2) Left renal mass: Status: Acute Assessment and plan: His PCP has had concerns for an intra-abdominal malignant process. CT shows left renal mass likely renal cell carcinoma. Will need to discuss with [facility] IR for tissue bx. as outpt. (3) ASCVD (arteriosclerotic cardiovascular disease): Status: Chronic Assessment and plan: Cont atorvastatin. Also on apixaban. No symptoms of ACS. (4) Diabetes mellitus type 2 in obese: Status: Chronic Assessment and plan: A1c of 6.0. Fasting AM glucose of 97 on 06/08 and 89 on 06/10, 99 on 06/11. (5) Diffuse interstitial pulmonary fibrosis: Status: Chronic Assessment and plan: Cont Triotropium/Olodaterol, prn albuterol. Also on prednisone 40mg daily. No respiratory symptoms. (6) Essential hypertension: Status: Chronic Assessment and plan: Cont lisinopril. (7) Obstructive sleep apnea syndrome: Status: Chronic Assessment and plan: Home BiPAP (8) CKD (chronic kidney disease): Status: Chronic Assessment and plan: Creatinine 1.6 - 1.7. baseline (9) Pulmonary embolism: Assessment and plan: Take apixiban; hold starting in AM for sacroplasty. Subjective Subjective Patient reports: tolerating a regular diet and afebrile; denies nausea, vomiting or shortness of breath Interval history since last seen: Pt developed low back / right buttocks pain after first MRI today. Given IV dilaudid. He was able to proceed with the second MRI and complete it. Exam Narrative Exam Narrative: Sitting in recliner. Appears uncomfortable. Const General: cooperative Orientation: alert, oriented to person and oriented to place [facility] Head: atraumatic Ears: hearing grossly normal bilaterally Mouth: moist mucous membranes Eyes General: appearance normal, both eyes and all related structures Sclera: sclerae normal Neck Neck: normal visual inspection, full ROM and no JVD Resp Auscultation: clear to auscultation bilaterally, diminished lung sounds, no rales, no rhonchi and no wheezes Cardio Jugular venous pressure: no JVD Rate: regular rate Rhythm: regular rhythm Heart Sounds: no murmurs GI Palpation: soft, no masses and nontender Back/Spine/Pelvis Thoracic/Lumbar Spine: No thoracic spinal tenderness, No lumbar spinal tenderness and straight leg raise positive (left) Skin General skin exam: no rashes or lesions noted Neuro General: patient alert, patient awake and no focal motor deficits Motor: strength 5/5 throughout Extrem General: no pedal edema and no calf tenderness Psych Appearance: grossly normal Affect: normal affect Objective Last Vital Signs Temp 36.7 C 06/11/23 15:29 Pulse 88 06/11/23 15:29 Resp 18 06/10/23 23:28 BP 119/75 06/11/23 15:29 Pulse Ox 95 06/11/23 15:29 Laboratory Results - last 24 hr 06/11/23 06/11/23 06:34 06:34 PT 9.5 INR 0.9 Sodium 139 Potassium 4.8 Chloride 105 Carbon Dioxide 27.0 Anion Gap 7.0 BUN 52 H Creatinine 1.6 H Est GFR (CKD-EPI 2020) 41.70 Glucose 99 Calcium 9.1 Time Spent with Patient Time Spent with Patient: 35-49 minutes Time was spent: preparing to see the patient(eg.review tests), obtaining and/or reviewing separately otained hiistory, ordering medications,tests, procedures, referring, communicating with other health skin care technician, indepentently interpreting results, counseling the patient and care coordination
[2023-06-11 23:42] VITALS: BP 158/84; PULSE 70; RESP 20; TEMP 36.5; O2SAT 92
[2023-06-12 07:46] VITALS: BP 169/83; PULSE 63; RESP 18; TEMP 36.7; O2SAT 97
[2023-06-12 08:40] VITALS: RESP 16
--- NOTE | 2023-06-12 08:51 | CMPROGNOTE_ITS ---
Date of service: 06/12/23 Time of Service: 08:51 Care Management Progress Note Progress Note Text Progress Note Text: S/O:? Francis was in bed eating his lunch when CM met with him. He was in good spirits and stated that as long as he does not move, he is pain free. Francis is scheduled to go to [facility] tomorrow for a down and back sacroplasty. It is hoped that with stabilization of the fractures, he will have more mobility with less pain. Francis attempted to work with PT this morning but his efforts were limited due to excruciating pain. A:? Francis is an 87 year old male admitted to [facility] on 06/09/23 with sacral insufficiency fractures and inability to ambulate. P:? Francis will likely discharge back to the [facility] when medically cleared by provider.? He will follow up with his PCP and plan of care as instructed.? He will be transported back to the facility by family via private vehicle when ready.? CM will continue to support Francis and any discharge planning needs. cc:
[2023-06-12] MEDS: Refresh PLUS Eye Drops 0.4ml OP ×2 (09:50→19:07)
[2023-06-12] MEDS: Atorvastatin 40 MG TAB 80 MG PO (09:50)
[2023-06-12] MEDS: Methocarbamol 500 MG TAB PO ×3 (09:51→19:07)
[2023-06-12] MEDS: Lisinopril 5 MG TAB PO (09:51)
[2023-06-12] MEDS: predniSONE 20 MG TAB 40 MG PO (09:51)
[2023-06-12] MEDS: Furosemide 20 MG TAB PO (09:51)
[2023-06-12] MEDS: Lidocaine 5% Patch 1 PATCH TP (09:52)
[2023-06-12] MEDS: Tiotropium/Olodaterol 10 PUFF INHALER IH (09:53)
[2023-06-12 09:56] LABS: Abs Immature Grans 0.15 10^3/uL (0.0-0.06); Absolute Eosinophil Count 0.03 10^3/uL (0.0-0.7); Absolute Monocyte Count 1.77 10^3/uL (0.1-0.8); Basophils % 0.2; Eosinophils % 0.2; HCT 43.4 % (40.0-50.0); HGB 14.5 g/dL (13.5-17.5); Immature Grans % 1.1; Lymphocytes % 9.1; MCH 30.6 pg (27.0-33.0); MCHC 33.4 % (32.0-36.0); MCV 92 fL (80-95); MPV 11.8 fL (8.0-11.0); Monocytes % 13.4; Platelet Count 181 10^3/uL (130-400); RBC 4.74 10^6/uL (4.36-5.78); RDW 16.9 % (11.8-14.1); RDW-SD 57.2 fL; WBC 13.18 10^3/uL (4.4-10.8)
[2023-06-12 10:02] LABS: Absolute Basophil Count 0.03 10^3/uL (0.0-0.2); Absolute Neutrophil Count 10.02 10^3/uL (1.2-6.7)
[2023-06-12 10:20] LABS: Anion Gap 7.9 mmol/L (3-11); BUN 51 mg/dL (7-18); CO2 26.1 mmol/L (21.0-32.0); CREATININE 1.6 mg/dL (0.70-1.30); Calcium 9.2 mg/dL (8.5-10.1); Chloride 104 mmol/L (98-107); Glucose 97 mg/dL (74-106); Magnesium 2.3 mg/dL (1.8-2.4); Potassium 4.8 mmol/L (3.5-5.1); Sodium 138 mmol/L (136-145)
--- NOTE | 2023-06-12 11:48 | PT.INTREAT ---
PT Notes Visit Reasons: Sacral Insufficiency Fractures,Inability to Ambula Date: 06/12/23 ?PRECAUTIONS: Fall, standard, activity as tolerated ?SUBJECTIVE: Pt in bed when approached for therapy this morning, pt in excruciating pain doubtful if he could participate but was agreeable to trying. requested to initially use urinal prior to participating with therapy. ?OBJECTIVE: Patient supine in bed, agreeable to therapy ?PAIN: Excruciating ?VITALS: monitored by nursing staff? Therapeutic Activities 52137 x1: Direct one-on-one instruction in dynamic activities to improve functional performance. ?BED MOBILITY/TRANSFERS?Rolling L/R: SBA using overhead trapeze ?Supine-sit: Mod assist, limited by pain?Sit-supine: Mod assist, limited by pain ?Sit-stand: Mod assist, limited by pain ?Stand-sit: Mod assist, limited by pain ?Bed-Chair: Mod assist, limited by pain ?Chair-bed: Mod assist, limited by pain Gait Training [id number]: Direct one-on-one instruction and skilled instruction in: [x] employing an assistive device [x] modified weight-bearing status [x] movement sequencing [x] turning and movement with proper form [x] Provided verbal cues for equipment management and technique [x] Provided instruction in gait pattern [x] Patient education regarding pacing and breathing techniques to maximize activity tolerance? GAIT? Assistive Device: [FWW]? Weight bearing: [WBAT] Assist: [MIN] ? Distance:? [10'x2] ? Deviation: [Antalgic] ? ASSESSMENT:?Pt able to stand 30secs intervals, able to stay in recliner for 10mins before the pain became unbearable, able to go back and forth across his room using FWW and min A, no gait belt since the gait belt was producing pain on contact with pt back. ?PLAN:? Continue global strengthening per plan of care as patient is able to tolerate. ?TREATMENT CODE/TIME: 25 minutes 11:15-11:40am
--- NOTE | 2023-06-12 12:08 | W.PM.PROGNOT ---
Date of Service Date of service: 06/12/23 Time of Service: 12:08 Assessment and Plan Assessment and plan (1) Bilateral sacral insufficiency fracture: Status: Acute Assessment and plan: Agree that this may have to do with long-standing prednisone use. For sacroplasty by [facility] tomorrow at [address] Calderón at [facility] who reviewed the case as well as the MRI. Continue pain control (increase tylenol dose), PT. (2) Left renal mass: Status: Acute Assessment and plan: Left renal mass, per CT - likely renal cell carcinoma. Will need outpatient biopsy. (3) ASCVD (arteriosclerotic cardiovascular disease): Status: Chronic Assessment and plan: No reasons to suspect ACS on this admission. Continue atorvastatin. Not on antiplatelet tx but is on apixaban for a h/o PE. (4) Diabetes mellitus type 2 in obese: Status: Chronic Assessment and plan: A1c of 6.0. Has not required SSI here. (5) Diffuse interstitial pulmonary fibrosis: Status: Chronic Assessment and plan: Continue Triotropium/Olodaterol, prn albuterol, prednisone 40mg daily. He is at baseline. Encourage pulmonary toilet. (6) Essential hypertension: Status: Chronic Assessment and plan: Continue lisinopril. (7) Obstructive sleep apnea syndrome: Status: Chronic Assessment and plan: Continue home BiPAP (8) CKD (chronic kidney disease): Status: Chronic Assessment and plan: Creatinine at baseline (9) Pulmonary embolism: Assessment and plan: Holding apixaban in anticipation of sacroplasty. (10) Discharge planning issues: Status: Acute Assessment and plan: Full code PT consulted. Will evaluate appropriate disposition pending sacroplasty. Subjective Subjective Interval history since last seen: Mr Nur states that, while he is still, his pain is 3-4/10. With movement, it is 8/10. He was in too much pain last night to work with PT. He had not yet worked with PT when I saw him. He felt this level of pain would make it impossible for him to go home. No dizziness, CP, SOB, n. The patient had a hard time hearing without his hearing aides on and this complicated our interview. The case was discussed with [facility] IR: Dr Calderón reviewed the case and feels CT-guided sacroplasty would be appropriate as a [id number] procedure. He is scheduled to have it tomorrow at 3 pm. I have spoken with the patient's daughter Carol and updated her on the plan. Her phone number is [phone]. Exam Narrative Exam Narrative: General: Pleasant elderly male who is [place], appears comfortable laying flat in bed HEENT: EOMI, MMM Heart: RRR Lungs: CTAB Abdomen: soft, nontender, nondistended Back: TTP sacral area; lidocaine patch is on. Extremities: no edema BLEs, able to move BLEs Objective Last Vital Signs Temp 36.7 C 06/12/23 07:46 Pulse 63 06/12/23 07:46 Resp 18 06/12/23 07:46 BP 169/83 H 06/12/23 07:46 Pulse Ox 97 06/12/23 07:46 Laboratory Results - last 24 hr 06/12/23 06/12/23 09:10 09:10 WBC 13.18 H RBC 4.74 Hgb 14.5 Hct 43.4 MCV 92 MCH 30.6 MCHC 33.4 RDW 16.9 H Plt Count 181 MPV 11.8 H Immature Gran % 1.1 Neutrophils % 76.0 Lymphocytes % 9.1 Monocytes % 13.4 Eosinophils % 0.2 Basophils % 0.2 Nucleated RBC % 0.0 Absolute Neutrophils 10.02 H Absolute Lymphocytes 1.20 Absolute Monocytes 1.77 H Absolute Eosinophils 0.03 Absolute Basophils 0.03 Sodium 138 Potassium 4.8 Chloride 104 Carbon Dioxide 26.1 Anion Gap 7.9 BUN 51 H Creatinine 1.6 H Est GFR (CKD-EPI 2020) 41.70 Glucose 97 Calcium 9.2 Magnesium 2.3 Time Spent with Patient Time Spent with Patient: 35-49 minutes Time was spent: preparing to see the patient(eg.review tests), obtaining and/or reviewing separately otained hiistory, ordering medications,tests, procedures, referring, communicating with other health daycare manager, indepentently interpreting results, counseling the patient and care coordination
[2023-06-12 15:30] VITALS: BP 149/85; PULSE 90; RESP 18; TEMP 37; O2SAT 91
[2023-06-12 15:35] LABS: Lab Add On Test DONE
[2023-06-12] MEDS: Acetaminophen 500 MG TAB 1000 MG PO ×2 (15:41→19:07)
[2023-06-12] MEDS: Tamsulosin 0.4 MG CAPCR PO (15:42)
[2023-06-12 16:41] LABS: Procalcitonin < 0.1 ng/mL
[2023-06-12] MEDS: Lidocaine Patch Removal 1 EACH TD (19:08)
[2023-06-12 19:22] VITALS: BP 137/72; PULSE 80; RESP 16; TEMP 36.5; O2SAT 93
[2023-06-12 23:16] VITALS: RESP 9
[2023-06-13 07:17] LABS: HCT 43.5 % (40.0-50.0); HGB 14.3 g/dL (13.5-17.5); MCHC 32.9 % (32.0-36.0); MCV 91 fL (80-95); MPV 11.1 fL (8.0-11.0); Platelet Count 182 10^3/uL (130-400); RBC 4.76 10^6/uL (4.36-5.78); RDW 17.3 % (11.8-14.1); RDW-SD 58.5 fL; WBC 13.04 10^3/uL (4.4-10.8)
[2023-06-13 07:35] LABS: Anion Gap 8.1 mmol/L (3-11); BUN 54 mg/dL (7-18); CO2 27.9 mmol/L (21.0-32.0); CREATININE 1.6 mg/dL (0.70-1.30); Chloride 103 mmol/L (98-107); Glucose 96 mg/dL (74-106); Magnesium 2.5 mg/dL (1.8-2.4); Potassium 4.4 mmol/L (3.5-5.1); Sodium 139 mmol/L (136-145)
[2023-06-13] MEDS: Tiotropium/Olodaterol 10 PUFF INHALER IH (07:42)
[2023-06-13 07:59] VITALS: BP 172/79; PULSE 63; RESP 18; TEMP 36.2; O2SAT 94
[2023-06-13] MEDS: Atorvastatin 40 MG TAB 80 MG PO (08:08)
[2023-06-13] MEDS: Acetaminophen 500 MG TAB 1000 MG PO ×2 (08:08→21:09)
[2023-06-13] MEDS: Refresh PLUS Eye Drops 0.4ml OP ×2 (08:08→21:11)
[2023-06-13] MEDS: Tamsulosin 0.4 MG CAPCR PO (08:08)
[2023-06-13] MEDS: Methocarbamol 500 MG TAB PO ×2 (08:08→21:11)
[2023-06-13] MEDS: Lidocaine 5% Patch 1 PATCH TP (08:08)
[2023-06-13] MEDS: Furosemide 20 MG TAB PO (08:09)
[2023-06-13] MEDS: Lisinopril 5 MG TAB PO (08:09)
[2023-06-13] MEDS: predniSONE 20 MG TAB 40 MG PO (08:09)
[2023-06-13] MEDS: Multivitamin TAB 1 TAB PO (08:09)
[2023-06-13] MEDS: Lactobacillus Acidophilus CAP 1 CAP PO (08:09)
[2023-06-13 08:27] LABS: Absolute Lymphocyte Count 1.43 10^3/uL (1.2-3.4); Absolute Monocyte Count 1.56 10^3/uL (0.1-0.8); Absolute Neutrophil Count 10.04 10^3/uL (1.2-6.7); Diff Comment Manual Differential; RBC Morphology Normal
[2023-06-13] MEDS: oxyCODONE 5 MG TAB PO (09:09)
--- NOTE | 2023-06-13 10:22 | CMPROGNOTE_ITS ---
Date of service: 06/13/23 Time of Service: 10:22 Care Management Progress Note Progress Note Text Progress Note Text: S/O:? Francis is scheduled to [place] [facility] [place] a down and back sacro[place]. CM met with Francis and his daughter Carol briefly before he left. He stated that he really hopes the procedure works as he is in a lot of pain. Francis will likely be able to discharge back to [facility] when his pain is under control. He complained of urinary frequency today and a urinalysis and culture were done. A:? Francis is an 87 year old male admitted to [facility] on 06/09/23 with sacral insufficiency fractures and inability to ambulate. P:? Francis will likely discharge back to the [facility] when medically cleared by provider.? He will follow up with his PCP and plan of care as instructed.? He will be transported back to the facility by family via private vehicle when ready.? CM will continue to support Francis and any discharge planning needs.
--- NOTE | 2023-06-13 10:25 | W.PM.PROGNOT ---
Date of Service Date of service: 06/13/23 Time of Service: 10:25 Assessment and Plan Assessment and plan (1) Bilateral sacral insufficiency fracture: Status: Acute Assessment and plan: Related to long-standing prednisone use. For sacroplasty by [facility] neuro IR today at 3 pm. Continue pain control, PT. (2) Urinary frequency: Status: Acute Assessment and plan: Check UA/C&s and bladder scans. (3) Left renal mass: Status: Acute Assessment and plan: Left renal mass, per CT - likely renal cell carcinoma. Will need outpatient biopsy. (4) ASCVD (arteriosclerotic cardiovascular disease): Status: Chronic Assessment and plan: No reasons to suspect ACS on this admission. Continue atorvastatin. Not on antiplatelet tx but is on apixaban for a h/o PE. (5) Diabetes mellitus type 2 in obese: Status: Chronic Assessment and plan: A1c of 6.0. Has not required SSI here. (6) Diffuse interstitial pulmonary fibrosis: Status: Chronic Assessment and plan: Continue Triotropium/Olodaterol, prn albuterol, prednisone 40mg daily. He is at baseline. Encourage pulmonary toilet. (7) Essential hypertension: Status: Chronic Assessment and plan: Continue lisinopril. (8) Obstructive sleep apnea syndrome: Status: Chronic Assessment and plan: Continue home BiPAP (9) CKD (chronic kidney disease): Status: Chronic Assessment and plan: Creatinine at baseline (10) Pulmonary embolism: Assessment and plan: Holding apixaban in anticipation of sacroplasty. (11) Discharge planning issues: Status: Acute Assessment and plan: Full code PT consulted. For [id number] transfer to [facility] for sacroplasty today. Will evaluate appropriate disposition pending sacroplasty. Subjective Subjective Interval history since last seen: Awaiting his sacroplasty today at [facility] at 3 pm. Reports feeling thirsty, having urinary frequency (Q30 min). Last BM yesterday. Denies dizziness, CP, SOB. Back pain is excruciating when he walks, controlled at rest. NO numbness/tingling in his legs, able to move BLEs. Exam Narrative Exam Narrative: General: Pleasant elderly male who is [place], but has hearing aides today and hears me better, appears comfortable laying flat in bed HEENT: EOMI, MMM Heart: RRR Lungs: CTAB Abdomen: soft, nontender, nondistended Extremities: no edema BLEs, able to move BLEs Objective Last Vital Signs Temp 36.2 C L 06/13/23 07:59 Pulse 63 06/13/23 07:59 Resp 18 06/13/23 07:59 BP 172/79 H 06/13/23 07:59 Pulse Ox 94 06/13/23 07:59 Laboratory Results - last 24 hr 06/12/23 06/12/23 06/12/23 09:10 09:10 09:10 WBC RBC Hgb Hct MCV MCH MCHC RDW Plt Count MPV Immature Gran % Neutrophils % Lymphocytes % Monocytes % Eosinophils % Basophils % Nucleated RBC % Absolute Neutrophils Absolute Lymphocytes Absolute Monocytes Absolute Eosinophils Absolute Basophils RBC Morphology Sodium 138 Potassium 4.8 Chloride 104 Carbon Dioxide 26.1 Anion Gap 7.9 BUN 51 H Creatinine 1.6 H Est GFR (CKD-EPI 2020) 41.70 Glucose 97 Calcium 9.2 Magnesium 2.3 Procalcitonin < 0.1 Add-On Test Request DONE 06/13/23 06/13/23 05:42 05:42 WBC 13.04 H RBC 4.76 Hgb 14.3 Hct 43.5 MCV 91 MCH 30.0 MCHC 32.9 RDW 17.3 H Plt Count 182 MPV 11.1 H Immature Gran % 0.0 Neutrophils % 77.0 Lymphocytes % 11.0 Monocytes % 12.0 Eosinophils % 0.0 Basophils % 0.0 Nucleated RBC % 0.0 Absolute Neutrophils 10.04 H Absolute Lymphocytes 1.43 Absolute Monocytes 1.56 H Absolute Eosinophils 0.00 Absolute Basophils 0.00 RBC Morphology Normal Sodium 139 Potassium 4.4 Chloride 103 Carbon Dioxide 27.9 Anion Gap 8.1 BUN 54 H Creatinine 1.6 H Est GFR (CKD-EPI 2020) 41.70 Glucose 96 Calcium 9.0 Magnesium 2.5 H Procalcitonin Add-On Test Request Time Spent with Patient Time Spent with Patient: 25-34 minutes Time was spent: preparing to see the patient(eg.review tests), obtaining and/or reviewing separately otained hiistory, ordering medications,tests, procedures, referring, communicating with other health doggy daycare activities director, indepentently interpreting results, counseling the patient and care coordination
[2023-06-13 12:18] LABS: Bilirubin Negative (Negative); Blood Negative (Negative); Clarity Sl Cloudy (Clear); Glucose Negative (Negative); Ketones Negative (Negative); Leukocyte Esterase Trace (Negative); Nitrite Positive (Negative); Urobilinogen 0.2 mg/dL (Up to 0.2); pH 5.5 (5-8)
[2023-06-13 12:31] LABS: RBC 0-2 HPF (0-2)
[2023-06-13 12:32] LABS: Bacteria Many HPF (Negative); C & S Indicated? C&S Done As Ordered; Casts Negative LPF (Negative); Crystals Negative HPF (Negative); Epithelial Cells Rare HPF (Negative); Mucus Negative (Negative)
[2023-06-13 19:33] VITALS: BP 185/100; PULSE 95; RESP 20; TEMP 36.4; O2SAT 92
[2023-06-13] MEDS: Docusate Sodium 100 MG CAP PO (21:11)
[2023-06-13] MEDS: Lidocaine Patch Removal 1 EACH TD (21:12)
[2023-06-13 21:37] VITALS: PULSE 93; RESP 16; RESP 18; O2SAT 93
[2023-06-14 07:33] VITALS: BP 147/88; PULSE 77; RESP 18; TEMP 36.7; O2SAT 93
[2023-06-14] MEDS: Atorvastatin 40 MG TAB 80 MG PO (08:18)
[2023-06-14] MEDS: Acetaminophen 500 MG TAB 1000 MG PO ×3 (08:18→19:58)
[2023-06-14] MEDS: Lactobacillus Acidophilus CAP 1 CAP PO (08:18)
[2023-06-14] MEDS: Tamsulosin 0.4 MG CAPCR PO (08:18)
[2023-06-14] MEDS: Multivitamin TAB 1 TAB PO (08:18)
[2023-06-14] MEDS: Methocarbamol 500 MG TAB PO ×3 (08:19→19:58)
[2023-06-14] MEDS: Docusate Sodium 100 MG CAP PO ×2 (08:19→19:58)
[2023-06-14] MEDS: Lisinopril 5 MG TAB PO (08:19)
[2023-06-14] MEDS: predniSONE 20 MG TAB 40 MG PO (08:20)
[2023-06-14] MEDS: Furosemide 20 MG TAB PO (08:20)
[2023-06-14] MEDS: Refresh PLUS Eye Drops 0.4ml OP ×2 (08:21→19:59)
[2023-06-14] MEDS: Tiotropium/Olodaterol 10 PUFF INHALER IH (08:34)
--- NOTE | 2023-06-14 12:56 | INPN_ITS ---
PT Notes Visit Reasons: Sacral Insufficiency Fractures,Inability to Ambula Inpatient Physical Therapy Progress Note Treatment Dates: June 08, 2023 - June 14, 2023 Referring Doctor: Dr. Rangel Cordero PT Orders: PT CONSULT: Evaluate and treat Precautions: Bilateral sacral insufficiency fractures, standard, Patient Profile/Admitting Diagnosis: Patient is an 87-year-old male who arrived at the emergency department June 07 secondary to complaints of central low back pain. He was admitted with multiple medical problems including renal mass, ASCVD, type 2 diabetes, diffuse interstitial pulmonary fibrosis, hypertension, pulmonary embolus, and found to have sacral insufficiency fracture. He underwent sacroplasty yesterday, 06/13/23. Social History/Home Situation: Resident of [facility]. Utilizes FWW at baseline and is independent with use. Equipment Owned/DME: Cane, front wheel walker Subjective: Patient is agreeable to PT intervention. States that his pain is a little better since his procedure yesterday, but he hasn't been out of bed yet. He describes pain in left LE, primarily behind knee. Objective: General Observation: IV port right upper extremity. No additonal lines. Daughter present for today's session. Mental Status: Alert and oriented x3 Pain: well managed in supine with knees supported in flexion. Severe pain in sitting position. ROM: Right Upper Extremity: Normal limits shoulder, elbow, wrist Left Upper Extremity: Within normal limits shoulder, elbow, wrist Right Lower Extremity: Hip flexion 95 degrees active, 105 active assisted, abduction 30 degrees active, knee flexion and extension within normal limits pain-free. Left Lower Extremity: Hip flexion 90 degrees active 100 active assisted, abduction 25 degrees active. Knee flexion and extension within normal limits pain-free. Strength: Did not re-assess today, although functionally able to demonstrate quad strength > 3/5 bilat, ankle DF > 3/5 bilat. Bed Mobility/Transfers: Supine to sit: Min assist x1 Sit to stand: CGA x1 to front wheel walker Patient ambulates gait: 6 feet x 2 from bed to chair with front wheel walker and contact-guard. Heavy reliance on UE support to FWW. Balance: Static Sitting: Good Dynamic Sitting: Fair Static Standing: Fair Dynamic Standing: Fair Treatment: Therapeutic Activities ([id number]): instructed in log roll technique for supine-sidelying and back. Requires visual demonstration, verbal and tactile cues. Instructed in positioning for back protection, including supported knee flexion Patient initially demonstrating SLR actively with both legs in extended position; educated on supportive hooklying position. Gait and transfer training as above Assessment: Patient is a 87year old male referred to physical therapy services with the diagnosis of bilateral sacral insufficiency fractures. He is now 1 day s/p sacroplasty. PT focus will be on safe transfers and ambulation, holding on therex to reduce spinal stress. He demonstrates good functional strength and mobility, although with severe pain with sitting position, making transfers challenging. Will continue progressing transfer training, and anticipate he'll be safe for return to once pain is managed. Goals: Goals X1 week 1. Supine-Sit: Independent (progressing toward) 2. Sit-Supine: Independent (progressing toward) 3. Sit-Stand: Standby assist front wheel walker (progressing toward) 4. Stand-Sit: Standby assist from front wheel walker (progressing toward) 5. Bed-Chair: Standby assist with front wheel walker (progressing toward) 6. Chair-Bed: Standby I assist with front wheel walker (progressing toward) 7. Gait: 250 feet with front wheel walker and standby assist (progressing toward) 8. Stairs: 5 stairs with contact-guard (not met) 9. Independent with home exercise program (not met- d/c goal) Plan of Care/Treatment Plan: 1-2x/day, 7 days/week x 1 week. Plan of care has been reviewed with the [employer]TEGR[employer] CIRCUITS INSPECTOR providing the service under Physical Therapy direction. Initiate Physical Therapy intervention for strengthening, bed mobility, transfers, gait, stairs, balance training, use of assistive device. DISCHARGE RECOMMENDATIONS: Patient resides at [facility]. Discharge when medically cleared to [place] and with home health PT services. [] Home with no services [] X Home with services [home health PT] [] Home with outpatient PT [] [] SNF for continued rehabilitation [] [] Alf Care [] [] SNF versus LTC based on ability to participate and progress [] TREATMENT CODE/TIME: 5689-5405 Thank you for this referral. Jojo Haywood PT, DPT Disclaimer: This note was created using [employer] voice recognition software. It was reviewed for major content. However, there may be multiple small discrepancies and errors due to the voice recognition aspects of the software.
--- NOTE | 2023-06-14 14:12 | PDOC.CMPRO ---
Date of service: 06/14/23 Time of Service: 14:12 Care Management Progress Note Progress Note Text Progress Note Text: S/O:? Francis was lying in bed when CM met with him. When asked, he indicated that he feels the sacroplasty did help some with pain management. He stated that he was feeling good at the time, and generally does, when in bed. Francis refused to work with PT this afternoon as he was tired but informed the ZPT that his pain was manageable at that time. A:? Francis is an 87 year old male admitted to [facility] on 06/09/23 with sacral insufficiency fractures and inability to ambulate. P:? Francis will likely discharge back to the [facility] when medically cleared by provider.? He will follow up with his PCP and plan of care as instructed.? He will be transported back to the facility by family via private vehicle when ready.? CM will continue to support Francis and any discharge planning needs.
[2023-06-14 14:18] LABS: Abs Immature Grans 0.19 10^3/uL (0.0-0.06); Absolute Basophil Count 0.04 10^3/uL (0.0-0.2); Absolute Lymphocyte Count 0.17 10^3/uL (1.2-3.4); Absolute Monocyte Count 1.12 10^3/uL (0.1-0.8); Basophils % 0.3; HCT 45.3 % (40.0-50.0); HGB 15.1 g/dL (13.5-17.5); Immature Grans % 1.4; Lymphocytes % 1.3; MCH 30.3 pg (27.0-33.0); MCHC 33.3 % (32.0-36.0); MCV 91 fL (80-95); Monocytes % 8.5; Neutrophils % 88.5; Platelet Count 181 10^3/uL (130-400); RBC 4.98 10^6/uL (4.36-5.78); RDW 17.4 % (11.8-14.1); RDW-SD 57.6 fL; WBC 13.14 10^3/uL (4.4-10.8)
[2023-06-14 14:28] LABS: Absolute Neutrophil Count 11.63 10^3/uL (1.2-6.7)
[2023-06-14 14:31] LABS: Anion Gap 9.7 mmol/L (3-11); BUN 54 mg/dL (7-18); CO2 25.3 mmol/L (21.0-32.0); CREATININE 1.8 mg/dL (0.70-1.30); Calcium 8.7 mg/dL (8.5-10.1); Chloride 104 mmol/L (98-107); Estimated GFR 36.21 (mL/min/1.73m2); Glucose 178 mg/dL (74-106); Magnesium 2.3 mg/dL (1.8-2.4); Potassium 4.3 mmol/L (3.5-5.1); Sodium 139 mmol/L (136-145)
--- NOTE | 2023-06-14 14:56 | PT.INNT ---
PT Notes Visit Reasons: Sacral Insufficiency Fractures,Inability to Ambula pt refused pm session. Reports he just got back to bed from using bathroom. Did fine. Pain is manageable at this time. I am wiped out and feel like I just need to sleep. Will check in with him in am.
[2023-06-14 15:28] VITALS: BP 106/67; PULSE 102; RESP 20; TEMP 37.1; O2SAT 92
[2023-06-14] MEDS: Apixaban 2.5 MG TAB PO (19:58)
[2023-06-14 21:23] VITALS: PULSE 71
--- NOTE | 2023-06-14 21:32 | W.PM.PROGNOT ---
Date of Service Date of service: 06/14/23 Time of Service: 20:50 Assessment and Plan Assessment and plan (1) Bilateral sacral insufficiency fracture: Status: Acute Assessment and plan: Related to long-standing prednisone use. s/p sacroplasty by [facility] [place] on 06/13/23 - did well. Continue pain control, PT. (2) UTI (urinary tract infection): Status: Acute Assessment and plan: With evidence of GNR >100,000 CFU. Start ceftriaxone. Await C&S. Monitor bladder scans. No stones, but does have a left renal mass. (3) Left renal mass: Status: Acute Assessment and plan: Left renal mass, per CT - likely renal cell carcinoma. Will need outpatient biopsy. (4) ASCVD (arteriosclerotic cardiovascular disease): Status: Chronic Assessment and plan: No reasons to suspect ACS on this admission. Continue atorvastatin. Not on antiplatelet tx but is on apixaban for a h/o PE. (5) Diabetes mellitus type 2 in obese: Status: Chronic Assessment and plan: A1c of 6.0. Has not required SSI here. (6) Diffuse interstitial pulmonary fibrosis: Status: Chronic Assessment and plan: Continue Triotropium/Olodaterol, prn albuterol, prednisone 40mg daily. He is at baseline. Encourage pulmonary toilet. (7) Essential hypertension: Status: Chronic Assessment and plan: Continue lisinopril. (8) Obstructive sleep apnea syndrome: Status: Chronic Assessment and plan: Continue home BiPAP (9) CKD (chronic kidney disease): Status: Chronic Assessment and plan: Creatinine at baseline (10) Pulmonary embolism: Assessment and plan: Resume apixaban (11) Discharge planning issues: Status: Acute Assessment and plan: Full code PT consulted. The patient is strongly motivated to return home after this hospitalization. Subjective Subjective Interval history since last seen: Mr Nur states that the procedure (bilateral sacroplasty at [facility]) went well yesterday. He feels that his pain is a lot better. He is optimistic about going home with PT rather than needing to go to a SNF. He says he has a 92 year old girlfriend whom he really wants to spend time with - she has lung cancer. Denies dizziness, CP, SOB, n/v. Exam Narrative Exam Narrative: General: Pleasant elderly male who is [place], looks comfortable in bed, A&OX3 HEENT: EOMI, MMM Heart: RRR Lungs: CTAB Abdomen: soft, nontender, nondistended Extremities: no edema BLEs, able to move BLEs Objective Last Vital Signs Temp 37.1 C 06/14/23 15:28 Pulse 71 06/14/23 21:23 Resp 20 06/14/23 15:28 BP 106/67 06/14/23 15:28 Pulse Ox 92 06/14/23 15:28 Laboratory Results - last 24 hr 06/14/23 06/14/23 14:10 14:10 WBC 13.14 H RBC 4.98 Hgb 15.1 Hct 45.3 MCV 91 MCH 30.3 MCHC 33.3 RDW 17.4 H Plt Count 181 MPV 11.0 Immature Gran % 1.4 Neutrophils % 88.5 Lymphocytes % 1.3 Monocytes % 8.5 Eosinophils % 0.0 Basophils % 0.3 Nucleated RBC % 0.0 Absolute Neutrophils 11.63 H Absolute Lymphocytes 0.17 L Absolute Monocytes 1.12 H Absolute Eosinophils 0.00 Absolute Basophils 0.04 Sodium 139 Potassium 4.3 Chloride 104 Carbon Dioxide 25.3 Anion Gap 9.7 BUN 54 H Creatinine 1.8 H Est GFR (CKD-EPI 2020) 36.21 Glucose 178 H Calcium 8.7 Magnesium 2.3 Time Spent with Patient Time Spent with Patient: 25-34 minutes Time was spent: preparing to see the patient(eg.review tests), obtaining and/or reviewing separately otained hiistory, ordering medications,tests, procedures, referring, communicating with other health child care, indepentently interpreting results, counseling the patient and care coordination
[2023-06-14] MEDS: cefTRIAXone 1 GM/50 ML BAG IVPB (22:06)
[2023-06-15 05:30] VITALS: BP 162/80; PULSE 63; RESP 18; TEMP 36.5; O2SAT 98
[2023-06-15 07:30] VITALS: BP 145/84; PULSE 66; RESP 18; TEMP 36.1; O2SAT 96
[2023-06-15 07:31] LABS: Abs Immature Grans 0.21 10^3/uL (0.0-0.06); Absolute Basophil Count 0.03 10^3/uL (0.0-0.2); Absolute Eosinophil Count 0.06 10^3/uL (0.0-0.7); Absolute Lymphocyte Count 0.77 10^3/uL (1.2-3.4); Absolute Monocyte Count 1.81 10^3/uL (0.1-0.8); Absolute Neutrophil Count 7.23 10^3/uL (1.2-6.7); Basophils % 0.3; Eosinophils % 0.6; HCT 45.9 % (40.0-50.0); HGB 15.1 g/dL (13.5-17.5); Immature Grans % 2.1; Lymphocytes % 7.6; MCH 30.5 pg (27.0-33.0); MCHC 32.9 % (32.0-36.0); MCV 93 fL (80-95); MPV 11.9 fL (8.0-11.0); Monocytes % 17.9; Neutrophils % 71.5; Platelet Count 161 10^3/uL (130-400); RBC 4.95 10^6/uL (4.36-5.78); RDW 17.3 % (11.8-14.1); WBC 10.11 10^3/uL (4.4-10.8)
[2023-06-15 07:54] LABS: Anion Gap 9.1 mmol/L (3-11); BUN 56 mg/dL (7-18); CO2 25.9 mmol/L (21.0-32.0); CREATININE 1.7 mg/dL (0.70-1.30); Calcium 8.9 mg/dL (8.5-10.1); Chloride 107 mmol/L (98-107); Estimated GFR 38.53 (mL/min/1.73m2); Glucose 98 mg/dL (74-106); Magnesium 2.5 mg/dL (1.8-2.4); Potassium 4.2 mmol/L (3.5-5.1); Sodium 142 mmol/L (136-145)
[2023-06-15] MEDS: predniSONE 20 MG TAB 40 MG PO (08:05)
[2023-06-15] MEDS: Lisinopril 5 MG TAB PO (08:05)
[2023-06-15] MEDS: Acetaminophen 500 MG TAB 1000 MG PO ×3 (08:05→20:23)
[2023-06-15] MEDS: Lactobacillus Acidophilus CAP 1 CAP PO (08:06)
[2023-06-15] MEDS: Furosemide 20 MG TAB PO (08:06)
[2023-06-15] MEDS: Methocarbamol 500 MG TAB PO ×3 (08:06→20:23)
[2023-06-15] MEDS: Apixaban 2.5 MG TAB PO ×2 (08:06→20:23)
[2023-06-15] MEDS: Multivitamin TAB 1 TAB PO (08:06)
[2023-06-15] MEDS: Docusate Sodium 100 MG CAP PO ×2 (08:06→20:23)
[2023-06-15] MEDS: Refresh PLUS Eye Drops 0.4ml OP ×2 (08:06→20:22)
[2023-06-15] MEDS: Tamsulosin 0.4 MG CAPCR PO (08:06)
[2023-06-15] MEDS: Atorvastatin 40 MG TAB 80 MG PO (08:07)
[2023-06-15] MEDS: Tiotropium/Olodaterol 10 PUFF INHALER IH (08:15)
--- NOTE | 2023-06-15 12:53 | PT.INTREAT ---
Date of service: 06/15/23 Time of Service: 09:25 PT Notes Visit Reasons: Sacral Insufficiency Fractures,Inability to Ambula Inpatient Physical Therapy Treatment Note [facility] Date: 06/15/2023 PRECAUTIONS: Bilateral sacral insufficiency fractures and standard SUBJECTIVE: Stated he is good with getting out of bed this morning to walk. OBJECTIVE: ? PAIN: 5/10 pain on 0-10 pain scale when walking and getting out of bed. Decreased irritation when in recliner. Indicated he was getting aching pain in the back of legs with sitting up in bed earlier and had to have the head of bed lowered. Did complain of this aching when walking later in morning. ?? Therapeutic Activities ([id number]): Direct one-on-one instruction in dynamic activities to improve functional performance. ? BED MOBILITY/TRANSFERS? Rolling L/R: Log rolled to the left with verbal cueing Supine-sit: Verbal and contact cueing ? Sit-stand: CGA and verbal cueing? Stand-sit: CGA and verbal cueing ? Provided skilled cues and instruction on performance and technique throughout. GAIT?Assistive Device: FWW?Weight bearing: Full ?Assist: SBA ?Distance:? 25ft at 8:00 am and 50ft?at 11:20 am ?Deviation: Forward head ambulation with short, guarded steps.? Provided skilled manual cues to facilitate proper muscle recruitment and/or form: standing up straight in walker and keeping walker under him when walking, rather than out in front of him with arms out stretched. ASSESSMENT:? Tolerated ambulation well x 2 this morning. Continued cueing with log rolling technique. ?PLAN: Continue with current POC, with focus on improved functional mobility and ambulation tolerance. ?TREATMENT CODE/TIME: 67117 x 2, 9:25 to 9:45(20 minutes) and 11:20 to 11:30 (10 minutes)
--- NOTE | 2023-06-15 14:37 | W.PM.PROGNOT ---
Date of Service Date of service: 06/15/23 Time of Service: 14:37 Assessment and Plan Assessment and plan (1) Bilateral sacral insufficiency fracture: Status: Acute Assessment and plan: Related to long-standing prednisone use. s/p sacroplasty by [facility] [place] on 06/13/23 - did well. Continue pain control, PT. (2) UTI (urinary tract infection): Status: Acute Assessment and plan: With evidence of GNR >100,000 CFU. Culture klebsietlla oxytoca - sensitive to ceftriaxone - continue day 2 Monitor bladder scans. No stones, but does have a left renal mass. (3) Left renal mass: Status: Acute Assessment and plan: Left renal mass, per CT - likely renal cell carcinoma. Will need outpatient biopsy. (4) ASCVD (arteriosclerotic cardiovascular disease): Status: Chronic Assessment and plan: No reasons to suspect ACS on this admission. Continue atorvastatin. Not on antiplatelet tx but is on apixaban for a h/o PE. (5) Diabetes mellitus type 2 in obese: Status: Chronic Assessment and plan: A1c of 6.0. Has not required SSI here. (6) Diffuse interstitial pulmonary fibrosis: Status: Chronic Assessment and plan: Continue Triotropium/Olodaterol, prn albuterol, prednisone 40mg daily. He is at baseline. Encourage pulmonary toilet. (7) Essential hypertension: Status: Chronic Assessment and plan: Continue lisinopril. (8) Obstructive sleep apnea syndrome: Status: Chronic Assessment and plan: Continue home BiPAP (9) CKD (chronic kidney disease): Status: Chronic Assessment and plan: Creatinine at baseline (10) Pulmonary embolism: Assessment and plan: Resume apixaban (11) Discharge planning issues: Status: Acute Assessment and plan: Full code PT consulted. The patient is strongly motivated to return [facility] after this hospitalization. discussed with Dr Flores Subjective Subjective Patient reports: no new complaints, pain is less, tolerating a regular diet, bowel movement and afebrile; denies diarrhea or vomiting Interval history since last seen: States he was up with PT and doing well. He said the pain was a lot less today and he is more agreeable to PT Exam Narrative Exam Narrative: General: Pleasant elderly male who is [place], looks comfortable semi fowelers, in bed, watching TV, A&OX3, conversant, pleasant HEENT: EOMI, MMM Heart: RRR Lungs: CTAB Abdomen: soft, nontender, nondistended Extremities: no edema BLEs, able to move BLEs Objective Last Vital Signs Temp 36.1 C L 06/15/23 07:30 Pulse 66 06/15/23 07:30 Resp 18 06/15/23 07:30 BP 145/84 H 06/15/23 07:30 Pulse Ox 96 06/15/23 07:30 Laboratory Results - last 24 hr 06/15/23 06/15/23 06:38 06:38 WBC 10.11 RBC 4.95 Hgb 15.1 Hct 45.9 MCV 93 MCH 30.5 MCHC 32.9 RDW 17.3 H Plt Count 161 MPV 11.9 H Immature Gran % 2.1 Neutrophils % 71.5 Lymphocytes % 7.6 Monocytes % 17.9 Eosinophils % 0.6 Basophils % 0.3 Nucleated RBC % 0.0 Absolute Neutrophils 7.23 H Absolute Lymphocytes 0.77 L Absolute Monocytes 1.81 H Absolute Eosinophils 0.06 Absolute Basophils 0.03 Sodium 142 Potassium 4.2 Chloride 107 Carbon Dioxide 25.9 Anion Gap 9.1 BUN 56 H Creatinine 1.7 H Est GFR (CKD-EPI 2020) 38.53 Glucose 98 Calcium 8.9 Magnesium 2.5 H Time Spent with Patient Time Spent with Patient: 35-49 minutes Time was spent: preparing to see the patient(eg.review tests), ordering medications,tests, procedures, referring, communicating with other health associate director career services, indepentently interpreting results, counseling the patient and care coordination
[2023-06-15 16:16] VITALS: BP 124/76; PULSE 72; RESP 16; TEMP 36.4; O2SAT 94
[2023-06-15 19:30] VITALS: BP 127/74; PULSE 76; RESP 16; TEMP 36.4; O2SAT 92
[2023-06-15] MEDS: cefTRIAXone 1 GM/50 ML BAG IVPB (21:39)
[2023-06-15 23:05] VITALS: BP 157/93; PULSE 66; RESP 16; TEMP 36.6; O2SAT 95
[2023-06-16] VITALS (7 sets, daily range): BP systolic 125–179; BP diastolic 77–92; PULSE 66–76; RESP 16; TEMP 36.3–37; O2SAT 91–97
[2023-06-16 07:16] LABS: Abs Immature Grans 0.18 10^3/uL (0.0-0.06); Absolute Eosinophil Count 0.03 10^3/uL (0.0-0.7); Absolute Lymphocyte Count 0.96 10^3/uL (1.2-3.4); Absolute Monocyte Count 2.12 10^3/uL (0.1-0.8); Basophils % 0.1; Eosinophils % 0.2; HCT 44.1 % (40.0-50.0); HGB 14.7 g/dL (13.5-17.5); Immature Grans % 1.3; Lymphocytes % 7.2; MCH 30.4 pg (27.0-33.0); MCHC 33.3 % (32.0-36.0); MCV 91 fL (80-95); MPV 11.8 fL (8.0-11.0); Monocytes % 15.8; Neutrophils % 75.4; Platelet Count 173 10^3/uL (130-400); RBC 4.83 10^6/uL (4.36-5.78); RDW 17.2 % (11.8-14.1); RDW-SD 57.2 fL; WBC 13.39 10^3/uL (4.4-10.8)
[2023-06-16 07:20] LABS: Absolute Basophil Count 0.01 10^3/uL (0.0-0.2)
[2023-06-16 07:29] LABS: Anion Gap 8.9 mmol/L (3-11); BUN 56 mg/dL (7-18); CO2 25.1 mmol/L (21.0-32.0); CREATININE 1.6 mg/dL (0.70-1.30); Calcium 8.9 mg/dL (8.5-10.1); Chloride 107 mmol/L (98-107); Estimated GFR 41.44 (mL/min/1.73m2); Glucose 100 mg/dL (74-106); Magnesium 2.3 mg/dL (1.8-2.4); Sodium 141 mmol/L (136-145)
[2023-06-16 07:52] LABS: Anisocytosis 1+; Diff Comment Agrees w/ Instrument
[2023-06-16 07:53] LABS: Poikilocytes 1+
[2023-06-16] MEDS: Tiotropium/Olodaterol 10 PUFF INHALER IH (07:59)
--- NOTE | 2023-06-16 08:12 | PT.INTREAT ---
Date of service: 06/16/23 Time of Service: 09:40 PT Notes Visit Reasons: Sacral Insufficiency Fractures,Inability to Ambula Inpatient Physical Therapy Treatment Note [facility] Date: 06/16/2023 PRECAUTIONS: Bilateral sacral insufficiency fractures and standard ?SUBJECTIVE: Stated he is agreeable with getting out of bed this morning to walk. Prefers to get back to bed after walking, more comfortable. Did not sleep well last night, not because of pain but just could not sleep. ?OBJECTIVE: ? PAIN: 5/10 pain on 0-10 pain scale when walking and getting out of bed again today. Achy pain mainly in the buttock region and some in the back of legs today. Pain greatly decreased when back in bed lying with head of bed at approximately 30 degrees and knees flat. ?? Therapeutic Activities (70164w9): Direct one-on-one instruction in dynamic activities to improve functional performance. ?BED MOBILITY/TRANSFERS?Rolling L/R: Log rolled to the left with verbal cueing ?Supine-sit: Verbal and contact cueing?to log roll, tends to like to drop legs over edge of bed and try to pull himself up rather than rolling to side and using arm to push up off bed. ?sit- supine: Verbal and contact cueing to log roll ?Sit-stand: CGA and verbal cueing?Stand-sit: CGA and verbal cueing ? Provided skilled?cues and instruction on performance and technique throughout. GAIT?Assistive Device: FWW?Weight bearing: Full ?Assist: SBA ?Distance:? 20ft x 2with short 3 minutes seated break between ?Deviation: Forward head ambulation with short, guarded steps.? Provided skilled manual cues to facilitate proper muscle recruitment and/or form: standing up straight in walker and keeping walker under him when walking, rather than out in front of him with arms out stretched. ASSESSMENT:? Tolerated ambulation fair this morning, but continues to find getting in/ out of bed and ambulation painful. Continued cueing with log rolling technique needed. ?PLAN: Continue with current POC, with focus on improved functional mobility and ambulation tolerance. ?TREATMENT CODE/TIME: 89759 x 1, ?9:40 to 10:00 am (20 minutes) ?
[2023-06-16] MEDS: Lisinopril 5 MG TAB PO (08:58)
[2023-06-16] MEDS: Apixaban 2.5 MG TAB PO ×2 (08:58→20:13)
[2023-06-16] MEDS: Tamsulosin 0.4 MG CAPCR PO (08:58)
[2023-06-16] MEDS: Acetaminophen 500 MG TAB 1000 MG PO ×3 (08:58→20:12)
[2023-06-16] MEDS: Methocarbamol 500 MG TAB PO ×3 (08:58→20:13)
[2023-06-16] MEDS: Atorvastatin 40 MG TAB 80 MG PO (08:58)
[2023-06-16] MEDS: Lactobacillus Acidophilus CAP 1 CAP PO (08:59)
[2023-06-16] MEDS: predniSONE 20 MG TAB 40 MG PO (08:59)
[2023-06-16] MEDS: Docusate Sodium 100 MG CAP PO ×2 (08:59→20:13)
[2023-06-16] MEDS: Refresh PLUS Eye Drops 0.4ml OP ×2 (09:00→20:12)
[2023-06-16] MEDS: Furosemide 20 MG TAB PO (09:00)
[2023-06-16] MEDS: Multivitamin TAB 1 TAB PO (09:00)
--- NOTE | 2023-06-16 17:20 | PGE_ITS ---
Date of Service Date of service: 06/16/23 Time of Service: 17:20 Assessment and Plan Assessment and plan (1) Bilateral sacral insufficiency fracture: Status: Acute Assessment and plan: Related to long-standing prednisone use. s/p sacroplasty by [facility] neuro IR on 06/13/23 - did well. Continue pain control, PT. Faxed dc med list and Rx to [facility] (2) UTI (urinary tract infection): Status: Acute Assessment and plan: Monitor bladder scans. No stones, but does have a left renal mass that will need outpt fu by pcp (3) Left renal mass: Status: Acute Assessment and plan: Left renal mass, per CT - likely renal cell carcinoma. Will need outpatient biopsy. (4) ASCVD (arteriosclerotic cardiovascular disease): Status: Chronic Assessment and plan: No reasons to suspect ACS on this admission. Continue atorvastatin. Not on antiplatelet tx but is on apixaban for a h/o PE. (5) Diabetes mellitus type 2 in obese: Status: Chronic Assessment and plan: A1c of 6.0. Has not required SSI here. (6) Diffuse interstitial pulmonary fibrosis: Status: Chronic Assessment and plan: Continue Triotropium/Olodaterol, prn albuterol, prednisone 40mg daily. He is at baseline. Encourage pulmonary toilet. (7) Essential hypertension: Status: Chronic Assessment and plan: Continue lisinopril. (8) Obstructive sleep apnea syndrome: Status: Chronic Assessment and plan: Continue home BiPAP (9) CKD (chronic kidney disease): Status: Chronic Assessment and plan: Creatinine at baseline (10) Pulmonary embolism: Assessment and plan: Resume apixaban (11) Discharge planning issues: Status: Acute Assessment and plan: Full code PT consulted. The patient is strongly motivated to return [facility] after this hospitalization, Rx and discharge med list faxed to [facility]. His daughter will drive him there in am Will order PT at discharge discussed with Dr Flores Subjective Subjective Patient reports: no new complaints, pain is less, tolerating a regular diet, bowel movement and afebrile; denies diarrhea, nausea or vomiting Interval history since last seen: Up and walking today with PT, states he is feeling much better. He is concerned about his girlfriend, she has been dx with lung ca and is living with her daughter, he thinks she may only have one month to live. Walking in the [place] with PT today, progressing. Exam Narrative Exam Narrative: General: Pleasant elderly male who is [place], looks comfortable semi fowelers, in bed, watching TV, A&OX3, conversant, pleasant HEENT: EOMI, MMM Heart: RRR Lungs: CTAB Abdomen: soft, nontender, nondistended Extremities: no edema BLEs, able to move BLEs Objective Last Vital Signs Temp 37.0 C 06/16/23 15:39 Pulse 70 06/16/23 15:39 Resp 16 06/16/23 15:39 BP 125/77 06/16/23 15:39 Pulse Ox 94 06/16/23 15:39 Laboratory Results - last 24 hr 06/16/23 06/16/23 06:05 06:05 WBC 13.39 H RBC 4.83 Hgb 14.7 Hct 44.1 MCV 91 MCH 30.4 MCHC 33.3 RDW 17.2 H Plt Count 173 MPV 11.8 H Immature Gran % 1.3 Neutrophils % 75.4 Lymphocytes % 7.2 Monocytes % 15.8 Eosinophils % 0.2 Basophils % 0.1 Nucleated RBC % 0.0 Absolute Neutrophils 10.10 H Absolute Lymphocytes 0.96 L Absolute Monocytes 2.12 H Absolute Eosinophils 0.03 Absolute Basophils 0.01 RBC Morphology See Below Poikilocytosis 1+ Anisocytosis 1+ Sodium 141 Potassium 4.0 Chloride 107 Carbon Dioxide 25.1 Anion Gap 8.9 BUN 56 H Creatinine 1.6 H Est GFR (CKD-EPI 2020) 41.44 Glucose 100 Calcium 8.9 Magnesium 2.3 Time Spent with Patient Time Spent with Patient: 25-34 minutes Time was spent: preparing to see the patient(eg.review tests), ordering medications,tests, procedures, referring, communicating with other health day care aide, indepentently interpreting results, counseling the patient and care coordination
[2023-06-16] MEDS: Zolpidem 5 MG TAB (21:12)
[2023-06-16] MEDS: cefTRIAXone 1 GM/50 ML BAG IVPB (21:12)
[2023-06-17 03:50] VITALS: BP 169/89; PULSE 63; RESP 16; TEMP 36.2; O2SAT 96
[2023-06-17 07:13] VITALS: BP 147/84; PULSE 71; TEMP 36.4; O2SAT 97
[2023-06-17] MEDS: Lidocaine 5% Patch 1 PATCH TP (07:39)
[2023-06-17] MEDS: Refresh PLUS Eye Drops 0.4ml OP (07:40)
[2023-06-17] MEDS: Atorvastatin 40 MG TAB 80 MG PO (07:40)
[2023-06-17] MEDS: Methocarbamol 500 MG TAB PO (07:40)
[2023-06-17] MEDS: Tamsulosin 0.4 MG CAPCR PO (07:40)
[2023-06-17] MEDS: Lisinopril 5 MG TAB PO (07:41)
[2023-06-17] MEDS: Furosemide 20 MG TAB PO (07:41)
[2023-06-17] MEDS: Multivitamin TAB 1 TAB PO (07:41)
[2023-06-17] MEDS: Lactobacillus Acidophilus CAP 1 CAP PO (07:41)
[2023-06-17] MEDS: predniSONE 20 MG TAB 40 MG PO (07:41)
[2023-06-17] MEDS: Docusate Sodium 100 MG CAP PO (07:41)
[2023-06-17] MEDS: Acetaminophen 500 MG TAB 1000 MG PO (07:41)
[2023-06-17] MEDS: Apixaban 2.5 MG TAB PO (07:41)
[2023-06-17 07:53] LABS: Abs Immature Grans 0.23 10^3/uL (0.0-0.06); Absolute Eosinophil Count 0.06 10^3/uL (0.0-0.7); Basophils % 0.2; Eosinophils % 0.5; HCT 46.5 % (40.0-50.0); HGB 15.4 g/dL (13.5-17.5); Immature Grans % 1.9; Lymphocytes % 12.6; MCH 30.6 pg (27.0-33.0); MCHC 33.1 % (32.0-36.0); MCV 92 fL (80-95); MPV 11.6 fL (8.0-11.0); Monocytes % 15.2; Neutrophils % 69.6; Platelet Count 175 10^3/uL (130-400); RBC 5.03 10^6/uL (4.36-5.78); RDW 17.2 % (11.8-14.1); RDW-SD 58.9 fL; WBC 12.27 10^3/uL (4.4-10.8)
[2023-06-17 07:55] LABS: Absolute Basophil Count 0.02 10^3/uL (0.0-0.2); Absolute Lymphocyte Count 1.55 10^3/uL (1.2-3.4); Absolute Monocyte Count 1.87 10^3/uL (0.1-0.8); Absolute Neutrophil Count 8.54 10^3/uL (1.2-6.7)
[2023-06-17 08:11] LABS: Anion Gap 6.1 mmol/L (3-11); BUN 53 mg/dL (7-18); CO2 25.9 mmol/L (21.0-32.0); CREATININE 1.7 mg/dL (0.70-1.30); Calcium 9.1 mg/dL (8.5-10.1); Chloride 106 mmol/L (98-107); Estimated GFR 38.53 (mL/min/1.73m2); Glucose 91 mg/dL (74-106); Magnesium 2.4 mg/dL (1.8-2.4); Potassium 4.2 mmol/L (3.5-5.1); Sodium 138 mmol/L (136-145)
[2023-06-17 08:13] LABS: Diff Comment Agrees w/ Instrument; RBC Morphology Normal
[2023-06-17 08:14] VITALS: RESP 16
[2023-06-17] MEDS: Tiotropium/Olodaterol 10 PUFF INHALER IH (09:02)
--- NOTE | 2023-06-17 09:05 | DSE_ITS ---
Date of service: 06/17/23 Time of Service: 09:05 DS: Diagnosis Discharge Diagnosis (1) Bilateral sacral insufficiency fracture: Status: Acute (2) UTI (urinary tract infection): Status: Acute (3) Left renal mass: Status: Acute (4) ASCVD (arteriosclerotic cardiovascular disease): Status: Chronic (5) Diabetes mellitus type 2 in obese: Status: Chronic (6) Diffuse interstitial pulmonary fibrosis: Status: Chronic (7) Essential hypertension: Status: Chronic (8) Obstructive sleep apnea syndrome: Status: Chronic (9) CKD (chronic kidney disease): Status: Chronic (10) Pulmonary embolism: (11) Discharge planning issues: Status: Acute Discharge Plan Disposition Patient Disposition: Home W/Home Health Services Condition: Improving Discharge Details Reason For Visit: Sacral Insufficiency Fractures,Inability to Ambula Admit Date/Time: 06/09/23 11:22 Admit Provider: Edvin Cordero Attending Provider: Edvin Cordero [facility] Hospital Course: This is an 87 yo male patient with a PMH of ASCVD, cardiomyopathy, DM2, HTN, Interstitial pulmonary fibrosis, URIEL, CHF, mild cognitive impairment, Leukoencephalopathy, CKD who presented to the [facility] ED on 06/07/23 for evaluation of back pain.? Three to four days prior to presentation he stated his legs felt heavy and he started to fall but caught himself and went to the floor in a controlled fashion.? He denies LOC or striking his head.? He had pain since the incident.? He was started on a muscle relaxant at his nursing facility that p rovided a small amount of relief intermittently.? No CP/palpitations, near syncopal symptoms.?In the ED his left straight leg exam was positive per ED provider. He was administered a dose of toradol IV, flexeril and a lidoderm patch was placed.?CT of the abdomen pelvis and lumbar spine: Bilateral sacral insufficiency fractures.? No lumbar spine fracture.? Gallstones are present.? 2 cm mass left kidney likely renal cell carcinoma. ED physician reviewed the findings with Dr Fuentes, orthopedist.? Recommended pain control and PT. He was admitted to the medical floor for further treatment. It is thought that this is a result of assisted prednisone use. [facility] [place] [place] neuro was consulted and the patient went down and back to IR on 06/13/23 for sacroplasty. Patient did well, and has been working with PT. Patient declines SNF and PT and patient feel he will do well with home health PT with intervention for strengthening, bed mobility, transfers, gait, stairs, balance training, use of assistive device. Patient is discharged with oxycodone for pain and lidocaine patches. Patient, on imaging, was found to have a 2 x 2 cm enhancing mass in the inferior pole of the left kidney likely reflecting a renal cell carcinoma. this must be followed up out patient by his PCP. . Home Meds and New Rx's Prescriptions: New oxycodone 5 mg tablet 5 mg PO Q6H PRNQty: 30 0RF lidocaine 5 % adhesive patch,medicated 2 patch topical DAILY Qty: 15 0RF Rx Instructions: leave on most painful area for up to 12 hrs Continued nitroglycerin 0.4 mg tablet, sublingual 0.4 mg Sublingual PRN Qty: 25 6RF Rx Instructions: prn CP furosemide 20 mg tablet 20 mg PO QAM Qty: 30 0RF Rx Instructions: DOSE DECREASE 11/05/22 lisinopril 5 mg tablet 5 mg PO DAILY Qty: 90 3RF Rx Instructions: DOSE DECREASE 11/05/22 multivitamin [Daily Multi-Vitamin] Tablet 1 tab PO DAILY cholecalciferol (vitamin D3) 1 tab PO DAILY Anoro Ellipta 62.5-25 mcg/actuation blister with device 1 inh inhalation DAILY carboxymethylcellulose sodium [Refresh Tears] 0.5 % drops 1 drp ophthalmic (eye) BID tamsulosin 0.4 mg capsule 0.4 mg PO DAILY polyethylene glycol 3350 8.5 gram powder in packet 8.5 g PO DAILY PRN albuterol sulfate 90 mcg/actuation HFA aerosol inhaler 2 puff inhalation Q4H PRN Lactobacillus acidophilus Capsule 10 mg PO DAILY prednisone 20 mg tablet 40 mg PO DAILY acetaminophen 325 mg capsule 650 mg PO Q6H mecobalamin (vitamin B12) 1,000 mcg tablet,chewable 1,000 mcg PO DAILY (DME) FreeStyle Lite Strips 1 EACH strip 1 ea Miscellaneous DAILY Qty: 100 4RF Hold Instructions: Home Medication placed on hold at Doctor's office Rx Instructions: E11.9 to maintain Hgb A1C below 7.0 (DME) lancets 1 EACH misc 1 ea Miscellaneous DAILY Qty: 100 4RF Hold Instructions: Home Medication placed on hold at Doctor's office Rx Instructions: FOR Free Style lite METER, Dx E11.9 to keep INR below 7 Eliquis 2.5 mg tablet 2.5 mg PO BID Qty: 180 3RF atorvastatin [Lipitor] 80 mg tablet 80 mg PO DAILY Qty: 90 3RF methocarbamol 500 mg tablet 500 mg PO TID PRNQty: 30 0RF Discharge Instructions Referrals: Magali Goodson [Primary Care Provider] - (1-2 weeks Patient, on imaging, was found to have a 2 x 2 cm enhancing mass in the inferior pole of the left kidney likely reflecting a renal cell carcinoma. this must be followed up out patient by his PCP. . ) Activity:: Activity as Tolerated Equipment/Supplies:: Walker Diet:: As Tolerated DS: Summary Time Spent with Patient providing and/or coordinating discharge services: Greater than 30 minutes Status at Discharge Functional status at discharge: uses cane/walker Overall status at discharge: patient is progressing back to baseline Mental Status: mental status grossly normal Speech and Movement: speech and movement normal Mood: congruent mood Affect: normal affect Exam Narrative Exam Narrative: General: Pleasant elderly male who is MARY'S IGLOO, looks comfortable semi fowelers, in bed, watching TV, A&OX3, conversant, pleasant HEENT: EOMI, MMM Heart: RRR Lungs: CTAB Abdomen: soft, nontender, nondistended Extremities: no edema BLEs, able to move BLEs Psych Mental Status: mental status grossly normal Speech and Movement: speech and movement normal Mood: congruent mood Affect: normal affect DS: Data Vitals/I&O Vitals and I&O: Vital Signs Temperature 36.4 C L 06/17/23 07:13 Temperature Source Tympanic 06/17/23 07:13 Pulse 71 06/17/23 07:13 Pulse Rhythm Regular 06/17/23 05:57 Respiratory Rate 16 06/17/23 03:50 Respiratory Effort Normal, Non-Labored 06/17/23 05:57 Respiratory Depth Normal 06/17/23 05:57 Respiratory Pattern Normal 06/17/23 05:57 Blood Pressure 147/84 H 06/17/23 07:13 Blood Pressure Position Supine 06/07/23 07:16 Pulse Oximetry 97 06/17/23 07:13 Oxygen Delivery Method Cpap 06/17/23 03:50 Oxygen Flow Rate 0 06/16/23 21:25 Fraction of Inspired Oxygen (FIO2) 21 06/17/23 08:14 Pain Level 0 06/17/23 08:54 Comment RN Notified 06/17/23 03:50 Intake & Output 06/16/23 06/16/23 06/17/23 11:59 23:59 11:59 Intake Total 290 / 770 480 / 770 Output Total 1050 / 1725 675 / 1725 375 / 375 Balance -760 / -955 -195 / -955 -375 / -375 Intake: IV 50 / 50 Oral 240 / 720 480 / 720 Output: Urine 1050 / 1725 675 / 1725 375 / 375 Other: Urine Color Pale Yellow Yellow Yellow Urine Appearance Clear Cloudy Clear Urine Odor Normal Normal Stool Size Moderate Stool Characteristics Formed Brown Voiding Methods Urinal Urinal Urinal Data Completed and Pending Labs on day of discharge: Labs from last 24 hours 06/17/23 06/17/23 07:40 07:40 WBC 12.27 H RBC 5.03 Hgb 15.4 Hct 46.5 MCV 92 MCH 30.6 MCHC 33.1 RDW 17.2 H Plt Count 175 MPV 11.6 H Immature Gran % 1.9 Neutrophils % 69.6 Lymphocytes % 12.6 Monocytes % 15.2 Eosinophils % 0.5 Basophils % 0.2 Nucleated RBC % 0.0 Absolute Neutrophils 8.54 H Absolute Lymphocytes 1.55 Absolute Monocytes 1.87 H Absolute Eosinophils 0.06 Absolute Basophils 0.02 RBC Morphology Normal Sodium 138 Potassium 4.2 Chloride 106 Carbon Dioxide 25.9 Anion Gap 6.1 BUN 53 H Creatinine 1.7 H Est GFR (CKD-EPI 2020) 38.53 Glucose 91 Calcium 9.1 Magnesium 2.4 PFSH All Active Problems (Updated 06/14/23 @ 21:35 by Kimberly Flores MD) UTI (urinary tract infection) (Acute) Urinary frequency (Acute) Discharge planning issues (Acute) Bilateral sacral insufficiency fracture (Acute) Left renal mass (Acute) Gallstones (Acute) ACP (advance care planning) (Acute) Fracture of left hip (Acute ~02/03/23) 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) ASCVD (arteriosclerotic cardiovascular disease) (Chronic 11/23/11) MIx2 1980s PTCA x 2; [place] 02/2015 No AAA nathalie 3.0 Diabetes mellitus type 2 in obese (Chronic 02/05/17) 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) mild and stable on CT Essential hypertension (Chronic 07/08/13) Other and unspecified hyperlipidemia (Chronic 01/30/13) 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) Obstructive sleep apnea syndrome (Chronic 11/23/11) very compliant with CPAP Personal history of long-term (current) use of anticoagulants (Chronic 11/23/11) DVTs & PE CHF (congestive heart failure) (Chronic) Palliative care patient (Acute) 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) daughter has taken over bills/banking Non-proliferative diabetic retinopathy, mild, both eyes (Acute 03/20/19) Cardiomyopathy (Acute) Eczema (Acute) 09/2022 Derm referal Erectile dysfunction (Acute) Nail dystrophy (Acute) CKD (chronic kidney disease) (Chronic ~11/2022) Neoplasm of unspecified behavior of bone, soft tissue, and skin (Acute) Dermatitis (Acute) Medical History ALEJANDRA (acute kidney injury) Altered mental status Benign neoplasm of lung (11/23/11) Dr Fletcher Benign paroxysmal vertigo (11/23/11) Cellulitis of face (11/23/11) recurrent Cor athrscl-uns vessel (01/30/13) MIx2 1980s 2 blocks, angiplasty Counseling regarding advance directives and goals of care Delirium Diarrhea (05/18/15) Full code status Goals of care, counseling/discussion Grief 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) Jaundice Obesity, unspecified (11/23/11) Other atopic dermatitis (11/23/11) Other seborrheic keratosis (11/23/11) POLST (Physician Orders for Life-Sustaining Treatment) full code 03/28/21 Pulmonary edema Pulmonary embolism Scalp lesion Tobacco dependence in remission (11/23/11) Unintentional weight loss Unintentional weight loss Vascular dementia Surgical History S/P cataract extraction Status post-operative repair of closed fracture of left hip Family History Mother , age 74 from dementia Dementia Father , age 64 Heart disease Stroke Brother , age 83 from dementia Dementia Brother , one month after CABG x 5 Myocardial infarction Sister No problems noted. Daughter No problems noted. Daughter No problems noted. Social History Smoking/Tobacco Use Status: Former Tobacco Use Smoking risk assessment performed?: Yes Alcohol Intake: former Drug use: Never Substance use type: does not use Details: drinks NA beer Caregiver/Support person: Yes (daughter Janeth and her Bryn live near by) Household members: none Housing: other Number of Children: 2 number of grandchildren: 3 Communication Needs: Hard of Hearing and Corrective Lenses Education Level: high school Do you need help understanding health information?: Often current occupation: [employer] Pets and animals: No Current gender identity: male What is your relationship status?: How often do you talk on the phone with friends or family?: three or more times per week How often do you get together with friends or relatives?: three or more times per week Panel score (0-1 are the most socially isolated patients): 1 What type of physical activity do you participate in: walking and regular exercise Duration: 45-60 minutes/day Frequency: 3-4 times per week Special rita needs: No Agree to transfusion: Yes Seatbelt use: always Drive intox or ride w/intox patient transportation driver: No Working smoke detector in home: Yes Fire extinguisher in home: Yes Carbon monox detector in home: Yes Do you feel safe at home: Yes Do you feel safe in your relationship?: Yes Additional Social history: Passed the 2 year anniversary of his Jessica's (10/14/19). Has done better than expected. He does go for a 2+ mile walk 3-4 days per week. Likes walking on bike path; he grew up in [facility] [facility] [place] [facility] and path passes through his old neighborhood. Sees his daughter Janeth regularly. Carol does his bills for him. He appreciates the help. Is watching his weight. Would like to weigh about 200. Feels better weighing less. Used to be obese. Attends meal site in [place] 2 x per week. Wants to socialize. Time Spent with Patient Time Spent with Patient: 45-69 minutes Time was spent: preparing to see the patient(eg.review tests), ordering medications,tests, procedures, referring, communicating with other health care associate, indepentently interpreting results, counseling the patient and care coordination
--- NOTE | 2023-06-17 09:20 | PDOC.HHF2F ---
Home Health Referral Home Health Orders Clinical synopsis of why skilled professionals are needed: This is an 87 yo male patient with a PMH of ASCVD, cardiomyopathy, DM2, HTN, Interstitial pulmonary fibrosis, URIEL, CHF, mild cognitive impairment, Leukoencephalopathy, CKD who presented to the [facility] ED on 06/07/23 for evaluation of back pain.? Three to four days prior to presentation he stated his legs felt heavy and he started to fall but caught himself and went to the floor in a controlled fashion.? He denies LOC or striking his head.? He had pain since the incident.? He was started on a muscle relaxant at his nursing facility that provided a small amount of relief intermittently.? No CP/palpitations, near syncopal symptoms.?In the ED his left straight leg exam was positive per ED provider. He was administered a dose of toradol IV, flexeril and a lidoderm patch was placed.?CT of the abdomen pelvis and lumbar spine: Bilateral sacral insufficiency fractures.? No lumbar spine fracture.? Gallstones are present.? 2 cm mass left kidney likely renal cell carcinoma. ED physician reviewed the findings with Dr Fuentes, orthopedist.? Recommended pain control and PT. He was admitted to the medical floor for further treatment. It is thought that this is a result of tank terminal gauger prednisone use. [facility] [facility] [place] was consulted and the patient went down and back to IR on 06/13/23 for sacroplasty. Patient did well, and has been working with PT. Patient declines SNF and PT and patient feel he will do well with home health PT with intervention for strengthening, bed mobility, transfers, gait, stairs, balance training, use of assistive device. Patient is discharged with oxycodone for pain and lidocaine patches. Patient, on imaging, was found to have a 2 x 2 cm enhancing mass in the inferior pole of the left kidney likely reflecting a renal cell carcinoma. this must be followed up out patient by his PCP. Medical diagnosis necessitation home health referral: Sacral insufficiency fractures; status post sacroplasty Physical Therapist: Check all that apply Increase strength & endurance for safe mobility at home: Ordered To design/establish home maintenance program: Ordered Fall reduction therapy program for patient with history of frequent falls: Ordered Home safety evaluation and teaching/gait training including stair management (if applicable): Ordered Home Bound Status Requires the aid of supportive device (check all that apply): Walker Patient has a condition such that leaving home is medically contraindicated (Describe): Patient is unable to safely ambulate without the use of a walker Encounter Date and Reason: I certify that a FTF encounter for this patient was performed on June 17, 2023 and that such encounter was related to the primary reason the patient requires home health services. The encounter was conducted in the following manner: By me as the certifying physician, PANTRY GOODS MAKER, PA or By an inpatient physician, PANTRY GOODS MAKER or PA during an inpatient stay who communicated findings to me, Certification And Authentication I certify that I composed the above information based on my clinical judgment relating to this patient's medical condition and, if applicable, clinical findings communicated to me by the NPP or inpatient physician who performed the FTF encounter. Name of Provider that will be monitoring home health services: Magali Goodson
--- NOTE | 2023-06-18 12:47 | PT.INDS ---
Date of service: 06/18/23 PT Notes Visit Reasons: Sacral Insufficiency Fractures,Inability to Ambula Physical Therapy Inpatient Discharge Summary Date: 06/18/2023 Date of service: 06/08/2023 through 06/16/2023 This is a clinical summary of care provided for the duration of dates listed above. No charge was made in the completion of this documentation. Referring Doctor:? Dr. Rangel Cordero PT Orders: PT CONSULT: Evaluate and treat Precautions: Bilateral sacral insufficiency fractures, standard, Patient Profile/Admitting Diagnosis: Patient is an 87-year-old male who arrived at the emergency department June 07 secondary to complaints of central low back pain.? He is admitted with multiple medical problems including renal mass, ASCVD, type 2 diabetes, diffuse interstitial pulmonary fibrosis, hypertension, pulmonary embolus.? ?? Social History/Home Situation: Resident of [facility] Current Functional Limitations: Transfer mobility, ambulation Equipment Owned/DME: Cane, front wheel walker Subjective:? NT. See most recent GRAIN MILL PRODUCTS INSPECTOR notes. Objective:? General Observation: NT. See most recent GRAIN MILL PRODUCTS INSPECTOR notes. Mental Status: NT. See most recent GRAIN MILL PRODUCTS INSPECTOR notes. Pain: NT. See most recent GRAIN MILL PRODUCTS INSPECTOR notes. ? ROM: Right Upper Extremity: Normal limits shoulder, elbow, wrist Left Upper Extremity: Within normal limits shoulder, elbow, wrist Right Lower Extremity: Hip flexion 95 degrees active, 105 active assisted, abduction 30 degrees active, knee flexion and extension within normal limits pain-free. Left Lower Extremity: Hip flexion 90 degrees active 100 active assisted, abduction 25 degrees active.? Knee flexion and extension within normal limits pain-free. Strength: Right Upper Extremity: 4+/5 shoulder flexion, abduction, elbow flexion, elbow extension, good pharmacy benefit manager Left Upper Extremity: 4+/5 shoulder flexion, abduction, elbow flexion, elbow extension, good pharmacy benefit manager Right Lower Extremity: Patient tolerates straight leg raise without pain.? Perform straight leg raise with no lag.? Hip flexion 4/5, knee flexion 4/5, knee extension 4/5.? Ankle plantar dorsiflexion 4/5. Left Lower Extremity: Patient perform straight leg raise with no lag and no pain.? Hip flexion 4-/5, knee flexion 4/5, knee extension 4/5, plantar and dorsiflexion 4/5. Sensation: Reports intact sensation light touch bilateral lower extremities BED MOBILITY/TRANSFERS? Rolling L/R: Log rolled to the left with verbal cueing ?Supine-sit: Verbal and contact cueing?to log roll, tends to like to drop legs over edge of bed and try to pull himself up rather than rolling to side and using arm to push up off bed. ?Sit- supine: Verbal and contact cueing to log roll?Sit-stand: CGA and verbal cueing?Stand-sit: CGA and verbal cueing ? GAIT?Assistive Device: FWW?Weight bearing: Full ?Assist: SBA ?Distance:? 20ft x 2with short 3 minutes seated break between ?Deviation: Forward head ambulation with short, guarded steps.? Balance:? Static Sitting: Good Dynamic Sitting: Fair Static Standing: Fair Dynamic Standing: Fair Assessment:?? Patient was seen on the above dates to address impairments and functional deficits resulting from admiting diagnoses. He will require PT services for continued rehabilitation to ensure patient safely thrives at home using most suitable assistive device. Patient is a 87year old male referred to physical therapy services with the diagnosis of bilateral sacral insufficiency fractures.? Patient presents with clinical signs and symptoms consistent with above diagnosis, as demonstrated by the following impairment level findings: Joint mobility, motor function, muscle performance and range of motion associated bony fracture.? Goals: Goals X1 week 1. Supine-Sit: Independent NOT MET 2. Sit-Supine:? Independent NOT MET 3. Sit-Stand: Standby assist front wheel walker? NOT MET 4. Stand-Sit: Standby assist from front wheel walker? NOT MET 5. Bed-Chair: Standby assist with front wheel walker NOT MET 6. Chair-Bed: Standby I assist with front wheel walker NOT MET 7. Gait: 250 feet with front wheel walker and standby assist NOT MET 8. Stairs: 5 stairs with contact-guard NOT MET 9. Independent with home exercise program? NOT MET DISCHARGE RECOMMENDATIONS:? Patient resides at [facility].? Discharge when medically cleared to [facility] and with home health PT services. [] ? Home with no services [] X ? Home with services [home health PT] [] ? Home with outpatient PT [] [] ? SNF for continued rehabilitation [] [] ? Group Home Care [] [] ? SNF versus LTC based on ability to participate and progress [] TREATMENT CODE/TIME: NC Thank you for the opportunity to participate in the care of this patient. Meme Aden PT, DPT, CLT [facility] [place], [place]
== END 2023-06-17 11:06 | disposition home health service (06) | DRG 543 ==
LOC: ER 13:46 → MS 15:11
PROVIDERS: Internal Medicine; Nurse Practitioner Family; Admitting Provider Family Medicine; Emergency Provider Student in an Organized Health Care Education/Training Program; PCP Nurse Practitioner Family; Visit Provider Family Medicine
DX: M84.650A Pathological fracture in other disease, pelvis, initial encounter for fracture (principal); C64.2 Malignant neoplasm of left kidney, except renal pelvis; G93.49 Other encephalopathy; I13.0 Hypertensive heart and chronic kidney disease with heart failure and stage 1 through stage 4 chronic kidney disease, or unspecified chronic kidney disease; N39.0 Urinary tract infection, site not specified; I42.9 Cardiomyopathy, unspecified; I25.10 Atherosclerotic heart disease of native coronary artery without angina pectoris; E66.9 Obesity, unspecified; J84.10 Pulmonary fibrosis, unspecified; G47.33 Obstructive sleep apnea (adult) (pediatric); N18.9 Chronic kidney disease, unspecified; R35.0 Frequency of micturition; Z79.01 Long term (current) use of anticoagulants; K80.20 Calculus of gallbladder without cholecystitis without obstruction; N40.1 Benign prostatic hyperplasia with lower urinary tract symptoms; E78.5 Hyperlipidemia, unspecified; I50.9 Heart failure, unspecified; E11.3293 Type 2 diabetes mellitus with mild nonproliferative diabetic retinopathy without macular edema, bilateral; L30.9 Dermatitis, unspecified; Z86.711 Personal history of pulmonary embolism; Z87.891 Personal history of nicotine dependence; F01.50 Vascular dementia, unspecified severity, without behavioral disturbance, psychotic disturbance, mood disturbance, and anxiety; T38.0X5A Adverse effect of glucocorticoids and synthetic analogues, initial encounter; E11.22 Type 2 diabetes mellitus with diabetic chronic kidney disease; H91.93 Unspecified hearing loss, bilateral
CPT/HCPCS: 36415; 72158; 72197; 80048; 80053; 84145; 84153; 87077; 94640; 96374; 96375; 97116; 97162; 97530; 99285; 74177; 81003; 81015; 82728; 83540; 83550; 83735; 84165; 85025; 85610; 86320; 87086; 87186; 94664; 94760; 99222; 99232; 99233; 99239; A0425; A0426; G0378; J0696; J1170; J1885; J3490; J7512

== ENCOUNTER 2023-07-29 02:37 | Emergency (ER) | payer MEDICARE, OTHER, SELFPAY ==
[2023-07-29] VITALS (51 sets, daily range): BP systolic 104–124; BP diastolic 60–85; PULSE 82–97; RESP 12–25; TEMP 36.8; O2SAT 89–100
--- NOTE | 2023-07-29 02:45 | DI.CT_ITS ---
Exam(s) CT HEAD WO EXAM: CT HEAD WO CLINICAL HISTORY: fall, hit posterior head, r/o bleed. TECHNIQUE: Imaging Protocol: Axial computed tomography images with coronal and sagittal reformatted images were created and reviewed COMPARISON: CT CT HEAD CERVICAL SPINE WO from 02/03/2023 FINDINGS: Ventricles and Extra axial spaces: Normal in size and morphology for the patient's age. Hemorrhage: None. Cerebral parenchyma: There are areas of decreased attenuation in the white matter consistent with sma ll vessel ischemic disease. Midline shift: None. Brainstem/Cerebellum: Normal. Calvarium: Normal. Visualized Paranasal sinuses/Mastoids: No fluid levels are seen in the visualized paranasal sinuses. The mastoid air cells are clear. Soft Tissues: Unremarkable. IMPRESSION: No acute intracranial process. RADIATION DOSE DELIVERED: Total DLP DATA REPOSITORY: All CT scans at this facility are submitted to the National Radiology Data Registry (NRDR) Dose Index Registry (DIR) with the [employer] (ACR). RADIATION OPTIMIZATION: All CT scans at this facility use at least one of these dose optimization te chniques: automated exposure control; mA and/or kV adjustment per patient size (includes targeted exa ms where dose is matched to clinical indication); or iterative reconstruction.
--- NOTE | 2023-07-29 02:46 | W.ED.GENAD ---
Discharge Plan Disposition Patient Disposition: Home Condition: Good Discharge Details Chief Complaint: Fall/Non TraumaCriteria Clinical Impression: Skin tear of right upper extremity, Fall Primary Care Provider: Magali Goodson ED Provider: Jan East Home Meds and New Rx's Prescriptions: No Action nitroglycerin 0.4 mg tablet, sublingual 0.4 mg Sublingual PRN Qty: 25 6RF Rx Instructions: prn CP furosemide 20 mg tablet 20 mg PO QAM Qty: 30 0RF Rx Instructions: DOSE DECREASE 11/05/22 Anoro Ellipta 62.5-25 mcg/actuation blister with device 1 inh inhalation DAILY carboxymethylcellulose sodium [Refresh Tears] 0.5 % drops 1 drp ophthalmic (eye) BID tamsulosin 0.4 mg capsule 0.4 mg PO DAILY polyethylene glycol 3350 8.5 gram powder in packet 8.5 g PO DAILY PRN albuterol sulfate 90 mcg/actuation HFA aerosol inhaler 2 puff inhalation Q4H PRN Lactobacillus acidophilus Capsule 10 mg PO DAILY acetaminophen 325 mg capsule 650 mg PO Q6H mecobalamin (vitamin B12) 1,000 mcg tablet,chewable 500 mcg PO DAILY oxycodone 5 mg tablet 2.5 mg PO Q6H PRN amlodipine 5 mg tablet 5 mg PO DAILY prednisolone 5 mg tablet 5 mg PO DAILY (DME) FreeStyle Lite Strips 1 EACH strip 1 ea Miscellaneous DAILY Qty: 100 4RF Hold Instructions: Home Medication placed on hold at Doctor's office Rx Instructions: E11.9 to maintain Hgb A1C below 7.0 (DME) lancets 1 EACH misc 1 ea Miscellaneous DAILY Qty: 100 4RF Hold Instructions: Home Medication placed on hold at Doctor's office Rx Instructions: FOR Free Style lite METER, Dx E11.9 to keep INR below 7 Eliquis 2.5 mg tablet 2.5 mg PO BID Qty: 180 3RF morphine concentrate 100 mg/5 mL (20 mg/mL) solution See Rx Instructions PO Q4H PRN MDD 120 mg Qty: 30 0RF Rx Instructions: 0.25-1.0 ml orally every 4 hours, as needed; HOSPICE lorazepam 1 mg tablet 1 mg PO Q4H PRN (Reason: anxiety or dyspnea) Qty: 10 5RF Rx Instructions: hospice oxycodone 5 mg tablet 2.5 mg PO Q6H MDD 2 tabs PRN (Reason: pain) Qty: 20 0RF Rx Instructions: hospice methocarbamol 500 mg tablet 500 mg PO TID PRNQty: 30 0RF lidocaine 5 % adhesive patch,medicated 2 patch topical DAILY Qty: 15 0RF Rx Instructions: leave on most painful area for up to 12 hrs Discharge Instructions Instructions: Skin Tear (ED) Additional Instructions: At this time the CAT scan of your head and the x-ray of your chest shows no significant abnormality. You were able to get up and ambulate well, but did need some assistance because of your chronic weakness. Thankfully there is no other evidence of trauma on exam. If you notice any worsening of your symptoms, or any new symptoms such as vomiting, diarrhea, fever, chills, shortness of breath, chest pain, numbness, weakness, or fainting , please return immediately to the emergency department for reevaluation. Please follow up with your primary care provider as soon as possible for reassessment and reevaluation. As always, it was a pleasure participating in your medical care today. Referrals: Magali Goodson [Primary Care Provider] - Medical Decision Making This is a pleasant 88-year-old male with a past medical history of pulmonary fibrosis, congestive heart failure, pulmonary embolism previously on blood thinner Eliquis, renal mass, recent sacral fracture, who has had a notable decline in the last few months with the previous of his , and now more recently the of his girlfriend secondary to cancer who recently has transitioned to DNR/DNI, and sees palliative care with the goals for transition to hospice presents today via EMS for evaluation after fall. Patient states that he got up to go to the bathroom, and while moving in the bathroom he tripped and fell and hit the back of his head. He denies any loss of consciousness. He denies any pain in particular. His daughter Carol did request that the patient be brought in for further evaluation. He currently denies any complaints. He denies any chest pain or shortness of breath. He denies any upper or lower extremity pain. He does not have any other complaints at this time. No other modifying factors. Of note he has not been on Eliquis for the last 2 weeks per family. Physical exam demonstrates well-appearing male, no signs of focal trauma. There is a small abrasion noted to his scalp. No deficits otherwise. Patient otherwise states he feels well. Vital signs stable. We will get a CT scan of the head to rule out any bleed or fracture although these are unlikely given exam. No cervical thoracic or lumbar spine tenderness. No indication of emergent necessitated imaging there. We will monitor closely and reassess. [address] scan of the head and chest x-ray are negative for acute process. I did contact the patient's daughter and discussed the case with her. She agrees with the plan. We did contact the [facility] and they agree with the plan however they were concerned that the patient was not able to ambulate previously at [facility] after the fall. Repeat exam continues to show no acute hip pelvis knee or lower extremity tenderness. I personally got the patient up and ambulated him throughout the department. He did require some mild assistance but he had no pain whatsoever with ambulation. He was somewhat weak, which does appear to be at baseline for him. Patient otherwise feels well and is requesting to go back. Patient stable for discharge. Discussed red flags for which to return. I have extensively reviewed the treatment plan and discharge instructions with the patient. I have addressed all patient concerns at this time. The patient was made aware of what symptoms to monitor for that would warrant a return to the emergency department. Discussed the plan with the patient, they demonstrate verbal understanding and agreement with our assessment and plan at this time. The documentation in this chart was dictated using [employer] dictation software. Please excuse any dictation errors. FINDINGS: Brain: Volume loss and chronic small vessel ischemic change. No brain edema. No intracranial hemorrhage. Cerebral ventricles: No ventriculomegaly. Paranasal sinuses: Incidental sinus mucosal thickening present. No fluid levels to indicate sinusitis. Mastoid air cells: Unremarkable. Bones/joints: Unremarkable. No acute fracture. Soft tissues: Unremarkable. IMPRESSION: No acute brain findings. Thank you for allowing us to participate in the care of your patient. Dictated and Authenticated by: Luis Leo MD 07/29/2023 3:31 AM Eastern Time ([place] & [place]) FINDINGS: Lungs: Allowing for low lung volumes and apical lordotic projection, the lungs are clear. Pleural spaces: Unremarkable. No pleural effusion. No pneumothorax. Heart/Mediastinum: Unremarkable. No cardiomegaly. Bones/joints: Unremarkable. IMPRESSION: Allowing for low lung volumes and apical lordotic projection, the lungs are clear. Thank you for allowing us to participate in the care of your patient. Dictated and Authenticated by: Luis Leo MD 07/29/2023 3:34 AM Eastern Time ([place] & [place]) HPI General Date/Time Provider Initiated Documentation: 07/29/23 02:45. HPI Narrative: This is a pleasant 88-year-old male with a past medical history of pulmonary fibrosis, congestive heart failure, pulmonary embolism previously on blood thinner Eliquis, renal mass, recent sacral fracture, who has had a notable decline in the last few months with the previous of his , and now more recently the of his girlfriend secondary to cancer who recently has transitioned to DNR/DNI, and sees palliative care with the goals for transition to hospice presents today via EMS for evaluation after fall. Patient states that he got up to go to the bathroom, and while moving in the bathroom he tripped and fell and hit the back of his head. He denies any loss of consciousness. He denies any pain in particular. His daughter Carol did request that the patient be brought in for further evaluation. He currently denies any complaints. He denies any chest pain or shortness of breath. He denies any upper or lower extremity pain. He does not have any other complaints at this time. No other modifying factors. Of note he has not been on Eliquis for the last 2 weeks per family. Related Data Home Medications Medication Instructions Recorded Confirmed blood sugar diagnostic (FreeStyle #100 strips 01/31/18 07/09/23 Lite Strips) lancets 28 gauge #100 ea 01/31/18 07/09/23 nitroglycerin 0.4 mg sublingual 0.4 mg sublingual PRN #25 tab-caps 10/12/20 07/09/23 tablet apixaban 2.5 mg tablet (Eliquis) 2.5 mg PO BID #180 tabs 05/07/22 07/09/23 furosemide 20 mg tablet 20 mg PO QAM #30 tabs 11/05/22 07/09/23 albuterol sulfate 90 mcg/actuation 2 puff inhalation Q4H PRN 03/20/23 07/09/23 aerosol inhaler carboxymethylcellulose sodium 0.5 1 drp ophthalmic (eye) BID 03/20/23 07/09/23 % eye drops (Refresh Tears) polyethylene glycol 3350 8.5 gram 8.5 g PO DAILY PRN 03/20/23 07/09/23 oral powder packet tamsulosin 0.4 mg capsule 0.4 mg PO DAILY 03/20/23 07/09/23 umeclidinium 62.5 mcg-vilanterol 1 inh inhalation DAILY 03/20/23 07/09/23 25 mcg/actuation powdr for inhalation (Anoro Ellipta) Lactobacillus acidophilus 10 mg PO DAILY 04/15/23 07/09/23 acetaminophen 325 mg capsule 650 mg PO Q6H 05/29/23 07/09/23 lidocaine 5 % topical patch 2 patch topical DAILY #15 ea 06/16/23 07/09/23 methocarbamol 500 mg tablet 500 mg PO TID PRN #30 tabs 06/16/23 07/09/23 amlodipine 5 mg tablet 5 mg PO DAILY 07/09/23 07/09/23 mecobalamin (vitamin B12) 1,000 500 mcg PO DAILY 07/09/23 07/09/23 mcg chewable tablet oxycodone 5 mg tablet 2.5 mg PO Q6H PRN 07/09/23 07/09/23 prednisolone 5 mg tablet 5 mg PO DAILY 07/09/23 07/09/23 lorazepam 1 mg tablet 1 mg PO Q4H PRN anxiety or dyspnea 07/19/23 #10 tabs morphine concentrate 100 mg/5 mL See Rx Instructions PO Q4H PRN 07/19/23 (20 mg/mL) oral solution pain or dyspnea #30 mL oxycodone 5 mg tablet 2.5 mg (1/2 x 5 mg) PO Q6H PRN 07/23/23 pain #20 tabs Previous Rx's Medication Instructions Recorded blood sugar diagnostic (FreeStyle #100 strips 01/31/18 Lite Strips) lancets 28 gauge #100 ea 01/31/18 nitroglycerin 0.4 mg sublingual 0.4 mg sublingual PRN #25 tab-caps 10/12/20 tablet apixaban 2.5 mg tablet (Eliquis) 2.5 mg PO BID #180 tabs 05/07/22 furosemide 20 mg tablet 20 mg PO QAM #30 tabs 11/05/22 lidocaine 5 % topical patch 2 patch topical DAILY #15 ea 06/16/23 methocarbamol 500 mg tablet 500 mg PO TID PRN #30 tabs 06/16/23 lorazepam 1 mg tablet 1 mg PO Q4H PRN anxiety or dyspnea 07/19/23 #10 tabs morphine concentrate 100 mg/5 mL See Rx Instructions PO Q4H PRN 07/19/23 (20 mg/mL) oral solution pain or dyspnea #30 mL oxycodone 5 mg tablet 2.5 mg (1/2 x 5 mg) PO Q6H PRN 07/23/23 pain #20 tabs Allergies Allergy/AdvReac Type Severity Reaction Status Date / Time Penicillins Allergy Unknown unknown Verified 06/07/23 07:39 General ALTA: 3 Review of Systems All systems reviewed & are unremarkable except as noted in HPI and below PFSH All Active Problems (Updated 07/29/23 @ 04:00 by Jan East DO) Fall (Acute) Skin tear of right upper extremity (Acute) Mild cognitive impairment (Acute) Bilateral sacral insufficiency fracture (Acute) Left renal mass (Acute) Gallstones (Acute) ACP (advance care planning) (Acute) Fracture of left hip (Acute ~02/03/23) 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) ASCVD (arteriosclerotic cardiovascular disease) (Chronic 11/23/11) MIx2 1980s PTCA x 2; [place] 02/2015 No AAA nathalie 3.0 Diabetes mellitus type 2 in obese (Chronic 02/05/17) 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) mild and stable on CT Essential hypertension (Chronic 07/08/13) Other and unspecified hyperlipidemia (Chronic 01/30/13) 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) Obstructive sleep apnea syndrome (Chronic 11/23/11) very compliant with CPAP Personal history of long-term (current) use of anticoagulants (Chronic 11/23/11) DVTs & PE CHF (congestive heart failure) (Chronic) Palliative care patient (Acute) 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) daughter has taken over bills/banking Non-proliferative diabetic retinopathy, mild, both eyes (Acute 03/20/19) Cardiomyopathy (Acute) Eczema (Acute) 09/2022 Derm referal Erectile dysfunction (Acute) Nail dystrophy (Acute) CKD (chronic kidney disease) (Chronic ~11/2022) Neoplasm of unspecified behavior of bone, soft tissue, and skin (Acute) Dermatitis (Acute) Medical History Goals of care, counseling/discussion POLST (Physician Orders for Life-Sustaining Treatment) full code 03/28/21 Full code status Grief Scalp lesion Unintentional weight loss Tobacco dependence in remission (11/23/11) Vascular dementia ALEJANDRA (acute kidney injury) Altered mental status Pulmonary embolism Counseling regarding advance directives and goals of care Unintentional weight loss Jaundice Delirium Pulmonary edema Other seborrheic keratosis (11/23/11) Other atopic dermatitis (11/23/11) Obesity, unspecified (11/23/11) 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 Daughter No problems noted. Daughter No problems noted. Social History Smoking/Tobacco Use Status: Former Tobacco Use Smoking risk assessment performed?: Yes Alcohol Intake: former Drug use: Never Substance use type: does not use Details: drinks NA beer Caregiver/Support person: Yes (daughter Janeth and her Bryn live near by) Household members: none Housing: other Number of Children: 2 number of grandchildren: 3 Communication Needs: Hard of Hearing and Corrective Lenses Education Level: high school Do you need help understanding health information?: Often current occupation: [employer] Pets and animals: No Current gender identity: male What is your relationship status?: How often do you talk on the phone with friends or family?: three or more times per week How often do you get together with friends or relatives?: three or more times per week Panel score (0-1 are the most socially isolated patients): 1 What type of physical activity do you participate in: walking and regular exercise Duration: 45-60 minutes/day Frequency: 3-4 times per week Special rita needs: No Agree to transfusion: Yes Seatbelt use: always Drive intox or ride w/intox lifter/driver: No Working smoke detector in home: Yes Fire extinguisher in home: Yes Carbon monox detector in home: Yes Do you feel safe at home: Yes Do you feel safe in your relationship?: Yes Additional Social history: Passed the 2 year anniversary of his Jessica's (10/14/19). Has done better than expected. He does go for a 2+ mile walk 3-4 days per week. Likes walking on bike path; he grew up in [facility] and path passes through his old neighborhood. Sees his daughter Janeth regularly. Carol does his bills for him. He appreciates the help. Is watching his weight. Would like to weigh about 200. Feels better weighing less. Used to be obese. Attends meal site in [place] 2 x per week. Wants to socialize. Exam Narrative Exam Narrative: 1.Const: Well-nourished, Well-developed, appearing stated age 2.Eyes: PERRL, no conjunctival injection, and symmetrical lids. 3.ENT: Atraumatic external nose and ears. Moist MM. Neck: Symmetric, trachea midline, No thyromegaly. There is no evidence of raccoon eyes, daly sign, CSF rhinorrhea, mastoid tenderness, cranial crepitus, hemotympanum, exophthalmos, or hyphema. Patient demonstrates intact dentition with no signs of tooth avulsion or fracture, no signs of jaw deformity, no evidence of a LeFort's fracture, with an intact palate, nose and orbital region. There is no evidence of a nasal septal hematoma. No proptosis. Jaw closes symmetrically. Airway is clear. Small abrasion noted on the top of the scalp 4.CVS: +S1/S2, No murmurs or gallops. Peripheral pulses 2+ and equal in all extremities. Brisk capillary refill in all extremities. 5.RESP: Unlabored respiratory effort. Clear to auscultation bilaterally. No wheezes rales or rhonchi 6.GI: Soft, Nontender/Nondistended, No hepatosplenomegaly. No guarding or rebound. 7.MSK: Normocephalic/Atraumatic, Extremities w/o deformity or ttp No cyanosis or clubbing, Normal movement of all extremities. No cervical thoracic or lumbar spine tenderness. 8.Skin: Warm, Dry. No rashes or lesions. Small abrasion noted on the top of the scalp. 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 Sensation grossly intact, no focal neurologic deficits. 10.Psych: (AAO) x3. Appropriate mood and affect
--- NOTE | 2023-07-29 02:52 | DI.RAD_ITS ---
Exam(s) XR CHEST 1V IN DI DEPT EXAM: XR CHEST 1V IN DI DEPT CLINICAL HISTORY: fall, r/o trauma TECHNIQUE: 2D digital imaging was performed of the chest. One image was obtained. An AP view was ob tained. COMPARISON: CR XR CHEST 2V PA LATERAL from 04/23/2023 FINDINGS: There is poor inspiration. MEDIASTINUM: Normal. HEART: Normal. PULMONARY VASCULATURE: Normal. LUNGS: Clear. PLEURAL SPACE: No pleural effusion or pneumothorax. BONE:Within normal limits for the patient's age. OTHER FINDINGS:Normal. IMPRESSION: Allowing for the low lung volumes and the AP lordotic views, no acute pulmonary process is seen. DATA REPOSITORY: RADIATION DOSE DELIVERED:
--- NOTE | 2023-07-29 03:31 | DI.VRAD_ITS ---
PROCEDURE INFORMATION: Exam: CT Head Without Contrast Exam date and time: 07/29/2023 3:04 AM Age: 88 years old Clinical indication: Injury or trauma; Blunt trauma (contusions or hematomas); Injury details: Fall, hit posterior head; Additional info: Fall, hit posterior head, R/O bleed TECHNIQUE: Imaging protocol: Computed tomography of the head without contrast. COMPARISON: CT HEAD CERVICAL SPINE WO 02/03/2023 11:22 AM FINDINGS: Brain: Volume loss and chronic small vessel ischemic change. No brain edema. No intracranial hemorrhage. Cerebral ventricles: No ventriculomegaly. Paranasal sinuses: Incidental sinus mucosal thickening present. No fluid levels to indicate sinusitis. Mastoid air cells: Unremarkable. Bones/joints: Unremarkable. No acute fracture. Soft tissues: Unremarkable. IMPRESSION: No acute brain findings. Dictated and Authenticated by: Luis Leo MD. Ordering:MICHEL Montoya MD
--- NOTE | 2023-07-29 03:34 | DI.VRAD_ITS ---
PROCEDURE INFORMATION: Exam: XR Chest Exam date and time: 07/29/2023 3:12 AM Age: 88 years old Clinical indication: Injury or trauma; Blunt trauma (contusions or hematomas); Injury date: 07/29/23; Injury details: Fall, R/O trauma TECHNIQUE: Imaging protocol: Radiologic exam of the chest. Views: 1 view. COMPARISON: CR XR CHEST 2V PA LATERAL 04/23/2023 12:27 PM FINDINGS: Lungs: Allowing for low lung volumes and apical lordotic projection, the lungs are clear. Pleural spaces: Unremarkable. No pleural effusion. No pneumothorax. Heart/Mediastinum: Unremarkable. No cardiomegaly. Bones/joints: Unremarkable. IMPRESSION: Allowing for low lung volumes and apical lordotic projection, the lungs are clear. Dictated and Authenticated by: Luis Leo MD. Ordering:MICHEL Montoya MD
== END 2023-07-29 04:09 | disposition home or self-care (01) ==
LOC: ER 04:20
PROVIDERS: Emergency Provider Student in an Organized Health Care Education/Training Program; PCP Nurse Practitioner Family
DX: S00.01XA Abrasion of scalp, initial encounter (principal); I11.0 Hypertensive heart disease with heart failure; I50.32 Chronic diastolic (congestive) heart failure; E11.3292 Type 2 diabetes mellitus with mild nonproliferative diabetic retinopathy without macular edema, left eye; J84.10 Pulmonary fibrosis, unspecified; R53.1 Weakness; W01.0XXA Fall on same level from slipping, tripping and stumbling without subsequent striking against object, initial encounter; Y93.01 Activity, walking, marching and hiking; Y92.091 Bathroom in other non-institutional residence as the place of occurrence of the external cause; Y99.9 Unspecified external cause status
CPT/HCPCS: 99284; 70450; 71045